=== PATIENT | female | born 1945 | race African-American/Black ===

== ENCOUNTER 2016-11-06 13:06 | Emergency (ER) | payer MEDICARE, OTHER ==
[~2016-11-06] VITALS: Ht 165.1 cm; Wt 102.3 kg
[~2016-11-06 13:06] MED LIST: 1-ME1LIQ PO; ASPI81TA82 PO; FURO20TA PO; GLUC10TA3 PO; GLUCTAB PO; HYDR10SO PO; MULT-65 PO; PRIL40CA PO; RIVA10 PO; Z.0.CPM; Z.0.WALKERFRONT
[2016-11-06 13:10] VITALS: BP 181/81; PULSE 98; RESP 18; TEMP 97.7; O2SAT 96
[2016-11-06 13:30] VITALS: BP 178/81; PULSE 89; RESP 16; O2SAT 99
[2016-11-06] MEDS ORDERED: HYDR-3516 PO (13:39)
[2016-11-06] MEDS ORDERED: OMEP40CA2 PO (13:39)
[2016-11-06] MEDS ORDERED: METF500T PO (13:39)
[2016-11-06] MEDS ORDERED: AMLO10TA2 PO (13:39)
[2016-11-06] MEDS ORDERED: FURO1TAB62 PO (13:39)
[2016-11-06] MEDS ORDERED: ASPI-110 PO (13:39)
[2016-11-06] MEDS ORDERED: EFFE10TA (13:39)
[2016-11-06] MEDS ORDERED: NAPR250T57 PO (13:47)
[2016-11-06] MEDS ORDERED: HYDR-3533 PO (13:47)
--- NOTE | 2016-11-06 13:47 | PD ---
HPI Chief Complaint: Fall Time Seen by Provider: 13:29 Travel History International Travel<30 days: No Contact w/Intl Traveler<30days: No Traveled to known affect area: No History of Present Illness HPI 70 year-old woman presents after a fall 3 days ago, left flank pain that kept her up at night. No other recent falls. She states she's been stable and she' s been walking. She is not quite sure what made her fall. Did bump her head. No LOC. No syncope. Otherwise been doing well. No headache. PFSH Past Medical History Arthritis: Yes Asthma: No Autoimmune Disease: No Anxiety: No Depression: No Heart Rhythm Problems: No Cancer: No Cardiovascular Problems: Yes High Cholesterol: No Chemotherapy: No Chest Pain: No Congestive Heart Failure: No COPD: No Cerebrovascular Accident: No Diabetes: Yes (TYPE 2 ) Patient Takes Glucophage: Yes (11/06/16) Diminished Hearing: No Endocrine: Yes Gastrointestinal Disorders: Yes GERD: Yes Genitourinary: No Hepatitis: No Hiatal Hernia: No Hypertension: Yes Immune Disorder: No Implanted Vascular Access Dvce: Yes Kidney Stones: No Musculoskeletal: Yes Neurologic: No Psychiatric: No Reproductive: No Respiratory: No Migraines: No Radiation Therapy: No Renal Failure: No Seizures: No Sickle Cell Disease: No Sleep Apnea: No Thyroid Disease: No Ulcer: Yes Tetanus Vaccination: < 5 Years Influenza Vaccination: Yes Past Surgical History Abdominal Surgery: No AICD: No Arteriovenous Shunt: No Body Medical Devices: LEFT TOTAL KNEE (THIS ADMISSION) Cardiac Surgery: No Ear Surgery: No Endocrine Surgery: No Eye Surgery: No Genitourinary Surgery: No Gynecologic Surgery: No Insulin Pump: No Joint Replacement: No Oral Surgery: No Pacemaker: No Thoracic Surgery: No Other Surgery: Yes Social History Alcohol Use: No Tobacco Use: No Substance Use: No Allergies-Medications (Allergen,Severity, Reaction): Coded Allergies: No Known Allergies (Verified , 07/16/16) Reported Meds & Prescriptions Reported Meds & Active Scripts Active Reported Effer-K (Potassium Bicarbonate-Citric Acid) 10 Meq Tab Lasix (Furosemide) 20 Mg Tab 20 Mg PO DAILY Aspirin 81 (Aspirin) 81 Mg Tabdr 81 Mg PO DAILY Hydrocodone-Acetaminophen 5-325 mg Tab 1 Tab PO Q6H PRN Omeprazole 40 Mg Cap 40 Mg PO DAILY Amlodipine (Amlodipine Besylate) 10 Mg Tab 10 Mg PO DAILY Metformin (Metformin HCl) 500 Mg Tab 500 Mg PO BIDPC With meals Review of Systems Except as stated in HPI: all other systems reviewed are Neg Physical Exam Narrative GENERAL: Well-appearing 70 year-old woman, no acute distress. SKIN: Warm and dry. HEAD: Normocephalic. No evidence of trauma. EYES: Pupils equal and round. No scleral icterus. No injection or drainage. ENT: No nasal bleeding or discharge. Mucous membranes pink and moist. NECK: Trachea midline. No midline tenderness. Full painless range of motion. CARDIOVASCULAR: Regular rate and rhythm. No murmur appreciated. RESPIRATORY: No accessory muscle use. Clear to auscultation. Breath sounds equal bilaterally. CHEST: Pain and tenderness with palpation of the left side of the chest. No obvious bruising. No point tenderness. GASTROINTESTINAL: Abdomen soft, non-tender, nondistended. Hepatic and splenic margins not palpable. MUSCULOSKELETAL: No obvious deformities. No edema. NEUROLOGICAL: Awake and alert. No obvious cranial nerve deficits. Motor grossly within normal limits. Normal speech. Data Data Last Documented VS Vital Signs Date Time Temp Pulse Resp B/P Pulse Ox O2 Delivery O2 Flow Rate FiO2 11/06/16 13:30 89 16 178/81 99 Room Air 11/06/16 13:10 97.7 Orders Ribs, Uni (W/Exp Cxr-Min 3vw) (11/06/16 ) MDM Medical Decision Making Medical Screen Exam Complete: Yes Emergency Medical Condition: Yes Differential Diagnosis Chest wall pain, contusion, fracture, pneumothorax, other Narrative Course Medical decision making Elderly 70 year-old woman presents with her fall, left-sided chest pain, likely rib contusion or fracture. We'll check x-ray, likely supportive treatment. Diagnosis Primary Impression: Rib pain on left side Additional Instructions: Take Naprosyn as needed for pain. Take Lortab sparingly as needed for severe pain, use caution as it can cause constipation and unsteadiness in increased risk of falls. Follow-up with her primary doctor in the next 2-4 days. Return to the emergency department worsening chest pain, trouble breathing, or any other new or worsening symptoms. Med/Other Pt SpecificInfo: Prescription(s) given Scripts Naproxen (Naprosyn)250 Mg [id number] Mg PO BID #14 TAB Prov:Sherman Chavis MD 11/06/16 Hydrocodone-Acetaminophen (Lortab)5-325 Mg Tab1-2 Tab PO Q6H PRN (PAIN) #12 TAB Prov:Sherman Chavis MD 11/06/16 Disposition: 01 DISCHARGE HOME Condition: Stable Sherman Chavis MD Nov 06, 2016 13:47
--- NOTE | 2016-11-06 15:46 | RADRPT ---
EXAM DATE/TIME: 11/06/2016 14:01 [facility] COMPARISON: No previous studies available for comparison. INDICATIONS : Generalized Pain, Left Ribs, after fall. MEDICAL HISTORY : None. SURGICAL HISTORY : Fusion, lumbar. left knee replacement ENCOUNTER: Initial ACUITY: 3 days PAIN SCORE: 8/10 LOCATION: Left Ribs. FINDINGS: Multiple views of the left ribs were performed. There is no evidence of displaced fracture. No dest ructive lesions or areas of periosteal thickening are seen. Expiratory view of the chest is negative for pneumothorax. The mediastinal structures are midline. CONCLUSION: Unremarakble examination of the left ribs and chest. Chito Key MD on November 06, 2016 at 15:43 Board Certified Radiologist. This report was verified electronically.
== END 2016-11-06 14:59 | disposition home or self-care (01) ==
LOC: NEPC 13:06
DX: R07.81 Pleurodynia (principal); E11.9 Type 2 diabetes mellitus without complications; I10 Essential (primary) hypertension; W19.XXXA Unspecified fall, initial encounter
CPT/HCPCS: 71101; 99284

== ENCOUNTER → 2017-09-27 | Outpatient (CLI) | payer MEDICARE, OTHER ==
[~2017-09-27] MED LIST changes: -1-ME1LIQ PO; +AMLO10TA2 PO; +ASPI1TAB57 PO; -ASPI81TA82 PO; +EFFE10TA; +FURO1TAB62 PO; -FURO20TA PO; -GLUC10TA3 PO; -GLUCTAB PO; +HYDR-3516 PO; +HYDR-3533 PO; -HYDR10SO PO; +METF500T PO; -MULT-65 PO; +NAPR250T57 PO; +OMEP40CA2 PO; -PRIL40CA PO; -RIVA10 PO; -Z.0.CPM; -Z.0.WALKERFRONT
--- NOTE | 2017-09-27 15:46 | EKG ---
Date Performed: 09/27/2017 Time Performed: 15:09:30 PTAGE: 72 years EKG: Sinus rhythm NONSPECIFIC T-WAVE ABNORMALITY BORDERLINE ECG No significant change from prior electrocardiogram. PREVIOUS TRACING : 08/02/2016 19.27 DOCTOR: Bryce Valencia Interpretating Date/Time 09/27/2017 15:45:54
== END ==
LOC: CLAB 14:28
PROVIDERS: ATTEND Orthopaedic Surgery Orthopaedic Surgery of the Spine
DX: Z01.810 Encounter for preprocedural cardiovascular examination (principal)
CPT/HCPCS: 93005

== ENCOUNTER 2017-11-14 12:24 | Inpatient (IN) | payer MEDICARE, OTHER ==
[~2017-11-14] VITALS: Ht 165.1 cm; Wt 111.0 kg
[~2017-11-14 12:24] MED LIST changes: +DEXAMETHASONE SOD PHOS 4 MG/ML VIAL IV ONE; +GLYCOPYRROLATE 1 MG/5 ML SYRINGE IV PUSH ONE; -HYDR-3516 PO; -HYDR-3533 PO; +LIDOCAINE HCL 1% PF 5 ML SYRINGE OTHER ONE; -NAPR250T57 PO; +NEOSTIGMINE 5 MG/5 ML SYRINGE IV PUSH ONE; +ONDANSETRON HCL 4 MG/2 ML VIAL IV PUSH ONE; +PROPOFOL 200 MG/20 ML AMP IV ONE; +ROCURONIUM INJ 50 MG/5 ML SYRINGE IV PUSH ONE; +ePHEDrine/NS 25 MG/5 ML SYRINGE IV ONE
[2017-11-14] MEDS ORDERED: POVIDONE IODINE 5% (ANTISEPSIS KIT) 4 APPLICATIONS EACH NARE PRN (13:00)
[2017-11-14] MEDS ORDERED: LACTATED RINGER'S 1000 ML IV PRN (13:00)
[2017-11-14] MEDS ORDERED: CHLORHEXIDINE GLUCONATE 2 % 1 PACK (2 CLOTHS) TOPICAL PRN (13:00)
[2017-11-14] MEDS ORDERED: METOPROLOL TARTRATE 25 MG TAB PO PRN (13:00)
[2017-11-14] MEDS ORDERED: SODIUM CHLORID 0.9% 500 ML IV PRN (13:00)
[2017-11-14] MEDS ORDERED: INSULIN HUMAN REGULAR 1,000 UNITS/10 ML VIAL SQ PRN (13:00)
[2017-11-14] MEDS ORDERED: ceFAZolin 2 GM PREMIX 50 ML IV SCH (13:15)
[2017-11-14] MEDS ORDERED: CHLORHEXIDINE GLUCONATE 4% SOLN 120 ML BTL TOPICAL SCH (13:15)
[2017-11-14] MEDS ORDERED: ROPIVACAINE PERI-ARTICULAR INJECTION. P-ARTICULR SCH ×5 (14:00)
[2017-11-14] MEDS ORDERED: ACETAMINOPHEN 1000 MG/100 ML 100 ML IV ONE (14:03)
[2017-11-14] MEDS ORDERED: GENTAMICIN SULFATE 80 MG/2 ML VIAL ONE (14:07)
[2017-11-14] MEDS ORDERED: DEXAMETHASONE SOD PHOS PF 10 MG/ML VIAL ONE (15:14)
[2017-11-14] MEDS ORDERED: BUPIVACAINE HCL PF 0.5% 30 ML VIAL ONE ×2 (15:14→16:14)
[2017-11-14] MEDS: VANCOMYCIN 1000 MG/NS 250 ML (for <70 kg) IV SCH ×4 (17:05→17:06)
[2017-11-14] MEDS ORDERED: ALUMINUM/MAGNESIUM/SIMETH 30 ML CUP PO PRN (18:30)
[2017-11-14] MEDS ORDERED: ZOLPIDEM TARTRATE 5 MG TAB PO PRN (18:30)
[2017-11-14] MEDS ORDERED: MORPHINE SULFATE 4 MG/ML INJ IM PRN (18:30)
[2017-11-14] MEDS ORDERED: ONDANSETRON HCL 4 MG/2 ML VIAL IVP PRN (18:30)
--- NOTE | 2017-11-14 18:34 | HHI.PR ---
Immediate Post Op Note Procedure Date: Nov 14, 2017 Pre Op Diagnosis: L Malfunctioning TKR Post Op Diagnosis: Same Surgeon: Scott Martin MD Delivery Analyst(s): Alma Cantu PA-C Procedure: L Revisional TKR Complications: None Specimen(s) removed: None Estimated blood loss: 25 cc Anesthesia: General, Regional Block, Local Drains: Hemovac Tourniquet time (min at mmHg) 60 mins @ 300 mm Hg Patient to: PACU Patient Condition: Good Implant/Devices: SEE IMPLANT LOG (if applicable) Date/Time of Procedure: SEE SURGICAL CARE RECORD Scott Martin MD Nov 14, 2017 18:34
[2017-11-14] MEDS ORDERED: DO NOT ADM ANY ANTICOAGULANT DRUGS PRN (18:37)
--- NOTE | 2017-11-14 18:43 | HHI.FF ---
Face to Face Verification Diagnosis: (1) Painful total knee replacement, left Physical Therapy Gait training, Transfer training, bed to chair Knee: Total knee, Protocol: Left, Full weight bearing Right LE Weight Bearing: WB as tolerated Left LE Weight Bearing: WB as tolerated Additional Instructions Aspirin 81 mg BID x 4 weeks DVT prop Nursing RN Days per Week: 3 x Week(s): 4 Nursing: Dressing changes (clean incison with alcohol and apply dry sterile dressing ) I have seen patient Porsha Miner on 11/14/17. My clinical findings support the need for the requested home health care services because: Deconditioned w/ increased weakness I certify that my clinical findings support that this patient is homebound because: Post-op weakness Scott Martin MD Nov 14, 2017 18:42
[2017-11-14] MEDS ORDERED: WALKER WHEELS/F1 MIS (18:45)
[2017-11-14] MEDS ORDERED: CPMMACHINE (18:45)
[2017-11-14] MEDS ORDERED: Post-op Orders (for Pharmacy) XX ONE (19:00)
[2017-11-14] MEDS ORDERED: *morphine SULFATE 10 MG/ML PERIprocedure ONLY ONE (19:03)
[2017-11-14] MEDS: LACTATED RINGER'S 1000 ML INJ 1,000 ML IV SCH (19:11)
--- NOTE | 2017-11-14 19:21 | RADRPT ---
EXAM DATE/TIME: 11/14/2017 18:49 [facility] COMPARISON: KNEE LEFT LTD (1 OR 2VWS), July 30, 2016, 10:44. INDICATIONS : Post op left knee. MEDICAL HISTORY : None. SURGICAL HISTORY : None. ENCOUNTER: Initial ACUITY: 1 day PAIN SCORE: 10/10 LOCATION: Left knee. FINDINGS: 2 views of the knee show a total knee prosthesis in good position. No fracture or dislocation is obse rved. Soft tissue swelling is noted. The surgical drain noted. CONCLUSION: Total knee arthroplasty in good position. Vikram Ramos Jr., MD on November 14, 2017 at 19:18 Board Certified Radiologist. This report was verified electronically.
[2017-11-14 20:00] VITALS: BP 162/64; PULSE 73; RESP 15; TEMP 96.2; O2SAT 95
[2017-11-14] MEDS ORDERED: ASPIRIN EC 81 MG TABEC PO ONE (20:00)
[2017-11-14] MEDS: ACETAMINOPHEN/HYDROcodone 325 MG/10 MG TAB PO PRN (21:42)
[2017-11-15] VITALS (8 sets, daily range): BP systolic 120–138; BP diastolic 56–64; PULSE 61–74; RESP 16–20; TEMP 96.2–98.1; O2SAT 96–100
[2017-11-15] MEDS: ACETAMINOPHEN/HYDROcodone 325 MG/10 MG TAB PO PRN ×5 (01:56→23:30)
--- NOTE | 2017-11-15 02:48 | PD.CONS ---
HPI [facility] Consult Requested By Mario Reason for Consult Medical management Primary Care Physician Danial Bhardwaj, Diagnoses: History of Present Illness 72 y/o female with a history of HTN, DM, Gerd, diverticulitis and OA underwent a revisional Left TKR, [facility] was consulted for medical management of chronic conditions. Review of Systems Except as stated in HPI: all other systems reviewed are Neg Past Family Social History Allergies: Coded Allergies: No Known Allergies (Verified Allergy, Mild, 11/14/17) Past Medical History DM II HTN Diverticulosis Gastric nodule Hiatal ulcer Allergic rhinitis Lumbar disc disease OA EGD with dilatation Past Surgical History Lumbar fusion Left total knee Reported Medications Reported Meds & Active Scripts Active Reported Effer-K (Potassium Bicarbonate-Citric Acid) 10 Meq Tab Lasix (Furosemide) 20 Mg Tab 20 Mg PO DAILY Aspirin 81 (Aspirin) 81 Mg Tabdr 81 Mg PO DAILY Omeprazole 40 Mg Cap 40 Mg PO DAILY Amlodipine (Amlodipine Besylate) 10 Mg Tab 10 Mg PO DAILY Metformin (Metformin HCl) 500 Mg Tab 500 Mg PO BIDPC With meals Active Ordered Medications Current Medications Medications (Trade) Dose Ordered Sig/Levi Route Start Time Stop Time Status Last Admin Lactated Ringer's 1,000 ml @ 30 mls/hr Q24H PRN IV 11/14/17 13:00 11/17/17 12:59 11/14/17 13:00 Sodium Chloride 500 ml @ 30 mls/hr [id number] PRN IV 11/14/17 13:00 11/17/17 12:59 (Lopressor) 25 mg BANK CLERK PRN PO 11/14/17 13:00 11/17/17 12:59 (Betadine 5% Antisepsis Kit) 1 applic BANK CLERK PRN EACH NARE 11/14/17 13:00 11/17/17 12:59 11/14/17 13:25 (Chlorhexidine 2% Cloth) 3 pack BANK CLERK PRN TOPICAL 11/14/17 13:00 11/17/17 12:59 11/14/17 12:45 (NovoLIN R INJ) See Protocol Table ... BANK CLERK PRN SQ 11/14/17 13:00 11/17/17 12:59 (Hibiclens 4% Top Soln) 1 applic ONCE TOPICAL 11/14/17 13:15 11/17/17 13:14 11/14/17 13:25 Cefazolin Sodium/ Dextrose 50 ml @ 100 mls/hr BANK CLERK IV 11/14/17 13:15 11/17/17 13:14 11/14/17 17:04 Vancomycin HCl 1000 mg/Sodium Chloride 250 ml @ 250 mls/hr BANK CLERK IV 11/14/17 13:15 11/17/17 13:14 11/14/17 17:06 (Norvasc) 10 mg DAILY PO 11/15/17 09:00 (Lasix) 20 mg DAILY PO 11/15/17 09:00 (Glucophage) 500 mg BIDPC PO 11/15/17 09:00 (Protonix) 40 mg DAILY PO 11/15/17 09:00 Lactated Ringer's 1,000 ml @ 80 mls/hr [id number] IV 11/14/17 18:30 11/14/17 19:11 Cefazolin Sodium 1000 mg/Sodium Chloride 100 ml @ 200 mls/hr Q6H IV 11/14/17 23:00 11/15/17 11:29 11/14/17 22:24 ([place] 10-325 Mg) 1 tab Q4H PRN PO 11/14/17 18:30 11/15/17 01:56 ([place] 10-325 Mg) 2 tab Q6H PRN PO 11/14/17 18:30 (Zofran Inj) 4 mg Q6H PRN IVP 11/14/17 18:30 (Mag-Al Plus Susp Liq) 30 ml Q6H PRN PO 11/14/17 18:30 (Ambien) 5 mg HS PRN PO 11/14/17 18:30 (Ecotrin Ec) 81 mg Q12H PO 11/15/17 07:00 Miscellaneous Information ALL NURSING DEPARTME... UNSCH PRN .XX 11/14/17 18:37 11/15/17 18:36 (Flu (Quadrivalent) Vaccine Inj) 0.5 ml ONCE ONCE IM 11/15/17 09:00 11/15/17 09:01 Family History Family history significant for cancer Social History Patient denies any tobacco, alcohol, or illicit drug use. Physical Exam Vital Signs Vital Signs Date Time Temp Pulse Resp B/P (MAP) Pulse Ox O2 Delivery O2 Flow Rate FiO2 11/14/17 19:28 98.0 65 14 152/67 (95) 100 Nasal Cannula 2 11/14/17 19:15 63 14 148/56 (86) 100 Nasal Cannula 2 11/14/17 19:00 67 14 164/72 (102) 100 Nasal Cannula 2 11/14/17 18:45 73 13 165/74 (104) 100 Nasal Cannula 2 11/14/17 18:37 98.0 77 20 158/67 (97) 100 Nasal Cannula 2 11/14/17 12:59 97.5 72 18 149/64 (92) 99 Physical Exam GENERAL: This is a well-nourished, well-developed patient, in no apparent distress. SKIN: No rashes, ecchymoses or lesions. Cool and dry. CKS in place HEAD: Atraumatic. Normocephalic. EYES: Pupils equal round and reactive. ENT: Nose without bleeding, purulent drainage or septal hematoma. Airway patent. NECK: Trachea midline. No JVD or lymphadenopathy. Supple, nontender, no meningeal signs. CARDIOVASCULAR: Regular rate and rhythm without murmurs, gallops, or rubs. RESPIRATORY: Clear to auscultation. Breath sounds equal bilaterally. No wheezes , rales, or rhonchi. GASTROINTESTINAL: Abdomen soft, non-tender, nondistended. MUSCULOSKELETAL: Extremities without clubbing, cyanosis, or edema. Left knee joint tenderness. No calf tenderness. Negative Homans sign bilaterally. NEUROLOGICAL: Awake and alert. Motor and sensory grossly within normal limits. Normal speech. Imaging Last Impressions Knee X-Ray 11/14/17 1830 Signed Impressions: Service Date/Time: Tuesday, November 14, 2017 18:49 - CONCLUSION: Total knee arthroplasty in good position. Vikram Ramos Jr., MD Assessment and Plan Problem List: (1) Osteoarthritis of left knee ICD Code: M17.9 - Osteoarthritis of knee, unspecified Status: Acute (2) Status post left knee replacement ICD Code: Z96.652 - Presence of left artificial knee joint Status: Acute (3) Diabetes ICD Code: E11.9 - Type 2 diabetes mellitus without complications Status: Chronic (4) Hypertension ICD Code: I10 - Essential (primary) hypertension Status: Chronic Assessment and Plan 72 y/o female with a history of HTN, DM, Gerd, diverticulitis and OA underwent a revisional Left TKR, [facility] was consulted for medical management of chronic conditions. Osteoarthritis of left knee, s/p left knee replacement -Managed by ortho, cont CKS -Pain management with [facility] PO -PT eval and treat HTN, chronic, mildly elevated due to pain -Cont home medications Norvasc -Monitor vitals DM, chronic -Cont home medications -Diabetic diet -BMP in AM DVT prophylaxis: SCDs Discussed Condition With Patient and RN Problem Qualifiers (1) Diabetes: Qualified Codes: E11.9 - Type 2 diabetes mellitus without complications (2) Hypertension: Qualified Codes: I10 - Essential (primary) hypertension Selma Hollins Nov 15, 2017 02:48
[2017-11-15] MEDS: ASPIRIN EC 81 MG TABEC PO SCH ×2 (06:28→17:26)
[2017-11-15] MEDS: LACTATED RINGER'S 1000 ML INJ 1,000 ML IV SCH ×2 (07:00→19:30)
--- NOTE | 2017-11-15 07:08 | PD.ORT.PN ---
Subjective Subjective Remarks POD#1 L Rev TKR No SOB;no chest pain C/O post op pain Objective Vitals Vital Signs Date Time Temp Pulse Resp B/P (MAP) Pulse Ox O2 Delivery O2 Flow Rate FiO2 11/15/17 00:00 96.2 74 16 123/61 (81) 99 11/14/17 20:00 96.2 73 15 162/64 (96) 95 11/14/17 19:28 98.0 65 14 152/67 (95) 100 Nasal Cannula 2 11/14/17 19:15 63 14 148/56 (86) 100 Nasal Cannula 2 11/14/17 19:00 67 14 164/72 (102) 100 Nasal Cannula 2 11/14/17 18:45 73 13 165/74 (104) 100 Nasal Cannula 2 11/14/17 18:37 98.0 77 20 158/67 (97) 100 Nasal Cannula 2 11/14/17 12:59 97.5 72 18 149/64 (92) 99 I/O 11/14/17 11/14/17 11/14/17 11/15/17 11/15/17 11/15/17 07:00 15:00 23:00 07:00 15:00 23:00 Intake Total 830 ml Output Total 25 ml 80 ml Balance 805 ml -80 ml Intake IV Total 130 ml Other 700 ml Output Drainage Total 80 ml Estimated Blood Loss 25 ml Imaging Last 24 hours Impressions Knee X-Ray 11/14/17 1830 Signed Impressions: Service Date/Time: Tuesday, November 14, 2017 18:49 - CONCLUSION: Total knee arthroplasty in good position. Vikram Ramos Jr., MD Objective Remarks N/V intact Dressings dry Neg dione's;no calf tenderness Assessment & Plan Assessment and Plan Ortho stable PT,Rehab EC Aspirin 81 mg BIDx4 weeks,TEDS,Sequentials for DVT prophylaxsis Prob D/C home tomorrow Scott Martin MD Nov 15, 2017 07:08
[2017-11-15 07:36] LABS: HEMATOCRIT 29.9 % (35.0-46.0)
[2017-11-15 07:56] LABS: BICARBONATE 26.6 MEQ/L (21.0-32.0); CALCIUM 8.2 MG/DL (8.5-10.1)
[2017-11-15] MEDS ORDERED: INFLUENZA VIRUS VACCINE (QUADRIVALENT) 0.5 ML SYR IM ONE (09:00)
[2017-11-15] MEDS ORDERED: NON-FORMULARY DRUG (Omeprazole 40 MG) PO SCH (09:00)
[2017-11-15] MEDS: FUROSEMIDE 20 MG TAB PO SCH (10:59)
[2017-11-15] MEDS: PANTOPRAZOLE SOD 40 MG DELAYED RELEASE TAB PO SCH (10:59)
[2017-11-15] MEDS: metFORMIN HCL 500 MG TAB PO SCH ×2 (11:00→17:27)
--- NOTE | 2017-11-15 11:58 | HHI.PR ---
Subjective Remarks Blood pressures are stable now. Blood sugars are stable. Patient is doing well postop. Plan for discharge tomorrow. Medically clear for discharge. Objective Vital Signs Date Time Temp Pulse Resp B/P (MAP) Pulse Ox O2 Delivery O2 Flow Rate FiO2 11/15/17 11:54 97.2 61 18 120/56 (77) 100 11/15/17 09:16 98 11/15/17 07:48 97.4 66 18 127/59 (81) 100 11/15/17 07:29 16 11/15/17 04:00 96.9 72 16 127/ 99 11/15/17 00:00 96.2 74 16 123/61 (81) 99 11/14/17 20:00 96.2 73 15 162/64 (96) 95 11/14/17 19:28 98.0 65 14 152/67 (95) 100 Nasal Cannula 2 11/14/17 19:15 63 14 148/56 (86) 100 Nasal Cannula 2 11/14/17 19:00 67 14 164/72 (102) 100 Nasal Cannula 2 11/14/17 18:45 73 13 165/74 (104) 100 Nasal Cannula 2 11/14/17 18:37 98.0 77 20 158/67 (97) 100 Nasal Cannula 2 11/14/17 12:59 97.5 72 18 149/64 (92) 99 I/O 11/14/17 11/14/17 11/14/17 11/15/17 11/15/17 11/15/17 07:00 15:00 23:00 07:00 15:00 23:00 Intake Total 830 ml 200 ml Output Total 25 ml 110 ml Balance 805 ml 90 ml Intake Oral 200 ml IV Total 130 ml Other 700 ml Output Drainage Total 110 ml Estimated Blood Loss 25 ml # Voids 2 Result Diagram: 11/15/17 0711 11/15/17 0711 Objective Remarks GENERAL: NAD, A&Ox3 HEAD: Normocephalic. NECK: Supple, trachea midline. No lymphadenopathy. EYES: No scleral icterus. No injection or drainage. CARDIOVASCULAR: Regular rate and rhythm without murmurs, gallops, or rubs. RESPIRATORY: Breath sounds equal bilaterally. No accessory muscle use. GASTROINTESTINAL: Abdomen soft, non-tender, nondistended. MUSCULOSKELETAL: No cyanosis, or edema. SKIN: Warm and dry. NEURO: No focal neurological deficitis. A/P Problem List: (1) Hypertension ICD Code: I10 - Essential (primary) hypertension Status: Chronic (2) Diabetes ICD Code: E11.9 - Type 2 diabetes mellitus without complications Status: Chronic (3) Osteoarthritis of left knee ICD Code: M17.9 - Osteoarthritis of knee, unspecified Status: Acute (4) Painful total knee replacement, left ICD Code: T84.84XA - Pain due to internal orthopedic prosthetic devices, implants and grafts, initial encounter; Z96.652 - Presence of left artificial knee joint Assessment and Plan 72 y/o female admitted secondary to osteoarthritis for left knee replacement Osteoarthritis of left knee s/p left knee replacement Orthopedics following Continue pain treatments Continue physical therapy Medically clear for discharge when cleared by orthopedics Follow-up with orthopedics as an outpatient Hypertension Resumed home treatments DM Continue home treatments DVT prophylaxis SCDs Problem Qualifiers (1) Hypertension: Qualified Codes: I10 - Essential (primary) hypertension (2) Diabetes: Qualified Codes: E11.9 - Type 2 diabetes mellitus without complications (3) Painful total knee replacement, left: Qualified Codes: T84.84XD - Pain due to internal orthopedic prosthetic devices , implants and grafts, subsequent encounter; Z96.652 - Presence of left artificial knee joint Chele Rios MD Nov 15, 2017 11:58
[2017-11-15] MEDS ORDERED: HYDR-3583 PO (11:59)
[2017-11-15] MEDS ORDERED: DOCU100C15 PO (11:59)
[2017-11-15 13:14] LABS: AUTOMATED NEUTROPHIL # 7.4 TH/MM3 (1.8-7.7); BASOPHIL # 0.1 TH/MM3 (0-0.2); BASOPHIL % 1.3 % (0.0-2.0); EOSINOPHIL % 0.1 % (0.0-4.0); HEMATOCRIT 29.9 % (35.0-46.0); LYMPHOCYTE # 1.9 TH/MM3 (1.0-4.8); MEAN CELL VOLUME 92.2 FL (80.0-100.0); MEAN CORPUSCULAR HEMOGLOBIN 29.7 PG (27.0-34.0); MEAN CORPUSCULAR HGB CONC 32.2 % (32.0-36.0); MEAN PLATELET VOLUME 8.9 FL (7.0-11.0); MONO % 6.2 % (0.0-8.0); MONOCYTE # 0.6 TH/MM3 (0-0.9); NEUT % 73.4 % (16.0-70.0); PLATELET COUNT 230 TH/MM3 (150-450); RED BLOOD COUNT 3.31 MIL/MM3 (4.00-5.30); RED CELL DISTRIBUTION WIDTH 14.7 % (11.6-17.2); WHITE BLOOD COUNT 10.1 TH/MM3 (4.0-11.0)
--- NOTE | 2017-11-15 14:29 | MP ---
cc: MORENO LOVING D.O., ALBERT W. M.D. DATE OF SURGERY 11/14/2017 PREOPERATIVE DIAGNOSIS 1. Left malfunctioning total knee arthroplasty. 2. Status post left total knee arthroplasty by Dr. Jimenez on July 30, 2015. 3. Morbid obesity. POSTOPERATIVE DIAGNOSIS 1. Left malfunctioning total knee arthroplasty. 2. Status post left total knee arthroplasty by Dr. Jimenez on July 30, 2015. 3. Morbid obesity. PROCEDURE Left total knee arthroplasty revision using cemented DePuy Sigma components. SURGEON Lucrecia Martin M.D. DRUM MAKER Alma Cantu PA-C. ANESTHESIA General, abductor canal block, intraarticular block. DRAINS Two. SPECIMEN None. ESTIMATED BLOOD LOSS 25 cc. TOURNIQUET TIME 60 minutes at 300 mmHg. CONDITION Stable. DETAILS OF PROCEDURE My magistrate assistant Alma Cantu PA-C was present for the entire surgical case. She was medically necessary for the entire case because of the complexity of the case and to facilitate the performance of the procedure. The GEOLOGY ASSOCIATE at the back table did not have the skill set for this case to manipulate the instruments, e.g., multiple different types of soft tissue retractors, trial implants and permanent implants with bone cement. The patient was brought into the operating room and had satisfactory general anesthesia by Dr. Rajeev Aldridge of the Department of Anesthesia. He also did an adductor canal regional block. The left lower extremity was prepped and draped in the usual sterile manner. The extremity was exsanguinated by elevation and tourniquet inflated to 300 mmHg. Previous scar tissue anteriorly was surgically excised. A paramedian capsulotomy was performed. Scar tissue was removed from the undersurface of the patella and then also from the femur and the tibial component. Preoperatively the patient was found to have predominantly anterior knee pain. She had what appeared to be malposition of the patella with subluxation of the patella. The depth of the patella caliper was equal to 33 mm. Dissection was carried out initially on the tibia. The polyethylene plastic was removed. The patient was found to have wear involving the posterior lip bilaterally. A new #3 DePuy Sigma tibial component, tibial insert 8 mm with maximum cupping. Soft tissue was removed. This was inserted onto the proximal tibia with excellent fit and fill. Attention was now brought to the patella. A lateral retinacular release was performed. The patient appeared to have malposition of the patella component. The patient was found to have more thickness of the bone laterally. The overall thickness from the patellar prosthesis with the bone appeared to be too much. An oscillating saw was then used to re-cut the patella which included removing the patellar prosthesis. Multiple sizers were used and the 35 patellar prosthesis was found to be the most satisfactory. The drill holes were made. One package of Palacos bone cement was used and this was used to cement in the prosthesis. With the no-thumbs technique the patient was found to have excellent balancing of the patellofemoral compartment. The knee was injected with 100 cc of local anesthesia provided by the Department of Pharmacy. The wound was irrigated with 4000 cc of sterile saline antibiotic solution. The tourniquet was deflated. All bleeders were individually coagulated. The wound itself was dry. It was closed over two Hemovac drains hooked up to an Autovac-type system. The capsule and extensor mechanism was repaired using multiple interrupted #2 Tycron suture, the subcutaneous layers using 0 Vicryl 2-0 Vicryl, and the skin approximated with multiple stainless steel skin alex. Sterile dressings were applied. The patient tolerated the procedure well and arrived in the recovery room in stable and satisfactory condition. MD MARCELINO Rowan/LAURY /6:12 PM /9:59 AM
[2017-11-16] VITALS: BP 118/58; PULSE 73; RESP 20; TEMP 97.9; O2SAT 94
[2017-11-16] MEDS ORDERED: MAGNESIUM HYDROXIDE SUSP 30 ML CUP PO PRN (01:15)
[2017-11-16] MEDS: ACETAMINOPHEN/HYDROcodone 325 MG/10 MG TAB PO PRN ×2 (06:07→12:32)
[2017-11-16] MEDS: ASPIRIN EC 81 MG TABEC PO SCH (06:08)
--- NOTE | 2017-11-16 07:43 | PD.ORT.PN ---
Subjective Subjective Remarks pt doing better, post op knee pain ambulating well with therapy Objective Vitals Vital Signs Date Time Temp Pulse Resp B/P (MAP) Pulse Ox O2 Delivery O2 Flow Rate FiO2 11/16/17 00:00 97.9 73 20 118/58 (78) 94 11/15/17 20:09 96 21 11/15/17 20:00 98.1 70 20 138/64 (88) 96 11/15/17 16:00 97.0 73 18 138/62 (87) 96 11/15/17 12:01 16 11/15/17 11:54 97.2 61 18 120/56 (77) 100 11/15/17 09:16 98 11/15/17 07:48 97.4 66 18 127/59 (81) 100 I/O 11/15/17 11/15/17 11/15/17 11/16/17 11/16/17 11/16/17 07:00 15:00 23:00 07:00 15:00 23:00 Intake Total 200 ml 720 ml 120 ml Output Total 110 ml 200 ml Balance 90 ml 720 ml -80 ml Intake Oral 200 ml 720 ml 120 ml Output Urine Total 200 ml Drainage Total 110 ml # Voids 2 2 # Bowel Movements 0 0 Result Diagram: 11/15/17 0711 11/15/17 0711 Imaging Last 24 hours Impressions Knee X-Ray 11/14/17 1830 Signed Impressions: Service Date/Time: Tuesday, November 14, 2017 18:49 - CONCLUSION: Total knee arthroplasty in good position. Vikram Ramos Jr., MD Objective Remarks left knee dressing dry and intact N/V intact Neg dione's;no calf tenderness Assessment & Plan Assessment and Plan POD # 2 s/p L rev TKA Ortho stable PT,Rehab EC Aspirin 81 mg BIDx4 weeks,TEDS,Sequentials for DVT prophylaxsis discharge home today with [facility], orthopedically stable Alma Cantu Nov 16, 2017 07:43
[2017-11-16 08:00] VITALS: BP 134/64; PULSE 72; RESP 16; TEMP 97.6; O2SAT 94
[2017-11-16] MEDS: LACTATED RINGER'S 1000 ML INJ 1,000 ML IV SCH (08:00)
[2017-11-16] MEDS: metFORMIN HCL 500 MG TAB PO SCH (10:46)
[2017-11-16] MEDS: FUROSEMIDE 20 MG TAB PO SCH (10:47)
[2017-11-16] MEDS: PANTOPRAZOLE SOD 40 MG DELAYED RELEASE TAB PO SCH (10:47)
[2017-11-16 10:53] VITALS: O2SAT 94
== END 2017-11-16 14:48 | disposition home health service (06) | DRG 467 ==
LOC: HSDI 12:24 → N06B 19:44
PROVIDERS: ADMIT Orthopaedic Surgery Orthopaedic Surgery of the Spine; ATTEND Orthopaedic Surgery Orthopaedic Surgery of the Spine
PROC: 0SRW0J9 Replacement of Left Knee Joint, Tibial Surface with Synthetic Substitute, Cemented, Open Approach (ICD-10-PCS; 2017-11-14)
PROC: 0SPW0JZ Removal of Synthetic Substitute from Left Knee Joint, Tibial Surface, Open Approach (ICD-10-PCS; 2017-11-14)
PROC: 0SUD09C Supplement Left Knee Joint with Liner, Patellar Surface, Open Approach (ICD-10-PCS; 2017-11-14)
PROC: 3E0T3BZ Introduction of Anesthetic Agent into Peripheral Nerves and Plexi, Percutaneous Approach (ICD-10-PCS; 2017-11-14)
PROC: 0SPD0JC Removal of Synthetic Substitute from Left Knee Joint, Patellar Surface, Open Approach (ICD-10-PCS; principal; 2017-11-14 16:04)
DX: T84.023A Instability of internal left knee prosthesis, initial encounter (principal); Z68.41 Body mass index [BMI] 40.0-44.9, adult; E11.9 Type 2 diabetes mellitus without complications; E66.01 Morbid (severe) obesity due to excess calories; I10 Essential (primary) hypertension; K21.9 Gastro-esophageal reflux disease without esophagitis; Y83.8 Other surgical procedures as the cause of abnormal reaction of the patient, or of later complication, without mention of misadventure at the time of the procedure; M17.12 Unilateral primary osteoarthritis, left knee; Z23 Encounter for immunization; Z79.84 Long term (current) use of oral hypoglycemic drugs
CPT/HCPCS: 36415; 73560; 80048; 82948; 85014; 85018; 85025; 86850; 86900; 86901; 86920; 90471; 90686; 94150; C1776; G0008; J0131; J0690; J0735; J1100; J1580; J1885; J2270; J2405; J2710; J2795; J3010; J3370; J7050; J7120; L1830; Q2038

== ENCOUNTER 2018-09-28 16:11 | Inpatient (IN) ==
[2018-09-28] MEDS ORDERED: MethylPREDNISolone Sod Succinate Inj 125 MG/2 ML Vial IV.PUSH ONE (16:43)
--- NOTE | 2018-09-28 16:53 | ED ---
HPI General Chief complaint: Shortness of Breath/Dyspnea Stated complaint: SOB Time Seen by Provider: 09/28/18 16:42 Source: patient Mode of arrival: ambulatory Limitations: no limitations History of Present Illness HPI narrative: 73yo F with PMH of HTN, DM presents to the ED with c/o cough and sob for a few days. Pt was initially saturating at 77% on RA in triage and was in the the 60s in the room. However, I placed her on nasal cannula and it went up to 100% on 6L, then I lowered it to 3L and she is still saturating in the 90s. Pt is tachypneic, wheezing bilaterally and hypertensive. Follows with paste up artist apprentice Dr. Ortiz but does not know why and doesnt know what heart condition she has. Used to be cig smoker. BIPAP was initially ordered but pt improved on nasal cannula so it was left at bedside in case we need it. Related Data Home Medications Medication Instructions Recorded Confirmed amlodipine 10 mg PO DAILY 09/28/18 09/28/18 carvedilol [Coreg] 3.125 mg PO BID 09/28/18 09/28/18 ergocalciferol (vitamin D2) 50,000 unit PO QWEEK 09/28/18 09/28/18 [Vitamin D2] furosemide [Lasix] 40 mg PO DAILY 09/28/18 09/28/18 losartan 100 mg PO DAILY 09/28/18 09/28/18 meloxicam [Mobic] 15 mg PO DAILY 09/28/18 09/28/18 metformin 1,000 mg PO BID 09/28/18 09/28/18 Allergies Allergy/AdvReac Type Severity Reaction Status Date / Time No Known Allergies Allergy Verified 09/28/18 17:24 Review of Systems ROS: all other systems reviewed are negative [facility] Medical History Medical History Diabetes (Acute) HBP (high blood pressure) (Acute) Surgical History Surgical History Hx of knee surgery (Acute) Social History Social History Substance History: No History of Abuse Second Hand Smoke Exposure: No Smoking Status: Former smoker Tobacco Type: Cigarettes How Often Do You Have a Drink Containing Alcohol: Never Recent Travel in [facility] within the Last 8 Weeks: No Recent Out of Country Travel within the Last 8 Weeks: No Exam Narrative Exam Narrative: GENERAL: 73yo F in moderate distress. SKIN: Focused skin assessment warm/dry. HEAD: Atraumatic. Normocephalic. EYES: Pupils equal and round. No scleral icterus. No injection or drainage. ENT: No nasal bleeding or discharge. Mucous membranes pink and moist. NECK: Trachea midline. No JVD. CARDIOVASCULAR: Regular rate and rhythm. No murmur appreciated. RESPIRATORY: + accessory muscle use. Wheezing bilaterally. GASTROINTESTINAL: Abdomen soft, non-tender, nondistended. Hepatic and splenic margins not palpable. MUSCULOSKELETAL: No obvious deformities. No clubbing. No cyanosis. +Bilateral lower extremity edema. NEUROLOGICAL: Awake and alert. No obvious cranial nerve deficits. Motor grossly within normal limits. Normal speech. PSYCHIATRIC: Appropriate mood and affect; insight and judgment normal. Course Initial Documented Vital Signs Temperature 98.5 F 09/28/18 16:24 Pulse Rate 96 H 09/28/18 16:24 Respiratory Rate 30 H 09/28/18 16:24 Blood Pressure 198/96 H 09/28/18 16:24 Pulse Oximetry 77 L 09/28/18 16:24 Last Documented Vital Signs Temperature 97.5 F L 09/29/18 04:00 Pulse Rate 73 09/29/18 04:00 Respiratory Rate 18 09/29/18 04:00 Blood Pressure 128/60 09/29/18 04:00 Pulse Oximetry 98 09/29/18 04:00 Critical Care Time Critical Care Time: Yes Total Critical Care Time: 45 Attestation: Aggregate critical care time was 45 minutes. Time to perform other separately billable procedures was not included in the critical care time. My time did not include minutes spent treating any other patients simultaneously or on activities that did not directly contribute to the patient's treatment. The services I provided to this patient were to treat and/or prevent clinically significant deterioration that could result in: respiratory distress and . I provided critical care services requiring my management, as noted below: Chart data review, documentation time, medication orders and management, vital sign assessments/reviewing monitor data, ordering and reviewing lab tests, ordering and interpreting/reviewing x-rays and diagnostic studies, care of the patient and discussion of the patient with the admitting physicians. Medical Decision Making MDM Narrative Medical decision making narrative: 73yo F with sob and cough for a few days. Pt initially hypoxic on room air and placed on nasal cannula. Pt's fingers were cold but initial pulse oximetry on room air was in the 70s. Pt quickly improved on nasal cannula. Labs reviewed, leukocytosis at 20.1. H/H low at 11.5/34.8 but this is her baseline. Creatinine elevated at 1.83. CXR showed interstitial prominence. No focal consolidative infiltrate. Impressive is COPD vs. CHF, will give lasix 40mg IV. BNP still pending. Troponin negative at 0.03. Pt wheezing bilatearlly and was a smoker so given duonebs and methylprednisolone. Reevaluated at bedside and feels better. Discussed with resident physicians and accepted to their service. BNP 77. ABG showed respiratory acidosis with pH of 7.29 and CO2 63. This PCO2 is likely chronic. Pt is awake and alert, will lower nasal cannula, pt is saturating at 93% on 2L NC. Medical Screen Exam Complete: Yes Emergency Medical Condition: Yes Differential Diagnosis Differential Diagnosis: COPD exacerbation vs. Pulmonary edema vs. CHF vs. pneumonia Lab Data Result diagrams: 09/29/18 06:52 09/28/18 16:50 Lab Results 09/28/18 09/28/18 09/28/18 Range/Units 16:50 16:50 16:50 WBC 20.1 H (4.0-11.0) th/mm3 RBC 3.79 L (4.00-5.30) mil/mm3 Hgb 11.5 L (11.6-15.3) gm/dL Hct 34.8 L (35.0-46.0) % MCV 91.8 (80.0-100.0) fL MCH 30.3 (27.0-34.0) pg MCHC 33.0 (32.0-36.0) % RDW 14.7 (11.6-17.2) % Plt Count 192 (150-450) th/mm3 MPV 8.6 (7.0-11.0) fL Neut % (Auto) 21.8 (16.0-70.0) % Lymph % (Auto) 15.7 (9.0-44.0) % [place] % (Auto) 3.7 (0.0-8.0) % Eos % (Auto) 58.3 H (0.0-4.0) % Baso % (Auto) 0.5 (0.0-2.0) % Neut # (Auto) 4.4 (1.8-7.7) th/mm3 Lymph # (Auto) 3.2 (1.0-4.8) th/mm3 [place] # (Auto) 0.7 (0.0-0.9) th/mm3 Eos # (Auto) 11.8 H (0.0-0.4) th/mm3 Baso # (Auto) 0.1 (0.0-0.2) th/mm3 WBC Differential Differential Comment Auto diff final Smear Path Review PT 11.5 (9.8-11.6) sec INR 1.1 Ratio APTT 27.5 (23.4-31.7) sec Puncture Site Patient Temperature O2 Saturation (90-100) % ABG pH (7.380-7.420) ABG pCO2 (38-42) mmHg ABG pO2 (61-120) mmHg ABG HCO3 (22-26) mmol/L ABG O2 Content (12.0-20.0) Vol % ABG Base Excess (-2-2) mmol/L ABG Methemoglobin (0-2) % Adolfo Test Hemoglobin (12.0-16.0) G/DL Carboxyhemoglobin (0-4) % O2 Delivery Device Liter Flow L/M Critical Value Sodium 142 (136-145) meq/L Potassium 3.8 (3.5-5.1) meq/L Chloride 105 (98-107) meq/L Carbon Dioxide 28.6 (21.0-32.0) meq/L Anion Gap 8 (5-15) meq/L BUN 17 (7-18) mg/dL Creatinine 1.83 H (0.50-1.00) mg/dL Estimated GFR 33 L (>89) mL/min POC Glucose (68-110) mg/dl Random Glucose 112 H (74-106) mg/dL Calcium 8.3 L (8.5-10.1) mg/dL Magnesium 1.3 L (1.5-2.5) mg/dL Total Bilirubin 0.3 (0.2-1.0) mg/dL AST 17 (15-37) U/L ALT 17 (10-53) U/L Alkaline Phosphatase 219 H (45-117) U/L Troponin I 0.03 (0.02-0.05) ng/mL B-Natriuretic Peptide (0-100) pg/mL Total Protein 8.2 (6.4-8.2) g/dL Albumin 3.5 (3.4-5.0) g/dL 09/28/18 09/28/18 09/28/18 Range/Units 16:50 18:50 22:46 WBC (4.0-11.0) th/mm3 RBC (4.00-5.30) mil/mm3 Hgb (11.6-15.3) gm/dL Hct (35.0-46.0) % MCV (80.0-100.0) fL MCH (27.0-34.0) pg MCHC (32.0-36.0) % RDW (11.6-17.2) % Plt Count (150-450) th/mm3 MPV (7.0-11.0) fL Neut % (Auto) (16.0-70.0) % Lymph % (Auto) (9.0-44.0) % [place] % (Auto) (0.0-8.0) % Eos % (Auto) (0.0-4.0) % Baso % (Auto) (0.0-2.0) % Neut # (Auto) (1.8-7.7) th/mm3 Lymph # (Auto) (1.0-4.8) th/mm3 [place] # (Auto) (0.0-0.9) th/mm3 Eos # (Auto) (0.0-0.4) th/mm3 Baso # (Auto) (0.0-0.2) th/mm3 WBC Differential Differential Comment Smear Path Review PT (9.8-11.6) sec INR Ratio APTT (23.4-31.7) sec Puncture Site Right radial Patient Temperature 98.6 O2 Saturation 95 (90-100) % ABG pH 7.29 L* (7.380-7.420) ABG pCO2 63 H* (38-42) mmHg ABG pO2 95 (61-120) mmHg ABG HCO3 30 H (22-26) mmol/L ABG O2 Content 14.6 (12.0-20.0) Vol % ABG Base Excess 3.5 H (-2-2) mmol/L ABG Methemoglobin 0.5 (0-2) % Adolfo Test Present Hemoglobin 10.9 L (12.0-16.0) G/DL Carboxyhemoglobin 1.4 (0-4) % O2 Delivery Device Nasal cannula Liter Flow 3.00 L/M Critical Value Yes Sodium (136-145) meq/L Potassium (3.5-5.1) meq/L Chloride (98-107) meq/L Carbon Dioxide (21.0-32.0) meq/L Anion Gap (5-15) meq/L BUN (7-18) mg/dL Creatinine (0.50-1.00) mg/dL Estimated GFR (>89) mL/min POC Glucose 217 H (68-110) mg/dl Random Glucose (74-106) mg/dL Calcium (8.5-10.1) mg/dL Magnesium (1.5-2.5) mg/dL Total Bilirubin (0.2-1.0) mg/dL AST (15-37) U/L ALT (10-53) U/L Alkaline Phosphatase (45-117) U/L Troponin I (0.02-0.05) ng/mL B-Natriuretic Peptide 77 (0-100) pg/mL Total Protein (6.4-8.2) g/dL Albumin (3.4-5.0) g/dL 09/29/18 09/29/18 Range/Units 06:52 06:52 WBC 7.5 D (4.0-11.0) th/mm3 RBC 3.55 L (4.00-5.30) mil/mm3 Hgb 10.6 L (11.6-15.3) gm/dL Hct 32.0 L (35.0-46.0) % MCV 90.0 (80.0-100.0) fL MCH 29.8 (27.0-34.0) pg MCHC 33.1 (32.0-36.0) % RDW 14.6 (11.6-17.2) % Plt Count 196 (150-450) th/mm3 MPV 8.7 (7.0-11.0) fL Neut % (Auto) 54.4 (16.0-70.0) % Lymph % (Auto) 29.9 (9.0-44.0) % [place] % (Auto) 5.9 (0.0-8.0) % Eos % (Auto) 9.5 H (0.0-4.0) % Baso % (Auto) 0.3 (0.0-2.0) % Neut # (Auto) 4.1 (1.8-7.7) th/mm3 Lymph # (Auto) 2.2 (1.0-4.8) th/mm3 [place] # (Auto) 0.4 (0.0-0.9) th/mm3 Eos # (Auto) 0.7 H (0.0-0.4) th/mm3 Baso # (Auto) 0.0 (0.0-0.2) th/mm3 WBC Differential . Differential Comment Auto diff final Smear Path Review PT (9.8-11.6) sec INR Ratio APTT (23.4-31.7) sec Puncture Site Patient Temperature O2 Saturation (90-100) % ABG pH (7.380-7.420) ABG pCO2 (38-42) mmHg ABG pO2 (61-120) mmHg ABG HCO3 (22-26) mmol/L ABG O2 Content (12.0-20.0) Vol % ABG Base Excess (-2-2) mmol/L ABG Methemoglobin (0-2) % Adolfo Test Hemoglobin (12.0-16.0) G/DL Carboxyhemoglobin (0-4) % O2 Delivery Device Liter Flow L/M Critical Value Sodium (136-145) meq/L Potassium (3.5-5.1) meq/L Chloride (98-107) meq/L Carbon Dioxide (21.0-32.0) meq/L Anion Gap (5-15) meq/L BUN (7-18) mg/dL Creatinine (0.50-1.00) mg/dL Estimated GFR (>89) mL/min POC Glucose (68-110) mg/dl Random Glucose (74-106) mg/dL Calcium (8.5-10.1) mg/dL Magnesium (1.5-2.5) mg/dL Total Bilirubin (0.2-1.0) mg/dL AST (15-37) U/L ALT (10-53) U/L Alkaline Phosphatase (45-117) U/L Troponin I (0.02-0.05) ng/mL B-Natriuretic Peptide (0-100) pg/mL Total Protein (6.4-8.2) g/dL Albumin (3.4-5.0) g/dL Imaging Data Radiologist's impression: Chest X-Ray 09/28/18 16:43 CONCLUSION: Interstitial changes primarily central and similar to prior. ECG Data EKG Prior to Arrival: No Attestation: I personally reviewed and interpreted this ECG as follows: Interpretation: NSR 86bpm. Normal axis. Poor baseline. DC interval 154ms. ST depressions diffusely. No significant ST elevation. Discharge Plan Discharge Disposition Patient Disposition: 30 Still Patient Discharge Details Diagnosis: COPD exacerbation Physicians Team ED Provider: Blanca Bacon Primary Care Provider: Danial Bhardwaj Attending Provider: Majo Banerjee Status ED Status: Left Department Discharge Information Discharge Date/Time: 09/28/18 21:23
[2018-09-28 17:07] LABS: Baso # (Auto) 0.1 th/mm3 (0.0-0.2); Baso % (Auto) 0.5 % (0.0-2.0); Eos # (Auto) 11.8 th/mm3 (0.0-0.4); Eos % (Auto) 58.3 % (0.0-4.0); Hematocrit 34.8 % (35.0-46.0); Hemoglobin 11.5 gm/dL (11.6-15.3); Lymph # (Auto) 3.2 th/mm3 (1.0-4.8); Lymph % (Auto) 15.7 % (9.0-44.0); Mean Corpuscular Hemoglobin 30.3 pg (27.0-34.0); Mean Corpuscular Volume 91.8 fL (80.0-100.0); Mean Platelet Volume 8.6 fL (7.0-11.0); Mono # (Auto) 0.7 th/mm3 (0.0-0.9); Mono % (Auto) 3.7 % (0.0-8.0); Neut # (Auto) 4.4 th/mm3 (1.8-7.7); Neut % (Auto) 21.8 % (16.0-70.0); Platelet Count 192 th/mm3 (150-450); Red Blood Count 3.79 mil/mm3 (4.00-5.30); Red Cell Distribution Width 14.7 % (11.6-17.2); White Blood Count 20.1 th/mm3 (4.0-11.0)
[2018-09-28 17:11] LABS: Activated Partial Thrombo Time 27.5 sec (23.4-31.7); INR 1.1 Ratio; Prothrombin Time 11.5 sec (9.8-11.6)
--- NOTE | 2018-09-28 17:14 | XR ---
EXAM DATE: 09/28/2018 5:10 PM EST AGE/SEX: 73 years / Female INDICATIONS: Dyspnea CLINICAL DATA: This is the patient's initial encounter. Patient reports that signs and symptoms have been present for 3 days and indicates a pain score of 0/10. MEDICAL/SURGICAL HISTORY: Diabetes mellitus type II. Hypertension. None. COMPARISON: [facility], RIBS LEFT(W PA CXR MIN 3VWS), 11/06/2016. . FINDINGS: There is mild central interstitial prominence. No evidence of focal consolidative infiltrate or effus ion. Cardiac contours are satisfactory for technique and projection. CONCLUSION: Interstitial changes primarily central and similar to prior. Electronically signed by: Stephan Mendes MD 09/28/2018 5:13 PM EST
[2018-09-28 17:36] LABS: Albumin 3.5 g/dL (3.4-5.0); Anion Gap 8 meq/L (5-15); Aspartate Aminotransferase 17 U/L (15-37); Blood Urea Nitrogen 17 mg/dL (7-18); Calcium 8.3 mg/dL (8.5-10.1); Carbon Dioxide 28.6 meq/L (21.0-32.0); Chloride 105 meq/L (98-107); Glomerular Filtration Rate 33 mL/min (>89); Glucose,Random 112 mg/dL (74-106); Magnesium 1.3 mg/dL (1.5-2.5); Potassium 3.8 meq/L (3.5-5.1); Sodium 142 meq/L (136-145)
[2018-09-28 17:41] LABS: Alanine Aminotransferase 17 U/L (10-53); Alkaline Phosphatase 219 U/L (45-117); Total Protein 8.2 g/dL (6.4-8.2); Troponin I 0.03 ng/mL (0.02-0.05)
--- NOTE | 2018-09-28 18:17 | P.HPFP ---
History of Present Illness Primary Care Physician: Danial Bhardwaj DO <Majo Banerjee - 09/29/18 11:34> Danial Bhardwaj DO <Sydnee Ramirez - 09/28/18 18:17> History of Present Illness: 73 year old female presents with SOB, and productive cough (white mucous/ no blood) that started on Tuesday. It got progressively worse and she started wheezing on Tuesday until today when she felt fatigued, lightheaded and had diffuse stomach pain. She did not take any medication for her shortness of breath. She is unable to completely state her full HPI due to mouth breathing during the interview. She was brought to the emergency room for further evaluation. Today, she denies any fevers, chest pain. No burning with urination. Last BM yesterday. Normal Bowel movements. No blood in the stools. Taking medication daily except for her amlodipine which she ran out of a couple days ago. PMH: HBP, Diabetes PSH: Knee Surgery, Appendectomy. Allergies: None Meds: Meloxicam, amlodipine, Coreg, furosemide, losartan, metformin. Social Hx: Lives alone. Used to smoke 1 ppd for around 30 years ( stopped 20 years ago). Does not drink any alcohol. No street drugs. No recent travel. Did not get flu shot. Daughter had bronchitis last week and was treated with antibiotics. Fam HX: Daughter and Sister both have HTN and DM2. Stomach and breast cancer in Aunt ( fathers side). ROS: Denies any headaches, cp, leg pain. Denies any recent weight loss, chills , fever, night sweats. No change in appetite. Complains of a sore throat when she coughs and diffuse abdominal pain. DNR/DNI <Sydnee Ramirez - 09/28/18 19:57> - Diagnosis (1) SIRS (systemic inflammatory response syndrome) (2) Hypoxia (3) Wheezing (4) Productive cough (5) Eosinophilia (6) Diabetes (7) Hypertension (8) Acute kidney injury (9) Abdominal pain (10) DVT (deep venous thrombosis) (11) Nutrition, metabolism, and development symptoms <Majo Banerjee - 09/29/18 11:34> (1) SIRS (systemic inflammatory response syndrome) (2) Hypoxia (3) Wheezing (4) Productive cough (5) Eosinophilia (6) Diabetes (7) Hypertension (8) Acute kidney injury (9) Abdominal pain (10) DVT (deep venous thrombosis) (11) Nutrition, metabolism, and development symptoms <Sydnee Ramirez 09/28/18 22:09> Inpatient Certification: I certify that the inpatient services were ordered in accordance with Medicare regulations governing the order. This includes certification that hospital inpatient services are reasonable and necessary and in the case of services not specified as inpatient-only under 42 CFR 419.22(n), that they are appropriately provided as inpatient services in accordance to with the 2-midnight benchmark under 43 CFR 412.3(e) <Majo Banerjee 09/29/18 11:34> Review of Systems All other systems reviewed negative except as stated in HPI <Sydnee Ramirez 09/28/18 19:57> PMFSH - History History Provided By: Patient <Sydnee Ramirez 09/28/18 18:17> - Medical History Medical History: Medical History (Last Updated 09/28/18 @ 17:23 by Nae Parmar) Diabetes HBP (high blood pressure) <Majo Banerjee 09/29/18 11:34> Medical History (Last Updated 09/28/18 @ 17:23 by Nae Parmar) Diabetes HBP (high blood pressure) <Sydnee Ramirez 09/28/18 18:17> - Surgical History Surgical History: Surgical History (Last Updated 09/28/18 @ 17:23 by Nae Parmar) Hx of knee surgery <Majo Banerjee 09/29/18 11:34> Surgical History (Last Updated 09/28/18 @ 17:23 by Nae Parmar) Hx of knee surgery <Sydnee Ramirez 09/28/18 18:17> - Tobacco History Second Hand Smoke Exposure: No <Sydnee Ramirez 09/28/18 18:17> Tobacco Use In Past 30 Days: No <Sydnee Ramirez 09/28/18 18:17> Smoking Status: Former smoker <Sydnee Ramirez 09/28/18 18:17> Tobacco Type: Cigarettes <Sydnee Ramirez - 09/28/18 18:17> - Alcohol History How Often Do You Have a Drink Containing Alcohol: Never <Sydnee Ramirez - 18:17> - Substance Use History Substance History: No History of Abuse <Sydnee Ramirez - 09/28/18 18:17> - Travel History Recent Travel in the [facility] Within the Last 8 Weeks: No <Sydnee Ramirez - 18:17> Recent Travel Out of the Country Within the Last 8 Weeks: No <Sydnee Ramirez - 09/28/18 18:17> - Immunization History Tetanus Immunization: >5 Years <Sydnee Ramirez - 09/28/18 18:17> Medications and Allergies Allergies Allergy/AdvReac Type Severity Reaction Status Date / Time No Known Allergies Allergy Verified 09/28/18 17:24 <Majo Banerjee - 09/29/18 11:34> Home Medications Medication Instructions Recorded Confirmed Type amlodipine 10 mg PO DAILY 09/28/18 09/28/18 History carvedilol [Coreg] 3.125 mg PO BID 09/28/18 09/28/18 History ergocalciferol (vitamin D2) 50,000 unit PO QWEEK 09/28/18 09/28/18 History [Vitamin D2] furosemide [Lasix] 40 mg PO DAILY 09/28/18 09/28/18 History losartan 100 mg PO DAILY 09/28/18 09/28/18 History meloxicam [Mobic] 15 mg PO DAILY 09/28/18 09/28/18 History metformin 1,000 mg PO BID 09/28/18 09/28/18 History <Majo Banerjee - 09/29/18 11:34> Active Medications: Active Medications Acetaminophen (Tylenol) 650 mg PO Q4H PRN PRN Reason: Temp > 100.4 Al Hydroxide/Mg Hydroxide (Milk Of Magnesia Liq) 30 ml PO Q12H PRN PRN Reason: Mild Constipation Last Admin: 09/28/18 23:28 Dose: 30 ml Albuterol (Albuterol Neb (Prn)) 2.5 mg NEB Q2HR NEB PRN PRN Reason: SHORTNESS OF BREATH Albuterol (Duoneb Neb (Levi)) 1 ampul NEB Q4HR NEB [facility] Last Admin: 09/29/18 08:20 Dose: 1 ampul Amlodipine Besylate (Norvasc) 10 mg PO DAILY [facility] Last Admin: 09/29/18 09:06 Dose: 10 mg Azithromycin (Zithromax) 500 mg PO DAILY@2000 [facility] Stop: 09/30/18 20:01 Last Admin: 09/28/18 19:46 Dose: 500 mg Bisacodyl (Dulcolax Supp) 10 mg RECTAL DAILY PRN PRN Reason: SEVERE CONSITIPATION Budesonide (Pulmocort Respule Neb) 0.5 mg NEB Q12HR [facility] Carvedilol (Coreg) 3.125 mg PO BID [facility] Last Admin: 09/29/18 09:06 Dose: 3.125 mg Dextrose (D50w Vial) 50 ml IV.PUSH UNSCH PRN PRN Reason: PER HYPOGLYCEMIA PROTOCOL Furosemide (Lasix) 40 mg PO DAILY [facility] Glucagon (Glucagon Inj) 1 mg OTHER PRN PRN PRN Reason: for Hypoglycemia Protocol Guaifenesin (Mucinex Er) 600 mg PO BID [facility] Last Admin: 09/29/18 09:06 Dose: 600 mg Heparin Sodium (Porcine) (Heparin Inj) 5,000 units SQ Q8H [facility] Last Admin: 09/29/18 06:19 Dose: 5,000 units Ceftriaxone Sodium 1,000 mg/ (Sodium Chloride) 100 mls @ 200 mls/hr IV.SIG Q24H [facility] Last Infusion: 09/28/18 20:32 Dose: Infused Insulin Aspart (Novolog Insulin Correctional Sugar Inj) 0 unit SQ ACHS [facility]; Protocol Last Admin: 09/29/18 09:06 Dose: Not Given Lactulose (Lactulose Liq) 30 ml PO DAILY PRN PRN Reason: SEVERE CONSITIPATION [facility] Ondansetron HCl (Zofran Inj) 4 mg IV.PUSH Q6H PRN PRN Reason: NAUSEA OR VOMITING Pantoprazole Sodium (Protonix) 40 mg PO DAILY [facility] Last Admin: 09/29/18 09:07 Dose: 40 mg Prednisone (Deltasone) 40 mg PO DAILY [facility] Last Admin: 09/29/18 09:06 Dose: 40 mg Senna/Docusate Sodium (Veronica-Colace) 1 tab PO BID [facility] Last Admin: 09/29/18 09:09 Dose: Not Given Sennosides (Senokot) 17.2 mg PO Q12H PRN PRN Reason: Moderate Constipation Sodium Chloride (Ns Flush) 2 ml IV.FLUSH BID [facility] Last Admin: 09/29/18 09:08 Dose: 2 ml Sodium Chloride (Ns Flush) 2 ml IV.FLUSH PRN PRN PRN Reason: FLUSH AFTER USING IV ACCESS Sodium Chloride (Ns Flush) 2 ml IV.FLUSH BID [facility] Last Admin: 09/29/18 09:08 Dose: Not Given Sodium Chloride (Ns Flush) 2 ml IV.FLUSH PRN PRN PRN Reason: FLUSH AFTER USING IV ACCESS Sodium Chloride (Ns Flush) 2 ml IV.FLUSH BID [facility] Last Admin: 09/29/18 09:09 Dose: Not Given Sodium Chloride (Ns Flush) 2 ml IV.FLUSH PRN PRN PRN Reason: FLUSH AFTER USING IV ACCESS <Majo Banerjee - 09/29/18 11:34> Exam Vital signs: Vital Signs 09/28/18 16:24 09/28/18 16:32 09/28/18 16:43 Temperature 98.5 F 98.2 F Pulse Rate 96 H 80 81 Respiratory Rate 30 H 24 Blood Pressure 198/96 H 156/82 H Pulse Oximetry 77 L 100 98 09/28/18 16:57 09/28/18 16:59 09/28/18 17:32 Temperature 98 F Pulse Rate 83 82 Respiratory Rate 20 20 Blood Pressure 147/66 H Pulse Oximetry 100 98 09/28/18 18:00 09/28/18 18:30 09/28/18 19:24 Temperature 97.9 F 98.1 F Pulse Rate 83 79 79 Respiratory Rate 20 23 18 Blood Pressure 147/66 H 138/67 Pulse Oximetry 98 99 94 L 09/28/18 19:49 09/28/18 21:00 09/28/18 23:21 Temperature 97.4 F L Pulse Rate 79 77 75 Respiratory Rate 19 18 16 Blood Pressure 161/63 H 157/68 H Pulse Oximetry 99 99 09/28/18 23:57 09/29/18 00:00 09/29/18 03:07 Temperature 97.3 F L Pulse Rate 75 79 77 Respiratory Rate 18 16 Blood Pressure 114/60 Pulse Oximetry 100 09/29/18 04:00 09/29/18 08:00 09/29/18 08:24 Temperature 97.5 F L 97.9 F Pulse Rate 73 72 73 Respiratory Rate 18 18 18 Blood Pressure 128/60 150/67 H Pulse Oximetry 98 97 98 Intake & Output 09/28/18 09/29/18 09/29/18 18:59 06:59 18:59 Intake Total 340 / 340 Output Total 650 / 650 Balance -310 / -310 Weight 104.326 kg 100.8 kg Intake: IV 100 / 100 Rocephin Inj 1,000 MG In NS Inj 100 / 100 100 ML @ 200 mls/hr IV.SIG Q24H [facility] Rx#:[id number] Oral 240 / 240 Output: Urine 650 / 650 Other: # Bowel Movements 0 Weight On Admission 100.6 kg <Majo Banerjee - 09/29/18 11:34> Vital Signs 09/28/18 16:24 09/28/18 16:32 09/28/18 16:43 Temperature 98.5 F 98.2 F Pulse Rate 96 H 80 81 Respiratory Rate 30 H 24 Blood Pressure 198/96 H 156/82 H Pulse Oximetry 77 L 100 98 09/28/18 16:57 09/28/18 16:59 09/28/18 17:32 Temperature 98 F Pulse Rate 83 82 Respiratory Rate 20 20 Blood Pressure 147/66 H Pulse Oximetry 100 98 Intake & Output 09/27/18 09/28/18 09/28/18 18:59 06:59 18:59 Weight 104.326 kg <Sydnee Ramierz - 09/28/18 18:17> Narrative: GENERAL: Elderly appearing female, sitting upright, mouth breathing on 2 L of oxygen, limited conversation due to patient being focused on breathing. Minimal respiratory distress. SKIN: Warm and dry. HEAD: Normocephalic. EYES: No scleral icterus. No injection or drainage. NECK: Supple, trachea midline. No JVD or lymphadenopathy. CARDIOVASCULAR: Regular rate and rhythm without murmurs, gallops, or rubs. RESPIRATORY: Expiratory wheezes auscultated bilaterally throughout all lung vásquez. Crackles auscultated at lung bases bilaterally. GASTROINTESTINAL: Abdomen soft, nondistended. Tenderness to palpation diffusely on all quadrants of the abdomen. MUSCULOSKELETAL: No cyanosis. Trace edema bilaterally. Calf tenderness bilaterally. BACK: Nontender without obvious deformity. No CVA tenderness. <Sydnee Ramirez - 09/28/18 19:57> Results - Labs Result diagrams: 09/29/18 06:52 09/29/18 06:52 <Majo Banerjee - 09/29/18 11:34> Abnormal lab results 09/28/18 09/28/18 09/28/18 Range/Units 16:50 16:50 18:50 WBC 20.1 H (4.0-11.0) th/mm3 RBC 3.79 L (4.00-5.30) mil/mm3 Hgb 11.5 L (11.6-15.3) gm/dL Hct 34.8 L (35.0-46.0) % Eos % (Auto) 58.3 H (0.0-4.0) % Eos # (Auto) 11.8 H (0.0-0.4) th/mm3 ABG pH 7.29 L* (7.380-7.420) ABG pCO2 63 H* (38-42) mmHg ABG HCO3 30 H (22-26) mmol/L ABG Base Excess 3.5 H (-2-2) mmol/L Hemoglobin 10.9 L (12.0-16.0) G/DL Carbon Dioxide (21.0-32.0) meq/L BUN (7-18) mg/dL Creatinine 1.83 H (0.50-1.00) mg/dL Estimated GFR 33 L (>89) mL/min POC Glucose (68-110) mg/dl Random Glucose 112 H (74-106) mg/dL Calcium 8.3 L (8.5-10.1) mg/dL Magnesium 1.3 L (1.5-2.5) mg/dL AST (15-37) U/L Alkaline Phosphatase 219 H (45-117) U/L Albumin (3.4-5.0) g/dL 09/28/18 09/29/18 09/29/18 Range/Units 22:46 06:52 06:52 WBC (4.0-11.0) th/mm3 RBC 3.55 L (4.00-5.30) mil/mm3 Hgb 10.6 L (11.6-15.3) gm/dL Hct 32.0 L (35.0-46.0) % Eos % (Auto) 9.5 H (0.0-4.0) % Eos # (Auto) 0.7 H (0.0-0.4) th/mm3 ABG pH (7.380-7.420) ABG pCO2 (38-42) mmHg ABG HCO3 (22-26) mmol/L ABG Base Excess (-2-2) mmol/L Hemoglobin (12.0-16.0) G/DL Carbon Dioxide 33.8 H (21.0-32.0) meq/L BUN 21 H (7-18) mg/dL Creatinine 1.73 H (0.50-1.00) mg/dL Estimated GFR 35 L (>89) mL/min POC Glucose 217 H (68-110) mg/dl Random Glucose 133 H (74-106) mg/dL Calcium 7.8 L (8.5-10.1) mg/dL Magnesium (1.5-2.5) mg/dL AST 12 L (15-37) U/L Alkaline Phosphatase 205 H (45-117) U/L Albumin 3.3 L (3.4-5.0) g/dL 09/29/18 Range/Units 08:16 WBC (4.0-11.0) th/mm3 RBC (4.00-5.30) mil/mm3 Hgb (11.6-15.3) gm/dL Hct (35.0-46.0) % Eos % (Auto) (0.0-4.0) % Eos # (Auto) (0.0-0.4) th/mm3 ABG pH (7.380-7.420) ABG pCO2 (38-42) mmHg ABG HCO3 (22-26) mmol/L ABG Base Excess (-2-2) mmol/L Hemoglobin (12.0-16.0) G/DL Carbon Dioxide (21.0-32.0) meq/L BUN (7-18) mg/dL Creatinine (0.50-1.00) mg/dL Estimated GFR (>89) mL/min POC Glucose 123 H (68-110) mg/dl Random Glucose (74-106) mg/dL Calcium (8.5-10.1) mg/dL Magnesium (1.5-2.5) mg/dL AST (15-37) U/L Alkaline Phosphatase (45-117) U/L Albumin (3.4-5.0) g/dL Short CBC 09/28/18 09/29/18 Range/Units 16:50 06:52 WBC 20.1 H 7.5 D (4.0-11.0) th/mm3 Hgb 11.5 L 10.6 L (11.6-15.3) gm/dL Hct 34.8 L 32.0 L (35.0-46.0) % Plt Count 192 196 (150-450) th/mm3 BMP 09/28/18 09/29/18 16:50 06:52 Sodium 142 144 Potassium 3.8 3.7 Chloride 105 103 Carbon Dioxide 28.6 33.8 H BUN 17 21 H Creatinine 1.83 H 1.73 H Calcium 8.3 L 7.8 L Cardiac Enzymes 09/28/18 Range/Units 16:50 Troponin I 0.03 (0.02-0.05) ng/mL Liver Function 09/28/18 09/29/18 Range/Units 16:50 06:52 Total Bilirubin 0.3 0.3 (0.2-1.0) mg/dL AST 17 12 L (15-37) U/L ALT 17 18 (10-53) U/L Alkaline Phosphatase 219 H 205 H (45-117) U/L Albumin 3.5 3.3 L (3.4-5.0) g/dL <Majo Banerjee - 09/29/18 11:34> Abnormal lab results 09/28/18 09/28/18 Range/Units 16:50 16:50 WBC 20.1 H (4.0-11.0) th/mm3 RBC 3.79 L (4.00-5.30) mil/mm3 Hgb 11.5 L (11.6-15.3) gm/dL Hct 34.8 L (35.0-46.0) % Eos % (Auto) 58.3 H (0.0-4.0) % Eos # (Auto) 11.8 H (0.0-0.4) th/mm3 Creatinine 1.83 H (0.50-1.00) mg/dL Estimated GFR 33 L (>89) mL/min Random Glucose 112 H (74-106) mg/dL Calcium 8.3 L (8.5-10.1) mg/dL Magnesium 1.3 L (1.5-2.5) mg/dL Alkaline Phosphatase 219 H (45-117) U/L Short CBC 09/28/18 Range/Units 16:50 WBC 20.1 H (4.0-11.0) th/mm3 Hgb 11.5 L (11.6-15.3) gm/dL Hct 34.8 L (35.0-46.0) % Plt Count 192 (150-450) th/mm3 BMP 09/28/18 16:50 Sodium 142 Potassium 3.8 Chloride 105 Carbon Dioxide 28.6 BUN 17 Creatinine 1.83 H Calcium 8.3 L Cardiac Enzymes 09/28/18 Range/Units 16:50 Troponin I 0.03 (0.02-0.05) ng/mL Liver Function 09/28/18 Range/Units 16:50 Total Bilirubin 0.3 (0.2-1.0) mg/dL AST 17 (15-37) U/L ALT 17 (10-53) U/L Alkaline Phosphatase 219 H (45-117) U/L Albumin 3.5 (3.4-5.0) g/dL <Sydnee Ramirez - 09/28/18 18:17> - Imaging Impressions Chest X-Ray 09/28/18 16:43 CONCLUSION: Interstitial changes primarily central and similar to prior. Abdomen/Pelvis CT 09/29/18 00:00 CONCLUSION: 1. Gallstones 2. Degenerative postoperative change in the lumbar spine. 3. Peribronchial areas of consolidation the lower lobes bilaterally. Chest X-Ray 09/29/18 06:00 CONCLUSION: Improved aeration <Majo Banerjee - 09/29/18 11:34> Impressions Chest X-Ray 09/28/18 16:43 CONCLUSION: Interstitial changes primarily central and similar to prior. <Sydnee Ramirez - 09/28/18 18:17> Caprini VTE Risk Assessment Caprini VTE Risk Assessment: Moderate/High Risk (score >= 2) <Sydnee Ramirez - 09/28/18 21:16> Caprini Risk Assessment Model: Point Value = 1 Point Value = 2 Point Value = 3 Point Value = 5 Age 41-60 Minor surgery BMI > 25 kg/m2 Swollen legs Varicose veins or History of unexplained or recurrent spontaneous Oral contraceptives or hormone replacement Sepsis (< 1 month) Serious lung disease, including pneumonia (< 1 month) Abnormal pulmonary function Acute myocardial infarction Congestive heart failure (< 1 month) History of inflammatory bowel disease Medical patient at bed rest Age 61-74 Arthroscopic surgery Major open surgery (> 45 min) Laparoscopic surgery (> 45 min) Malignancy Confined to bed (> 72 hours) Immobilizing plaster cast Central venous access Age >= 75 History of VTE Family history of VTE Factor V Leiden Prothrombin [id number] Lupus anticoagulant Anticardiolipin antibodies Elevated serum homocysteine Heparin-induced thrombocytopenia Other congenital or acquired thrombophilia Stroke (< 1 month) Elective arthroplasty Hip, pelvis, or leg fracture Acute spinal cord injury (< 1 month) <Majo Banerjee - 09/29/18 11:34> Point Value = 1 Point Value = 2 Point Value = 3 Point Value = 5 Age 41-60 Minor surgery BMI > 25 kg/m2 Swollen legs Varicose veins or History of unexplained or recurrent spontaneous Oral contraceptives or hormone replacement Sepsis (< 1 month) Serious lung disease, including pneumonia (< 1 month) Abnormal pulmonary function Acute myocardial infarction Congestive heart failure (< 1 month) History of inflammatory bowel disease Medical patient at bed rest Age 61-74 Arthroscopic surgery Major open surgery (> 45 min) Laparoscopic surgery (> 45 min) Malignancy Confined to bed (> 72 hours) Immobilizing plaster cast Central venous access Age >= 75 History of VTE Family history of VTE Factor V Leiden Prothrombin [id number] Lupus anticoagulant Anticardiolipin antibodies Elevated serum homocysteine Heparin-induced thrombocytopenia Other congenital or acquired thrombophilia Stroke (< 1 month) Elective arthroplasty Hip, pelvis, or leg fracture Acute spinal cord injury (< 1 month) <Sydnee Ramirez - 09/28/18 18:17> Prophylaxis Regimen: Total Risk Factor Score Risk Level Prophylaxis Regimen 0-1 Low Early ambulation 2 Moderate Order ONE of the following: *Sequential Compression Device (SCD) *Heparin 5000 units SQ BID 3-4 Higher Order ONE of the following medications: *Heparin 5000 units SQ TID *Enoxaparin/Lovenox 40 mg SQ daily (WT < 150 kg, CrCl > 30 mL/min) *Enoxaparin/Lovenox 30 mg SQ daily (WT < 150 kg, CrCl > 10-29 mL/min) *Enoxaparin/Lovenox 30 mg SQ BID (WT < 150 kg, CrCl > 30 mL/min) AND/OR *Sequential Compression Device (SCD) 5 or more Highest Order ONE of the following medications: *Heparin 5000 units SQ TID (Preferred with Epidurals) *Enoxaparin/Lovenox 40 mg SQ daily (WT < 150 kg, CrCl > 30 mL/min) *Enoxaparin/Lovenox 30 mg SQ daily (WT < 150 kg, CrCl > 10-29 mL/min) *Enoxaparin/Lovenox 30 mg SQ BID (WT < 150 kg, CrCl > 30 mL/min) AND *Sequential Compression Device (SCD) <Majo Banerjee - 09/29/18 11:34> Total Risk Factor Score Risk Level Prophylaxis Regimen 0-1 Low Early ambulation 2 Moderate Order ONE of the following: *Sequential Compression Device (SCD) *Heparin 5000 units SQ BID 3-4 Higher Order ONE of the following medications: *Heparin 5000 units SQ TID *Enoxaparin/Lovenox 40 mg SQ daily (WT < 150 kg, CrCl > 30 mL/min) *Enoxaparin/Lovenox 30 mg SQ daily (WT < 150 kg, CrCl > 10-29 mL/min) *Enoxaparin/Lovenox 30 mg SQ BID (WT < 150 kg, CrCl > 30 mL/min) AND/OR *Sequential Compression Device (SCD) 5 or more Highest Order ONE of the following medications: *Heparin 5000 units SQ TID (Preferred with Epidurals) *Enoxaparin/Lovenox 40 mg SQ daily (WT < 150 kg, CrCl > 30 mL/min) *Enoxaparin/Lovenox 30 mg SQ daily (WT < 150 kg, CrCl > 10-29 mL/min) *Enoxaparin/Lovenox 30 mg SQ BID (WT < 150 kg, CrCl > 30 mL/min) AND *Sequential Compression Device (SCD) <Sydnee Ramirez - 09/28/18 18:17> Assessment and Plan - Assessment (1) SIRS (systemic inflammatory response syndrome) Code(s): R65.10 - Systemic inflammatory response syndrome (SIRS) of non- infectious origin without acute organ dysfunction Status: Acute (2) Hypoxia Code(s): R09.02 - Hypoxemia Status: Acute (3) Wheezing Code(s): R06.2 - Wheezing Status: Acute (4) Productive cough Code(s): R05 - Cough Status: Acute (5) Eosinophilia Code(s): D72.1 - Eosinophilia Status: Acute (6) Diabetes Code(s): E11.9 - Type 2 diabetes mellitus without complications Status: Acute (7) Hypertension Code(s): I10 - Essential (primary) hypertension Status: Acute (8) Acute kidney injury Code(s): N17.9 - Acute kidney failure, unspecified Status: Acute (9) Abdominal pain Code(s): R10.9 - Unspecified abdominal pain Status: Acute (10) DVT (deep venous thrombosis) Code(s): I82.409 - Acute embolism and thrombosis of unspecified deep veins of unspecified lower extremity Status: Acute (11) Nutrition, metabolism, and development symptoms Code(s): R63.8 - Other symptoms and signs concerning food and fluid intake Status: Acute <Majo Banerjee R - 09/29/18 11:34> (1) SIRS (systemic inflammatory response syndrome) Code(s): R65.10 - Systemic inflammatory response syndrome (SIRS) of non- infectious origin without acute organ dysfunction Status: Acute Plan: Patient with elevated white count at 20.1, respiratory rate: 30, pulse: 96, meets SIRS criteria. Unidentified source of infection: Blood cultures, gram/sputum stain ordered. Legionella Antigen, Influenza, Pneumococcal Antigen Ordered. Follow Up. Recent sick contact. Afebrile. Crackles heard bilaterally on physical exam. Some perihilar opacities on CXRay but poor x-ray view. Will reorder PA and lateral chestx-ray. Follow-up. Concerning for pneumonia. Denies any urinary symptoms. will treat for pneumonia and COPD exacerbation. will start on azithromycin 500 mg daily, ceftriaxone 1 g daily. (2) Hypoxia Code(s): R09.02 - Hypoxemia Status: Acute Plan: 4 days of SOB with productive cough, no fevers, recent sick contact with bronchitis. Hypoxic: 77 L on admission. Wheezing on physical exam. DDX: COPD exacerbation versus pneumonia versus CHF exacerbation versus bronchitis. BNP 77. CHF unlikely. ABG: PH: 7.29 and PCO2 of 63. Bicarb: 30. Respiratory acidosis with metabolic compensation. Possibly due to COPD exacerbation. Elevated white count 20.1 with high eosinophils at 58.3. Concerning for infection. X-ray: Perihilar opacities appreciated. PA and lateral 2 view chest x-ray ordered. Oxygen saturations improved on oxygen. Titrate as tolerated. Keep O2 sats above 94%. 120 Solu-Medrol and 40 mg Lasix given in the emergency room Continue home lasix. Will continue with 40 mg prednisone p.o. daily. Albuterol and duo nebs alternating every 4. Rocephin 1 g daily. Azithromycin 500 mg daily. (3) Wheezing Code(s): R06.2 - Wheezing Status: Acute Plan: See plan above. (4) Productive cough Code(s): R05 - Cough Status: Acute Plan: Mucinex added. (5) Eosinophilia Code(s): D72.1 - Eosinophilia Status: Acute Plan: CBC shows elevated eosinophils at 58.3. DDX: Fungal/Parasitic versus allergic reaction. Manual Diff and Peripheral smear ordered. (6) Diabetes Code(s): E11.9 - Type 2 diabetes mellitus without complications Status: Acute Plan: Hold metformin with concerns of lactic acidosis. will start on insulin low-dose sliding scale. (7) Hypertension Code(s): I10 - Essential (primary) hypertension Status: Acute Plan: Patient hypertensive on admission: 190/96, 156/82. Hold losartan, due to CECILE. Continue home carvedilol and amlodipine. (8) Acute kidney injury Code(s): N17.9 - Acute kidney failure, unspecified Status: Acute Plan: Creatinine: 1.83 on admission. Baseline 0.6. Treating for pneumonia, COPD exacerbation will be careful with fluid overload. Will encourage PO intake today. Trend Cr in AM. Will consider starting on maintenance once lung sounds improve. (9) Abdominal pain Code(s): R10.9 - Unspecified abdominal pain Status: Acute Plan: Diffuse abdominal pain, good bowel movements, no hematochezia. High eosinophils. Concerning for parasitic infection. CMP within normal limits. No electrolyte abnormalities. Will continue to monitor and will investigate more once SOB improves. Consider imaging if pain worsens overnight. (10) DVT (deep venous thrombosis) Code(s): I82.409 - Acute embolism and thrombosis of unspecified deep veins of unspecified lower extremity Status: Acute Plan: Patient complains of bilateral leg pain to palpation. Wells score: 3. Unlikely PE but will keep in differential. Heparin Q24 (11) Nutrition, metabolism, and development symptoms Code(s): R63.8 - Other symptoms and signs concerning food and fluid intake Status: Acute Plan: Fluids: Patient has CECILE, but due to patient having possible pneumonia, careful with fluid overload. Will continue to monitor and encourage p.o. intake for now. Electrolytes: Low Mg. Replaced with Mg Oxide. Monitor and replete as needed Diet: Diabetic diet GI prophylaxis: Protonix 40 mg. CODE STATUS: DNR/DNI. <Sydnee Ramirez - 09/28/18 22:09> - Assessment and Plan Discussed Condition With: Dr. Ruff <Sydnee Ramirez - 09/28/18 19:57> - Attending Attestation Patient dw resident team. Agree with admission, assessment and plan as above. <Majo Banerjee - 09/29/18 11:34>
[2018-09-28] MEDS ORDERED: Bisacodyl 10 MG Supp RECTAL PRN (18:30)
[2018-09-28] MEDS ORDERED: Acetaminophen 325 MG Tablet PO PRN (18:30)
[2018-09-28 18:57] LABS: ABG Base Excess 3.5 mmol/L (-2-2); ABG PCO2 63 mmHg (38-42); ABG PO2 95 mmHg (61-120)
[2018-09-28] MEDS ORDERED: Dextrose 50% in Water 50 ML Vial IV.PUSH PRN (19:32)
[2018-09-28] MEDS: Azithromycin 250 MG Tablet PO SCH (19:46)
[2018-09-28] MEDS ORDERED: Magnesium Oxide 400 MG Tablet PO ONE (21:12)
[2018-09-28] MEDS: Heparin - SQ 10,000 UNITS/ML Vial SQ SCH (23:28)
[2018-09-28] MEDS: guaiFENesin 600 MG ER Tablet PO SCH (23:30)
[2018-09-28] MEDS: Insulin NovoLOG Aspart Correctional Sugar Inj SQ SCH (23:36)
[2018-09-28] MEDS: Senna/Docusate Sodium 8.6/50 MG Tablet PO SCH (23:37)
[2018-09-29] MEDS: Heparin - SQ 10,000 UNITS/ML Vial SQ SCH ×3 (06:19→21:27)
[2018-09-29] MEDS ORDERED: Influenza (Quadrivalent) Vaccine 0.5 ML Syringe IM ONE (07:00)
[2018-09-29 07:18] LABS: Baso % (Auto) 0.3 % (0.0-2.0); Eos # (Auto) 0.7 th/mm3 (0.0-0.4); Eos % (Auto) 9.5 % (0.0-4.0); Hemoglobin 10.6 gm/dL (11.6-15.3); Lymph # (Auto) 2.2 th/mm3 (1.0-4.8); Lymph % (Auto) 29.9 % (9.0-44.0); Mean Corpuscular HGB Conc 33.1 % (32.0-36.0); Mean Corpuscular Hemoglobin 29.8 pg (27.0-34.0); Mean Platelet Volume 8.7 fL (7.0-11.0); Mono # (Auto) 0.4 th/mm3 (0.0-0.9); Mono % (Auto) 5.9 % (0.0-8.0); Neut # (Auto) 4.1 th/mm3 (1.8-7.7); Neut % (Auto) 54.4 % (16.0-70.0); Platelet Count 196 th/mm3 (150-450); Red Blood Count 3.55 mil/mm3 (4.00-5.30); Red Cell Distribution Width 14.6 % (11.6-17.2); White Blood Count 7.5 th/mm3 (4.0-11.0)
[2018-09-29 07:52] LABS: Alanine Aminotransferase 18 U/L (10-53); Albumin 3.3 g/dL (3.4-5.0); Anion Gap 7 meq/L (5-15); Aspartate Aminotransferase 12 U/L (15-37); Blood Urea Nitrogen 21 mg/dL (7-18); Calcium 7.8 mg/dL (8.5-10.1); Carbon Dioxide 33.8 meq/L (21.0-32.0); Chloride 103 meq/L (98-107); Glomerular Filtration Rate 35 mL/min (>89); Glucose,Random 133 mg/dL (74-106); Potassium 3.7 meq/L (3.5-5.1); Sodium 144 meq/L (136-145)
[2018-09-29 07:54] LABS: Alkaline Phosphatase 205 U/L (45-117)
[2018-09-29] MEDS ORDERED: Non-Formulary Drug (Losartan [Losartan] 100 MG) PO SCH (09:00)
[2018-09-29] MEDS ORDERED: Furosemide 40 MG Tablet PO SCH (09:00)
[2018-09-29] MEDS: Insulin NovoLOG Aspart Correctional Sugar Inj SQ SCH ×4 (09:06→21:27)
[2018-09-29] MEDS: amLODIPine 10 MG Tablet PO SCH (09:06)
[2018-09-29] MEDS: predniSONE 20 MG Tablet PO SCH (09:06)
[2018-09-29] MEDS: guaiFENesin 600 MG ER Tablet PO SCH ×2 (09:06→20:35)
[2018-09-29] MEDS: Senna/Docusate Sodium 8.6/50 MG Tablet PO SCH ×2 (09:09→20:35)
--- NOTE | 2018-09-29 10:59 | XR ---
EXAM DATE: 09/29/2018 10:52 AM EST AGE/SEX: 73 years / Female INDICATIONS: . COUGH CLINICAL DATA: This is the patient's initial encounter. Patient reports that signs and symptoms have been present for 4 - 6 days and indicates a pain score of 0/10. MEDICAL/SURGICAL HISTORY: Diabetes mellitus type II. Hypertension. None. COMPARISON: C, CHEST 1V SINGLE AP, 09/28/2018. . FINDINGS: Aeration is improved with decrease in interstitial prominence. No significant effusion. Cardiac conto urs are satisfactory. CONCLUSION: Improved aeration Electronically signed by: Stephan Mendes MD 09/29/2018 10:57 AM EST
--- NOTE | 2018-09-29 11:02 | CT ---
EXAM DATE: 09/29/2018 10:52 AM EST AGE/SEX: 73 years / Female INDICATIONS: Upper abdominal pain. CLINICAL DATA: This is the patient's initial encounter. Patient reports that signs and symptoms have been present for 4 - 6 days and indicates a pain score of 7/10. MEDICAL/SURGICAL HISTORY: Diabetes. Hypertension. None. RADIATION DOSE: 11.16 CTDI (mGy) COMPARISON: No prior exams available for comparison. TECHNIQUE: Multiple contiguous axial images were obtained through the abdomen. Images were obtained using multiple row detector helical technique. Using automated exposure control and adjustment of the mA and/or kV according to patient size, radiation dose was kept as low as reasonably achievable to o btain optimal diagnostic quality images. DICOM format image data is available electronically for rev iew and comparison. FINDINGS: Lower Lungs: There appears to be some peribronchial consolidation seen at the lower lobes bilaterally . There is some focal emphysematous change seen at the right lower lung. Liver: The liver has a homogeneous density without space-occupying lesion. There is no dilation of th e biliary tree. There is low density within the gallbladder likely related to air/nitrogen within gal lstones. Spleen: Homogeneous density without enlargement. Pancreas: Unremarkable without mass or calcification. Kidneys: Normal in size and shape. No evidence of mass or hydronephrosis. Adrenal Glands: Unremarkable. Aorta: The aorta and proximal iliac vessels are grossly unremarkable without aneurysmal dilation. Bowel/Mesentery: The bowel loops are grossly unremarkable. The cecum and sigmoid colon have a normal configuration. Abdominal Wall: Intact. Retroperitoneum: No evidence of adenopathy in the retrocrural, para-aortic, or deep pelvic regions. Bladder: Contours are smooth. Reproductive Organs: No abnormal masses or calcifications seen. Inguinal: The inguinal region is unremarkable without evidence of adenopathy. Bony Structures: Degenerative postoperative change in the lumbar spine. CONCLUSION: 1. Gallstones 2. Degenerative postoperative change in the lumbar spine. 3. Peribronchial areas of consolidation the lower lobes bilaterally. Electronically signed by: Stephan Huston MD 09/29/2018 11:01 AM EST
--- NOTE | 2018-09-29 11:42 | P.PNADD ---
Addendum to Inpatient Note Reason for Addendum: Additional Documentation Additional information: Please see resident H&P from 09/28/18 for full documentation of the patients admission information and history. Patient was seen around 9:00am on 09/29/18. Patient is somewhat improved since admission. She remains SOB and on oxygen via nasal cannula. She is resting in bed and has mild increased work of breathing. She is able to speak in full sentences without gasping for air. She continues to complain of diffuse abdominal pain. States she is passing gas and moving her bowels. She complains of bilateral calf pain as well. She denies CP. Vital Signs Temp Pulse Resp BP Pulse Ox 09/29/18 08:24 73 18 98 09/29/18 08:00 97.9 F 72 18 150/67 H 97 09/29/18 04:00 97.5 F L 73 18 128/60 98 09/29/18 03:07 77 16 09/29/18 00:00 79 09/28/18 23:57 97.3 F L 75 18 114/60 100 09/28/18 23:21 75 16 09/28/18 21:00 97.4 F L 77 18 157/68 H 99 09/28/18 19:49 79 19 161/63 H 99 09/28/18 19:24 79 18 94 L 09/28/18 18:30 98.1 F 79 23 138/67 99 09/28/18 18:00 97.9 F 83 20 147/66 H 98 09/28/18 17:32 98 F 82 20 147/66 H 98 09/28/18 16:59 100 09/28/18 16:57 83 20 09/28/18 16:43 81 98 09/28/18 16:32 98.2 F 80 24 156/82 H 100 09/28/18 16:24 98.5 F 96 H 30 H 198/96 H 77 L Intake and Output 09/28/18 09/29/18 09/29/18 22:59 06:59 14:59 Intake Total 100 / 100 240 / 240 Output Total 650 / 650 Balance 100 / 100 -410 / -410 Intake: IV 100 / 100 Rocephin Inj 1,000 MG In NS Inj 100 / 100 100 ML @ 200 mls/hr IV.SIG Q24H [facility] Rx#:[id number] Oral 240 / 240 Output: Urine 650 / 650 Other: # Bowel Movements 0 Weight 100.6 kg 100.8 kg Weight On Admission 100.6 kg GENERAL: SKIN: Warm and dry. HEAD: Atraumatic. Normocephalic. EYES: Pupils equal and round. No scleral icterus. No injection or drainage. ENT: No nasal bleeding or discharge. Mucous membranes pink and moist. NECK: Trachea midline. No JVD. CARDIOVASCULAR: Regular rate and rhythm. RESPIRATORY: she is belly breathing a little, bilateral diffuse wheezing, crackles at the bases, poor air movement GASTROINTESTINAL: Abdomen soft, non-tender, nondistended. Hepatic and splenic margins not palpable. MUSCULOSKELETAL: Extremities without clubbing, cyanosis, or edema. No obvious deformities. Calf tenderness bilaterally, no cords appreciated. NEUROLOGICAL: Awake and alert. No obvious cranial nerve deficits. Motor grossly within normal limits. Five out of 5 muscle strength in the arms and legs. Normal speech. PSYCHIATRIC: Appropriate mood and affect; insight and judgment normal. AP 1. COPD exacerbation with likely underlying CAP - she is only minimally improved. Continue the Rocephin/Zithromax/Nebs/Prednisone. Add on inhaled steroids. Repeat CXR PA/LATERAL 2. Calf tenderness -- in this setting in light of calf tenderness, elderly woman with SOB -- check D-dimer. Consider CTA and Dopplers 3. Abdominal pain -- unclear at this time -- check CT abdomen. Patient seen and dw the resident team --- Dr. Ruff, Dr. Olivier, Dr. Cohen
[2018-09-29] MEDS ORDERED: Hold Metfromin until further notice OTHER ONE (13:13)
--- NOTE | 2018-09-29 13:47 | ECG ---
Date Performed: 09/28/2018 Time Performed: 16:45:24 PTAGE: 73 years EKG: Sinus rhythm POSSIBLE LEFT ATRIAL ENLARGEMENT NONSPECIFIC ST & T-WAVE ABNORMALITY BORDERLINE ECG Since the PREVIOUS TRACING , no significant change noted PREVIOUS TRACING 09/27/2017 15.09.30 DOCTOR: Remberto Edwards Interpretating Date/Time 09/29/2018 13:44:07
--- NOTE | 2018-09-29 14:43 | US ---
EXAM DATE: 09/29/2018 2:36 PM EST AGE/SEX: 73 years / Female INDICATIONS: Bilateral leg pain. CLINICAL DATA: This is the patient's initial encounter. Patient reports that signs and symptoms have been present for 1 day and indicates a pain score of 3/10. MEDICAL/SURGICAL HISTORY: Hypertension. Diabetes. . Left knee replacement x 2. COMPARISON: [facility], US SEGMENTAL PRESSURES LEGS, 07/22/2016. . TECHNIQUE: Venous ultrasound of both lower extremities was performed from the inguinal ligament to t he proximal calf. Real-time, color Doppler and spectral tracing, compression and augmentation techni ques were used. FINDINGS: Right Leg: Normal compression of the deep venous system from the inguinal region to the proximal dixie f. No echogenic clot is seen. Normal response of the venous system to augmentation and respiration. Left Leg: Normal compression of the deep venous system from the inguinal region to the proximal calf . No echogenic clot is seen. Normal response of the venous system to augmentation and respiration. Other: None. CONCLUSION: The study is negative for bilateral lower extremity deep venous thrombosis. Electronically signed by: Stephan Mendes MD 09/29/2018 2:41 PM EST
[2018-09-29] MEDS ORDERED: Sodium Chlor 0.9% Inj 500 ML IV.SIG ONE (15:00)
--- NOTE | 2018-09-29 16:22 | CT ---
EXAM DATE: 09/29/2018 4:16 PM EST AGE/SEX: 73 years / Female INDICATIONS: Short of breath, Cough CLINICAL DATA: This is the patient's initial encounter. Patient reports that signs and symptoms have been present for 1 day and indicates a pain score of 0/10. MEDICAL/SURGICAL HISTORY: Diabetes. Hypertension. None. RADIATION DOSE: 10.71 CTDI (mGy) COMPARISON: No prior exams available for comparison. TECHNIQUE: Volumetric scanning was performed using a multi-row detector CT scanner during bolus infu rudy of 75ML ml Visipaque 320 (iodixanol) nonionic water-soluble contrast as a single exam dose. The data was post processed with a variety of visualization algorithms including full volume maximum int ensity projection and sliding thin slab reformation. Using automated exposure control and adjustment of the mA and/or kV according to patient size, radiation dose was kept as low as reasonably achievabl e to obtain optimal diagnostic quality images. DICOM format image data is available electronically f or review and comparison. FINDINGS: Pulmonary Arteries: No filling defects are seen in the pulmonary arteries out to the subsegmental ve ssels. The left and right pulmonary arteries are normal in diameter. Lung: There is interstitial disease seen in the peribronchial regions at the lower lungs. There may be mild bronchiectasis in this region. There some focal emphysematous change at the right lung base. There some interstitial disease seen at the anterior mid left upper lung. There is a small 0.6 mm foc al density in the right midlung. Effusion: None. Mediastinum: There is adenopathy seen throughout the mediastinum in the pretracheal, right paratrach eal, subcarinal, right and left tracheobronchial, AP window, prevascular regions, and bilateral latricia r regions Other: The axilla is unremarkable. CONCLUSION: 1. No pulmonary was. 2. Extensive mediastinal adenopathy. The cause of this adenopathy is not known. Inflammatory or neop lastic adenopathy could have this appearance. 3. Interstitial disease in the peribronchial regions at the lower lungs and in the anterior left upp er lobe. This could be related to chronic interstitial disease or a more acute interstitial consolida tion. This can be followed. 4. 0.6 cm focal density in the right midlung which could be followed with a noncontrast CT examinati on 6 months. Electronically signed by: Stephan Huston MD 09/29/2018 4:21 PM EST
[2018-09-29] MEDS: Azithromycin 250 MG Tablet PO SCH (20:35)
[2018-09-30] MEDS: Heparin - SQ 10,000 UNITS/ML Vial SQ SCH ×3 (05:18→21:40)
[2018-09-30 08:05] LABS: Baso # (Auto) 0.1 th/mm3 (0.0-0.2); Baso % (Auto) 0.8 % (0.0-2.0); Eos % (Auto) 37.7 % (0.0-4.0); Hematocrit 32.1 % (35.0-46.0); Hemoglobin 10.1 gm/dL (11.6-15.3); Lymph # (Auto) 3.7 th/mm3 (1.0-4.8); Lymph % (Auto) 27.6 % (9.0-44.0); Mean Corpuscular HGB Conc 31.6 % (32.0-36.0); Mean Platelet Volume 8.7 fL (7.0-11.0); Mono # (Auto) 0.7 th/mm3 (0.0-0.9); Mono % (Auto) 5.6 % (0.0-8.0); Neut # (Auto) 3.8 th/mm3 (1.8-7.7); Neut % (Auto) 28.3 % (16.0-70.0); Platelet Count 217 th/mm3 (150-450); Red Blood Count 3.49 mil/mm3 (4.00-5.30); Red Cell Distribution Width 14.7 % (11.6-17.2); White Blood Count 13.4 th/mm3 (4.0-11.0)
[2018-09-30 08:35] LABS: Alanine Aminotransferase 15 U/L (10-53); Albumin 3.2 g/dL (3.4-5.0); Anion Gap 6 meq/L (5-15); Aspartate Aminotransferase 11 U/L (15-37); Blood Urea Nitrogen 21 mg/dL (7-18); Calcium 8.3 mg/dL (8.5-10.1); Carbon Dioxide 32.4 meq/L (21.0-32.0); Chloride 105 meq/L (98-107); Glomerular Filtration Rate 53 mL/min (>89); Glucose,Random 108 mg/dL (74-106); Potassium 3.6 meq/L (3.5-5.1); Sodium 143 meq/L (136-145)
[2018-09-30 08:37] LABS: Alkaline Phosphatase 176 U/L (45-117); Total Protein 7.6 g/dL (6.4-8.2)
[2018-09-30] MEDS: Insulin NovoLOG Aspart Correctional Sugar Inj SQ SCH ×4 (09:15→20:14)
[2018-09-30] MEDS: predniSONE 20 MG Tablet PO SCH (09:15)
[2018-09-30] MEDS: amLODIPine 10 MG Tablet PO SCH (09:16)
[2018-09-30] MEDS: guaiFENesin 600 MG ER Tablet PO SCH ×2 (09:16→20:13)
[2018-09-30] MEDS: Senna/Docusate Sodium 8.6/50 MG Tablet PO SCH ×2 (09:17→20:15)
--- NOTE | 2018-09-30 09:59 | P.PNFP ---
Subjective Interval history: No acute events overnight. Vital signs remained stable overnight. Patient states she is feeling better today and is able to ambulate to the bathroom without becoming significantly short of breath. She states she had a bowel movement yesterday that was normal and formed and has not had any abdominal pain since then. When asked, she denies any history of autoimmune disease, any family history of autoimmune disease including lupus, sarcoidosis or rheumatoid arthritis. <Omari Olivier B - 09/30/18 11:58> Results - Labs Result diagrams: 09/30/18 07:51 09/30/18 07:51 <Majo Banerjee R - 10/01/18 09:48> Abnormal lab results 09/30/18 09/30/18 09/30/18 Range/Units 12:05 13:16 13:16 ESR 58 H (0-30) mm/hr ABG pH (7.380-7.420) ABG pO2 (61-120) mmHg ABG HCO3 (22-26) mmol/L ABG Base Excess (-2-2) mmol/L Hemoglobin (12.0-16.0) G/DL POC Glucose 124 H (68-110) mg/dl C-Reactive Protein 1.60 H (0.00-0.30) mg/dL 09/30/18 09/30/18 09/30/18 Range/Units 15:12 17:09 20:01 ESR (0-30) mm/hr ABG pH 7.50 H (7.380-7.420) ABG pO2 229 H (61-120) mmHg ABG HCO3 31 H (22-26) mmol/L ABG Base Excess 7.1 H (-2-2) mmol/L Hemoglobin 10.3 L (12.0-16.0) G/DL POC Glucose 211 H 248 H (68-110) mg/dl C-Reactive Protein (0.00-0.30) mg/dL <Majo Banerjee R - 10/01/18 09:48> Abnormal lab results 09/29/18 09/29/18 09/29/18 Range/Units 11:38 12:34 17:12 WBC (4.0-11.0) th/mm3 RBC (4.00-5.30) mil/mm3 Hgb (11.6-15.3) gm/dL Hct (35.0-46.0) % MCHC (32.0-36.0) % Eos % (Auto) (0.0-4.0) % Eos # (Auto) (0.0-0.4) th/mm3 D-Dimer Quant (PE/DVT) 4.38 H (0.00-0.50) mg/L FEU Carbon Dioxide (21.0-32.0) meq/L BUN (7-18) mg/dL Creatinine (0.50-1.00) mg/dL Estimated GFR (>89) mL/min POC Glucose 144 H 239 H (68-110) mg/dl Random Glucose (74-106) mg/dL Calcium (8.5-10.1) mg/dL AST (15-37) U/L Alkaline Phosphatase (45-117) U/L Albumin (3.4-5.0) g/dL 09/29/18 09/30/18 09/30/18 Range/Units 21:08 07:51 07:51 WBC 13.4 H (4.0-11.0) th/mm3 RBC 3.49 L (4.00-5.30) mil/mm3 Hgb 10.1 L (11.6-15.3) gm/dL Hct 32.1 L (35.0-46.0) % MCHC 31.6 L (32.0-36.0) % Eos % (Auto) 37.7 H (0.0-4.0) % Eos # (Auto) 5.0 H (0.0-0.4) th/mm3 D-Dimer Quant (PE/DVT) (0.00-0.50) mg/L FEU Carbon Dioxide 32.4 H (21.0-32.0) meq/L BUN 21 H (7-18) mg/dL Creatinine 1.20 H (0.50-1.00) mg/dL Estimated GFR 53 L (>89) mL/min POC Glucose 210 H (68-110) mg/dl Random Glucose 108 H (74-106) mg/dL Calcium 8.3 L (8.5-10.1) mg/dL AST 11 L (15-37) U/L Alkaline Phosphatase 176 H (45-117) U/L Albumin 3.2 L (3.4-5.0) g/dL Short CBC 09/30/18 Range/Units 07:51 WBC 13.4 H (4.0-11.0) th/mm3 Hgb 10.1 L (11.6-15.3) gm/dL Hct 32.1 L (35.0-46.0) % Plt Count 217 (150-450) th/mm3 [facility] 09/30/18 07:51 Sodium 143 Potassium 3.6 Chloride 105 Carbon Dioxide 32.4 H BUN 21 H Creatinine 1.20 H Calcium 8.3 L Liver Function 09/30/18 Range/Units 07:51 Total Bilirubin 0.2 (0.2-1.0) mg/dL AST 11 L (15-37) U/L ALT 15 (10-53) U/L Alkaline Phosphatase 176 H (45-117) U/L Albumin 3.2 L (3.4-5.0) g/dL <Omari Olivier - 09/30/18 09:59> - Imaging Impressions Abdomen/Pelvis CT 09/29/18 00:00 CONCLUSION: 1. Gallstones 2. Degenerative postoperative change in the lumbar spine. 3. Peribronchial areas of consolidation the lower lobes bilaterally. Chest CTA 09/29/18 00:00 CONCLUSION: 1. No pulmonary was. 2. Extensive mediastinal adenopathy. The cause of this adenopathy is not known. Inflammatory or neoplastic adenopathy could have this appearance. 3. Interstitial disease in the peribronchial regions at the lower lungs and in the anterior left upper lobe. This could be related to chronic interstitial disease or a more acute interstitial consolidation. This can be followed. 4. 0.6 cm focal density in the right midlung which could be followed with a noncontrast CT examination 6 months. Venous Doppler Study 09/29/18 00:00 CONCLUSION: The study is negative for bilateral lower extremity deep venous thrombosis. Chest X-Ray 09/29/18 06:00 CONCLUSION: Improved aeration <Omari Olivier - 09/30/18 09:59> Physical Exam Vital signs: Vital Signs 09/30/18 12:00 09/30/18 12:28 09/30/18 15:07 Temperature 97.8 F Pulse Rate 68 61 68 Respiratory Rate 18 12 12 Blood Pressure 153/67 H Pulse Oximetry 98 09/30/18 16:00 09/30/18 16:49 09/30/18 20:00 Temperature 98.4 F 97.6 F Pulse Rate 66 66 62 Respiratory Rate 18 18 Blood Pressure 134/96 H 149/65 H Pulse Oximetry 95 96 09/30/18 20:35 10/01/18 00:00 10/01/18 00:07 Temperature 97.6 F Pulse Rate 81 56 L 60 Respiratory Rate 16 17 14 Blood Pressure 131/65 Pulse Oximetry 95 99 10/01/18 03:49 10/01/18 04:00 10/01/18 07:00 Temperature 97.5 F L Pulse Rate 64 64 54 L Respiratory Rate 17 16 12 Blood Pressure 157/68 H Pulse Oximetry 100 10/01/18 08:00 10/01/18 08:20 Temperature 98.4 F Pulse Rate 55 L Respiratory Rate 18 Blood Pressure 141/60 H Pulse Oximetry 98 99 Intake & Output 09/30/18 10/01/18 10/01/18 18:59 06:59 18:59 Intake Total 480 / 480 350 / 350 Balance 480 / 480 350 / 350 Weight 100.8 kg Intake: IV 100 / 100 Rocephin Inj 1,000 MG In NS Inj 100 / 100 100 ML @ 200 mls/hr IV.SIG Q24H [facility] Rx#:[id number] Oral 480 / 480 250 / 250 Other: # Voids 4 3 # Bowel Movements 1 <Majo Banerjee R - 10/01/18 09:48> Vital Signs 09/29/18 11:45 09/29/18 12:00 09/29/18 15:37 Temperature 98.5 F Pulse Rate 76 73 81 Respiratory Rate 16 18 18 Blood Pressure 151/70 H Pulse Oximetry 95 98 09/29/18 16:00 09/29/18 18:00 09/29/18 19:30 Temperature 98.7 F Pulse Rate 80 87 87 Respiratory Rate 18 18 Blood Pressure 149/67 H Pulse Oximetry 98 09/29/18 20:00 09/29/18 23:58 09/30/18 00:00 Temperature 97.9 F 97.3 F L Pulse Rate 81 67 59 L Respiratory Rate 17 18 Blood Pressure 119/57 L 165/75 H Pulse Oximetry 99 97 09/30/18 00:05 09/30/18 04:00 09/30/18 04:29 Temperature 97.7 F Pulse Rate 72 57 L 63 Respiratory Rate 12 18 13 Blood Pressure 133/63 Pulse Oximetry 99 100 09/30/18 07:00 09/30/18 08:00 Temperature 97.7 F Pulse Rate 60 61 Respiratory Rate 12 18 Blood Pressure 153/68 H Pulse Oximetry 98 Intake & Output 09/29/18 09/30/18 09/30/18 18:59 06:59 18:59 Intake Total 1208 / 1208 100 / 100 Output Total 250 / 250 Balance 1208 / 1208 -150 / -150 Weight 100.5 kg Intake: IV 500 / 500 100 / 100 NS Inj 500 ML @ Wide Open IV. 500 / 500 SIG BOLUS ONE Rx#:[id number] Rocephin Inj 1,000 MG In NS Inj 100 / 100 100 ML @ 200 mls/hr IV.SIG Q24H [facility] Rx#:[id number] Oral 708 / 708 0 / 0 Output: Urine 250 / 250 Other: # Voids 6 # Bowel Movements 0 <Omari Olivier - 09/30/18 09:59> Narrative: GENERAL: Elderly appearing female, sitting upright, speaking in full sentences and answering questions of separately. Nasal cannula in place. SKIN: Warm and dry. HEAD: Normocephalic. EYES: No scleral icterus. No injection or drainage. NECK: Supple, trachea midline. No JVD or lymphadenopathy. CARDIOVASCULAR: Regular rate and rhythm without murmurs, gallops, or rubs. RESPIRATORY: Continues to have occasional expiratory wheezes diffusely, improved from prior exam with improved air movement. GASTROINTESTINAL: Abdomen soft, nondistended. No tenderness to palpation on today's exam MUSCULOSKELETAL: No cyanosis. Trace edema bilaterally. No calf tenderness on today's exam BACK: Nontender without obvious deformity. No CVA tenderness. <Omari Olivier - 09/30/18 11:58> Assessment and Plan - Assessment (1) SIRS (systemic inflammatory response syndrome) Code(s): R65.10 - Systemic inflammatory response syndrome (SIRS) of non- infectious origin without acute organ dysfunction Status: Acute (2) Hypoxia Code(s): R09.02 - Hypoxemia Status: Acute (3) Eosinophilia Code(s): D72.1 - Eosinophilia Status: Acute (4) Wheezing Code(s): R06.2 - Wheezing Status: Acute (5) Productive cough Code(s): R05 - Cough Status: Acute (6) Diabetes Code(s): E11.9 - Type 2 diabetes mellitus without complications Status: Acute (7) Hypertension Code(s): I10 - Essential (primary) hypertension Status: Acute (8) Acute kidney injury Code(s): N17.9 - Acute kidney failure, unspecified Status: Acute (9) Abdominal pain Code(s): R10.9 - Unspecified abdominal pain Status: Acute (10) DVT (deep venous thrombosis) Code(s): I82.409 - Acute embolism and thrombosis of unspecified deep veins of unspecified lower extremity Status: Acute (11) Nutrition, metabolism, and development symptoms Code(s): R63.8 - Other symptoms and signs concerning food and fluid intake Status: Acute <Majo Banerjee Alejo - 10/01/18 09:48> (1) SIRS (systemic inflammatory response syndrome) Code(s): R65.10 - Systemic inflammatory response syndrome (SIRS) of non- infectious origin without acute organ dysfunction Status: Acute Plan: Patient admitted with elevated white count at 20.1, respiratory rate: 30, pulse : 96, meets SIRS criteria. Unidentified source of infection: Blood cultures, gram/sputum stain with NGTD Legionella Antigen, Influenza, Pneumococcal Antigen negative Recent sick contact. Afebrile. Crackles heard bilaterally on physical exam. Some perihilar opacities on CXRay but poor x-ray view. History concerning for pneumonia. Denies any urinary symptoms. Treating for pneumonia and COPD exacerbation. Azithromycin 500 mg daily, ceftriaxone 1 g daily. WBC count improved, no longer tachycardic (2) Hypoxia Code(s): R09.02 - Hypoxemia Status: Acute Plan: 4 days of SOB with productive cough, no fevers, recent sick contact with bronchitis. Hypoxic: 77 L on admission. Wheezing on physical exam. DDX: COPD exacerbation versus pneumonia versus CHF exacerbation versus bronchitis. BNP 77. CHF unlikely. ABG: PH: 7.29 and PCO2 of 63. Bicarb: 30. Respiratory acidosis with metabolic compensation. Possibly due to COPD exacerbation. Elevated white count 20.1 with high eosinophils at 58.3. Concerning for infection. X-ray: Perihilar opacities appreciated. Oxygen saturations improved on oxygen. Titrate as tolerated. Keep O2 sats above 94%. 120 Solu-Medrol and 40 mg Lasix given in the emergency room Continue home lasix. Continue with 40 mg prednisone p.o. daily. Albuterol and duo nebs alternating every 4. See SIRS above CTA was ordered after she was found to have an elevated D dimer CTA was negative for PE, did show extensive mediastinal adenopathy, sings of interstitial disease in the peribronchial regions as well as a 0.6cm focal density in the R midlung consulting hematology in setting of the CTA findings and patient's eosinophilia (3) Eosinophilia Code(s): D72.1 - Eosinophilia Status: Acute Plan: CBC on admission with elevated eosinophils at 58.3. Peripheral smear showed mild normochromic, normocytic anemia, mild eosinophilia Initially downtrended to 9.5 on 09/29 but uptrended to 37.7 on 09/30 consulting Hematology in setting of eosinophilia and mediastinal adenopathy (4) Wheezing Code(s): R06.2 - Wheezing Status: Acute Plan: See plan above. (5) Productive cough Code(s): R05 - Cough Status: Acute Plan: Mucinex added. (6) Diabetes Code(s): E11.9 - Type 2 diabetes mellitus without complications Status: Acute Plan: Hold metformin with concerns of lactic acidosis. will start on insulin low-dose sliding scale. (7) Hypertension Code(s): I10 - Essential (primary) hypertension Status: Acute Plan: Patient hypertensive on admission: 190/96, 156/82. Resuming Losartan on 09/30 - initially held for CECILE Continue home carvedilol and amlodipine. (8) Acute kidney injury Code(s): N17.9 - Acute kidney failure, unspecified Status: Acute Plan: Creatinine: 1.83 on admission. Baseline 0.6. Treating for pneumonia, COPD exacerbation will be careful with fluid overload. Will encourage PO intake today. Trend Cr in AM. Will consider starting on maintenance once lung sounds improve. (9) Abdominal pain Code(s): R10.9 - Unspecified abdominal pain Status: Acute Plan: Diffuse abdominal pain, good bowel movements, no hematochezia. Ct abdomen showed gallstones but was otherwise negative Improved on 09/30 after a BM (10) DVT (deep venous thrombosis) Code(s): I82.409 - Acute embolism and thrombosis of unspecified deep veins of unspecified lower extremity Status: Acute Plan: Patient complains of bilateral leg pain to palpation. Wells score: 3. Doppler of BLE ordered on 09/29 due to elevated D dimer was negative Heparin Q24 (11) Nutrition, metabolism, and development symptoms Code(s): R63.8 - Other symptoms and signs concerning food and fluid intake Status: Acute Plan: Fluids: No IVF at this time, patient had CECILE on admission but resolved with PO fluids Electrolytes: Monitor and replete as needed Diet: Diabetic diet GI prophylaxis: Protonix 40 mg. CODE STATUS: DNR/DNI. <Omari Olivier - 09/30/18 12:59> - Assessment and Plan 73 yo F with PMH of HTN, DM presented with SOB, productive cough and diffuse abdominal pain. Met SIRS criteria on admission. CXR did not show PNA but history consistent with PNA - started on Azithro and rocephin on admission. CT abdomen was normal and patient's abd pain resolved after a BM. Her D dimer was elevated on admission so BLE dopplers were ordered as well as a CTA. All were negative for PE/DVT, but she was found to have mediastinal adenopathy and signs interstitial lung disease. She was also notably found to have eosinophilia on admission that initially downtrended but trended back up on 09/30. Hematology was consulted in light of her eosinophilia and mediastinal adenopathy on 09/30. Clinically improving on abx. <Omari Olivier B - 09/30/18 13:13> - Attending Attestation Discussed with resident team -- Agree with assessment and plan. <Majo Banerjee - 10/01/18 09:48>
[2018-09-30 14:16] LABS: C-Reactive Protein 1.6 mg/dL (0.00-0.30)
--- NOTE | 2018-09-30 14:17 | MB ---
cc: Rick Galeana MD DATE: 09/30/2018 ATTENDING PHYSICIAN: Dr. Olivier REASON FOR CONSULTATION: Oncology consult of venogram, the patient with mediastinal adenopathy and eosinophilia. HISTORY OF PRESENT ILLNESS: The patient is a very pleasant 73-year-old female with a history of hypertension and diabetes, presented to the hospital complaining of increased cough productive of whitish sputum, shortness of breath and weakness. She stated her daughter was sick with bronchitis about a week ago. The patient started having symptoms on Tuesday. She said that her symptoms are progressively getting worse. She has increased wheezing. She also had abdominal pain with cough. She denies any fever or chills. She has no nausea or vomiting. She denies any diarrhea. She denies any change in urinary habits or bowel habits. She denies any pain. She has no headache. She denies any recent travel. She did not take any new medication or eat any unusual food. She denies any history of asthma or sarcoidosis. PAST MEDICAL HISTORY: Hypertension, diabetes mellitus, cataracts. PAST SURGICAL HISTORY: Appendectomy, left knee total knee replacement. FAMILY HISTORY: One aunt had stomach cancer and breast cancer. Mother had stomach cancer. She has 2 sons and a daughter, all healthy. She has 5 sisters and 2 brothers also healthy. No hematologic disorder in the family. SOCIAL HISTORY: Smoked 1/2 pack a day for 30 years, quit 20 years ago. Denies alcohol use. She lives alone. ALLERGIES: NO KNOWN DRUG ALLERGIES. CURRENT MEDICATIONS: 1. DuoNebs. 2. Norvasc. 3. Zithromax. 4. Pulmicort. 5. Coreg. 6. Ceftriaxone. 7. Lasix. 8. Mucinex. 9. Heparin. 10. Metformin. 11. Protonix. 12. Prednisone. 13. Veronica-Colace. REVIEW OF SYSTEMS: CONSTITUTIONAL: As above. EYES: Negative. ENT: Negative. CARDIOVASCULAR: No chest pressure or palpitation. RESPIRATORY: As above. GASTROINTESTINAL: As above. GENITOURINARY: Denies dysuria or hematuria. MUSCULOSKELETAL: Negative. HEMATOLOGIC: As above. ENDOCRINE: Negative. DERMATOLOGIC: Negative. PSYCHIATRIC: Negative. NEUROLOGIC: Negative. PHYSICAL EXAMINATION: VITAL SIGNS: Temperature 97.7, blood pressure 153/68, O2 saturation 98% on 1 liter nasal cannula. GENERAL: She is alert, oriented x3, no acute distress. HEENT: Atraumatic, normocephalic. Pupils are equal, round, reactive to light, ocular muscles intact. No scleral icterus. Oropharynx dry mucosa. No lesion. NECK: No thyromegaly. No palpable mass. LYMPHATIC: No palpable cervical, clavicular, axillary, or inguinal lymph nodes. HEART: Regular S1, S2. No murmur. LUNGS: Basilar crackles. No significant wheezes. ABDOMEN: Soft, nontender. Cannot palpate liver or spleen. EXTREMITIES: No cyanosis, clubbing or edema. SKIN: No rash or petechiae. NEUROLOGIC: Nonfocal. LABORATORY DATA: I did review her blood work drawn since admission. WBC 13.4, hemoglobin 10.1, platelet count 217, absolute eosinophil count of 5000. Creatinine 1.2. Liver transaminase within normal limits. Alkaline phosphatase of 176. ASSESSMENT: 1. Mediastinal adenopathy. CT angiogram showed extensive mediastinal lymphadenopathy involving pretracheal, paratracheal, subcarinal AP window in bilateral hilar area. There is also interstitial changes noted in the lung. There is a 6 mm density in the right middle lobe. A CT abdomen and pelvis showed only a gallstone, but no lymphadenopathy noted. She presented with leukocytosis and eosinophilia. White blood cell count had trended down with antibiotics. Eosinophil count down to 5000 today. This could be a viral pneumonia and I think it is less likely to be eosinophilic pneumonia. The differential would include a lymphoproliferative disorder or sarcoidosis. The patient was started on antibiotics and steroids. She is feeling better and her blood count seems to have improved. I will consult pulmonology to see if the patient will need a bronchoscopy or further workup. The mediastinal adenopathy is not accessible from percutaneous biopsy, but possibly could be biopsied with a bronchoscopy or EBUS. The other option is to monitor her closely and repeat a CT scan in a few weeks to see if there is any improvement after treatment with antibiotics and steroids. 1. Eosinophilia. She presented white cell of 20,000. Today it has trended down to 13,000 with eosinophil count down from 12,000 to 5000. I think this is likely a reactive versus allergic reaction. I think is less likely to be primary bone marrow disorder like chronic myeloproliferative disorder. The peripheral smear showed mild eosinophilia and mild anemia with no abnormal morphology noted. I am going to check her JAK2 and monitor CBC. If she has persistent eosinophilia we may have to do a bone marrow biopsy or flow cytometry. 2. Hypertension. 3. Diabetes mellitus. RECOMMENDATIONS: 1. Proceed with laboratory evaluation. Check a RAMIREZ level to rule out sarcoidosis. 2. Consult pulmonology. 3. Continue antibiotic per primary team. 4. Monitor CBC. 5. If the mediastinal lymph node cannot be biopsy then recommend repeating a CT scan a few weeks to see if there are any changes after treatment with antibiotics. Thank you Dr. Olivier for allowing me to see this patient. MD PETER Hernandez/petros/asha , 10:41 AM , 10:56 AM [email or web address]
[2018-09-30 15:22] LABS: ABG Base Excess 7.1 mmol/L (-2-2); ABG PCO2 40 mmHg (38-42); ABG PO2 229 mmHg (61-120)
[2018-09-30] MEDS: MethylPREDNISolone Sod Succinate Inj 40 MG/ML Vial IV.PUSH SCH (16:13)
--- NOTE | 2018-09-30 17:23 | MB ---
cc: Jose Cervantes MD DATE: 09/30/2018 HISTORY OF PRESENT ILLNESS: The patient is a 73-year-old female with a past medical history of hypertension, diabetes mellitus, tobacco use, who presented to [facility] ED with a 4-day history of progressive worsening shortness of breath associated with a productive cough with yellow phlegm and wheezing. The patient denies any fever, chills or constitutional symptoms. In addition, she denies any prior history of pneumonia. She is not on any oxygen at home and does not use any bronchodilators. She quit smoking 20 years ago; however, she has a [id number] history of smoking. Chest x-ray on arrival showed interstitial changes. Subsequently, the patient underwent CTA of the chest which showed no evidence of pulmonary embolism; however, it showed extensive mediastinal adenopathy in the pretracheal, right paratracheal, subcarinal, right and left tracheobronchial, prevascular and bilateral hilar regions. Also, interstitial disease noted at the lower lungs and focal right mid lung density, 0.6 cm. She was started on bronchodilators and broad spectrum antibiotics. Pulmonary medicine was consulted for abnormal CT. When seen, she was on room air oxygen. The patient is afebrile. Her strep pneumonia, Legionella urinary antigen and influenza screening all negative. The patient denies any nausea, vomiting, chest pain or edema of lower extremities. PAST MEDICAL HISTORY: Significant for hypertension, diabetes mellitus. PAST SURGICAL HISTORY: Previous knee surgery. ALLERGIES: NO KNOWN DRUG ALLERGIES. SOCIAL HISTORY: Quit smoking 20 years ago, has [id number] history of smoking. Also, she has a remote history of ETOH use. FAMILY HISTORY: Noncontributing to present illness. MEDICATIONS AT HOME: Include: 1. Lasix. 2. Coreg. 3. Norvasc. 4. Metformin. 5. Mobic. REVIEW OF SYSTEMS: As per HPI, review of systems is unremarkable. PHYSICAL EXAMINATION: GENERAL: A 73-year-old female sitting up in bed in no acute distress. VITAL SIGNS: Afebrile, temperature 97.8, pulse of 61, respiratory rate of 18, blood pressure 153/67, saturation 98%. HEENT: Atraumatic, normocephalic. Pupils equal and reactive to light and accommodation. Extraocular muscles intact. Conjunctivae pink, anicteric sclerae. Oral mucosa within normal. NECK: Supple. No JVD, adenopathy or thyromegaly. Trachea in the midline. CARDIOVASCULAR: Regular rate and rhythm. Normal S1, S2. No murmurs, rubs or gallops noted. PULMONARY: Bilateral equal air entry with a few coarse breath sounds at the bases. ABDOMEN: Soft, nontender. No distention. Positive bowel sounds. EXTREMITIES: No cyanosis, clubbing, edema. NEUROLOGIC: No focal sensory deficit. LABORATORY DATA: WBC 13.4, hemoglobin 10.1, hematocrit 32, platelet count of 217. Sodium 143, potassium 3.6, chloride 105, CO2 32, BUN 21, creatinine 1.20, glucose 124. ABG showed a pH of 7.29, CO2 of 63, PaO2 95, bicarbonate 30, saturation 95% on 3 liter oxygen. RADIOGRAPHIC STUDIES: CT of the chest showed no evidence of pulmonary embolism, extensive mediastinal adenopathy. Doppler ultrasound of the lower extremity negative for DVT. IMPRESSION: 1. Acute hypoxemic and hypercapnic respiratory insufficiency. 2. Extensive mediastinal adenopathy. Differential diagnosis sarcoidosis versus lymphoma versus metastatic tumors versus granulomatous infections. 3. Interstitial lung disease. 4. Right mid lung focal density, measures 0.6 cm. 5. Leukocytosis. 6. History of tobacco use. 7. Hypertension. 8. Diabetes mellitus. RECOMMENDATIONS: 1. Oxygen p.r.n. to maintain sats above 92%. 2. We will continue Bronchodilators in the form of DuoNeb every 4 hours plus every 2 hours p.r.n. for shortness of breath. 3. Change p.o. prednisone to Solu-Medrol 40 mg IV every 8 hours. 4. We will add Symbicort 160/4.5 two puffs b.i.d. 5. Continue with empiric antibiotics in the form of Rocephin and azithromycin. Monitor for signs of infection, which include fever and WBC. Her strep pneumonia legionella urinary antigen, influenza screening ALL negative. Also, sputum culture from 09/28/2018 showed normal respiratory jennifer. 6. BiPAP p.r.n. for respiratory distress. 7. CT scan of the chest reviewed, which showed extensive mediastinal adenopathy as stated above and differential diagnosis include granulomatous infection, metastatic tumors and high likelihood of sarcoidosis. We will obtain a pulmonary function test to rule out obstructive and restrictive lung disease. In addition, we will check QuantiFERON Gamma for TB. 8. We will obtain an ALBERT and rheumatoid factor for screening purposes, and will check an RAMIREZ level along with C-reactive protein and ESR. 9. Patient will likely need endoscopic ultrasound with fine needle aspiration of the mediastinal adenopathy. 10. Hematology is following for eosinophilia. 11. Further recommendations will be based on hospital course. Thank you for this consultation and allowing us to participate in this patient's care. MD THELMA Cho/kwan , 02:06 PM , 02:20 PM
[2018-09-30] MEDS: Azithromycin 250 MG Tablet PO SCH (20:14)
[2018-10-01] MEDS: MethylPREDNISolone Sod Succinate Inj 40 MG/ML Vial IV.PUSH SCH ×3 (00:44→20:27)
[2018-10-01] MEDS: Heparin - SQ 10,000 UNITS/ML Vial SQ SCH ×3 (05:01→21:08)
[2018-10-01] MEDS: guaiFENesin 600 MG ER Tablet PO SCH ×2 (08:33→20:27)
[2018-10-01] MEDS: amLODIPine 10 MG Tablet PO SCH (08:33)
[2018-10-01] MEDS: Senna/Docusate Sodium 8.6/50 MG Tablet PO SCH ×2 (08:34→20:28)
[2018-10-01] MEDS: Insulin NovoLOG Aspart Correctional Sugar Inj SQ SCH ×4 (08:34→20:28)
--- NOTE | 2018-10-01 08:51 | P.PNPL ---
Subjective Interval history: Patient is lying in bed in NAD. Afebrile. Physical Exam Vital signs: Vital Signs 09/30/18 12:00 09/30/18 12:28 09/30/18 15:07 Temperature 97.8 F Pulse Rate 68 61 68 Respiratory Rate 18 12 12 Blood Pressure 153/67 H Pulse Oximetry 98 09/30/18 16:00 09/30/18 16:49 09/30/18 20:00 Temperature 98.4 F 97.6 F Pulse Rate 66 66 62 Respiratory Rate 18 18 Blood Pressure 134/96 H 149/65 H Pulse Oximetry 95 96 09/30/18 20:35 10/01/18 00:00 10/01/18 00:07 Temperature 97.6 F Pulse Rate 81 56 L 60 Respiratory Rate 16 17 14 Blood Pressure 131/65 Pulse Oximetry 95 99 10/01/18 03:49 10/01/18 04:00 10/01/18 07:00 Temperature 97.5 F L Pulse Rate 64 64 54 L Respiratory Rate 17 16 12 Blood Pressure 157/68 H Pulse Oximetry 100 10/01/18 08:00 10/01/18 08:20 Temperature Pulse Rate Respiratory Rate Blood Pressure Pulse Oximetry 97 99 Intake & Output 09/30/18 10/01/18 10/01/18 18:59 06:59 18:59 Intake Total 480 / 480 350 / 350 Balance 480 / 480 350 / 350 Weight 100.8 kg Intake: IV 100 / 100 Rocephin Inj 1,000 MG In NS Inj 100 / 100 100 ML @ 200 mls/hr IV.SIG Q24H GAIL Rx#:[id number] Oral 480 / 480 250 / 250 Other: # Voids 4 3 # Bowel Movements 1 - Constitutional no acute distress, obese - Routine HEENT Exam Head: Present: normocephalic, atraumatic Eye: Present: EOMI, PERRL, normal accommodation, conjunctivae pink ENT: Present: mucous membranes moist - Routine Neck Exam Present: supple, full ROM, trachea midline - Routine Respiratory Exam Present: CTA bilaterally - Routine Cardiovascular Exam Present: RRR, S1, S2 - Routine Abdominal Exam Present: soft, normoactive bowel sounds - Routine Extremities Exam Present: full ROM, pulses intact - Routine Skin Exam Present: intact, dry - Routine Neurological Exam Present: alert, oriented X3, CN II-XII intact Assessment and Plan - Plan 1. Acute hypoxemic and hypercapnic respiratory insufficiency. 2. Extensive mediastinal adenopathy. Ddx: sarcoidosis, lymphoma, metastatic tumors, granulomatous infections. 3. Interstitial lung disease. 4. Right mid lung focal density, measures 0.6 cm. 5. Leukocytosis with Eosinophilia. 6. History of tobacco use. 7. Hypertension. 8. Diabetes mellitus. Plan Continue with maintain sats above 92%. Bronchodilators( DuoNeb, Symbicort) Decrease Solu-Medrol 40 mg IV Q12 BIPAP PRN Check PFT rule out obstructive and restrictive lung disease Continue abx- Rocephin and azithromycin. Monitor for signs of infection(fever and WBC) strep pneumonia legionella urinary antigen, influenza screening ALL negative. sputum culture from 09/28/2018 showed normal respiratory jennifer. Will need EBUS with FNA for pathology check QuantiFERON Gamma for TB. Check ALBERT, RF screening negative. Follow up on RAMIREZ level -pending, check IgE level Hematology is following for eosinophilia. Continue treatment plan
[2018-10-01] MEDS ORDERED: MethylPREDNISolone Sod Succinate Inj 40 MG/ML Vial IV.PUSH SCH (09:00)
--- NOTE | 2018-10-01 10:04 | P.PNFP ---
Subjective Interval history: At bedside this morning. She still complains of being short of breath but it has improved since admission. She denies any abdominal pain and confirms good bowel movements today. She is aware of the plan moving forward in regard to pulmonology. They plan to do a FNA on Tuesday and will be ordering a pulmonary function test. Patient at this time is still processing everything that is happening during her hospital course. Comforted patient at bedside, relayed that on the medical care team is open to answering any questions when she is ready to discuss her hospital course. Patient voiced understanding. Today she denies any chest pain, abdominal pain, problems with urination or defecation, her leg pain has resolved. <Sydnee Ramirez - 10/01/18 11:08> Results - Labs Result diagrams: 10/01/18 09:50 10/01/18 09:50 <Majo Banerjee - 10/01/18 15:38> Abnormal lab results 09/30/18 09/30/18 10/01/18 Range/Units 17:09 20:01 09:50 RBC 3.22 L (4.00-5.30) mil/mm3 Hgb 9.6 L (11.6-15.3) gm/dL Hct 29.5 L (35.0-46.0) % Eos % (Auto) 25.3 H (0.0-4.0) % Eos # (Auto) 2.6 H (0.0-0.4) th/mm3 Carbon Dioxide (21.0-32.0) meq/L Anion Gap (5-15) meq/L BUN (7-18) mg/dL Creatinine (0.50-1.00) mg/dL Estimated GFR (>89) mL/min POC Glucose 211 H 248 H (68-110) mg/dl Random Glucose (74-106) mg/dL Calcium (8.5-10.1) mg/dL 10/01/18 10/01/18 Range/Units 09:50 12:14 RBC (4.00-5.30) mil/mm3 Hgb (11.6-15.3) gm/dL Hct (35.0-46.0) % Eos % (Auto) (0.0-4.0) % Eos # (Auto) (0.0-0.4) th/mm3 Carbon Dioxide 35.1 H (21.0-32.0) meq/L Anion Gap 3 L (5-15) meq/L BUN 23 H (7-18) mg/dL Creatinine 1.33 H (0.50-1.00) mg/dL Estimated GFR 47 L (>89) mL/min POC Glucose 178 H (68-110) mg/dl Random Glucose 144 H (74-106) mg/dL Calcium 8.3 L (8.5-10.1) mg/dL Short CBC 10/01/18 Range/Units 09:50 WBC 10.1 (4.0-11.0) th/mm3 Hgb 9.6 L (11.6-15.3) gm/dL Hct 29.5 L (35.0-46.0) % Plt Count 197 (150-450) th/mm3 BMP 10/01/18 09:50 Sodium 138 Potassium 3.7 Chloride 100 Carbon Dioxide 35.1 H BUN 23 H Creatinine 1.33 H Calcium 8.3 L <Majo Banerjee - 10/01/18 15:38> Abnormal lab results 09/30/18 09/30/18 09/30/18 Range/Units 12:05 13:16 13:16 ESR 58 H (0-30) mm/hr ABG pH (7.380-7.420) ABG pO2 (61-120) mmHg ABG HCO3 (22-26) mmol/L ABG Base Excess (-2-2) mmol/L Hemoglobin (12.0-16.0) G/DL POC Glucose 124 H (68-110) mg/dl C-Reactive Protein 1.60 H (0.00-0.30) mg/dL 09/30/18 09/30/18 09/30/18 Range/Units 15:12 17:09 20:01 ESR (0-30) mm/hr ABG pH 7.50 H (7.380-7.420) ABG pO2 229 H (61-120) mmHg ABG HCO3 31 H (22-26) mmol/L ABG Base Excess 7.1 H (-2-2) mmol/L Hemoglobin 10.3 L (12.0-16.0) G/DL POC Glucose 211 H 248 H (68-110) mg/dl C-Reactive Protein (0.00-0.30) mg/dL <Sydnee Ramirez - 10/01/18 10:04> Physical Exam Vital signs: Vital Signs 09/30/18 16:00 09/30/18 16:49 09/30/18 20:00 Temperature 98.4 F 97.6 F Pulse Rate 66 66 62 Respiratory Rate 18 18 Blood Pressure 134/96 H 149/65 H Pulse Oximetry 95 96 09/30/18 20:35 10/01/18 00:00 10/01/18 00:07 Temperature 97.6 F Pulse Rate 81 56 L 60 Respiratory Rate 16 17 14 Blood Pressure 131/65 Pulse Oximetry 95 99 10/01/18 03:49 10/01/18 04:00 10/01/18 07:00 Temperature 97.5 F L Pulse Rate 64 64 54 L Respiratory Rate 17 16 12 Blood Pressure 157/68 H Pulse Oximetry 100 10/01/18 08:00 10/01/18 08:20 10/01/18 12:00 Temperature 98.4 F 98.6 F Pulse Rate 66 67 Respiratory Rate 18 18 Blood Pressure 141/60 H 151/72 H Pulse Oximetry 98 99 96 10/01/18 15:15 Temperature Pulse Rate Respiratory Rate Blood Pressure Pulse Oximetry 96 Intake & Output 09/30/18 10/01/18 10/01/18 18:59 06:59 18:59 Intake Total 480 / 480 350 / 350 Balance 480 / 480 350 / 350 Weight 100.8 kg Intake: IV 100 / 100 Rocephin Inj 1,000 MG In NS Inj 100 / 100 100 ML @ 200 mls/hr IV.SIG Q24H [facility] Rx#:[id number] Oral 480 / 480 250 / 250 Other: # Voids 4 3 # Bowel Movements 1 <Majo Banerjee R - 10/01/18 15:38> Vital Signs 09/30/18 12:00 09/30/18 12:28 09/30/18 15:07 Temperature 97.8 F Pulse Rate 68 61 68 Respiratory Rate 18 12 12 Blood Pressure 153/67 H Pulse Oximetry 98 09/30/18 16:00 09/30/18 16:49 09/30/18 20:00 Temperature 98.4 F 97.6 F Pulse Rate 66 66 62 Respiratory Rate 18 18 Blood Pressure 134/96 H 149/65 H Pulse Oximetry 95 96 09/30/18 20:35 10/01/18 00:00 10/01/18 00:07 Temperature 97.6 F Pulse Rate 81 56 L 60 Respiratory Rate 16 17 14 Blood Pressure 131/65 Pulse Oximetry 95 99 10/01/18 03:49 10/01/18 04:00 10/01/18 07:00 Temperature 97.5 F L Pulse Rate 64 64 54 L Respiratory Rate 17 16 12 Blood Pressure 157/68 H Pulse Oximetry 100 10/01/18 08:00 10/01/18 08:20 Temperature 98.4 F Pulse Rate 66 Respiratory Rate 18 Blood Pressure 141/60 H Pulse Oximetry 98 99 Intake & Output 09/30/18 10/01/18 10/01/18 18:59 06:59 18:59 Intake Total 480 / 480 350 / 350 Balance 480 / 480 350 / 350 Weight 100.8 kg Intake: IV 100 / 100 Rocephin Inj 1,000 MG In NS Inj 100 / 100 100 ML @ 200 mls/hr IV.SIG Q24H [facility] Rx#:[id number] Oral 480 / 480 250 / 250 Other: # Voids 4 3 # Bowel Movements 1 <Sydnee Ramirez - 10/01/18 10:04> Narrative: GENERAL: Elderly appearing female, sitting upright, speaking in full sentences and answering questions of separately. Nasal cannula in place. SKIN: Warm and dry. HEAD: Normocephalic. EYES: No scleral icterus. No injection or drainage. NECK: Supple, trachea midline. No JVD or lymphadenopathy. CARDIOVASCULAR: Regular rate and rhythm without murmurs, gallops, or rubs. RESPIRATORY: Continues to have occasional crackles throughout all lung vásquez, no wheezes, improved from prior exam with improved air movement. GASTROINTESTINAL: Abdomen soft, nondistended. No tenderness to palpation on today's exam MUSCULOSKELETAL: No cyanosis. Trace edema bilaterally. No calf tenderness on today's exam BACK: Nontender without obvious deformity. No CVA tenderness. <Sydnee Ramirez - 10/01/18 11:09> Assessment and Plan - Assessment (1) SIRS (systemic inflammatory response syndrome) Code(s): R65.10 - Systemic inflammatory response syndrome (SIRS) of non- infectious origin without acute organ dysfunction Status: Acute (2) Hypoxia Code(s): R09.02 - Hypoxemia Status: Acute (3) Eosinophilia Code(s): D72.1 - Eosinophilia Status: Acute (4) Wheezing Code(s): R06.2 - Wheezing Status: Acute (5) Productive cough Code(s): R05 - Cough Status: Acute (6) Diabetes Code(s): E11.9 - Type 2 diabetes mellitus without complications Status: Acute (7) Hypertension Code(s): I10 - Essential (primary) hypertension Status: Acute (8) Acute kidney injury Code(s): N17.9 - Acute kidney failure, unspecified Status: Acute (9) Abdominal pain Code(s): R10.9 - Unspecified abdominal pain Status: Acute (10) DVT (deep venous thrombosis) Code(s): I82.409 - Acute embolism and thrombosis of unspecified deep veins of unspecified lower extremity Status: Acute (11) Nutrition, metabolism, and development symptoms Code(s): R63.8 - Other symptoms and signs concerning food and fluid intake Status: Acute <Majo Banerjee R - 10/01/18 15:38> (1) SIRS (systemic inflammatory response syndrome) Code(s): R65.10 - Systemic inflammatory response syndrome (SIRS) of non- infectious origin without acute organ dysfunction Status: Acute Plan: Patient admitted with elevated white count at 20.1, respiratory rate: 30, pulse : 96, meets SIRS criteria. Unidentified source of infection: Blood cultures, gram/sputum stain with NGTD Legionella Antigen, Influenza, Pneumococcal Antigen negative Recent sick contact. Afebrile. Crackles heard bilaterally on physical exam. Some perihilar opacities on CXRay but poor x-ray view. History concerning for pneumonia. Denies any urinary symptoms. Treating for pneumonia and COPD exacerbation. Pulmonology recommends to continue with Azithromycin 500 mg daily, ceftriaxone 1 g daily. Day 4 WBC count improved, no longer tachycardic (2) Hypoxia Code(s): R09.02 - Hypoxemia Status: Acute Plan: 4 days of SOB with productive cough, no fevers, recent sick contact with bronchitis. Hypoxic: 77 L on admission. Wheezing on physical exam. DDX: COPD exacerbation versus pneumonia versus CHF exacerbation versus bronchitis. BNP 77. CHF unlikely. ABG: PH: 7.29 and PCO2 of 63. Bicarb: 30. Respiratory acidosis with metabolic compensation. Possibly due to COPD exacerbation. Elevated white count 20.1 with high eosinophils at 58.3. Concerning for infection. X-ray: Perihilar opacities appreciated. Oxygen saturations improved on oxygen. Titrate as tolerated. Keep O2 sats above 92%. 120 Solu-Medrol and 40 mg Lasix given in the emergency room Held Lasix today due to CECILE 10/01 40 mg prednisone switched to 40 IV solumedrol q12 per pulm recommendations. Symbicort added. BIPAP PRN. Albuterol and duo nebs alternating every 4. See SIRS above CTA was ordered after she was found to have an elevated D dimer CTA was negative for PE, did show extensive mediastinal adenopathy, sings of interstitial disease in the peribronchial regions as well as a 0.6cm focal density in the R midlung Heme Onc: lymphoproliferative disorder vs sarcoidosis. DELLA 2 kinase mutation, RAMIREZ, Rh Factor, IgE and ALBERT pending. ESR: 58. CRP: 1.6. Continue to trend eosinophilia. Pulm: Plan for PFT and mediastinal biopsy via FNA on Tuesday with Dr. Tirado. Quantiferon Gamma for TB pending. ABG 09/30: PH: 7.5, CO2:40, HCO3: 31: Acidosis resolved. Minimally alkalotic. Not concerning at this time. (3) Eosinophilia Code(s): D72.1 - Eosinophilia Status: Acute Plan: CBC on admission with elevated eosinophils at 58.3. Peripheral smear showed mild normochromic, normocytic anemia, mild eosinophilia Initially downtrended to 9.5 on 09/29 but uptrended to 37.7 on 09/30 Today downtrending to 25.3 Continue to monitor. Hematology following. = (4) Wheezing Code(s): R06.2 - Wheezing Status: Acute Plan: See plan above. (5) Productive cough Code(s): R05 - Cough Status: Acute Plan: Mucinex added. (6) Diabetes Code(s): E11.9 - Type 2 diabetes mellitus without complications Status: Acute Plan: Hold metformin with concerns of lactic acidosis. will start on insulin low-dose sliding scale. (7) Hypertension Code(s): I10 - Essential (primary) hypertension Status: Acute Plan: Patient hypertensive on admission: 190/96, 156/82. Resuming Losartan on 09/30 - initially held for CECILE Continue home carvedilol and amlodipine. (8) Acute kidney injury Code(s): N17.9 - Acute kidney failure, unspecified Status: Acute Plan: Creatinine: 1.83 on admission. Baseline 0.6. Treating for pneumonia, COPD exacerbation will be careful with fluid overload. Will encourage PO intake today. Trend Cr in AM. Will consider starting on maintenance once lung sounds improve. (9) Abdominal pain Code(s): R10.9 - Unspecified abdominal pain Status: Acute Plan: Diffuse abdominal pain, good bowel movements, no hematochezia. Ct abdomen showed gallstones but was otherwise negative Improved on 09/30 after a BM (10) DVT (deep venous thrombosis) Code(s): I82.409 - Acute embolism and thrombosis of unspecified deep veins of unspecified lower extremity Status: Acute Plan: Patient complains of bilateral leg pain to palpation. Wells score: 3. Doppler of BLE ordered on 09/29 due to elevated D dimer was negative Heparin Q24 (11) Nutrition, metabolism, and development symptoms Code(s): R63.8 - Other symptoms and signs concerning food and fluid intake Status: Acute Plan: Fluids: No IVF at this time, patient had CECILE on admission but resolved with PO fluids Electrolytes: Monitor and replete as needed Diet: Diabetic diet GI prophylaxis: Protonix 40 mg. CODE STATUS: DNR/DNI. <Sydnee Ramirez - 10/01/18 11:12> - Assessment and Plan 73 yo F with PMH of HTN, DM presented with SOB, productive cough and diffuse abdominal pain. Met SIRS criteria on admission. CXR did not show PNA but history consistent with PNA - started on Azithro and rocephin on admission. CT abdomen was normal and patient's abd pain resolved after a BM. Her D dimer was elevated on admission so BLE dopplers were ordered as well as a CTA. All were negative for PE/DVT, but she was found to have mediastinal adenopathy and signs interstitial lung disease. She was also notably found to have eosinophilia on admission that initially downtrended but trended back up on 09/30. Hematology was consulted in light of her eosinophilia and mediastinal adenopathy on 09/30. Clinically improving on abx. <Sydnee Ramirez - 10/01/18 11:08> - Attending Attestation Patient seen and examined with the resident team. Agree with the assessment and plan as written. Patient is clinically improved since admission, but not back to baseline. Will continue current treatment and await results from the workup from Heme/Onc and Pulmonology <Majo Banerjee R - 10/01/18 15:38>
[2018-10-01 10:25] LABS: Baso # (Auto) 0.1 th/mm3 (0.0-0.2); Baso % (Auto) 0.9 % (0.0-2.0); Eos # (Auto) 2.6 th/mm3 (0.0-0.4); Eos % (Auto) 25.3 % (0.0-4.0); Hematocrit 29.5 % (35.0-46.0); Hemoglobin 9.6 gm/dL (11.6-15.3); Lymph # (Auto) 3.1 th/mm3 (1.0-4.8); Lymph % (Auto) 30.7 % (9.0-44.0); Mean Corpuscular HGB Conc 32.6 % (32.0-36.0); Mean Corpuscular Hemoglobin 29.9 pg (27.0-34.0); Mean Corpuscular Volume 91.6 fL (80.0-100.0); Mean Platelet Volume 8.6 fL (7.0-11.0); Mono # (Auto) 0.7 th/mm3 (0.0-0.9); Mono % (Auto) 6.6 % (0.0-8.0); Neut # (Auto) 3.7 th/mm3 (1.8-7.7); Neut % (Auto) 36.5 % (16.0-70.0); Platelet Count 197 th/mm3 (150-450); Red Blood Count 3.22 mil/mm3 (4.00-5.30); Red Cell Distribution Width 14.2 % (11.6-17.2); White Blood Count 10.1 th/mm3 (4.0-11.0)
[2018-10-01 11:07] LABS: Calcium 8.3 mg/dL (8.5-10.1); Carbon Dioxide 35.1 meq/L (21.0-32.0); Potassium 3.7 meq/L (3.5-5.1)
--- NOTE | 2018-10-01 11:57 | P.PNONC ---
Subjective Interval history: Afebrile Patient reports she is feeling better since admission No fevers States she has biopsy planned tentatively for Tuesday Objective Vital Signs/Intake & Output: Vital Signs 09/30/18 12:00 09/30/18 12:28 09/30/18 15:07 Temperature 97.8 F Pulse Rate 68 61 68 Respiratory Rate 18 12 12 Blood Pressure 153/67 H Pulse Oximetry 98 09/30/18 16:00 09/30/18 16:49 09/30/18 20:00 Temperature 98.4 F 97.6 F Pulse Rate 66 66 62 Respiratory Rate 18 18 Blood Pressure 134/96 H 149/65 H Pulse Oximetry 95 96 09/30/18 20:35 10/01/18 00:00 10/01/18 00:07 Temperature 97.6 F Pulse Rate 81 56 L 60 Respiratory Rate 16 17 14 Blood Pressure 131/65 Pulse Oximetry 95 99 10/01/18 03:49 10/01/18 04:00 10/01/18 07:00 Temperature 97.5 F L Pulse Rate 64 64 54 L Respiratory Rate 17 16 12 Blood Pressure 157/68 H Pulse Oximetry 100 10/01/18 08:00 10/01/18 08:20 Temperature 98.4 F Pulse Rate 66 Respiratory Rate 18 Blood Pressure 141/60 H Pulse Oximetry 98 99 Intake & Output 09/30/18 10/01/18 10/01/18 18:59 06:59 18:59 Intake Total 480 / 480 350 / 350 Balance 480 / 480 350 / 350 Weight 222 lb 3.615 oz Intake: IV 100 / 100 Rocephin Inj 1,000 MG In NS Inj 100 / 100 100 ML @ 200 mls/hr IV.SIG Q24H [facility] Rx#:[id number] Oral 480 / 480 250 / 250 Other: # Voids 4 3 # Bowel Movements 1 Result Diagrams: 10/01/18 09:50 10/01/18 09:50 Laboratory Results: Laboratory Results - last 24 hr 09/30/18 09/30/18 09/30/18 12:05 13:16 13:16 WBC RBC Hgb Hct MCV MCH MCHC RDW Plt Count MPV Neut % (Auto) Lymph % (Auto) Crockett % (Auto) Eos % (Auto) Baso % (Auto) Neut # (Auto) Lymph # (Auto) [place] # (Auto) Eos # (Auto) Baso # (Auto) WBC Differential Differential Comment ESR 58 H Puncture Site Patient Temperature O2 Saturation ABG pH ABG pCO2 ABG pO2 ABG HCO3 ABG O2 Content ABG Base Excess ABG Methemoglobin Adolfo Test Hemoglobin Carboxyhemoglobin O2 Delivery Device Liter Flow Critical Value Sodium Potassium Chloride Carbon Dioxide Anion Gap BUN Creatinine Estimated GFR POC Glucose 124 H Random Glucose Calcium C-Reactive Protein 1.60 H Vitamin B12 793 Rheumatoid Factor Scrn Rheumatoid Factor Titer 09/30/18 09/30/18 09/30/18 13:16 15:12 17:09 WBC RBC Hgb Hct MCV MCH MCHC RDW Plt Count MPV Neut % (Auto) Lymph % (Auto) [place] % (Auto) Eos % (Auto) Baso % (Auto) Neut # (Auto) Lymph # (Auto) [place] # (Auto) Eos # (Auto) Baso # (Auto) WBC Differential Differential Comment ESR Puncture Site Right radial Patient Temperature 98.6 O2 Saturation 98 ABG pH 7.50 H ABG pCO2 40 ABG pO2 229 H ABG HCO3 31 H ABG O2 Content 14.7 ABG Base Excess 7.1 H ABG Methemoglobin 1.1 Adolfo Test Present Hemoglobin 10.3 L Carboxyhemoglobin 1.0 O2 Delivery Device Nasal cannula Liter Flow 1.00 Critical Value No Sodium Potassium Chloride Carbon Dioxide Anion Gap BUN Creatinine Estimated GFR POC Glucose 211 H Random Glucose Calcium C-Reactive Protein Vitamin B12 Rheumatoid Factor Scrn Negative Rheumatoid Factor Titer Not Reportable 09/30/18 10/01/18 10/01/18 20:01 07:33 09:50 WBC 10.1 RBC 3.22 L Hgb 9.6 L Hct 29.5 L MCV 91.6 MCH 29.9 MCHC 32.6 RDW 14.2 Plt Count 197 MPV 8.6 Neut % (Auto) 36.5 Lymph % (Auto) 30.7 Crockett % (Auto) 6.6 Eos % (Auto) 25.3 H Baso % (Auto) 0.9 Neut # (Auto) 3.7 Lymph # (Auto) 3.1 [place] # (Auto) 0.7 Eos # (Auto) 2.6 H Baso # (Auto) 0.1 WBC Differential . Differential Comment Auto diff final ESR Puncture Site Patient Temperature O2 Saturation ABG pH ABG pCO2 ABG pO2 ABG HCO3 ABG O2 Content ABG Base Excess ABG Methemoglobin Adolfo Test Hemoglobin Carboxyhemoglobin O2 Delivery Device Liter Flow Critical Value Sodium Potassium Chloride Carbon Dioxide Anion Gap BUN Creatinine Estimated GFR POC Glucose 248 H 110 Random Glucose Calcium C-Reactive Protein Vitamin B12 Rheumatoid Factor Scrn Rheumatoid Factor Titer 10/01/18 09:50 WBC RBC Hgb Hct MCV MCH MCHC RDW Plt Count MPV Neut % (Auto) Lymph % (Auto) [place]ckett % (Auto) Eos % (Auto) Baso % (Auto) Neut # (Auto) Lymph # (Auto) [place] # (Auto) Eos # (Auto) Baso # (Auto) WBC Differential Differential Comment ESR Puncture Site Patient Temperature O2 Saturation ABG pH ABG pCO2 ABG pO2 ABG HCO3 ABG O2 Content ABG Base Excess ABG Methemoglobin Adolfo Test Hemoglobin Carboxyhemoglobin O2 Delivery Device Liter Flow Critical Value Sodium 138 Potassium 3.7 Chloride 100 Carbon Dioxide 35.1 H Anion Gap 3 L BUN 23 H Creatinine 1.33 H Estimated GFR 47 L POC Glucose Random Glucose 144 H Calcium 8.3 L C-Reactive Protein Vitamin B12 Rheumatoid Factor Scrn Rheumatoid Factor Titer Culture Results: Microbiology 09/28/18 23:30 Gram Stain - Final Sputum - Oral Tracheal Aspirate Sputum Culture - Preliminary Mold species-ID to follow 09/28/18 20:30 Aerobic Blood Culture - Preliminary Blood - Peripheral No growth in 3 days Anaerobic Blood Culture - Preliminary No growth in 3 days 09/28/18 20:02 Aerobic Blood Culture - Preliminary Blood - Peripheral No growth in 3 days Anaerobic Blood Culture - Preliminary No growth in 3 days 09/29/18 11:00 Gram Stain - Final Clean Catch Urine 09/29/18 11:00 Streptococcus pneumoniae Antigen (M - Final Urine - Clean Catch Urine Presumptive negative for streptococcus pneumoniae antigen, suggesting no current or recent infection. Infection due to Streptococcus pneumoniae cannot be ruled out since the antigen present in the sample may be below the detection limit of the test. 09/29/18 11:00 Legionella Antigen - Final Urine - Clean Catch Urine Presumptive negative for Legionella pneumophila serogroup 1 antigen in urine, suggesting no recent or recurrent infection. Infection due to Legionella cannot be ruled out since other serogroups and species may cause disease, antigen may not be present in urine in early infection, and the level of antigen present in the urine may be below the detection limit of the test. 09/28/18 20:25 Influenza Types A,B Antigen - Final Nasal Wash Negative for FLU A and B antigen Infection due to influenza A or B cannot be ruled out since the antigen present in the sample may be below the detection limit of the test. Medications: Active Medications Generic Name Dose Route Start Last Admin Trade Name Freq PRN Reason Stop Dose Admin Al Hydroxide/Mg Hydroxide 30 ml 09/28/18 18:30 09/28/18 23:28 Milk Of Magnesia Liq PO 30 ml Q12H PRN Administration Mild Constipation Albuterol 1 ampul 09/28/18 20:00 10/01/18 08:20 Duoneb Neb (Levi) NEB 1 ampul Q4HR NEB LEVI Administration Albuterol 1 ampul 09/30/18 16:00 09/30/18 20:34 Duoneb Neb (Levi) NEB 1 ampul Q4HR NEB LEVI Administration Amlodipine Besylate 10 mg 09/29/18 09:00 10/01/18 08:33 Norvasc PO 10 mg DAILY LEVI Administration Budesonide 0.5 mg 09/29/18 20:00 10/01/18 08:19 Pulmocort Respule Neb NEB 0.5 mg Q12HR NEB LEVI Administration Carvedilol 3.125 mg 09/28/18 21:00 10/01/18 08:33 Coreg PO 3.125 mg BID LEVI Administration Furosemide 40 mg 09/29/18 09:00 09/30/18 09:16 Lasix PO 40 mg DAILY LEVI Administration Guaifenesin 600 mg 09/28/18 21:00 10/01/18 08:33 Mucinex Er PO 600 mg BID LEVI Administration Heparin Sodium (Porcine) 5,000 units 09/28/18 22:00 10/01/18 05:01 Heparin Inj SQ 5,000 units Q8H LEVI Administration Ceftriaxone Sodium 1,000 mg/ 100 mls @ 200 mls/hr 09/28/18 20:00 10/01/18 00: 43 Sodium Chloride IV.SIG Infused Q24H LEVI Infusion Insulin Aspart 0 unit 09/28/18 21:00 10/01/18 08:34 Novolog Insulin Correctional Sugar Inj SQ Not Given ACHS [facility] Protocol Losartan Potassium 100 mg 09/30/18 13:15 10/01/18 08:32 Cozaar PO 100 mg DAILY LEVI Administration Pantoprazole Sodium 40 mg 09/29/18 09:00 10/01/18 08:33 Protonix PO 40 mg DAILY LEVI Administration Senna/Docusate Sodium 1 tab 09/28/18 21:00 10/01/18 08:34 Veronica-Colace PO Not Given BID LEVI Sodium Chloride 2 ml 09/28/18 21:00 10/01/18 08:32 Ns Flush IV.FLUSH 2 ml BID LEVI Administration Objective Remarks: GENERAL: Older female sitting up on side of bed talking with family members in no acute distress SKIN: Warm and dry. HEAD: Normocephalic. EYES: No scleral icterus. No injection or drainage. NECK: Supple, trachea midline. No JVD or lymphadenopathy. CARDIOVASCULAR: Regular rate and rhythm without murmurs. RESPIRATORY: Breath sounds equal bilaterally. No accessory muscle use. GASTROINTESTINAL: Abdomen soft, non-tender, nondistended. EXTREMITIES: No cyanosis, or edema. MUSCULOSKELETAL: Adequate muscle tone. NEUROLOGICAL: No obvious focal deficit. Awake, alert, and oriented x3. Assessment/Plan - Plan 73-year-old female admitted to the hospital with complaints of cough and shortness of breath. She had imaging done that showed extensive mediastinal lymphadenopathy involving pretracheal, paratracheal, subcarinal AP window and bilateral hilar area. Interestingly she also had leukocytosis and eosinophilia on presentation. Differential diagnosis includes lymphoproliferative disorder or sarcoidosis vs viral pneumonia. The patient is feeling better after beginning antibiotics and steroids. The mediastinal adenopathy is not accessible for percutaneous biopsy and pulmonology has been consulted. 1. Await results of Foreign 2. Her eosinophilia is significantly improved. 2. Dr. Swanson to decide on endoscopic ultrasound. She remains on Rocephin and Solu-Medrol. 3. Continue to monitor CBC. Supportive care. - Attending Statement The exam, history, and the medical decision-making described in the above note were completed with the assistance of the mid-level provider. I reviewed and agree with the findings presented. I attest that I had a [id number] encounter with the patient on the same day, and personally performed and documented my assessment and findings in the medical record. Patient sitting up in the chair. She is feeling better. Her shortness of breath has improved. She still has cough bringing up some yellowish sputum. She denies any hemoptysis. She has been evaluated by Dr. Swanson and is awaiting possible bronchoscopy and bronchoscopic ultrasound for possible biopsy of the mediastinal lymph node. Her WBC has trended down and eosinophilia has improved. The eosinophilia is slightly reactive. Continue to monitor for now. Discussed with patient and her family.
[2018-10-02] MEDS: Heparin - SQ 10,000 UNITS/ML Vial SQ SCH ×3 (06:39→20:59)
--- NOTE | 2018-10-02 09:13 | P.PNFP ---
Subjective Interval history: Patient seen and examined at bedside this morning. She is sitting up doing her activities of daily living, which include writing checks for her bills. She is currently having a treatment. She states that her shortness of breath has been improving. She denies any complaints or events overnight. Today she denies any chest pain, shortness of breath, abdominal pain , problems with urination or defecation. Had an extensive talk with the family about her hospital course and care moving forward. All questions were answered at bedside. Patient and family voiced understanding moving forward with a biopsy tomorrow. <Sydnee Ramirez - 10/02/18 09:13> Results - Labs Result diagrams: 10/02/18 12:05 10/02/18 11:07 <Majo Banerjee - 10/02/18 16:31> Abnormal lab results 10/01/18 10/01/18 10/01/18 Range/Units 09:50 17:10 20:26 RBC (4.00-5.30) mil/mm3 Hgb (11.6-15.3) gm/dL Hct (35.0-46.0) % Jasper % (Auto) (0.0-8.0) % Eos % (Auto) (0.0-4.0) % Eos # (Auto) (0.0-0.4) th/mm3 BUN (7-18) mg/dL Creatinine (0.50-1.00) mg/dL Estimated GFR (>89) mL/min POC Glucose 161 H 198 H (68-110) mg/dl Random Glucose (74-106) mg/dL Calcium (8.5-10.1) mg/dL AST (15-37) U/L Alkaline Phosphatase (45-117) U/L Total Protein (6.4-8.2) g/dL Albumin (3.4-5.0) g/dL ALBERT Screen Pos H (Neg) 10/02/18 10/02/18 10/02/18 Range/Units 11:07 12:05 12:53 RBC 3.69 L (4.00-5.30) mil/mm3 Hgb 11.2 L (11.6-15.3) gm/dL Hct 33.9 L (35.0-46.0) % Jasper % (Auto) 8.2 H (0.0-8.0) % Eos % (Auto) 14.9 H (0.0-4.0) % Eos # (Auto) 1.3 H (0.0-0.4) th/mm3 BUN 21 H (7-18) mg/dL Creatinine 1.14 H (0.50-1.00) mg/dL Estimated GFR 56 L (>89) mL/min POC Glucose 160 H (68-110) mg/dl Random Glucose 146 H (74-106) mg/dL Calcium 8.3 L (8.5-10.1) mg/dL AST 71 H (15-37) U/L Alkaline Phosphatase 174 H (45-117) U/L Total Protein 8.4 H D (6.4-8.2) g/dL Albumin 3.2 L (3.4-5.0) g/dL ALBERT Screen (Neg) Short CBC 10/02/18 Range/Units 12:05 WBC 8.5 (4.0-11.0) th/mm3 Hgb 11.2 L (11.6-15.3) gm/dL Hct 33.9 L (35.0-46.0) % Plt Count 222 (150-450) th/mm3 BMP 10/02/18 11:07 Sodium 139 Potassium 4.8 D Chloride 102 Carbon Dioxide 28.7 BUN 21 H Creatinine 1.14 H Calcium 8.3 L Liver Function 10/02/18 Range/Units 11:07 Total Bilirubin 0.3 (0.2-1.0) mg/dL AST 71 H (15-37) U/L ALT 53 (10-53) U/L Alkaline Phosphatase 174 H (45-117) U/L Albumin 3.2 L (3.4-5.0) g/dL <Majo Banerjee R - 10/02/18 16:31> Abnormal lab results 10/01/18 10/01/18 10/01/18 Range/Units 09:50 09:50 12:14 RBC 3.22 L (4.00-5.30) mil/mm3 Hgb 9.6 L (11.6-15.3) gm/dL Hct 29.5 L (35.0-46.0) % Eos % (Auto) 25.3 H (0.0-4.0) % Eos # (Auto) 2.6 H (0.0-0.4) th/mm3 Carbon Dioxide 35.1 H (21.0-32.0) meq/L Anion Gap 3 L (5-15) meq/L BUN 23 H (7-18) mg/dL Creatinine 1.33 H (0.50-1.00) mg/dL Estimated GFR 47 L (>89) mL/min POC Glucose 178 H (68-110) mg/dl Random Glucose 144 H (74-106) mg/dL Calcium 8.3 L (8.5-10.1) mg/dL 10/01/18 10/01/18 Range/Units 17:10 20:26 RBC (4.00-5.30) mil/mm3 Hgb (11.6-15.3) gm/dL Hct (35.0-46.0) % Eos % (Auto) (0.0-4.0) % Eos # (Auto) (0.0-0.4) th/mm3 Carbon Dioxide (21.0-32.0) meq/L Anion Gap (5-15) meq/L BUN (7-18) mg/dL Creatinine (0.50-1.00) mg/dL Estimated GFR (>89) mL/min POC Glucose 161 H 198 H (68-110) mg/dl Random Glucose (74-106) mg/dL Calcium (8.5-10.1) mg/dL Short CBC 10/01/18 Range/Units 09:50 WBC 10.1 (4.0-11.0) th/mm3 Hgb 9.6 L (11.6-15.3) gm/dL Hct 29.5 L (35.0-46.0) % Plt Count 197 (150-450) th/mm3 BMP 10/01/18 09:50 Sodium 138 Potassium 3.7 Chloride 100 Carbon Dioxide 35.1 H BUN 23 H Creatinine 1.33 H Calcium 8.3 L <Sydnee Ramirez - 10/02/18 09:13> Physical Exam Vital signs: Vital Signs 10/01/18 20:00 10/01/18 20:33 10/02/18 00:00 Temperature 97.8 F 97.4 F L Pulse Rate 75 84 51 L Respiratory Rate 18 12 18 Blood Pressure 161/84 H 153/69 H Pulse Oximetry 99 99 10/02/18 03:38 10/02/18 04:00 10/02/18 08:00 Temperature 97.8 F 97.7 F Pulse Rate 61 98 H 54 L Respiratory Rate 20 18 20 Blood Pressure 143/67 H 142/72 H Pulse Oximetry 100 100 10/02/18 08:13 10/02/18 12:00 Temperature 98.9 F Pulse Rate 54 L 75 Respiratory Rate 14 20 Blood Pressure 176/81 H Pulse Oximetry 93 L 94 L Intake & Output 10/01/18 10/02/18 10/02/18 18:59 06:59 18:59 Intake Total 480 / 480 580 / 580 Balance 480 / 480 580 / 580 Weight 100.8 kg Intake: IV 100 / 100 Rocephin Inj 1,000 MG In NS Inj 100 / 100 100 ML @ 200 mls/hr IV.SIG Q24H GAIL Rx#:[id number] Oral 480 / 480 480 / 480 Other: # Voids 3 2 Date of Last Bowel Movement 10/01/18 <Majo Banerjee - 10/02/18 16:31> Vital Signs 10/01/18 12:00 10/01/18 15:15 10/01/18 16:00 Temperature 98.6 F 98.2 F Pulse Rate 67 65 Respiratory Rate 18 18 Blood Pressure 151/72 H 144/72 H Pulse Oximetry 96 96 100 10/01/18 16:15 10/01/18 20:00 10/01/18 20:33 Temperature 97.8 F Pulse Rate 63 75 84 Respiratory Rate 14 18 12 Blood Pressure 161/84 H Pulse Oximetry 99 10/02/18 00:00 10/02/18 03:38 10/02/18 04:00 Temperature 97.4 F L 97.8 F Pulse Rate 51 L 61 98 H Respiratory Rate 18 20 18 Blood Pressure 153/69 H 143/67 H Pulse Oximetry 99 100 10/02/18 08:13 Temperature Pulse Rate 54 L Respiratory Rate 14 Blood Pressure Pulse Oximetry 93 L Intake & Output 10/01/18 10/02/18 10/02/18 18:59 06:59 18:59 Intake Total 480 / 480 580 / 580 Balance 480 / 480 580 / 580 Weight 100.8 kg Intake: IV 100 / 100 Rocephin Inj 1,000 MG In NS Inj 100 / 100 100 ML @ 200 mls/hr IV.SIG Q24H GAIL Rx#:[id number] Oral 480 / 480 480 / 480 Other: # Voids 3 2 Date of Last Bowel Movement 10/01/18 <Sydnee Ramirez - 10/02/18 09:13> Narrative: GENERAL: Elderly appearing female, sitting upright, speaking in full sentences and answering questions of separately. Nasal cannula in place. SKIN: Warm and dry. HEAD: Normocephalic. EYES: No scleral icterus. No injection or drainage. NECK: Supple, trachea midline. No JVD or lymphadenopathy. CARDIOVASCULAR: Regular rate and rhythm without murmurs, gallops, or rubs. RESPIRATORY: Continues to have occasional crackles throughout all lung vásquez, no wheezes, same as exam yesterday with improved air movement. GASTROINTESTINAL: Abdomen soft, nondistended. No tenderness to palpation on today's exam MUSCULOSKELETAL: No cyanosis. Trace edema bilaterally. No calf tenderness on today's exam BACK: Nontender without obvious deformity. No CVA tenderness. <MayrajeannaEarl venegasa - 10/02/18 09:13> Assessment and Plan - Assessment (1) SIRS (systemic inflammatory response syndrome) Code(s): R65.10 - Systemic inflammatory response syndrome (SIRS) of non- infectious origin without acute organ dysfunction Status: Acute (2) Hypoxia Code(s): R09.02 - Hypoxemia Status: Acute (3) Eosinophilia Code(s): D72.1 - Eosinophilia Status: Acute (4) Wheezing Code(s): R06.2 - Wheezing Status: Acute (5) Productive cough Code(s): R05 - Cough Status: Acute (6) Diabetes Code(s): E11.9 - Type 2 diabetes mellitus without complications Status: Acute (7) Hypertension Code(s): I10 - Essential (primary) hypertension Status: Acute (8) Acute kidney injury Code(s): N17.9 - Acute kidney failure, unspecified Status: Acute (9) Abdominal pain Code(s): R10.9 - Unspecified abdominal pain Status: Acute (10) DVT (deep venous thrombosis) Code(s): I82.409 - Acute embolism and thrombosis of unspecified deep veins of unspecified lower extremity Status: Acute (11) Nutrition, metabolism, and development symptoms Code(s): R63.8 - Other symptoms and signs concerning food and fluid intake Status: Acute <Majo Banerjee R - 10/02/18 16:31> (1) SIRS (systemic inflammatory response syndrome) Code(s): R65.10 - Systemic inflammatory response syndrome (SIRS) of non- infectious origin without acute organ dysfunction Status: Acute Plan: Patient admitted with elevated white count at 20.1, respiratory rate: 30, pulse : 96, meets SIRS criteria. Unidentified source of infection: Blood cultures, gram/sputum stain with NGTD. Legionella Antigen, Influenza, Pneumococcal Antigen negative Recent sick contact. Afebrile. Crackles heard bilaterally on physical exam. Some perihilar opacities on CXRay but poor x-ray view. History concerning for pneumonia. Denies any urinary symptoms. Treating for pneumonia and COPD exacerbation. Day 5 of Azithromycin. Will DC Today Continue on 1g ceftriaxone. Day 5. Sputum Culture: Positive for mold. ID to follow. With eosinophilia, concerning for Fungal Etiology. Appreciate pulmonology recommendations on whether to switch /start antibiotic coverage. WBC count improved, no longer tachycardic. (2) Hypoxia Code(s): R09.02 - Hypoxemia Status: Acute Plan: 4 days of SOB with productive cough, no fevers, recent sick contact with bronchitis. Hypoxic: 77 L on admission. Wheezing on physical exam. DDX: COPD exacerbation versus pneumonia versus CHF exacerbation versus bronchitis. BNP 77. CHF unlikely. ABG: PH: 7.29 and PCO2 of 63. Bicarb: 30. Respiratory acidosis with metabolic compensation. Possibly due to COPD exacerbation. Elevated white count 20.1 with high eosinophils at 58.3. Concerning for infection. X-ray: Perihilar opacities appreciated. Oxygen saturations improved on oxygen. Titrate as tolerated. Keep O2 sats above 92%. 120 Solu-Medrol and 40 mg Lasix given in the emergency room Held Lasix today due to CECILE 12/2 40 mg prednisone switched to 40 IV solumedrol q12 per pulm recommendations. Symbicort added. BIPAP PRN. Albuterol and duo nebs alternating every 4. CTA was ordered after she was found to have an elevated D dimer CTA was negative for PE, did show extensive mediastinal adenopathy, sings of interstitial disease in the peribronchial regions as well as a 0.6cm focal density in the R midlung Heme Onc: lymphoproliferative disorder vs sarcoidosis. DELLA 2 kinase mutation, RAMIREZ, IgE and ALBERT pending. Rh Factor Negative. ESR: 58. CRP: 1.6. Continue to trend eosinophilia. Pulm: Plan for PFT and mediastinal biopsy via FNA on Tuesday with Dr. Tirado. Quantiferon Gamma for TB pending. ABG 09/30: PH: 7.5, CO2:40, HCO3: 31: Acidosis resolved. Minimally alkalotic. Not concerning at this time. (3) Eosinophilia Code(s): D72.1 - Eosinophilia Status: Acute Plan: CBC on admission with elevated eosinophils at 58.3. Peripheral smear showed mild normochromic, normocytic anemia, mild eosinophilia Initially downtrended to 9.5 on 09/29 but uptrended to 37.7 on 09/30 Yesterday downtrended to 25.3 Continue to monitor. Hematology following. (4) Wheezing Code(s): R06.2 - Wheezing Status: Acute Plan: See plan above. (5) Productive cough Code(s): R05 - Cough Status: Acute Plan: Mucinex added. (6) Diabetes Code(s): E11.9 - Type 2 diabetes mellitus without complications Status: Acute Plan: Hold metformin with concerns of lactic acidosis. will start on insulin low-dose sliding scale. (7) Hypertension Code(s): I10 - Essential (primary) hypertension Status: Acute Plan: Patient hypertensive on admission: 190/96, 156/82. Resuming Losartan on 09/30 - initially held for CECILE Continue home carvedilol and amlodipine. (8) Acute kidney injury Code(s): N17.9 - Acute kidney failure, unspecified Status: Acute Plan: Creatinine: 1.83 on admission. Baseline 0.6. Treating for pneumonia, COPD exacerbation will be careful with fluid overload. Will encourage PO intake today. Trend Cr in AM. Will consider starting on maintenance once lung sounds improve. (9) Abdominal pain Code(s): R10.9 - Unspecified abdominal pain Status: Acute Plan: Diffuse abdominal pain, good bowel movements, no hematochezia. Ct abdomen showed gallstones but was otherwise negative Improved on 09/30 after a BM (10) DVT (deep venous thrombosis) Code(s): I82.409 - Acute embolism and thrombosis of unspecified deep veins of unspecified lower extremity Status: Acute Plan: Patient complains of bilateral leg pain to palpation. Wells score: 3. Doppler of BLE ordered on 09/29 due to elevated D dimer was negative Heparin Q24 (11) Nutrition, metabolism, and development symptoms Code(s): R63.8 - Other symptoms and signs concerning food and fluid intake Status: Acute Plan: Fluids: No IVF at this time, patient had CECILE on admission but resolved with PO fluids Electrolytes: Monitor and replete as needed Diet: Diabetic diet GI prophylaxis: Protonix 40 mg. CODE STATUS: DNR/DNI. <Sydnee Ramirez - 10/02/18 10:04> - Assessment and Plan 73 yo F with PMH of HTN, DM presented with SOB, productive cough and diffuse abdominal pain. Met SIRS criteria on admission. CXR did not show PNA but history consistent with PNA - started on Azithro and rocephin on admission. CT abdomen was normal and patient's abd pain resolved after a BM. Her D dimer was elevated on admission so BLE dopplers were ordered as well as a CTA. All were negative for PE/DVT, but she was found to have mediastinal adenopathy and signs interstitial lung disease. She was also notably found to have eosinophilia on admission that initially downtrended but trended back up on 09/30. Hematology was consulted in light of her eosinophilia and mediastinal adenopathy on 09/30. Clinically improving on abx. <Sydnee Ramirez - 10/02/18 10:05> - Attending Attestation Patient seen and discussed with the resident team. Agree with documentation as described above. Patient is clinically improving. -- follow sputum culture -- no known source of mold? Maybe a contaminant -- workup per pulm and Heme/onc pending. <Majo Banerjee - 10/02/18 16:31>
[2018-10-02] MEDS: guaiFENesin 600 MG ER Tablet PO SCH ×2 (09:58→20:59)
[2018-10-02] MEDS: Senna/Docusate Sodium 8.6/50 MG Tablet PO SCH ×2 (09:58→20:59)
[2018-10-02] MEDS: amLODIPine 10 MG Tablet PO SCH (09:59)
[2018-10-02] MEDS: MethylPREDNISolone Sod Succinate Inj 40 MG/ML Vial IV.PUSH SCH ×2 (09:59→20:59)
[2018-10-02] MEDS: Insulin NovoLOG Aspart Correctional Sugar Inj SQ SCH ×4 (10:02→21:00)
[2018-10-02 11:57] LABS: Alanine Aminotransferase 53 U/L (10-53); Albumin 3.2 g/dL (3.4-5.0); Alkaline Phosphatase 174 U/L (45-117); Anion Gap 8 meq/L (5-15); Aspartate Aminotransferase 71 U/L (15-37); Blood Urea Nitrogen 21 mg/dL (7-18); Calcium 8.3 mg/dL (8.5-10.1); Carbon Dioxide 28.7 meq/L (21.0-32.0); Chloride 102 meq/L (98-107); Glomerular Filtration Rate 56 mL/min (>89); Glucose,Random 146 mg/dL (74-106); Potassium 4.8 meq/L (3.5-5.1); Sodium 139 meq/L (136-145); Total Protein 8.4 g/dL (6.4-8.2)
[2018-10-02 12:19] LABS: Baso # (Auto) 0.1 th/mm3 (0.0-0.2); Eos # (Auto) 1.3 th/mm3 (0.0-0.4); Eos % (Auto) 14.9 % (0.0-4.0); Hematocrit 33.9 % (35.0-46.0); Hemoglobin 11.2 gm/dL (11.6-15.3); Lymph # (Auto) 2.3 th/mm3 (1.0-4.8); Mean Corpuscular Hemoglobin 30.3 pg (27.0-34.0); Mean Platelet Volume 8.6 fL (7.0-11.0); Mono # (Auto) 0.7 th/mm3 (0.0-0.9); Mono % (Auto) 8.2 % (0.0-8.0); Neut # (Auto) 4.1 th/mm3 (1.8-7.7); Neut % (Auto) 48.9 % (16.0-70.0); Platelet Count 222 th/mm3 (150-450); Red Blood Count 3.69 mil/mm3 (4.00-5.30); Red Cell Distribution Width 14.7 % (11.6-17.2); White Blood Count 8.5 th/mm3 (4.0-11.0)
[2018-10-02 13:32] LABS: Anti-Nuclear Antibody Screen Pos (Neg)
--- NOTE | 2018-10-02 14:54 | P.PNONC ---
Subjective Interval history: Afebrile. Patient sitting at the bedside, talking to family member. She has no complaints at this time. She states she is feeling better. Objective Vital Signs/Intake & Output: Vital Signs 10/01/18 15:15 10/01/18 16:00 10/01/18 16:15 Temperature 98.2 F Pulse Rate 65 63 Respiratory Rate 18 14 Blood Pressure 144/72 H Pulse Oximetry 96 100 10/01/18 20:00 10/01/18 20:33 10/02/18 00:00 Temperature 97.8 F 97.4 F L Pulse Rate 75 84 51 L Respiratory Rate 18 12 18 Blood Pressure 161/84 H 153/69 H Pulse Oximetry 99 99 10/02/18 03:38 10/02/18 04:00 10/02/18 08:13 Temperature 97.8 F Pulse Rate 61 98 H 54 L Respiratory Rate 20 18 14 Blood Pressure 143/67 H Pulse Oximetry 100 93 L 10/02/18 12:00 Temperature Pulse Rate 61 Respiratory Rate 20 Blood Pressure Pulse Oximetry Intake & Output 10/01/18 10/02/18 10/02/18 18:59 06:59 18:59 Intake Total 480 / 480 580 / 580 Balance 480 / 480 580 / 580 Weight 100.8 kg Intake: IV 100 / 100 Rocephin Inj 1,000 MG In NS Inj 100 / 100 100 ML @ 200 mls/hr IV.SIG Q24H LEVI Rx#:[id number] Oral 480 / 480 480 / 480 Other: # Voids 3 2 Date of Last Bowel Movement 10/01/18 Result Diagrams: 10/02/18 12:05 10/02/18 11:07 Laboratory Results: Laboratory Results - last 24 hr 10/01/18 10/01/18 10/01/18 09:50 17:10 20:26 WBC RBC Hgb Hct MCV MCH MCHC RDW Plt Count MPV Neut % (Auto) Lymph % (Auto) Polk % (Auto) Eos % (Auto) Baso % (Auto) Neut # (Auto) Lymph # (Auto) Polk # (Auto) Eos # (Auto) Baso # (Auto) WBC Differential Differential Comment Sodium Potassium Chloride Carbon Dioxide Anion Gap BUN Creatinine Estimated GFR POC Glucose 161 H 198 H Random Glucose Calcium Total Bilirubin AST ALT Alkaline Phosphatase Total Protein Albumin ALBERT Screen Pos H 10/02/18 10/02/1818 09:11 11:07 12:05 WBC 8.5 RBC 3.69 L Hgb 11.2 L Hct 33.9 L MCV 92.0 MCH 30.3 MCHC 33.0 RDW 14.7 Plt Count 222 MPV 8.6 Neut % (Auto) 48.9 Lymph % (Auto) 27.0 Polk % (Auto) 8.2 H Eos % (Auto) 14.9 H Baso % (Auto) 1.0 Neut # (Auto) 4.1 Lymph # (Auto) 2.3 Polk # (Auto) 0.7 Eos # (Auto) 1.3 H Baso # (Auto) 0.1 WBC Differential . Differential Comment Auto diff final Sodium 139 Potassium 4.8 D Chloride 102 Carbon Dioxide 28.7 Anion Gap 8 BUN 21 H Creatinine 1.14 H Estimated GFR 56 L POC Glucose 110 Random Glucose 146 H Calcium 8.3 L Total Bilirubin 0.3 AST 71 H ALT 53 Alkaline Phosphatase 174 H Total Protein 8.4 H D Albumin 3.2 L ALBERT Screen 10/02/18 12:53 WBC RBC Hgb Hct MCV MCH MCHC RDW Plt Count MPV Neut % (Auto) Lymph % (Auto) Polk % (Auto) Eos % (Auto) Baso % (Auto) Neut # (Auto) Lymph # (Auto) Polk # (Auto) Eos # (Auto) Baso # (Auto) WBC Differential Differential Comment Sodium Potassium Chloride Carbon Dioxide Anion Gap BUN Creatinine Estimated GFR POC Glucose 160 H Random Glucose Calcium Total Bilirubin AST ALT Alkaline Phosphatase Total Protein Albumin ALBERT Screen Culture Results: Microbiology 09/28/18 20:30 Aerobic Blood Culture - Preliminary Blood - Peripheral No growth in 4 days Anaerobic Blood Culture - Preliminary No growth in 4 days 09/28/18 20:02 Aerobic Blood Culture - Preliminary Blood - Peripheral No growth in 4 days Anaerobic Blood Culture - Preliminary No growth in 4 days 09/28/18 23:30 Gram Stain - Final Sputum - Oral Tracheal Aspirate Sputum Culture - Preliminary Mold species-ID to follow 09/29/18 11:00 Gram Stain - Final Clean Catch Urine 09/29/18 11:00 Streptococcus pneumoniae Antigen (M - Final Urine - Clean Catch Urine Presumptive negative for streptococcus pneumoniae antigen, suggesting no current or recent infection. Infection due to Streptococcus pneumoniae cannot be ruled out since the antigen present in the sample may be below the detection limit of the test. 09/29/18 11:00 Legionella Antigen - Final Urine - Clean Catch Urine Presumptive negative for Legionella pneumophila serogroup 1 antigen in urine, suggesting no recent or recurrent infection. Infection due to Legionella cannot be ruled out since other serogroups and species may cause disease, antigen may not be present in urine in early infection, and the level of antigen present in the urine may be below the detection limit of the test. Medications: Active Medications Generic Name Dose Route Start Last Admin Trade Name Freq PRN Reason Stop Dose Admin Al Hydroxide/Mg Hydroxide 30 ml 09/28/18 18:30 09/28/18 23:28 Milk Of Magncayetano Liq PO 30 ml Q12H PRN Administration Mild Constipation Albuterol 1 ampul 09/28/18 20:00 10/02/18 11:58 Duoneb Neb (Levi) NEB 1 ampul Q4HR NEB LEVI Administration Albuterol 1 ampul 09/30/18 16:00 10/01/18 11:54 Duoneb Neb (Levi) NEB Not Given Q4HR NEB LEVI Amlodipine Besylate 10 mg 09/29/18 09:00 10/02/18 09:59 Norvasc PO 10 mg DAILY LEVI Administration Budesonide 0.5 mg 09/29/18 20:00 10/02/18 08:09 Pulmocort Respule Neb NEB 0.5 mg Q12HR NEB LEVI Administration Carvedilol 3.125 mg 09/28/18 21:00 10/02/18 09:59 Coreg PO 3.125 mg BID LEVI Administration Furosemide 40 mg 09/29/18 09:00 09/30/18 09:16 Lasix PO 40 mg DAILY LEVI Administration Guaifenesin 600 mg 09/28/18 21:00 10/02/18 09:58 Mucinex Er PO 600 mg BID LEVI Administration Heparin Sodium (Porcine) 5,000 units 09/28/18 22:00 10/02/18 06:39 Heparin Inj SQ 5,000 units Q8H LEVI Administration Ceftriaxone Sodium 1,000 mg/ 100 mls @ 200 mls/hr 09/28/18 20:00 10/01/18 21: 56 Sodium Chloride IV.SIG Infused Q24H LEVI Infusion Insulin Aspart 0 unit 09/28/18 21:00 10/02/18 13:13 Novolog Insulin Correctional Sugar Inj SQ 1 unit ACHS LEVI Administration Protocol Losartan Potassium 100 mg 09/30/18 13:15 10/02/18 09:59 Cozaar PO 100 mg DAILY LEVI Administration Methylprednisolone Sodium Succinate 40 mg 10/01/18 21:00 10/02/18 09:59 Solumedrol Inj IV.PUSH 40 mg Q12H LEVI Administration Pantoprazole Sodium 40 mg 09/29/18 09:00 12 09:59 Protonix PO 40 mg DAILY LEVI Administration Senna/Docusate Sodium 1 tab 09/28/18 21:00 10/02/18 09:58 Veronica-Colace PO 1 tab BID LEVI Administration Sodium Chloride 2 ml 09/28/18 21:00 10/02/18 10:00 Ns Flush IV.FLUSH 2 ml BID LEVI Administration Objective Remarks: GENERAL: Older female sitting up on side of bed, in no acute distress peer SKIN: Warm and dry. HEAD: Normocephalic. EYES: No scleral icterus. No injection or drainage. NECK: Supple, trachea midline. No JVD or lymphadenopathy. CARDIOVASCULAR: Regular rate and rhythm without murmurs. RESPIRATORY: Posterior breath sounds equal bilaterally, crackles to LLL. No accessory muscle use. GASTROINTESTINAL: Abdomen soft, non-tender, nondistended. EXTREMITIES: No cyanosis, or edema. MUSCULOSKELETAL: Adequate muscle tone. NEUROLOGICAL: No obvious focal deficit. Awake, alert, and oriented x3. Assessment/Plan - Plan 73-year-old female admitted to the hospital with complaints of cough and shortness of breath. She had imaging done that showed extensive mediastinal lymphadenopathy involving pretracheal, paratracheal, subcarinal AP window and bilateral hilar area. Interestingly she also had leukocytosis and eosinophilia on presentation. Differential diagnosis includes lymphoproliferative disorder or sarcoidosis vs viral pneumonia. The patient is feeling better after beginning antibiotics and steroids. The mediastinal adenopathy is not accessible for percutaneous biopsy and pulmonology has been consulted. 1. Foreign 2 pending. Eosinophilia continues to improve. 2. Review of records suggest patient will have a biopsy with pulmonology tomorrow. 3. Continue to monitor CBC. Supportive care. - Attending Statement The exam, history, and the medical decision-making described in the above note were completed with the assistance of the mid-level provider. I reviewed and agree with the findings presented. I attest that I had a [id number] encounter with the patient on the same day, and personally performed and documented my assessment and findings in the medical record.Pt is feeling better. Cough has improved and less productive. Await possible EBUS and biopsy of mediastinal LN. Eosinophillia improving. Continue supportive care and monitor CBC.
[2018-10-03] MEDS: Heparin - SQ 10,000 UNITS/ML Vial SQ SCH ×2 (05:38→16:31)
[2018-10-03] MEDS: Insulin NovoLOG Aspart Correctional Sugar Inj SQ SCH ×4 (08:51→20:31)
[2018-10-03] MEDS: guaiFENesin 600 MG ER Tablet PO SCH ×2 (09:50→20:27)
[2018-10-03] MEDS: Senna/Docusate Sodium 8.6/50 MG Tablet PO SCH ×2 (09:50→20:27)
[2018-10-03] MEDS: amLODIPine 10 MG Tablet PO SCH (09:51)
[2018-10-03] MEDS: MethylPREDNISolone Sod Succinate Inj 40 MG/ML Vial IV.PUSH SCH ×2 (09:51→20:27)
[2018-10-03 10:10] LABS: Baso # (Auto) 0.1 th/mm3 (0.0-0.2); Eos # (Auto) 0.5 th/mm3 (0.0-0.4); Eos % (Auto) 5.6 % (0.0-4.0); Hematocrit 32.7 % (35.0-46.0); Hemoglobin 10.9 gm/dL (11.6-15.3); Lymph # (Auto) 3.7 th/mm3 (1.0-4.8); Lymph % (Auto) 42.2 % (9.0-44.0); Mean Corpuscular HGB Conc 33.2 % (32.0-36.0); Mean Corpuscular Hemoglobin 30.6 pg (27.0-34.0); Mean Corpuscular Volume 92.4 fL (80.0-100.0); Mean Platelet Volume 9.4 fL (7.0-11.0); Mono # (Auto) 0.9 th/mm3 (0.0-0.9); Mono % (Auto) 10.4 % (0.0-8.0); Neut # (Auto) 3.6 th/mm3 (1.8-7.7); Neut % (Auto) 40.8 % (16.0-70.0); Platelet Count 162 th/mm3 (150-450); Red Blood Count 3.54 mil/mm3 (4.00-5.30); White Blood Count 8.8 th/mm3 (4.0-11.0)
[2018-10-03 10:40] LABS: Alanine Aminotransferase 100 U/L (10-53); Albumin 3.4 g/dL (3.4-5.0); Alkaline Phosphatase 181 U/L (45-117); Anion Gap 6 meq/L (5-15); Aspartate Aminotransferase 58 U/L (15-37); Blood Urea Nitrogen 25 mg/dL (7-18); Calcium 8.5 mg/dL (8.5-10.1); Carbon Dioxide 31.5 meq/L (21.0-32.0); Chloride 105 meq/L (98-107); Glomerular Filtration Rate 62 mL/min (>89); Glucose,Random 107 mg/dL (74-106); Potassium 3.9 meq/L (3.5-5.1); Sodium 142 meq/L (136-145); Total Protein 8.5 g/dL (6.4-8.2)
--- NOTE | 2018-10-03 11:36 | P.PNFP ---
Subjective Interval history: No acute events overnight. Patient was taken off oxygen and states she is tolerating that well. Her SOB continues to improve. She denies any CP, abdominal pain, abnormal bowel movements. She has no questions at this time. <OlivierOmari B - 10/03/18 15:50> Results - Labs Result diagrams: 10/04/18 06:00 10/04/18 06:00 <Majo Banerjee R - 10/04/18 08:46> Abnormal lab results 10/03/18 10/03/18 10/03/18 Range/Units 09:21 09:21 11:41 RBC 3.54 L (4.00-5.30) mil/mm3 Hgb 10.9 L (11.6-15.3) gm/dL Hct 32.7 L (35.0-46.0) % Coleman % (Auto) 10.4 H (0.0-8.0) % Eos % (Auto) 5.6 H (0.0-4.0) % Eos # (Auto) 0.5 H (0.0-0.4) th/mm3 BUN 25 H (7-18) mg/dL Creatinine 1.05 H (0.50-1.00) mg/dL Estimated GFR 62 L (>89) mL/min POC Glucose 194 H (68-110) mg/dl Random Glucose 107 H (74-106) mg/dL Calcium (8.5-10.1) mg/dL AST 58 H (15-37) U/L ALT 100 H (10-53) U/L Alkaline Phosphatase 181 H (45-117) U/L Total Protein 8.5 H (6.4-8.2) g/dL Albumin (3.4-5.0) g/dL 10/03/18 10/03/18 10/04/18 Range/Units 16:59 19:25 06:00 RBC 3.15 L (4.00-5.30) mil/mm3 Hgb 9.6 L (11.6-15.3) gm/dL Hct 28.7 L (35.0-46.0) % Coleman % (Auto) 8.5 H (0.0-8.0) % Eos % (Auto) (0.0-4.0) % Eos # (Auto) (0.0-0.4) th/mm3 BUN (7-18) mg/dL Creatinine (0.50-1.00) mg/dL Estimated GFR (>89) mL/min POC Glucose 210 H 171 H (68-110) mg/dl Random Glucose (74-106) mg/dL Calcium (8.5-10.1) mg/dL AST (15-37) U/L ALT (10-53) U/L Alkaline Phosphatase (45-117) U/L Total Protein (6.4-8.2) g/dL Albumin (3.4-5.0) g/dL 10/04/18 10/04/18 Range/Units 06:00 07:40 RBC (4.00-5.30) mil/mm3 Hgb (11.6-15.3) gm/dL Hct (35.0-46.0) % Coleman % (Auto) (0.0-8.0) % Eos % (Auto) (0.0-4.0) % Eos # (Auto) (0.0-0.4) th/mm3 BUN 23 H (7-18) mg/dL Creatinine 1.05 H (0.50-1.00) mg/dL Estimated GFR 62 L (>89) mL/min POC Glucose 135 H (68-110) mg/dl Random Glucose 157 H (74-106) mg/dL Calcium 8.2 L (8.5-10.1) mg/dL AST (15-37) U/L ALT 74 H (10-53) U/L Alkaline Phosphatase 144 H (45-117) U/L Total Protein (6.4-8.2) g/dL Albumin 2.7 L D (3.4-5.0) g/dL Short CBC 10/03/18 10/04/18 Range/Units 09:21 06:00 WBC 8.8 8.2 (4.0-11.0) th/mm3 Hgb 10.9 L 9.6 L (11.6-15.3) gm/dL Hct 32.7 L 28.7 L (35.0-46.0) % Plt Count 162 231 D (150-450) th/mm3 BMP 10/03/18 10/04/18 09:21 06:00 Sodium 142 140 Potassium 3.9 D 4.5 Chloride 105 107 Carbon Dioxide 31.5 28.4 BUN 25 H 23 H Creatinine 1.05 H 1.05 H Calcium 8.5 8.2 L Liver Function 10/03/18 10/04/18 Range/Units 09:21 06:00 Total Bilirubin 0.2 0.2 (0.2-1.0) mg/dL AST 58 H 34 (15-37) U/L ALT 100 H 74 H (10-53) U/L Alkaline Phosphatase 181 H 144 H (45-117) U/L Albumin 3.4 2.7 L D (3.4-5.0) g/dL <Majo Banerjee R - 10/04/18 08:46> Abnormal lab results 10/01/18 10/02/18 10/02/18 Range/Units 09:50 11:07 12:05 RBC 3.69 L (4.00-5.30) mil/mm3 Hgb 11.2 L (11.6-15.3) gm/dL Hct 33.9 L (35.0-46.0) % Coleman % (Auto) 8.2 H (0.0-8.0) % Eos % (Auto) 14.9 H (0.0-4.0) % Eos # (Auto) 1.3 H (0.0-0.4) th/mm3 BUN 21 H (7-18) mg/dL Creatinine 1.14 H (0.50-1.00) mg/dL Estimated GFR 56 L (>89) mL/min POC Glucose (68-110) mg/dl Random Glucose 146 H (74-106) mg/dL Calcium 8.3 L (8.5-10.1) mg/dL AST 71 H (15-37) U/L ALT (10-53) U/L Alkaline Phosphatase 174 H (45-117) U/L Total Protein 8.4 H D (6.4-8.2) g/dL Albumin 3.2 L (3.4-5.0) g/dL ALBERT Screen Pos H (Neg) 10/02/18 10/02/18 10/02/18 Range/Units 12:53 17:07 19:28 RBC (4.00-5.30) mil/mm3 Hgb (11.6-15.3) gm/dL Hct (35.0-46.0) % Coleman % (Auto) (0.0-8.0) % Eos % (Auto) (0.0-4.0) % Eos # (Auto) (0.0-0.4) th/mm3 BUN (7-18) mg/dL Creatinine (0.50-1.00) mg/dL Estimated GFR (>89) mL/min POC Glucose 160 H 246 H 236 H (68-110) mg/dl Random Glucose (74-106) mg/dL Calcium (8.5-10.1) mg/dL AST (15-37) U/L ALT (10-53) U/L Alkaline Phosphatase (45-117) U/L Total Protein (6.4-8.2) g/dL Albumin (3.4-5.0) g/dL ALBERT Screen (Neg) 10/03/18 10/03/18 10/03/18 Range/Units 07:37 09:21 09:21 RBC 3.54 L (4.00-5.30) mil/mm3 Hgb 10.9 L (11.6-15.3) gm/dL Hct 32.7 L (35.0-46.0) % Coleman % (Auto) 10.4 H (0.0-8.0) % Eos % (Auto) 5.6 H (0.0-4.0) % Eos # (Auto) 0.5 H (0.0-0.4) th/mm3 BUN 25 H (7-18) mg/dL Creatinine 1.05 H (0.50-1.00) mg/dL Estimated GFR 62 L (>89) mL/min POC Glucose 137 H (68-110) mg/dl Random Glucose 107 H (74-106) mg/dL Calcium (8.5-10.1) mg/dL AST 58 H (15-37) U/L ALT 100 H (10-53) U/L Alkaline Phosphatase 181 H (45-117) U/L Total Protein 8.5 H (6.4-8.2) g/dL Albumin (3.4-5.0) g/dL ALBERT Screen (Neg) Short CBC 10/02/18 10/03/18 Range/Units 12:05 09:21 WBC 8.5 8.8 (4.0-11.0) th/mm3 Hgb 11.2 L 10.9 L (11.6-15.3) gm/dL Hct 33.9 L 32.7 L (35.0-46.0) % Plt Count 222 162 (150-450) th/mm3 BMP 10/02/18 10/03/18 11:07 09:21 Sodium 139 142 Potassium 4.8 D 3.9 D Chloride 102 105 Carbon Dioxide 28.7 31.5 BUN 21 H 25 H Creatinine 1.14 H 1.05 H Calcium 8.3 L 8.5 Liver Function 10/02/18 10/03/18 Range/Units 11:07 09:21 Total Bilirubin 0.3 0.2 (0.2-1.0) mg/dL AST 71 H 58 H (15-37) U/L ALT 53 100 H (10-53) U/L Alkaline Phosphatase 174 H 181 H (45-117) U/L Albumin 3.2 L 3.4 (3.4-5.0) g/dL <Omari Olivier B - 10/03/18 11:36> Physical Exam Vital signs: Vital Signs 10/03/18 09:43 10/03/18 10:01 10/03/18 11:17 Temperature Pulse Rate 60 Respiratory Rate 18 Blood Pressure Pulse Oximetry 97 95 Pulse Oximetry [Exertion on Room Air] 92 L Pulse Oximetry [Resting on Room Air] 95 10/03/18 12:00 10/03/18 15:15 10/03/18 16:00 Temperature 97.8 F 98.7 F Pulse Rate 68 68 68 Respiratory Rate 16 16 16 Blood Pressure 172/75 H 132/78 Pulse Oximetry 99 99 100 Pulse Oximetry [Exertion on Room Air] Pulse Oximetry [Resting on Room Air] 10/03/18 19:17 10/03/18 20:00 10/04/18 00:00 Temperature 98.6 F 98.2 F Pulse Rate 72 81 57 L Respiratory Rate 18 18 16 Blood Pressure 159/78 H 153/71 H Pulse Oximetry 98 100 Pulse Oximetry [Exertion on Room Air] Pulse Oximetry [Resting on Room Air] 10/04/18 03:28 10/04/18 04:00 Temperature 98.6 F Pulse Rate 67 66 Respiratory Rate 22 16 Blood Pressure 142/84 H Pulse Oximetry 95 Pulse Oximetry [Exertion on Room Air] Pulse Oximetry [Resting on Room Air] Intake & Output 10/03/18 10/04/18 10/04/18 18:59 06:59 18:59 Intake Total 400 / 400 100 / 100 Balance 400 / 400 100 / 100 Weight 100.9 kg Intake: IV 100 / 100 Rocephin Inj 1,000 MG In NS Inj 100 / 100 100 ML @ 200 mls/hr IV.SIG Q24H [facility] Rx#:[id number] Oral 400 / 400 Other: # Voids 3 2 <Majo Banerjee R - 10/04/18 08:46> Vital Signs 10/02/18 12:00 10/02/18 16:00 10/02/18 17:10 Temperature 98.9 F 97.8 F Pulse Rate 66 67 65 Respiratory Rate 20 20 16 Blood Pressure 176/81 H 132/62 Pulse Oximetry 94 L 98 Pulse Oximetry [Exertion on Room Air] Pulse Oximetry [Resting on Room Air] 10/02/18 19:40 10/02/18 20:00 10/02/18 23:24 Temperature 98.3 F 97.8 F Pulse Rate 60 66 61 Respiratory Rate 18 17 19 Blood Pressure 158/98 H 149/72 H Pulse Oximetry 100 100 98 Pulse Oximetry [Exertion on Room Air] Pulse Oximetry [Resting on Room Air] 10/02/18 23:37 10/03/18 00:00 10/03/18 03:19 Temperature Pulse Rate 60 61 56 L Respiratory Rate 16 16 Blood Pressure Pulse Oximetry Pulse Oximetry [Exertion on Room Air] Pulse Oximetry [Resting on Room Air] 10/03/18 04:00 10/03/18 07:43 10/03/18 08:00 Temperature 99 F 98.1 F Pulse Rate 68 54 L 57 L Respiratory Rate 16 18 16 Blood Pressure 148/66 H 145/78 H Pulse Oximetry 94 L 100 100 Pulse Oximetry [Exertion on Room Air] Pulse Oximetry [Resting on Room Air] 10/03/18 09:43 10/03/18 10:01 10/03/18 11:17 Temperature Pulse Rate 60 Respiratory Rate 18 Blood Pressure Pulse Oximetry 97 95 Pulse Oximetry [Exertion on Room Air] 92 L Pulse Oximetry [Resting on Room Air] 95 Intake & Output 10/02/18 10/03/18 10/03/18 18:59 06:59 18:59 Intake Total 960 / 960 100 / 100 Balance 960 / 960 100 / 100 Weight 101.2 kg Intake: IV 100 / 100 Rocephin Inj 1,000 MG In NS Inj 100 / 100 100 ML @ 200 mls/hr IV.SIG Q24H [facility] Rx#:[id number] Oral 960 / 960 Other: # Voids 4 1 # Bowel Movements 0 <Omari Olivier - 10/03/18 11:36> Narrative: GENERAL: Elderly appearing female, sitting upright, speaking in full sentences and answering questions of separately. On room air. SKIN: Warm and dry. HEAD: Normocephalic. EYES: No scleral icterus. No injection or drainage. NECK: Supple, trachea midline. No JVD or lymphadenopathy. CARDIOVASCULAR: Regular rate and rhythm without murmurs, gallops, or rubs. RESPIRATORY: Continues to have occasional crackles throughout all lung vásquez, no wheezes, same as exam yesterday with improved air movement. GASTROINTESTINAL: Abdomen soft, nondistended. No tenderness to palpation on today's exam MUSCULOSKELETAL: No cyanosis. Trace edema bilaterally. No calf tenderness on today's exam BACK: Nontender without obvious deformity. No CVA tenderness. <Omari Olivier - 10/03/18 15:34> Assessment and Plan - Assessment (1) SIRS (systemic inflammatory response syndrome) Code(s): R65.10 - Systemic inflammatory response syndrome (SIRS) of non- infectious origin without acute organ dysfunction Status: Acute (2) Hypoxia Code(s): R09.02 - Hypoxemia Status: Acute (3) Eosinophilia Code(s): D72.1 - Eosinophilia Status: Acute (4) Wheezing Code(s): R06.2 - Wheezing Status: Acute (5) Productive cough Code(s): R05 - Cough Status: Acute (6) Diabetes Code(s): E11.9 - Type 2 diabetes mellitus without complications Status: Acute (7) Hypertension Code(s): I10 - Essential (primary) hypertension Status: Acute (8) Acute kidney injury Code(s): N17.9 - Acute kidney failure, unspecified Status: Acute (9) Abdominal pain Code(s): R10.9 - Unspecified abdominal pain Status: Acute (10) DVT (deep venous thrombosis) Code(s): I82.409 - Acute embolism and thrombosis of unspecified deep veins of unspecified lower extremity Status: Acute (11) Nutrition, metabolism, and development symptoms Code(s): R63.8 - Other symptoms and signs concerning food and fluid intake Status: Acute <Majo Banerjee - 10/04/18 08:46> (1) SIRS (systemic inflammatory response syndrome) Code(s): R65.10 - Systemic inflammatory response syndrome (SIRS) of non- infectious origin without acute organ dysfunction Status: Acute Plan: Patient admitted with elevated white count at 20.1, respiratory rate: 30, pulse : 96, meets SIRS criteria. Unidentified source of infection: Blood cultures, gram/sputum stain with NGTD. Legionella Antigen, Influenza, Pneumococcal Antigen negative Recent sick contact. Afebrile. Crackles heard bilaterally on physical exam. Some perihilar opacities on CXRay but poor x-ray view. History concerning for pneumonia. Denies any urinary symptoms. Treating for pneumonia and COPD exacerbation. Completed 5 days of azithromycin Continue on 1g ceftriaxone. Day 6. 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 (2) Hypoxia Code(s): R09.02 - Hypoxemia Status: Acute Plan: 4 days of SOB with productive cough, no fevers, recent sick contact with bronchitis. Hypoxic: 77 L on admission. Wheezing on physical exam. DDX: COPD exacerbation versus pneumonia versus CHF exacerbation versus bronchitis. BNP 77. CHF unlikely. ABG: PH: 7.29 and PCO2 of 63. Bicarb: 30. Respiratory acidosis with metabolic compensation. Possibly due to COPD exacerbation. Elevated white count 20.1 with high eosinophils at 58.3. Concerning for infection. X-ray: Perihilar opacities appreciated. Oxygen saturations improved on oxygen. Titrate as tolerated. Keep O2 sats above 92%. 120 Solu-Medrol and 40 mg Lasix given in the emergency room Held Lasix today due to CECILE 10/01 40 mg prednisone switched to 40 IV solumedrol q12 per pulm recommendations. Symbicort added. BIPAP PRN. Albuterol and duo nebs alternating every 4. CTA was ordered after she was found to have an elevated D dimer CTA was negative for PE, did show extensive mediastinal adenopathy, sings of interstitial disease in the peribronchial regions as well as a 0.6cm focal density in the R midlung Heme Onc: lymphoproliferative disorder vs sarcoidosis. DELLA 2 kinase mutation, RAMIREZ, IgE and ALBERT pending. Rh Factor Negative. ESR: 58. CRP: 1.6. Continue to trend eosinophilia. Pulm: Plan bronchoscopy with lavage, possible mediastinal biopsy on 10/[address] Tirado. Quantiferon Gamma for TB pending. (3) Eosinophilia Code(s): D72.1 - Eosinophilia Status: Acute Plan: CBC on admission with elevated eosinophils at 58.3. Peripheral smear showed mild normochromic, normocytic anemia, mild eosinophilia Currently downtrending Continue to monitor. Hematology following. (4) Wheezing Code(s): R06.2 - Wheezing Status: Acute Plan: See plan above. Currently on IV Solu-Medrol 40 mg daily (5) Productive cough Code(s): R05 - Cough Status: Acute Plan: Mucinex added. (6) Diabetes Code(s): E11.9 - Type 2 diabetes mellitus without complications Status: Acute Plan: Hold metformin with concerns of lactic acidosis. will start on insulin low-dose sliding scale. (7) Hypertension Code(s): I10 - Essential (primary) hypertension Status: Acute Plan: Patient hypertensive on admission Resuming Losartan on 09/30 - initially held for CECILE Continue home carvedilol and amlodipine. (8) Acute kidney injury Code(s): N17.9 - Acute kidney failure, unspecified Status: Acute Plan: Creatinine: 1.83 on admission. Baseline 0.6. Resolved (9) Abdominal pain Code(s): R10.9 - Unspecified abdominal pain Status: Acute Plan: Diffuse abdominal pain, good bowel movements, no hematochezia. Ct abdomen showed gallstones but was otherwise negative Resolved on 09/30 after a BM (10) DVT (deep venous thrombosis) Code(s): I82.409 - Acute embolism and thrombosis of unspecified deep veins of unspecified lower extremity Status: Acute Plan: Patient complains of bilateral leg pain to palpation. Wells score: 3. Doppler of BLE ordered on 09/29 due to elevated D dimer was negative Heparin Q24 (11) Nutrition, metabolism, and development symptoms Code(s): R63.8 - Other symptoms and signs concerning food and fluid intake Status: Acute Plan: Fluids: No IVF at this time, patient had CECILE on admission but resolved with PO fluids Electrolytes: Monitor and replete as needed Diet: Diabetic diet, n.p.o. at midnight GI prophylaxis: Protonix 40 mg. CODE STATUS: DNR/DNI. <Omari Olivier - 10/03/18 15:50> - Assessment and Plan 73 yo F with PMH of HTN, DM presented with SOB, productive cough and diffuse abdominal pain. Met SIRS criteria on admission. CXR did not show PNA but history consistent with PNA - started on Azithro and rocephin on admission. CT abdomen was normal and patient's abd pain resolved after a BM. Her D dimer was elevated on admission so BLE dopplers were ordered as well as a CTA. All were negative for PE/DVT, but she was found to have mediastinal adenopathy and signs interstitial lung disease. She was also notably found to have eosinophilia on admission that initially downtrended but trended back up on 09/30. Hematology was consulted in light of her eosinophilia and mediastinal adenopathy on 09/30. Clinically improving on abx. Sputum culture came back for Aspergillus Niger. Pulmonology planning for bronchoscopy with lavage and possible mediastinal biopsy on 10/04. <Omari Olivier - 10/03/18 15:50> - Attending Attestation Patient seen and discussed with the resident team --- agree with assessment and plan <Majo Banerjee - 10/04/18 08:46>
[2018-10-03] MEDS ORDERED: RESP: Lidocaine PF 4% 5 ML Neb NEB SCH (15:00)
[2018-10-03] MEDS ORDERED: RESP: Albuterol Concentrated 2.5 MG/0.5 ML Neb NEB SCH (15:00)
--- NOTE | 2018-10-03 15:12 | P.PNONC ---
Subjective Interval history: Patient is feeling better. Her cough has improved and it is less productive. She still has shortness of breath. She is waiting for possible bronchoscopy. She has no chest pain or palpitation. Objective Vital Signs/Intake & Output: Vital Signs 10/02/18 16:00 10/02/18 17:10 10/02/18 19:40 Temperature 97.8 F Pulse Rate 67 65 60 Respiratory Rate 20 16 18 Blood Pressure 132/62 Pulse Oximetry 98 100 Pulse Oximetry [Exertion on Room Air] Pulse Oximetry [Resting on Room Air] 10/02/18 20:00 10/02/18 23:24 10/02/18 23:37 Temperature 98.3 F 97.8 F Pulse Rate 66 61 60 Respiratory Rate 17 19 16 Blood Pressure 158/98 H 149/72 H Pulse Oximetry 100 98 Pulse Oximetry [Exertion on Room Air] Pulse Oximetry [Resting on Room Air] 10/03/18 00:00 18 03:19 10/03/18 04:00 Temperature 99 F Pulse Rate 61 56 L 68 Respiratory Rate 16 16 Blood Pressure 148/66 H Pulse Oximetry 94 L Pulse Oximetry [Exertion on Room Air] Pulse Oximetry [Resting on Room Air] 10/03/18 07:43 10/03/18 08:00 10/03/18 09:43 Temperature 98.1 F Pulse Rate 54 L 60 Respiratory Rate 18 16 Blood Pressure 145/78 H Pulse Oximetry 100 100 Pulse Oximetry [Exertion on Room Air] 92 L Pulse Oximetry [Resting on Room Air] 95 10/03/18 10:01 10/03/18 11:17 10/03/18 12:00 Temperature 97.8 F Pulse Rate 60 68 Respiratory Rate 18 16 Blood Pressure 172/75 H Pulse Oximetry 97 95 99 Pulse Oximetry [Exertion on Room Air] Pulse Oximetry [Resting on Room Air] Intake & Output 10/02/18 10/03/18 10/03/18 18:59 06:59 18:59 Intake Total 960 / 960 100 / 100 Balance 960 / 960 100 / 100 Weight 101.2 kg Intake: IV 100 / 100 Rocephin Inj 1,000 MG In NS Inj 100 / 100 100 ML @ 200 mls/hr IV.SIG Q24H [facility] Rx#:[id number] Oral 960 / 960 Other: # Voids 4 1 # Bowel Movements 0 Result Diagrams: 10/03/18 09:21 10/03/18 09:21 Laboratory Results: Laboratory Results - last 24 hr 10/02/18 10/02/18 10/03/18 17:07 19:28 07:37 WBC RBC Hgb Hct MCV MCH MCHC RDW Plt Count MPV Neut % (Auto) Lymph % (Auto) Antelope % (Auto) Eos % (Auto) Baso % (Auto) Neut # (Auto) Lymph # (Auto) Antelope # (Auto) Eos # (Auto) Baso # (Auto) WBC Differential Differential Comment Sodium Potassium Chloride Carbon Dioxide Anion Gap BUN Creatinine Estimated GFR POC Glucose 246 H 236 H 137 H Random Glucose Calcium Total Bilirubin AST ALT Alkaline Phosphatase Total Protein Albumin 10/03/18 10/03/18 10/03/18 09:21 09:21 11:41 WBC 8.8 RBC 3.54 L Hgb 10.9 L Hct 32.7 L MCV 92.4 MCH 30.6 MCHC 33.2 RDW 15.0 Plt Count 162 MPV 9.4 Neut % (Auto) 40.8 Lymph % (Auto) 42.2 Antelope % (Auto) 10.4 H Eos % (Auto) 5.6 H Baso % (Auto) 1.0 Neut # (Auto) 3.6 Lymph # (Auto) 3.7 Antelope # (Auto) 0.9 Eos # (Auto) 0.5 H Baso # (Auto) 0.1 WBC Differential . Differential Comment Auto diff final Sodium 142 Potassium 3.9 D Chloride 105 Carbon Dioxide 31.5 Anion Gap 6 BUN 25 H Creatinine 1.05 H Estimated GFR 62 L POC Glucose 194 H Random Glucose 107 H Calcium 8.5 Total Bilirubin 0.2 AST 58 H ALT 100 H Alkaline Phosphatase 181 H Total Protein 8.5 H Albumin 3.4 Culture Results: Microbiology 09/28/18 20:30 Aerobic Blood Culture - Final Blood - Peripheral No growth in 5 days Anaerobic Blood Culture - Final No growth in 5 days 09/28/18 20:02 Aerobic Blood Culture - Final Blood - Peripheral No growth in 5 days Anaerobic Blood Culture - Final No growth in 5 days 09/28/18 23:30 Gram Stain - Final Sputum - Oral Tracheal Aspirate Sputum Culture - Final Aspergillus niger 09/29/18 11:00 Gram Stain - Final Clean Catch Urine Medications: Active Medications Generic Name Dose Route Start Last Admin Trade Name Conrad PRN Reason Stop Dose Admin Al Hydroxide/Mg Hydroxide 30 ml 09/28/18 18:30 09/28/18 23:28 Milk Of Shar Liq PO 30 ml Q12H PRN Administration Mild Constipation Amlodipine Besylate 10 mg 09/29/18 09:00 10/03/18 09:51 Norvasc PO 10 mg DAILY [facility] Administration Budesonide 0.5 mg 09/29/18 20:00 10/03/18 07:43 Pulmocort Respule Neb NEB 0.5 mg Q12HR NEB [facility] Administration Carvedilol 3.125 mg 09/28/18 21:00 10/03/18 09:51 Coreg PO Not Given BID GAIL Furosemide 40 mg 09/29/18 09:00 09/30/18 09:16 Lasix PO 40 mg DAILY [facility] Administration Guaifenesin 600 mg 09/28/18 21:00 10/03/18 09:50 Mucinex Er PO 600 mg BID [facility] Administration Ceftriaxone Sodium 1,000 mg/ 100 mls @ 200 mls/hr 09/28/18 20:00 10/02/18 22: 09 Sodium Chloride IV.SIG Infused Q24H [facility] Infusion Insulin Aspart 0 unit 09/28/18 21:00 10/03/18 12:43 Novolog Insulin Correctional Sugar Inj SQ 1 unit ACHS [facility] Administration Protocol Losartan Potassium 100 mg 09/30/18 13:15 10/03/18 09:50 Cozaar PO 100 mg DAILY [facility] Administration Methylprednisolone Sodium Succinate 40 mg 10/01/18 21:00 10/03/18 09:51 Solumedrol Inj IV.PUSH 40 mg Q12H [facility] Administration Pantoprazole Sodium 40 mg 09/29/18 09:00 10/03/18 09:50 Protonix PO 40 mg DAILY [facility] Administration Senna/Docusate Sodium 1 tab 09/28/18 21:00 10/03/18 09:50 Veronica-Colace PO 1 tab BID [facility] Administration Sodium Chloride 2 ml 09/28/18 21:00 10/03/18 09:51 Ns Flush IV.FLUSH 2 ml BID [facility] Administration Objective Remarks: GENERAL: Well-nourished, well-developed patient. SKIN: Warm and dry. HEAD: Normocephalic. EYES: No scleral icterus. No injection or drainage. NECK: Supple, trachea midline. No JVD or lymphadenopathy. LYMPHATIC: No adenopathy. CARDIOVASCULAR: Regular rate and rhythm without murmurs. RESPIRATORY: Breath sounds equal bilaterally. No accessory muscle use. GASTROINTESTINAL: Abdomen soft, non-tender, nondistended. EXTREMITIES: No cyanosis, or edema. MUSCULOSKELETAL: Adequate muscle tone. NEUROLOGICAL: No obvious focal deficit. Awake, alert, and oriented x3. PSYCHIATRIC: Appropriate mood and affect; insight and judgment normal. Assessment/Plan - Plan 73-year-old female admitted to the hospital with complaints of cough and shortness of breath. She had imaging done that showed extensive mediastinal lymphadenopathy involving pretracheal, paratracheal, subcarinal AP window and bilateral hilar area. Interestingly she also had leukocytosis and eosinophilia on presentation. Differential diagnosis includes lymphoproliferative disorder or sarcoidosis vs viral pneumonia. The patient is feeling better after beginning antibiotics and steroids. The mediastinal adenopathy is not accessible for percutaneous biopsy and pulmonology has been consulted. 1. Foreign 2 pending. Eosinophilia continues to improve. Sputum culture grew mold which may be the source of eosinophilia. Eosinophil count has trended down to 0.5. 2. Patient is awaiting possible bronchoscopy/EBUS to biopsy the mediastinal lymph node. Differential diagnosis include sarcoidosis. RAMIREZ level is pending. 3. Continue to monitor CBC. Supportive care.
--- NOTE | 2018-10-03 15:25 | MB ---
cc: Mar Tirado MD DATE: 10/03/2018 HISTORY OF PRESENT ILLNESS: Ms. Miner is a 73-year-old black female who presented on 09/28/2018 with shortness of breath, probably acute exacerbation of COPD. She was treated appropriately with antibiotics, corticosteroids and initially Dr. RAYNE Cervantes saw her. She has improved dramatically with this treatment. She had never previously known she had COPD and she quit smoking 20 years ago. Her pulmonary function, though, is significantly reduced in the range of 50%. In addition, she had a CT scan, which reveals some peribronchial infiltrates along with significant mediastinal adenopathy. Sputum culture has grown Aspergillus niger. In light of this, I have reviewed with her today the importance of proceeding with a diagnostic bronchoscopy, both for bronchoalveolar lavage and ultrasound-guided biopsy of those lymph nodes to try to determine the precise etiology and to try to see whether or not this is all related to a fungal infection. She is clinically stable. O2 saturations are currently 95-98% on room air and vital signs are stable. I have reviewed the procedure with her in simple terms so that she understands what it involves. I have also discussed potential for complications including although not limited to anesthetic complications or respiratory insufficiency, bleeding and/or pneumothorax. Having reviewed this with her thoroughly, she is agreeable to proceed. Orders have been placed in the chart. Further diagnostic and/or therapeutic intervention will depend on the results of this study. Mar Tirado MD RSW/cooper , 02:57 PM , 03:03 PM
[2018-10-03] MEDS: Sodium Chloride 0.45 % Inj 1,000 ML IV.CONT SCH (16:30)
[2018-10-04] MEDS ORDERED: Chlorhexidine Gluconate 2% 1 Pack (2 Cloths) TOPICAL ONE (01:21)
[2018-10-04] MEDS ORDERED: Sodium Chlor 0.9% Inj 500 ML IV.SIG SCH (02:00)
[2018-10-04 06:31] LABS: Baso # (Auto) 0.1 th/mm3 (0.0-0.2); Baso % (Auto) 1.2 % (0.0-2.0); Eos # (Auto) 0.3 th/mm3 (0.0-0.4); Eos % (Auto) 3.2 % (0.0-4.0); Hematocrit 28.7 % (35.0-46.0); Hemoglobin 9.6 gm/dL (11.6-15.3); Lymph # (Auto) 3.3 th/mm3 (1.0-4.8); Lymph % (Auto) 39.8 % (9.0-44.0); Mean Corpuscular HGB Conc 33.4 % (32.0-36.0); Mean Corpuscular Hemoglobin 30.4 pg (27.0-34.0); Mean Corpuscular Volume 91.1 fL (80.0-100.0); Mean Platelet Volume 9.1 fL (7.0-11.0); Mono # (Auto) 0.7 th/mm3 (0.0-0.9); Mono % (Auto) 8.5 % (0.0-8.0); Neut # (Auto) 3.9 th/mm3 (1.8-7.7); Neut % (Auto) 47.3 % (16.0-70.0); Platelet Count 231 th/mm3 (150-450); Red Blood Count 3.15 mil/mm3 (4.00-5.30); White Blood Count 8.2 th/mm3 (4.0-11.0)
[2018-10-04 06:42] LABS: Alanine Aminotransferase 74 U/L (10-53); Albumin 2.7 g/dL (3.4-5.0); Alkaline Phosphatase 144 U/L (45-117); Anion Gap 5 meq/L (5-15); Aspartate Aminotransferase 34 U/L (15-37); Blood Urea Nitrogen 23 mg/dL (7-18); Calcium 8.2 mg/dL (8.5-10.1); Carbon Dioxide 28.4 meq/L (21.0-32.0); Chloride 107 meq/L (98-107); Glomerular Filtration Rate 62 mL/min (>89); Glucose,Random 157 mg/dL (74-106); Sodium 140 meq/L (136-145); Total Protein 6.8 g/dL (6.4-8.2)
[2018-10-04 06:43] LABS: Potassium 4.5 meq/L (3.5-5.1)
--- NOTE | 2018-10-04 08:19 | P.PNFP ---
Subjective Interval history: No acute events overnight. Patient expresses understanding of the procedure plan for today. She denies any chest pain or shortness of breath continues to improve on room air. She denies any abdominal pain or bloody bowel movements. Patient says she has no questions at this time. <OlivierOmari B - 10/04/18 16:29> Results - Labs Result diagrams: 10/04/18 06:00 10/04/18 06:00 <Majo Banerjee R - 10/04/18 16:51> Abnormal lab results 10/01/18 10/03/18 10/03/18 Range/Units 09:50 16:59 19:25 RBC (4.00-5.30) mil/mm3 Hgb (11.6-15.3) gm/dL Hct (35.0-46.0) % [place] % (Auto) (0.0-8.0) % BUN (7-18) mg/dL Creatinine (0.50-1.00) mg/dL Estimated GFR (>89) mL/min POC Glucose 210 H 171 H (68-110) mg/dl Random Glucose (74-106) mg/dL Calcium (8.5-10.1) mg/dL ALT (10-53) U/L Alkaline Phosphatase (45-117) U/L Albumin (3.4-5.0) g/dL ALBERT Titer 1:320 H (Neg) ALBERT Pattern Diffuse H (None) 10/04/18 10/04/18 10/04/18 Range/Units 06:00 06:00 07:40 RBC 3.15 L (4.00-5.30) mil/mm3 Hgb 9.6 L (11.6-15.3) gm/dL Hct 28.7 L (35.0-46.0) % [place] % (Auto) 8.5 H (0.0-8.0) % BUN 23 H (7-18) mg/dL Creatinine 1.05 H (0.50-1.00) mg/dL Estimated GFR 62 L (>89) mL/min POC Glucose 135 H (68-110) mg/dl Random Glucose 157 H (74-106) mg/dL Calcium 8.2 L (8.5-10.1) mg/dL ALT 74 H (10-53) U/L Alkaline Phosphatase 144 H (45-117) U/L Albumin 2.7 L D (3.4-5.0) g/dL ALBERT Titer (Neg) ALBERT Pattern (None) 10/04/18 Range/Units 13:52 RBC (4.00-5.30) mil/mm3 Hgb (11.6-15.3) gm/dL Hct (35.0-46.0) % [place] % (Auto) (0.0-8.0) % BUN (7-18) mg/dL Creatinine (0.50-1.00) mg/dL Estimated GFR (>89) mL/min POC Glucose 145 H (68-110) mg/dl Random Glucose (74-106) mg/dL Calcium (8.5-10.1) mg/dL ALT (10-53) U/L Alkaline Phosphatase (45-117) U/L Albumin (3.4-5.0) g/dL ALBERT Titer (Neg) ALBERT Pattern (None) Short CBC 10/04/18 Range/Units 06:00 WBC 8.2 (4.0-11.0) th/mm3 Hgb 9.6 L (11.6-15.3) gm/dL Hct 28.7 L (35.0-46.0) % Plt Count 231 D (150-450) th/mm3 BMP 10/04/18 06:00 Sodium 140 Potassium 4.5 Chloride 107 Carbon Dioxide 28.4 BUN 23 H Creatinine 1.05 H Calcium 8.2 L Liver Function 10/04/18 Range/Units 06:00 Total Bilirubin 0.2 (0.2-1.0) mg/dL AST 34 (15-37) U/L ALT 74 H (10-53) U/L Alkaline Phosphatase 144 H (45-117) U/L Albumin 2.7 L D (3.4-5.0) g/dL <Majo Banerjee - 10/04/18 16:51> Abnormal lab results 10/03/18 10/03/18 10/03/18 Range/Units 09:21 09:21 11:41 RBC 3.54 L (4.00-5.30) mil/mm3 Hgb 10.9 L (11.6-15.3) gm/dL Hct 32.7 L (35.0-46.0) % [place] % (Auto) 10.4 H (0.0-8.0) % Eos % (Auto) 5.6 H (0.0-4.0) % Eos # (Auto) 0.5 H (0.0-0.4) th/mm3 BUN 25 H (7-18) mg/dL Creatinine 1.05 H (0.50-1.00) mg/dL Estimated GFR 62 L (>89) mL/min POC Glucose 194 H (68-110) mg/dl Random Glucose 107 H (74-106) mg/dL Calcium (8.5-10.1) mg/dL AST 58 H (15-37) U/L ALT 100 H (10-53) U/L Alkaline Phosphatase 181 H (45-117) U/L Total Protein 8.5 H (6.4-8.2) g/dL Albumin (3.4-5.0) g/dL 10/03/18 10/03/18 10/04/18 Range/Units 16:59 19:25 06:00 RBC 3.15 L (4.00-5.30) mil/mm3 Hgb 9.6 L (11.6-15.3) gm/dL Hct 28.7 L (35.0-46.0) % [place] % (Auto) 8.5 H (0.0-8.0) % Eos % (Auto) (0.0-4.0) % Eos # (Auto) (0.0-0.4) th/mm3 BUN (7-18) mg/dL Creatinine (0.50-1.00) mg/dL Estimated GFR (>89) mL/min POC Glucose 210 H 171 H (68-110) mg/dl Random Glucose (74-106) mg/dL Calcium (8.5-10.1) mg/dL AST (15-37) U/L ALT (10-53) U/L Alkaline Phosphatase (45-117) U/L Total Protein (6.4-8.2) g/dL Albumin (3.4-5.0) g/dL 10/04/18 10/04/18 Range/Units 06:00 07:40 RBC (4.00-5.30) mil/mm3 Hgb (11.6-15.3) gm/dL Hct (35.0-46.0) % [place] % (Auto) (0.0-8.0) % Eos % (Auto) (0.0-4.0) % Eos # (Auto) (0.0-0.4) th/mm3 BUN 23 H (7-18) mg/dL Creatinine 1.05 H (0.50-1.00) mg/dL Estimated GFR 62 L (>89) mL/min POC Glucose 135 H (68-110) mg/dl Random Glucose 157 H (74-106) mg/dL Calcium 8.2 L (8.5-10.1) mg/dL AST (15-37) U/L ALT 74 H (10-53) U/L Alkaline Phosphatase 144 H (45-117) U/L Total Protein (6.4-8.2) g/dL Albumin 2.7 L D (3.4-5.0) g/dL Short CBC 10/03/18 10/04/18 Range/Units 09:21 06:00 WBC 8.8 8.2 (4.0-11.0) th/mm3 Hgb 10.9 L 9.6 L (11.6-15.3) gm/dL Hct 32.7 L 28.7 L (35.0-46.0) % Plt Count 162 231 D (150-450) th/mm3 BMP 10/03/18 10/04/18 09:21 06:00 Sodium 142 140 Potassium 3.9 D 4.5 Chloride 105 107 Carbon Dioxide 31.5 28.4 BUN 25 H 23 H Creatinine 1.05 H 1.05 H Calcium 8.5 8.2 L Liver Function 10/03/18 10/04/18 Range/Units 09:21 06:00 Total Bilirubin 0.2 0.2 (0.2-1.0) mg/dL AST 58 H 34 (15-37) U/L ALT 100 H 74 H (10-53) U/L Alkaline Phosphatase 181 H 144 H (45-117) U/L Albumin 3.4 2.7 L D (3.4-5.0) g/dL <Omari Olivier - 10/04/18 08:19> Physical Exam Vital signs: Vital Signs 10/03/18 19:17 10/03/18 20:00 12/05/18 00:00 Temperature 98.6 F 98.2 F Pulse Rate 72 81 57 L Respiratory Rate 18 18 16 Blood Pressure 159/78 H 153/71 H Pulse Oximetry 98 100 10/04/18 03:28 10/04/18 04:00 10/04/18 08:00 Temperature 98.6 F 98.3 F Pulse Rate 67 66 56 L Respiratory Rate 22 16 18 Blood Pressure 142/84 H 187/79 H Pulse Oximetry 95 96 10/04/18 10:02 10/04/18 12:00 10/04/18 12:54 Temperature 98.1 F Pulse Rate 52 L 53 L 83 Respiratory Rate 18 18 Blood Pressure 156/66 H Pulse Oximetry 97 95 10/04/18 13:15 10/04/18 13:30 10/04/18 13:45 Temperature Pulse Rate 68 68 69 Respiratory Rate 18 18 18 Blood Pressure 148/76 H 171/72 H 162/74 H Pulse Oximetry 10/04/18 14:05 10/04/18 15:34 10/04/18 15:35 Temperature 98.1 F Pulse Rate 67 67 Respiratory Rate 18 18 Blood Pressure 151/70 H Pulse Oximetry 97 Intake & Output 10/03/18 10/04/18 10/04/18 18:59 06:59 18:59 Intake Total 400 / 400 100 / 100 60 / 60 Balance 400 / 400 100 / 100 60 / 60 Weight 100.9 kg Intake: IV 100 / 100 60 / 60 1/2 Normal Saline Inj 1,000 ML 60 / 60 @ 30 mls/hr IV.CONT .Q24H [facility] Rx#:[id number] Rocephin Inj 1,000 MG In NS Inj 100 / 100 100 ML @ 200 mls/hr IV.SIG Q24H [facility] Rx#:[id number] Oral 400 / 400 Other: # Voids 3 2 Date of Last Bowel Movement 10/03/18 <Majo Banerjee - 10/04/18 16:51> Vital Signs 10/03/18 09:43 10/03/18 10:01 10/03/18 11:17 Temperature Pulse Rate 60 Respiratory Rate 18 Blood Pressure Pulse Oximetry 97 95 Pulse Oximetry [Exertion on Room Air] 92 L Pulse Oximetry [Resting on Room Air] 95 10/03/18 12:00 10/03/18 15:15 10/03/18 16:00 Temperature 97.8 F 98.7 F Pulse Rate 68 68 68 Respiratory Rate 16 16 16 Blood Pressure 172/75 H 132/78 Pulse Oximetry 99 99 100 Pulse Oximetry [Exertion on Room Air] Pulse Oximetry [Resting on Room Air] 10/03/18 19:17 10/03/18 20:00 10/04/18 00:00 Temperature 98.6 F 98.2 F Pulse Rate 72 81 57 L Respiratory Rate 18 18 16 Blood Pressure 159/78 H 153/71 H Pulse Oximetry 98 100 Pulse Oximetry [Exertion on Room Air] Pulse Oximetry [Resting on Room Air] 10/04/18 03:28 10/04/18 04:00 Temperature 98.6 F Pulse Rate 67 66 Respiratory Rate 22 16 Blood Pressure 142/84 H Pulse Oximetry 95 Pulse Oximetry [Exertion on Room Air] Pulse Oximetry [Resting on Room Air] Intake & Output 10/03/18 10/04/18 10/04/18 18:59 06:59 18:59 Intake Total 400 / 400 100 / 100 Balance 400 / 400 100 / 100 Weight 100.9 kg Intake: IV 100 / 100 Rocephin Inj 1,000 MG In NS Inj 100 / 100 100 ML @ 200 mls/hr IV.SIG Q24H [facility] Rx#:[id number] Oral 400 / 400 Other: # Voids 3 2 <Omari Olivier - 10/04/18 08:19> Narrative: GENERAL: Elderly appearing female, sitting upright, speaking in full sentences and answering questions of separately. On room air. SKIN: Warm and dry. HEAD: Normocephalic. EYES: No scleral icterus. No injection or drainage. NECK: Supple, trachea midline. No JVD or lymphadenopathy. CARDIOVASCULAR: Regular rate and rhythm without murmurs, gallops, or rubs. RESPIRATORY: Continues to have occasional crackles throughout all lung vásquez - improved from prior exam. no wheezes GASTROINTESTINAL: Abdomen soft, nondistended. No tenderness to palpation on today's exam MUSCULOSKELETAL: No cyanosis. Trace edema bilaterally. No calf tenderness on today's exam BACK: Nontender without obvious deformity. No CVA tenderness. <Omari Olivier - 10/04/18 16:29> Assessment and Plan - Assessment (1) SIRS (systemic inflammatory response syndrome) Code(s): R65.10 - Systemic inflammatory response syndrome (SIRS) of non- infectious origin without acute organ dysfunction Status: Acute (2) Hypoxia Code(s): R09.02 - Hypoxemia Status: Acute (3) Eosinophilia Code(s): D72.1 - Eosinophilia Status: Acute (4) Wheezing Code(s): R06.2 - Wheezing Status: Acute (5) Productive cough Code(s): R05 - Cough Status: Acute (6) Diabetes Code(s): E11.9 - Type 2 diabetes mellitus without complications Status: Acute (7) Hypertension Code(s): I10 - Essential (primary) hypertension Status: Acute (8) Acute kidney injury Code(s): N17.9 - Acute kidney failure, unspecified Status: Acute (9) Abdominal pain Code(s): R10.9 - Unspecified abdominal pain Status: Acute (10) DVT (deep venous thrombosis) Code(s): I82.409 - Acute embolism and thrombosis of unspecified deep veins of unspecified lower extremity Status: Acute (11) Nutrition, metabolism, and development symptoms Code(s): R63.8 - Other symptoms and signs concerning food and fluid intake Status: Acute <Majo Banerjee R - 10/04/18 16:51> (1) SIRS (systemic inflammatory response syndrome) Code(s): R65.10 - Systemic inflammatory response syndrome (SIRS) of non- infectious origin without acute organ dysfunction Status: Acute Plan: Patient admitted with elevated white count at 20.1, respiratory rate: 30, pulse : 96, meets SIRS criteria. Unidentified source of infection: Blood cultures, gram/sputum stain with NGTD. Legionella Antigen, Influenza, Pneumococcal Antigen negative Recent sick contact. Afebrile. Crackles heard bilaterally on physical exam. Some perihilar opacities on CXRay but poor x-ray view. History concerning for pneumonia. Denies any urinary symptoms. Treating for pneumonia and COPD exacerbation. Completed 5 days of azithromycin Continue on 1g ceftriaxone. Day 7. 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 (2) Hypoxia Code(s): R09.02 - Hypoxemia Status: Acute Plan: On admission: 4 days of SOB with productive cough, no fevers, recent sick contact with bronchitis. Hypoxic: 77 L on admission. Wheezing on physical exam. 40 mg prednisone switched to 40 IV solumedrol q12 per pulm recommendations. Symbicort added. BIPAP PRN. Albuterol and duo nebs alternating every 4. CTA was ordered after she was found to have an elevated D dimer CTA was negative for PE, did show extensive mediastinal adenopathy, sings of interstitial disease in the peribronchial regions as well as a 0.6cm focal density in the R midlung Heme Onc: lymphoproliferative disorder vs sarcoidosis. DELLA 2 kinase mutation, RAMIREZ, IgE and ALBERT pending. Rh Factor Negative. ESR: 58. CRP: 1.6. Continue to trend eosinophilia. Pulm: Plan bronchoscopy with lavage, possible mediastinal biopsy on 10/[address] Tirado. Quantiferon Gamma for TB pending. -Currently on room air (3) Eosinophilia Code(s): D72.1 - Eosinophilia Status: Acute Plan: CBC on admission with elevated eosinophils at 58.3. Peripheral smear showed mild normochromic, normocytic anemia, mild eosinophilia Currently downtrending/stable Continue to monitor. Hematology following. (4) Wheezing Code(s): R06.2 - Wheezing Status: Acute Plan: See plan above. Currently on IV Solu-Medrol 40 mg daily (5) Productive cough Code(s): R05 - Cough Status: Acute Plan: Mucinex added. (6) Diabetes Code(s): E11.9 - Type 2 diabetes mellitus without complications Status: Acute Plan: Hold metformin with concerns of lactic acidosis. will start on insulin low-dose sliding scale. (7) Hypertension Code(s): I10 - Essential (primary) hypertension Status: Acute Plan: Patient hypertensive on admission Resuming Losartan on 09/30 - initially held for CECILE Continue home carvedilol and amlodipine. Added Vasotec as needed (8) Acute kidney injury Code(s): N17.9 - Acute kidney failure, unspecified Status: Acute Plan: Creatinine: 1.83 on admission. Baseline 0.6. Resolved (9) Abdominal pain Code(s): R10.9 - Unspecified abdominal pain Status: Acute Plan: Diffuse abdominal pain, good bowel movements, no hematochezia. Ct abdomen showed gallstones but was otherwise negative Resolved on 09/30 after a BM (10) DVT (deep venous thrombosis) Code(s): I82.409 - Acute embolism and thrombosis of unspecified deep veins of unspecified lower extremity Status: Acute Plan: Patient complains of bilateral leg pain to palpation. Wells score: 3. Doppler of BLE ordered on 09/29 due to elevated D dimer was negative Heparin Q24 (11) Nutrition, metabolism, and development symptoms Code(s): R63.8 - Other symptoms and signs concerning food and fluid intake Status: Acute Plan: Fluids: No IVF at this time, patient had CECILE on admission but resolved with PO fluids Electrolytes: Monitor and replete as needed Diet: Currently n.p.o. for procedure GI prophylaxis: Protonix 40 mg. CODE STATUS: DNR/DNI. <Omari Olivier - 10/04/18 16:25> - Assessment and Plan 73 yo F with PMH of HTN, DM presented with SOB, productive cough and diffuse abdominal pain. Met SIRS criteria on admission. CXR did not show PNA but history consistent with PNA - started on Azithro and rocephin on admission. CT abdomen was normal and patient's abd pain resolved after a BM. Her D dimer was elevated on admission so BLE dopplers were ordered as well as a CTA. All were negative for PE/DVT, but she was found to have mediastinal adenopathy and signs interstitial lung disease. She was also notably found to have eosinophilia on admission that initially downtrended but trended back up on 09/30. Hematology was consulted in light of her eosinophilia and mediastinal adenopathy on 09/30. Clinically improving on abx. Sputum culture came back for Aspergillus Niger. Pulmonology planning for bronchoscopy with lavage and possible mediastinal biopsy on 10/04. <Omari Olivier - 10/04/18 16:29> - Attending Attestation Patient seen and discussed with resident -- agree with assessment and plan <Majo Banerjee - 10/04/18 16:51>
[2018-10-04] MEDS: Insulin NovoLOG Aspart Correctional Sugar Inj SQ SCH ×4 (08:26→21:47)
[2018-10-04] MEDS: Senna/Docusate Sodium 8.6/50 MG Tablet PO SCH ×2 (08:27→21:46)
[2018-10-04] MEDS: amLODIPine 10 MG Tablet PO SCH (08:27)
[2018-10-04] MEDS: guaiFENesin 600 MG ER Tablet PO SCH ×2 (08:27→21:46)
[2018-10-04] MEDS: MethylPREDNISolone Sod Succinate Inj 40 MG/ML Vial IV.PUSH SCH ×2 (08:28→21:45)
--- NOTE | 2018-10-04 10:17 | P.PNONC ---
Subjective Interval history: Patient is feeling better. Her shortness of breath has improved. Her cough also has improved. She is bringing up whitish sputum. She denies any chest pain or palpitation. She is waiting for EGBUS today. Objective Vital Signs/Intake & Output: Vital Signs 10/03/18 11:17 10/03/18 12:00 10/03/18 15:15 Temperature 97.8 F Pulse Rate 60 68 68 Respiratory Rate 18 16 16 Blood Pressure 172/75 H Pulse Oximetry 95 99 99 10/03/18 16:00 10/03/18 19:17 10/03/18 20:00 Temperature 98.7 F 98.6 F Pulse Rate 68 72 81 Respiratory Rate 16 18 18 Blood Pressure 132/78 159/78 H Pulse Oximetry 100 98 10/04/18 00:00 10/04/18 03:28 10/04/18 04:00 Temperature 98.2 F 98.6 F Pulse Rate 57 L 67 66 Respiratory Rate 16 22 16 Blood Pressure 153/71 H 142/84 H Pulse Oximetry 100 95 10/04/18 08:00 10/04/18 10:02 Temperature 98.3 F Pulse Rate 56 L 52 L Respiratory Rate 18 18 Blood Pressure 187/79 H Pulse Oximetry 96 97 Intake & Output 10/03/18 10/04/18 10/04/18 18:59 06:59 18:59 Intake Total 400 / 400 100 / 100 Balance 400 / 400 100 / 100 Weight 100.9 kg Intake: IV 100 / 100 Rocephin Inj 1,000 MG In NS Inj 100 / 100 100 ML @ 200 mls/hr IV.SIG Q24H [facility] Rx#:[id number] Oral 400 / 400 Other: # Voids 3 2 Date of Last Bowel Movement 10/03/18 Result Diagrams: 10/04/18 06:00 10/04/18 06:00 Laboratory Results: Laboratory Results - last 24 hr 10/03/18 10/03/18 10/03/18 09:21 11:41 16:59 WBC RBC Hgb Hct MCV MCH MCHC RDW Plt Count MPV Neut % (Auto) Lymph % (Auto) [place] % (Auto) Eos % (Auto) Baso % (Auto) Neut # (Auto) Lymph # (Auto) [place] # (Auto) Eos # (Auto) Baso # (Auto) WBC Differential Differential Comment Sodium 142 Potassium 3.9 D Chloride 105 Carbon Dioxide 31.5 Anion Gap 6 BUN 25 H Creatinine 1.05 H Estimated GFR 62 L POC Glucose 194 H 210 H Random Glucose 107 H Calcium 8.5 Total Bilirubin 0.2 AST 58 H ALT 100 H Alkaline Phosphatase 181 H Total Protein 8.5 H Albumin 3.4 10/03/18 10/04/18 10/04/18 19:25 06:00 06:00 WBC 8.2 RBC 3.15 L Hgb 9.6 L Hct 28.7 L MCV 91.1 MCH 30.4 MCHC 33.4 RDW 15.0 Plt Count 231 D MPV 9.1 Neut % (Auto) 47.3 Lymph % (Auto) 39.8 [place] % (Auto) 8.5 H Eos % (Auto) 3.2 Baso % (Auto) 1.2 Neut # (Auto) 3.9 Lymph # (Auto) 3.3 [place] # (Auto) 0.7 Eos # (Auto) 0.3 Baso # (Auto) 0.1 WBC Differential . Differential Comment Auto diff final Sodium 140 Potassium 4.5 Chloride 107 Carbon Dioxide 28.4 Anion Gap 5 BUN 23 H Creatinine 1.05 H Estimated GFR 62 L POC Glucose 171 H Random Glucose 157 H Calcium 8.2 L Total Bilirubin 0.2 AST 34 ALT 74 H Alkaline Phosphatase 144 H Total Protein 6.8 D Albumin 2.7 L D 10/04/18 07:40 WBC RBC Hgb Hct MCV MCH MCHC RDW Plt Count MPV Neut % (Auto) Lymph % (Auto) [place] % (Auto) Eos % (Auto) Baso % (Auto) Neut # (Auto) Lymph # (Auto) [place] # (Auto) Eos # (Auto) Baso # (Auto) WBC Differential Differential Comment Sodium Potassium Chloride Carbon Dioxide Anion Gap BUN Creatinine Estimated GFR POC Glucose 135 H Random Glucose Calcium Total Bilirubin AST ALT Alkaline Phosphatase Total Protein Albumin Culture Results: Microbiology 09/28/18 20:30 Aerobic Blood Culture - Final Blood - Peripheral No growth in 5 days Anaerobic Blood Culture - Final No growth in 5 days 09/28/18 20:02 Aerobic Blood Culture - Final Blood - Peripheral No growth in 5 days Anaerobic Blood Culture - Final No growth in 5 days 09/28/18 23:30 Gram Stain - Final Sputum - Oral Tracheal Aspirate Sputum Culture - Final Aspergillus niger Medications: Active Medications Generic Name Dose Route Start Last Admin Trade Name Freq PRN Reason Stop Dose Admin Al Hydroxide/Mg Hydroxide 30 ml 09/28/18 18:30 09/28/18 23:28 Milk Of Magncayetano Liq PO 30 ml Q12H PRN Administration Mild Constipation Albuterol 1 ampul 10/03/18 16:00 10/04/18 10:02 Duoneb Neb (Levi) NEB 1 ampul Q6HR NEB LEVI Administration Amlodipine Besylate 10 mg 09/29/18 09:00 10/04/18 08:27 Norvasc PO 10 mg DAILY LEVI Administration Budesonide 0.5 mg 09/29/18 20:00 10/04/18 10:02 Pulmocort Respule Neb NEB 0.5 mg Q12HR NEB LEVI Administration Carvedilol 3.125 mg 09/28/18 21:00 10/04/18 09:07 Coreg PO 3.125 mg BID LEVI Administration Furosemide 40 mg 09/29/18 09:00 09/30/18 09:16 Lasix PO 40 mg DAILY LEVI Administration Guaifenesin 600 mg 09/28/18 21:00 10/04/18 08:27 Mucinex Er PO 600 mg BID LEVI Administration Ceftriaxone Sodium 1,000 mg/ 100 mls @ 200 mls/hr 09/28/18 20:00 10/03/18 22: 16 Sodium Chloride IV.SIG Infused Q24H LEVI Infusion Sodium Chloride 1,000 mls @ 30 mls/hr 10/03/18 15:00 10/03/18 16:30 1/2 Normal Saline Inj IV.CONT Not Given .Q24H [facility] Lactated Ringer's 1,000 mls @ 30 mls/hr 10/04/18 01:30 10/04/18 01:43 Lr 1000 Ml Inj IV.SIG 10/05/18 01:29 Not Given .Q24H [facility]EVI Sodium Chloride 500 mls @ 30 mls/hr 10/04/18 02:00 10/04/18 01:43 Ns Inj IV.SIG Not Given .Q10H [facility] Insulin Aspart 0 unit 09/28/18 21:00 10/04/18 08:26 Novolog Insulin Correctional Sugar Inj SQ Not Given ACHS [facility] Protocol Losartan Potassium 100 mg 09/30/18 13:15 10/04/18 08:27 Cozaar PO 100 mg DAILY LEVI Administration Methylprednisolone Sodium Succinate 40 mg 10/01/18 21:00 10/04/18 08:28 Solumedrol Inj IV.PUSH 40 mg Q12H [facility] Administration Pantoprazole Sodium 40 mg 09/29/18 09:00 10/04/18 08:28 Protonix PO 40 mg DAILY LEVI Administration Senna/Docusate Sodium 1 tab 09/28/18 21:00 10/04/18 08:27 Veronica-Colace PO Not Given BID LEVI Sodium Chloride 2 ml 09/28/18 21:00 10/04/18 08:27 Ns Flush IV.FLUSH 2 ml BID LEVI Administration Objective Remarks: GENERAL: Well-nourished, well-developed patient. Obese. SKIN: Warm and dry. HEAD: Normocephalic. EYES: No scleral icterus. No injection or drainage. NECK: Supple, trachea midline. No JVD or lymphadenopathy. LYMPHATIC: No adenopathy. CARDIOVASCULAR: Regular rate and rhythm without murmurs. RESPIRATORY: Breath sounds equal anteriorly. No accessory muscle use. GASTROINTESTINAL: Abdomen soft, non-tender, nondistended. EXTREMITIES: No cyanosis, or edema. MUSCULOSKELETAL: Adequate muscle tone. NEUROLOGICAL: No obvious focal deficit. Awake, alert, and oriented x3. PSYCHIATRIC: Appropriate mood and affect; insight and judgment normal. Assessment/Plan - Plan 73-year-old female admitted to the hospital with complaints of cough and shortness of breath. She had imaging done that showed extensive mediastinal lymphadenopathy involving pretracheal, paratracheal, subcarinal AP window and bilateral hilar area. Interestingly she also had leukocytosis and eosinophilia on presentation. Differential diagnosis includes lymphoproliferative disorder or sarcoidosis vs viral pneumonia. The patient is feeling better after beginning antibiotics and steroids. The mediastinal adenopathy is not accessible for percutaneous biopsy and pulmonology has been consulted. 1. Foreign 2 pending. IgE pending. Eosinophilia continues to improve and is now normal. Sputum culture grew mold which may be the source of eosinophilia. 2. Patient is awaiting bronchoscopy/EBUS to biopsy the mediastinal lymph node today. Differential diagnosis include sarcoidosis. RAMIREZ level is pending. 3. Continue to monitor CBC. Supportive care.
[2018-10-04] MEDS: Sodium Chloride 0.45 % Inj 1,000 ML IV.CONT SCH (10:30)
[2018-10-04] MEDS ORDERED: RESP: Lidocaine PF 4% 5 ML Neb ONE (11:46)
[2018-10-04] MEDS ORDERED: RESP: Albuterol Concentrated 2.5 MG/0.5 ML Neb ONE (11:46)
[2018-10-04] MEDS ORDERED: fentaNYL Citrate Inj 100 MCG/2 ML Ampul ONE (12:58)
--- NOTE | 2018-10-04 13:07 | MP ---
cc: Mar Tirado MD DATE OF OPERATION: 10/04/2018 PROCEDURE PERFORMED: Bronchoscopy. After informed consent was obtained, the patient underwent diagnostic bronchoscopy. The original intention was to do bronchoalveolar lavage in light of the identification of Aspergillus in the sputum as well as ultrasound-guided biopsies of enlarged lymph nodes. Unfortunately, we had technical problems with the EBUS processor and were unable to proceed with ultrasound biopsies of the lymph nodes. I proceeded with examination of the trachea, main stem bronchi, right upper, lower, middle lobe orifices, as well as left upper and lower lobe orifices. There was what appeared to be inflammation of the entire tracheobronchial tree with widening of the brenda certainly at the mainstem and to some extent in the lower lobes, as well. I suspect this was an inflammatory change, although obviously I cannot rule out malignancy. Fairly copious secretions were noted and the right lower lobe was lavaged extensively and submitted for cytology and cultures including fungal cultures. Re-examination of the left again revealed fairly copious secretions. A lavage of the left lower lobe was undertaken and again fluid submitted for cytology and cultures including routine acid fast and fungal cultures. She tolerated the procedure well with no apparent complication. She will be transferred to the recovery room when stable. In summary, there were inflammatory changes in the tracheobronchial tree and widening of the mainstem brenda that was significant, consistent with underlying adenopathy noted on CT. Unfortunately, ultrasound-guided biopsies could not be obtained due to technical difficulties that arose but we were able to lavage both lower lobes and will submit that for the above-mentioned specimens. Mar Tirado MD RSShreya/ts , 12:48 PM , 12:54 PM
[2018-10-04 15:28] LABS: TB1 Ag minus Nil Result 0 IU/mL
[2018-10-05 07:35] LABS: Baso # (Auto) 0.1 th/mm3 (0.0-0.2); Baso % (Auto) 1.6 % (0.0-2.0); Eos # (Auto) 0.1 th/mm3 (0.0-0.4); Hematocrit 33.5 % (35.0-46.0); Hemoglobin 10.9 gm/dL (11.6-15.3); Lymph # (Auto) 3.2 th/mm3 (1.0-4.8); Lymph % (Auto) 34.8 % (9.0-44.0); Mean Corpuscular HGB Conc 32.5 % (32.0-36.0); Mean Corpuscular Hemoglobin 29.9 pg (27.0-34.0); Mean Corpuscular Volume 92.2 fL (80.0-100.0); Mean Platelet Volume 8.7 fL (7.0-11.0); Mono # (Auto) 0.7 th/mm3 (0.0-0.9); Neut # (Auto) 5.2 th/mm3 (1.8-7.7); Neut % (Auto) 55.6 % (16.0-70.0); Platelet Count 240 th/mm3 (150-450); Red Blood Count 3.63 mil/mm3 (4.00-5.30); White Blood Count 9.3 th/mm3 (4.0-11.0)
[2018-10-05 08:01] LABS: Calcium 9.2 mg/dL (8.5-10.1); Carbon Dioxide 29.6 meq/L (21.0-32.0); Potassium 4.5 meq/L (3.5-5.1)
[2018-10-05] MEDS: amLODIPine 10 MG Tablet PO SCH (08:32)
[2018-10-05] MEDS: guaiFENesin 600 MG ER Tablet PO SCH ×2 (08:32→21:20)
[2018-10-05] MEDS: MethylPREDNISolone Sod Succinate Inj 40 MG/ML Vial IV.PUSH SCH ×2 (08:32→21:20)
[2018-10-05] MEDS: Senna/Docusate Sodium 8.6/50 MG Tablet PO SCH ×2 (08:32→21:20)
[2018-10-05] MEDS: Insulin NovoLOG Aspart Correctional Sugar Inj SQ SCH ×4 (08:35→21:21)
--- NOTE | 2018-10-05 08:51 | P.PNFP ---
Subjective Interval history: Patient seen and examined at bedside this morning. She has no complaints overnight. She is off of oxygen. Still complains of a productive cough but states that her shortness of breath has improved. She tolerated her procedure well yesterday. All questions were answered at bedside appropriately. She denies any chest pain, abdominal pain, problems with urination or defecation. <Sydnee Ramirez - 10/05/18 10:11> Results - Labs Result diagrams: 10/05/18 07:13 10/05/18 07:13 <Majo Banerjee - 10/05/18 14:43> Abnormal lab results 10/01/18 10/04/18 10/04/18 Range/Units 12:20 17:55 20:01 RBC (4.00-5.30) mil/mm3 Hgb (11.6-15.3) gm/dL Hct (35.0-46.0) % BUN (7-18) mg/dL Creatinine (0.50-1.00) mg/dL Estimated GFR (>89) mL/min POC Glucose 229 H 154 H (68-110) mg/dl Random Glucose (74-106) mg/dL IgE 94928.0 H (<= 214) kU/L 10/05/18 10/05/18 10/05/18 Range/Units 07:13 07:13 07:52 RBC 3.63 L (4.00-5.30) mil/mm3 Hgb 10.9 L (11.6-15.3) gm/dL Hct 33.5 L (35.0-46.0) % BUN 23 H (7-18) mg/dL Creatinine 1.14 H (0.50-1.00) mg/dL Estimated GFR 56 L (>89) mL/min POC Glucose 144 H (68-110) mg/dl Random Glucose 145 H (74-106) mg/dL IgE (<= 214) kU/L 10/05/18 Range/Units 11:08 RBC (4.00-5.30) mil/mm3 Hgb (11.6-15.3) gm/dL Hct (35.0-46.0) % BUN (7-18) mg/dL Creatinine (0.50-1.00) mg/dL Estimated GFR (>89) mL/min POC Glucose 165 H (68-110) mg/dl Random Glucose (74-106) mg/dL IgE (<= 214) kU/L Short CBC 10/05/18 Range/Units 07:13 WBC 9.3 (4.0-11.0) th/mm3 Hgb 10.9 L (11.6-15.3) gm/dL Hct 33.5 L (35.0-46.0) % Plt Count 240 (150-450) th/mm3 BMP 10/05/18 07:13 Sodium 140 Potassium 4.5 Chloride 105 Carbon Dioxide 29.6 BUN 23 H Creatinine 1.14 H Calcium 9.2 D <Majo Banerjee Alejo - 10/05/18 14:43> Abnormal lab results 10/01/18 10/01/18 10/04/18 Range/Units 09:50 12:20 13:52 RBC (4.00-5.30) mil/mm3 Hgb (11.6-15.3) gm/dL Hct (35.0-46.0) % BUN (7-18) mg/dL Creatinine (0.50-1.00) mg/dL Estimated GFR (>89) mL/min POC Glucose 145 H (68-110) mg/dl Random Glucose (74-106) mg/dL IgE 22194.0 H (<= 214) kU/L ALBERT Titer 1:320 H (Neg) ALBERT Pattern Diffuse H (None) 10/04/18 10/04/18 10/05/18 Range/Units 17:55 20:01 07:13 RBC 3.63 L (4.00-5.30) mil/mm3 Hgb 10.9 L (11.6-15.3) gm/dL Hct 33.5 L (35.0-46.0) % BUN (7-18) mg/dL Creatinine (0.50-1.00) mg/dL Estimated GFR (>89) mL/min POC Glucose 229 H 154 H (68-110) mg/dl Random Glucose (74-106) mg/dL IgE (<= 214) kU/L ALBERT Titer (Neg) ALBERT Pattern (None) 10/05/18 10/05/18 Range/Units 07:13 07:52 RBC (4.00-5.30) mil/mm3 Hgb (11.6-15.3) gm/dL Hct (35.0-46.0) % BUN 23 H (7-18) mg/dL Creatinine 1.14 H (0.50-1.00) mg/dL Estimated GFR 56 L (>89) mL/min POC Glucose 144 H (68-110) mg/dl Random Glucose 145 H (74-106) mg/dL IgE (<= 214) kU/L ALBERT Titer (Neg) ALBERT Pattern (None) Short CBC 10/05/18 Range/Units 07:13 WBC 9.3 (4.0-11.0) th/mm3 Hgb 10.9 L (11.6-15.3) gm/dL Hct 33.5 L (35.0-46.0) % Plt Count 240 (150-450) th/mm3 BMP 10/05/18 07:13 Sodium 140 Potassium 4.5 Chloride 105 Carbon Dioxide 29.6 BUN 23 H Creatinine 1.14 H Calcium 9.2 D <Sydnee Ramirez - 10/05/18 08:51> Physical Exam Vital signs: Vital Signs 10/04/18 15:34 10/04/18 15:35 10/04/18 16:00 Temperature 97.6 F Pulse Rate 67 87 Respiratory Rate 18 18 Blood Pressure 178/77 H Pulse Oximetry 97 97 10/04/18 19:58 10/04/18 20:00 10/04/18 21:08 Temperature 98.3 F Pulse Rate 67 56 L 69 Respiratory Rate 16 16 Blood Pressure 142/68 H Pulse Oximetry 98 10/05/18 00:00 10/05/18 04:00 10/05/18 04:09 Temperature 98.1 F 98.1 F Pulse Rate 65 62 76 Respiratory Rate 17 16 19 Blood Pressure 154/70 H 149/65 H Pulse Oximetry 97 98 10/05/18 08:00 10/05/18 09:55 10/05/18 12:00 Temperature 97.9 F 97.9 F Pulse Rate 52 L 61 66 Respiratory Rate 18 18 18 Blood Pressure 136/71 165/71 H Pulse Oximetry 98 97 98 Intake & Output 10/04/18 10/05/18 10/05/18 18:59 06:59 18:59 Intake Total 540 / 540 340 / 340 Balance 540 / 540 340 / 340 Weight 107 kg Intake: IV 60 / 60 100 / 100 1/2 Normal Saline Inj 1,000 ML 60 / 60 @ 30 mls/hr IV.CONT .Q24H GAIL Rx#:[id number] Rocephin Inj 1,000 MG In NS Inj 100 / 100 100 ML @ 200 mls/hr IV.SIG Q24H GAIL Rx#:[id number] Oral 480 / 480 240 / 240 Other: # Voids 3 4 Date of Last Bowel Movement 10/03/18 10/04/18 10/03/18 <Majo Banerjee R - 10/05/18 14:43> Vital Signs 10/04/18 10:02 10/04/18 12:00 10/04/18 12:54 Temperature 98.1 F Pulse Rate 52 L 53 L 83 Respiratory Rate 18 18 Blood Pressure 156/66 H Pulse Oximetry 97 95 10/04/18 13:15 10/04/18 13:30 10/04/18 13:45 Temperature Pulse Rate 68 68 69 Respiratory Rate 18 18 18 Blood Pressure 148/76 H 171/72 H 162/74 H Pulse Oximetry 10/04/18 14:05 10/04/18 15:34 10/04/18 15:35 Temperature 98.1 F Pulse Rate 67 67 Respiratory Rate 18 18 Blood Pressure 151/70 H Pulse Oximetry 97 10/04/18 16:00 10/04/18 19:58 10/04/18 20:00 Temperature 97.6 F 98.3 F Pulse Rate 87 67 56 L Respiratory Rate 18 16 Blood Pressure 178/77 H 142/68 H Pulse Oximetry 97 98 10/04/18 21:08 10/05/18 00:00 10/05/18 04:00 Temperature 98.1 F 98.1 F Pulse Rate 69 65 62 Respiratory Rate 16 17 16 Blood Pressure 154/70 H 149/65 H Pulse Oximetry 97 98 10/05/18 04:09 10/05/18 08:00 Temperature 97.9 F Pulse Rate 76 53 L Respiratory Rate 19 18 Blood Pressure 136/71 Pulse Oximetry 98 Intake & Output 10/04/18 10/05/18 10/05/18 18:59 06:59 18:59 Intake Total 540 / 540 340 / 340 Balance 540 / 540 340 / 340 Weight 107 kg Intake: IV 60 / 60 100 / 100 1/2 Normal Saline Inj 1,000 ML 60 / 60 @ 30 mls/hr IV.CONT .Q24H GAIL Rx#:[id number] Rocephin Inj 1,000 MG In NS Inj 100 / 100 100 ML @ 200 mls/hr IV.SIG Q24H GAIL Rx#:[id number] Oral 480 / 480 240 / 240 Other: # Voids 3 4 Date of Last Bowel Movement 10/03/18 10/04/18 <Sydnee Ramirez - 10/05/18 08:51> Narrative: GENERAL: Elderly appearing female, sitting upright, speaking in full sentences and answering questions of separately. On room air. SKIN: Warm and dry. HEAD: Normocephalic. EYES: No scleral icterus. No injection or drainage. NECK: Supple, trachea midline. No JVD or lymphadenopathy. CARDIOVASCULAR: Regular rate and rhythm without murmurs, gallops, or rubs. RESPIRATORY: Clear to auscultation b/l. No wheezes or crackles b/l. GASTROINTESTINAL: Abdomen soft, nondistended. No tenderness to palpation on today's exam MUSCULOSKELETAL: No cyanosis. Trace edema bilaterally. No calf tenderness on today's exam BACK: Nontender without obvious deformity. No CVA tenderness. <Sydnee Ramirez - 10/05/18 10:11> Assessment and Plan - Assessment (1) SIRS (systemic inflammatory response syndrome) Code(s): R65.10 - Systemic inflammatory response syndrome (SIRS) of non- infectious origin without acute organ dysfunction Status: Acute (2) Hypoxia Code(s): R09.02 - Hypoxemia Status: Acute (3) Eosinophilia Code(s): D72.1 - Eosinophilia Status: Acute (4) Wheezing Code(s): R06.2 - Wheezing Status: Acute (5) Productive cough Code(s): R05 - Cough Status: Acute (6) Diabetes Code(s): E11.9 - Type 2 diabetes mellitus without complications Status: Acute (7) Hypertension Code(s): I10 - Essential (primary) hypertension Status: Acute (8) Acute kidney injury Code(s): N17.9 - Acute kidney failure, unspecified Status: Acute (9) Abdominal pain Code(s): R10.9 - Unspecified abdominal pain Status: Acute (10) DVT (deep venous thrombosis) Code(s): I82.409 - Acute embolism and thrombosis of unspecified deep veins of unspecified lower extremity Status: Acute (11) Nutrition, metabolism, and development symptoms Code(s): R63.8 - Other symptoms and signs concerning food and fluid intake Status: Acute <Majo Banerjee R - 10/05/18 14:43> (1) SIRS (systemic inflammatory response syndrome) Code(s): R65.10 - Systemic inflammatory response syndrome (SIRS) of non- infectious origin without acute organ dysfunction Status: Acute Plan: Patient admitted with elevated white count at 20.1, respiratory rate: 30, pulse : 96, meets SIRS criteria. Unidentified source of infection: Blood cultures, gram/sputum stain with NGTD. Legionella Antigen, Influenza, Pneumococcal Antigen negative Recent sick contact. Afebrile. Crackles heard bilaterally on physical exam. Some perihilar opacities on CXRay but poor x-ray view. History concerning for pneumonia. Denies any urinary symptoms. Treating for pneumonia and COPD exacerbation. Completed 5 days of azithromycin Completed 7 days of ceftriaxone. Stopped on 10/05. Sputum Culture: Positive for Aspergillus Niger. With eosinophilia s/p lavage on 10/04 day 1. Appreciate ID and Pulmonology recommendations of treatment. IgE High at 73,240. TB assays negative RAMIREZ pending Eosinophilia trending downwards 1.0 today from 3.2 WC increased from 9.3 from 8.2 yesterday. Continue to monitor. (2) Hypoxia Code(s): R09.02 - Hypoxemia Status: Acute Plan: On admission: 4 days of SOB with productive cough, no fevers, recent sick contact with bronchitis. Hypoxic: 77 L on admission. Wheezing on physical exam. 40 mg prednisone switched to 40 IV solumedrol q12 per pulm recommendations. Day 5 of solumedrol q12. Appreciate recommendations on whether to DC steroids. Symbicort added. BIPAP PRN. Albuterol and duo nebs alternating every 4. CTA was ordered after she was found to have an elevated D dimer CTA was negative for PE, did show extensive mediastinal adenopathy, sings of interstitial disease in the peribronchial regions as well as a 0.6cm focal density in the R midlung Heme Onc: lymphoproliferative disorder vs sarcoidosis. DELLA 2 kinase mutation, RAMIREZ Pending. Rh Factor Negative. ALBERT positive. IgE: 73,240. ESR: 58. CRP: 1.6. Continue to trend eosinophilia. (3) Eosinophilia Code(s): D72.1 - Eosinophilia Status: Acute Plan: CBC on admission with elevated eosinophils at 58.3. Peripheral smear showed mild normochromic, normocytic anemia, mild eosinophilia Currently downtrending/stable Continue to monitor. Hematology following. (4) Wheezing Code(s): R06.2 - Wheezing Status: Acute Plan: See plan above. Currently on IV Solu-Medrol 40 mg daily Resolved. (5) Productive cough Code(s): R05 - Cough Status: Acute Plan: Mucinex added. (6) Diabetes Code(s): E11.9 - Type 2 diabetes mellitus without complications Status: Acute Plan: Hold metformin with concerns of lactic acidosis. will start on insulin low-dose sliding scale. (7) Hypertension Code(s): I10 - Essential (primary) hypertension Status: Acute Plan: Patient hypertensive on admission Resuming Losartan on 09/30 - initially held for CECILE Continue home carvedilol and amlodipine. Added Vasotec as needed (8) Acute kidney injury Code(s): N17.9 - Acute kidney failure, unspecified Status: Acute Plan: Creatinine: 1.83 on admission. Baseline 0.6. Resolved (9) Abdominal pain Code(s): R10.9 - Unspecified abdominal pain Status: Acute Plan: Diffuse abdominal pain, good bowel movements, no hematochezia. Ct abdomen showed gallstones but was otherwise negative Resolved on 09/30 after a BM (10) DVT (deep venous thrombosis) Code(s): I82.409 - Acute embolism and thrombosis of unspecified deep veins of unspecified lower extremity Status: Acute Plan: Patient complains of bilateral leg pain to palpation. Wells score: 3. Doppler of BLE ordered on 09/29 due to elevated D dimer was negative Heparin Q24 (11) Nutrition, metabolism, and development symptoms Code(s): R63.8 - Other symptoms and signs concerning food and fluid intake Status: Acute Plan: Fluids: No IVF at this time, patient had CECILE on admission but resolved with PO fluids Electrolytes: Monitor and replete as needed Diet: Currently Diabetic Diet GI prophylaxis: Protonix 40 mg. CODE STATUS: DNR/DNI. <Sydnee Ramirez - 10/05/18 13:42> - Assessment and Plan 73 yo F with PMH of HTN, DM presented with SOB, productive cough and diffuse abdominal pain. Met SIRS criteria on admission. CXR did not show PNA but history consistent with PNA - started on Azithro and rocephin on admission. CT abdomen was normal and patient's abd pain resolved after a BM. Her D dimer was elevated on admission so BLE dopplers were ordered as well as a CTA. All were negative for PE/DVT, but she was found to have mediastinal adenopathy and signs interstitial lung disease. She was also notably found to have eosinophilia on admission that initially downtrended but trended back up on 09/30. Hematology was consulted in light of her eosinophilia and mediastinal adenopathy on 09/30. Clinically improving on abx. Sputum culture came back for Aspergillus Niger. Pulmonology planning for bronchoscopy with lavage and possible mediastinal biopsy on 10/04. ID consulted for sputum culture for Aspergillus and elevated IgE. <Sydnee Ramirez - 10/05/18 13:44> - Attending Attestation Patient seen and examined. Agree with assessment and plan as documented. ID consulted to assist with determination of the need to treat the fungal component seen on sputum culture -- might not be relevant as the bronchial washing was negative for fungal elements but the IgE on this patient is also very high. Would appreciate the opinion of ID regarding this as well. <Majo Banerjee - 10/05/18 14:43>
--- NOTE | 2018-10-05 14:27 | P.PNONC ---
Subjective Interval history: Patient sitting in chair, eating lunch. She has no complaints at this time. She denies any shortness of breath. She does have a cough. Objective Vital Signs/Intake & Output: Vital Signs 10/04/18 15:34 10/04/18 15:35 10/04/18 16:00 Temperature 97.6 F Pulse Rate 67 87 Respiratory Rate 18 18 Blood Pressure 178/77 H Pulse Oximetry 97 97 10/04/18 19:58 10/04/18 20:00 10/04/18 21:08 Temperature 98.3 F Pulse Rate 67 56 L 69 Respiratory Rate 16 16 Blood Pressure 142/68 H Pulse Oximetry 98 10/05/18 00:00 10/05/18 04:00 10/05/18 04:09 Temperature 98.1 F 98.1 F Pulse Rate 65 62 76 Respiratory Rate 17 16 19 Blood Pressure 154/70 H 149/65 H Pulse Oximetry 97 98 10/05/18 08:00 10/05/18 09:55 10/05/18 12:00 Temperature 97.9 F 97.9 F Pulse Rate 52 L 61 66 Respiratory Rate 18 18 18 Blood Pressure 136/71 165/71 H Pulse Oximetry 98 97 98 Intake & Output 10/04/18 10/05/18 10/05/18 18:59 06:59 18:59 Intake Total 540 / 540 340 / 340 Balance 540 / 540 340 / 340 Weight 107 kg Intake: IV 60 / 60 100 / 100 1/2 Normal Saline Inj 1,000 ML 60 / 60 @ 30 mls/hr IV.CONT .Q24H LEVI Rx#:[id number] Rocephin Inj 1,000 MG In NS Inj 100 / 100 100 ML @ 200 mls/hr IV.SIG Q24H LEVI Rx#:[id number] Oral 480 / 480 240 / 240 Other: # Voids 3 4 Date of Last Bowel Movement 10/03/18 10/04/18 10/03/18 Result Diagrams: 10/05/18 07:13 10/05/18 07:13 Laboratory Results: Laboratory Results - last 24 hr 09/30/18 10/01/18 10/02/18 13:16 12:20 12:05 WBC RBC Hgb Hct MCV MCH MCHC RDW Plt Count MPV Neut % (Auto) Lymph % (Auto) Humphreys % (Auto) Eos % (Auto) Baso % (Auto) Neut # (Auto) Lymph # (Auto) Humphreys # (Auto) Eos # (Auto) Baso # (Auto) WBC Differential Differential Comment Sodium Potassium Chloride Carbon Dioxide Anion Gap BUN Creatinine Estimated GFR POC Glucose Random Glucose Calcium IgE 83417.0 H TB (QFT) Gold In Tube Negative TB Test (QFT) Nil 0.02 TB Test Mitogen - Nil 6.75 TB Test Antigen - Nil 0 JAK2 Mutation (PCR) 10/04/18 10/04/18 10/05/18 17:55 20:01 07:13 WBC 9.3 RBC 3.63 L Hgb 10.9 L Hct 33.5 L MCV 92.2 MCH 29.9 MCHC 32.5 RDW 15.0 Plt Count 240 MPV 8.7 Neut % (Auto) 55.6 Lymph % (Auto) 34.8 Humphreys % (Auto) 7.0 Eos % (Auto) 1.0 Baso % (Auto) 1.6 Neut # (Auto) 5.2 Lymph # (Auto) 3.2 Humphreys # (Auto) 0.7 Eos # (Auto) 0.1 Baso # (Auto) 0.1 WBC Differential . Differential Comment Auto diff final Sodium Potassium Chloride Carbon Dioxide Anion Gap BUN Creatinine Estimated GFR POC Glucose 229 H 154 H Random Glucose Calcium IgE TB (QFT) Gold In Tube TB Test (QFT) Nil TB Test Mitogen - Nil TB Test Antigen - Nil JAK2 Mutation (PCR) 10/05/18 10/05/18 10/05/18 07:13 07:52 11:08 WBC RBC Hgb Hct MCV MCH MCHC RDW Plt Count MPV Neut % (Auto) Lymph % (Auto) Humphreys % (Auto) Eos % (Auto) Baso % (Auto) Neut # (Auto) Lymph # (Auto) Humphreys # (Auto) Eos # (Auto) Baso # (Auto) WBC Differential Differential Comment Sodium 140 Potassium 4.5 Chloride 105 Carbon Dioxide 29.6 Anion Gap 5 BUN 23 H Creatinine 1.14 H Estimated GFR 56 L POC Glucose 144 H 165 H Random Glucose 145 H Calcium 9.2 D IgE TB (QFT) Gold In Tube TB Test (QFT) Nil TB Test Mitogen - Nil TB Test Antigen - Nil JAK2 Mutation (PCR) Culture Results: Microbiology 10/04/18 12:25 Gram Stain - Final Bronchial - Left Lower Lobe Bronchial Culture - Preliminary Heavy growth normal respiratory jennifer at 24 hours 10/04/18 12:25 Gram Stain - Final Bronchial - Right Lower Lobe Bronchial Culture - Preliminary Heavy growth normal respiratory jennifer at 24 hours 10/04/18 12:25 Acid Fast Bacilli Smear - Final Bronchial Washings - Left Lower Lobe No acid fast bacilli seen 10/04/18 12:25 Acid Fast Bacilli Smear - Final Bronchial Washings - Right Lower Lobe No acid fast bacilli seen 10/04/18 12:25 Fungal Smear - Final Bronchial Washings - Left Lower Lobe No fungal elements seen 10/04/18 12:25 Fungal Smear - Final Bronchial Washings - Right Lower Lobe No fungal elements seen 09/28/18 20:30 Aerobic Blood Culture - Final Blood - Peripheral No growth in 5 days Anaerobic Blood Culture - Final No growth in 5 days 09/28/18 20:02 Aerobic Blood Culture - Final Blood - Peripheral No growth in 5 days Anaerobic Blood Culture - Final No growth in 5 days 09/28/18 23:30 Gram Stain - Final Sputum - Oral Tracheal Aspirate Sputum Culture - Final Aspergillus niger Medications: Active Medications Generic Name Dose Route Start Last Admin Trade Name Freq PRN Reason Stop Dose Admin Al Hydroxide/Mg Hydroxide 30 ml 09/28/18 18:30 09/28/18 23:28 Milk Of Magnesia Liq PO 30 ml Q12H PRN Administration Mild Constipation Albuterol 2.5 mg 10/03/18 15:00 10/04/18 11:49 Albuterol Concentrated Neb NEB 10/07/18 14:59 2.5 mg G[employer] LO[employer] DISPATCHER LEVI Administration Albuterol 1 ampul 10/03/18 16:00 10/05/18 09:54 Duoneb Neb (Levi) NEB 1 ampul Q6HR NEB LEVI Administration Amlodipine Besylate 10 mg 09/29/18 09:00 10/05/18 08:32 Norvasc PO 10 mg DAILY LEVI Administration Budesonide 0.5 mg 09/29/18 20:00 10/05/18 09:54 Pulmocort Respule Neb NEB 0.5 mg Q12HR NEB LEVI Administration Carvedilol 3.125 mg 09/28/18 21:00 10/05/18 08:32 Coreg PO 3.125 mg BID LEVI Administration Furosemide 40 mg 09/29/18 09:00 09/30/18 09:16 Lasix PO 40 mg DAILY LEVI Administration Guaifenesin 600 mg 09/28/18 21:00 10/05/18 08:32 Mucinex Er PO 600 mg BID LEVI Administration Sodium Chloride 1,000 mls @ 30 mls/hr 10/03/18 15:00 10/04/18 12:00 1/2 Normal Saline Inj IV.CONT 0 mls/hr .Q24H LEVI Infusion Sodium Chloride 500 mls @ 30 mls/hr 10/04/18 02:00 10/04/18 01:43 Ns Inj IV.SIG Not Given .Q10H LEVI Insulin Aspart 0 unit 09/28/18 21:00 10/05/18 13:22 Novolog Insulin Correctional Sugar Inj SQ 1 unit ACHS LEVI Administration Protocol Lidocaine HCl 3 ml 10/03/18 15:00 10/04/18 11:55 Lidocaine Pf 4% Neb NEB 10/07/18 14:59 3 ml GAS LOAD DISPATCHER LEVI Administration Losartan Potassium 100 mg 09/30/18 13:15 10/05/18 08:31 Cozaar PO 100 mg DAILY LEVI Administration Methylprednisolone Sodium Succinate 40 mg 10/01/18 21:00 10/05/18 08:32 Solumedrol Inj IV.PUSH 40 mg Q12H LEVI Administration Pantoprazole Sodium 40 mg 09/29/18 09:00 10/05/18 08:32 Protonix PO 40 mg DAILY LEVI Administration Senna/Docusate Sodium 1 tab 09/28/18 21:00 10/05/18 08:32 Veronica-Colace PO 1 tab BID LEVI Administration Sodium Chloride 2 ml 09/28/18 21:00 10/05/18 08:33 Ns Flush IV.FLUSH 2 ml BID LEVI Administration Objective Remarks: GENERAL: Older female sitting sitting in chair, eating lunch, in nad. SKIN: Warm and dry. HEAD: Normocephalic. EYES: No scleral icterus. No injection or drainage. NECK: Supple, trachea midline. CARDIOVASCULAR: Regular rate and rhythm without murmurs. RESPIRATORY: Posterior breath sounds equal bilaterally. Nonlabored at rest. GASTROINTESTINAL: Abdomen soft, non-tender, nondistended. EXTREMITIES: No cyanosis, or edema. MUSCULOSKELETAL: Adequate muscle tone. NEUROLOGICAL: No obvious focal deficit. Awake, alert, and oriented x3. Assessment/Plan - Plan 73-year-old female admitted to the hospital with complaints of cough and shortness of breath. She had imaging done that showed extensive mediastinal lymphadenopathy involving pretracheal, paratracheal, subcarinal AP window and bilateral hilar area. Interestingly she also had leukocytosis and eosinophilia on presentation. Differential diagnosis includes lymphoproliferative disorder or sarcoidosis vs viral pneumonia. The patient is feeling better after beginning antibiotics and steroids. The mediastinal adenopathy is not accessible for percutaneous biopsy and pulmonology has been consulted. 1. Eosinophilia has improved to a normal range. Sputum culture grew mold which may be the source of eosinophilia. Status post bronchoscopy with brushing , cytology pending. Foreign 2 mutation not detected, IgE 73,240. ALBERT screen positive, titer 1:320. 2. Await cytology from bronch. 3. Supportive care. - Attending Statement The exam, history, and the medical decision-making described in the above note were completed with the assistance of the mid-level provider. I reviewed and agree with the findings presented. I attest that I had a [id number] encounter with the patient on the same day, and personally performed and documented my assessment and findings in the medical record.Patient is feeling better. She still has cough. She had bronchoscopy yesterday and cultures are pending. Biopsy was not done due to technical difficulty.Her eosinophilia has resolved. RAMIREZ level is still pending. IgE very elevated. The eosinophilia likely due to underlying fungal infection. Continue supportive care.
[2018-10-05] MEDS: Sodium Chloride 0.45 % Inj 1,000 ML IV.CONT SCH (14:54)
--- NOTE | 2018-10-05 19:21 | P.CONID ---
History of Present Illness Service: ID Consult date: 10/05/18 Requesting Physician: Omari Olivier Reason for Consult: aspergilla in sputum Primary Care Provider: Danial Bhardwaj DO History of Present Illness: 73 yo female with h/o COPD, DM and mult med probelems presented with SOB , fever, productive cough about 10 days ago Startee on CAP treatment and clinically imprtoved She is currently afebrile and her breathing anf coughing inproved significantly She completed azithromycin, CFTX yday She grew asperillus non fumigatus ( A. niger) in sputum CT was markedly abnormal and showed Extensive mediastinal adenopathy ( inflammatory or neoplastic ), interstitial disease in the peribronchial regions at the lower lungs and in the anterior left upper lobe. and 0.6 cm focal density in the right midlung which could be followed with a noncontrast CT examination 6 months. Markedly abnormal IgEs (73 K) and ALBERT 1:320 titer Transient eosinophilia (1180 on admission - resolved by today) Review of Systems All other systems reviewed negative except as stated in [facility] - History History Provided By: Patient - Medical History Medical History: Medical History (Last Reviewed 10/05/18 @ 19:17 by Kaley Chow MD) Diabetes HBP (high blood pressure) - Surgical History Surgical History: Surgical History (Last Reviewed 10/05/18 @ 19:17 by Kaley Chow MD) Hx of knee surgery - Family History Family History: Family History (Last Updated 10/05/18 @ 19:17 by Kaley Chow MD) Other Family history non-contributory - Social History I have reviewed the patient's Social History: Yes - Tobacco History Second Hand Smoke Exposure: No Tobacco Use In Past 30 Days: No Smoking Status: Former smoker Tobacco Type: Cigarettes - Alcohol History How Often Do You Have a Drink Containing Alcohol: Never - Substance Use History Substance History: No History of Abuse - Travel History Recent Travel in the [place] Within the Last 8 Weeks: No Recent Travel Out of the Country Within the Last 8 Weeks: No - Immunization History Tetanus Immunization: >5 Years Hx Influenza Vaccine This Season: No Medications and Allergies Active Medications: Active Medications Acetaminophen (Tylenol) 650 mg PO Q4H PRN PRN Reason: Temp > 100.4 Al Hydroxide/Mg Hydroxide (Milk Of Magnesia Liq) 30 ml PO Q12H PRN PRN Reason: Mild Constipation Last Admin: 09/28/18 23:28 Dose: 30 ml Albuterol (Albuterol Concentrated Neb) 2.5 mg NEB [employer] CELL[employer] [facility] Stop: 10/07/18 14:59 Last Admin: 10/04/18 11:49 Dose: 2.5 mg Albuterol (Duoneb Neb (Levi)) 1 ampul NEB Q6HR NEB [facility] Last Admin: 10/05/18 15:51 Dose: 1 ampul Amlodipine Besylate (Norvasc) 10 mg PO DAILY [facility] Last Admin: 10/05/18 08:32 Dose: 10 mg Bisacodyl (Dulcolax Supp) 10 mg RECTAL DAILY PRN PRN Reason: SEVERE CONSITIPATION Budesonide (Pulmocort Respule Neb) 0.5 mg NEB Q12HR [facility] Last Admin: 10/05/18 09:54 Dose: 0.5 mg Carvedilol (Coreg) 3.125 mg PO BID [facility] Last Admin: 10/05/18 08:32 Dose: 3.125 mg Dextrose (D50w Vial) 50 ml IV.PUSH UNSCH PRN PRN Reason: PER HYPOGLYCEMIA PROTOCOL Enalaprilat (Vasotec Inj) 1.25 mg IV.PUSH Q6H PRN PRN Reason: SEE LABEL COMMENTS Furosemide (Lasix) 40 mg PO DAILY [facility] Last Admin: 09/30/18 09:16 Dose: 40 mg Glucagon (Glucagon Inj) 1 mg OTHER PRN PRN PRN Reason: for Hypoglycemia Protocol Guaifenesin (Mucinex Er) 600 mg PO BID [facility] Last Admin: 10/05/18 08:32 Dose: 600 mg Sodium Chloride (1/2 Normal Saline Inj) 1,000 mls @ 30 mls/hr IV.CONT .Q24H [facility] Last Admin: 10/05/18 14:54 Dose: Not Given Sodium Chloride (Ns Inj) 500 mls @ 30 mls/hr IV.SIG .Q10H [facility] Last Admin: 10/04/18 01:43 Dose: Not Given Insulin Aspart (Novolog Insulin Correctional Sugar Inj) 0 unit SQ ACHS [facility]; Protocol Last Admin: 10/05/18 18:12 Dose: 5 unit Lactulose (Lactulose Liq) 30 ml PO DAILY PRN PRN Reason: SEVERE CONSITIPATION Lidocaine HCl (Lidocaine Pf 4% Neb) 3 ml NEB [employer] [facility] Stop: 10/07/18 14:59 Last Admin: 10/04/18 11:55 Dose: 3 ml Losartan Potassium (Cozaar) 100 mg PO DAILY [facility] Last Admin: 10/05/18 08:31 Dose: 100 mg Metformin [facility] ([facility] Methylprednisolone Sodium Succinate (Solumedrol Inj) 40 mg IV.PUSH Q12H [facility] Last Admin: 10/05/18 08:32 Dose: 40 mg Ondansetron HCl (Zofran Inj) 4 mg IV.PUSH Q6H PRN PRN Reason: NAUSEA OR VOMITING Pantoprazole Sodium (Protonix) 40 mg PO DAILY [facility] Last Admin: 10/05/18 08:32 Dose: 40 mg Senna/Docusate Sodium (Veronica-Colace) 1 tab PO BID [facility] Last Admin: 10/05/18 08:32 Dose: 1 tab Sennosides (Senokot) 17.2 mg PO Q12H PRN PRN Reason: Moderate Constipation Sodium Chloride (Ns Flush) 2 ml IV.FLUSH BID [facility] Last Admin: 10/05/18 08:33 Dose: 2 ml Sodium Chloride (Ns Flush) 2 ml IV.FLUSH PRN PRN PRN Reason: FLUSH AFTER USING IV ACCESS Allergies Allergy/AdvReac Type Severity Reaction Status Date / Time No Known Allergies Allergy Verified 09/28/18 17:24 Home Medications Medication Instructions Recorded Confirmed Type amlodipine 10 mg PO DAILY 09/28/18 09/28/18 History carvedilol [Coreg] 3.125 mg PO BID 09/28/18 09/28/18 History ergocalciferol (vitamin D2) 50,000 unit PO QWEEK 09/28/18 09/28/18 History [Vitamin D2] furosemide [Lasix] 40 mg PO DAILY 09/28/18 09/28/18 History losartan 100 mg PO DAILY 09/28/18 09/28/18 History meloxicam [Mobic] 15 mg PO DAILY 09/28/18 09/28/18 History metformin 1,000 mg PO BID 09/28/18 09/28/18 History Exam Vital signs: Vital Signs 10/04/18 19:58 10/04/18 20:00 10/04/18 21:08 Temperature 98.3 F Pulse Rate 67 56 L 69 Respiratory Rate 16 16 Blood Pressure 142/68 H Pulse Oximetry 98 10/05/18 00:00 10/05/18 04:00 10/05/18 04:09 Temperature 98.1 F 98.1 F Pulse Rate 65 62 76 Respiratory Rate 17 16 19 Blood Pressure 154/70 H 149/65 H Pulse Oximetry 97 98 10/05/18 08:00 10/05/18 09:55 10/05/18 12:00 Temperature 97.9 F 97.9 F Pulse Rate 52 L 61 66 Respiratory Rate 18 18 18 Blood Pressure 136/71 165/71 H Pulse Oximetry 98 97 98 10/05/18 15:53 10/05/18 15:54 10/05/18 16:00 Temperature 98.1 F Pulse Rate 68 69 Respiratory Rate 16 18 Blood Pressure 173/72 H Pulse Oximetry 98 98 Intake & Output 10/05/18 10/05/18 10/06/18 06:59 18:59 06:59 Intake Total 340 / 340 Balance 340 / 340 Weight 107 kg Intake: IV 100 / 100 Rocephin Inj 1,000 MG In NS Inj 100 / 100 100 ML @ 200 mls/hr IV.SIG Q24H [facility] Rx#:[id number] Oral 240 / 240 Other: # Voids 4 6 Date of Last Bowel Movement 10/04/18 10/03/18 # Bowel Movements 1 - Constitutional no acute distress, obese - Routine HEENT Exam Head: Present: normocephalic, atraumatic Eye: Present: EOMI ENT: Present: mucous membranes moist, oropharynx clear. Absent: dentition normal (edentulous) - Routine Neck Exam Present: supple, full ROM. Absent: lymphadenopathy - Routine Chest/Breast/Axilla Exam Axillae: Absent: lymphadenopathy - Routine Respiratory Exam Present: CTA bilaterally. Absent: decreased breath sounds, respiratory distress , rhonchi, wheezes - Routine Cardiovascular Exam Present: RRR, S1, S2. Absent: murmur, gallop, rubs - Routine Abdominal Exam Present: soft, normoactive bowel sounds. Absent: tenderness, distended, organomegaly, mass - Routine Extremities Exam Present: edema (trace), full ROM. Absent: cyanosis, clubbing - Routine Skin Exam Absent: cyanosis, urticaria, rash - Routine Neurological Exam Present: alert, oriented X3, CN II-XII intact. Absent: sensory deficit, motor deficit - Routine Psychiatric Exam Present: normal affect, cooperative Results - Labs CBC & Chem 7: 10/05/18 07:13 10/05/18 07:13 Labs: Laboratory Results - last 24 hr 09/30/18 10/01/18 10/04/18 13:16 12:20 20:01 WBC RBC Hgb Hct MCV MCH MCHC RDW Plt Count MPV Neut % (Auto) Lymph % (Auto) [place] % (Auto) Eos % (Auto) Baso % (Auto) Neut # (Auto) Lymph # (Auto) [place] # (Auto) Eos # (Auto) Baso # (Auto) WBC Differential Differential Comment Sodium Potassium Chloride Carbon Dioxide Anion Gap BUN Creatinine Estimated GFR POC Glucose 154 H Random Glucose Calcium IgE 38311.0 H JAK2 Mutation (PCR) 10/05/18 10/05/18 10/05/18 07:13 07:13 07:52 WBC 9.3 RBC 3.63 L Hgb 10.9 L Hct 33.5 L MCV 92.2 MCH 29.9 MCHC 32.5 RDW 15.0 Plt Count 240 MPV 8.7 Neut % (Auto) 55.6 Lymph % (Auto) 34.8 [place] % (Auto) 7.0 Eos % (Auto) 1.0 Baso % (Auto) 1.6 Neut # (Auto) 5.2 Lymph # (Auto) 3.2 [place]bour # (Auto) 0.7 Eos # (Auto) 0.1 Baso # (Auto) 0.1 WBC Differential . Differential Comment Auto diff final Sodium 140 Potassium 4.5 Chloride 105 Carbon Dioxide 29.6 Anion Gap 5 BUN 23 H Creatinine 1.14 H Estimated GFR 56 L POC Glucose 144 H Random Glucose 145 H Calcium 9.2 D IgE JAK2 Mutation (PCR) 10/05/18 10/05/18 11:08 16:18 WBC RBC Hgb Hct MCV MCH MCHC RDW Plt Count MPV Neut % (Auto) Lymph % (Auto) [place] % (Auto) Eos % (Auto) Baso % (Auto) Neut # (Auto) Lymph # (Auto) [place] # (Auto) Eos # (Auto) Baso # (Auto) WBC Differential Differential Comment Sodium Potassium Chloride Carbon Dioxide Anion Gap BUN Creatinine Estimated GFR POC Glucose 165 H 279 H Random Glucose Calcium IgE JAK2 Mutation (PCR) - Imaging Chest X-Ray 09/28/18 16:43 CONCLUSION: Interstitial changes primarily central and similar to prior. Abdomen/Pelvis CT 09/29/18 00:00 CONCLUSION: 1. Gallstones 2. Degenerative postoperative change in the lumbar spine. 3. Peribronchial areas of consolidation the lower lobes bilaterally. Chest CTA 09/29/18 00:00 CONCLUSION: 1. No pulmonary was. 2. Extensive mediastinal adenopathy. The cause of this adenopathy is not known. Inflammatory or neoplastic adenopathy could have this appearance. 3. Interstitial disease in the peribronchial regions at the lower lungs and in the anterior left upper lobe. This could be related to chronic interstitial disease or a more acute interstitial consolidation. This can be followed. 4. 0.6 cm focal density in the right midlung which could be followed with a noncontrast CT examination 6 months. Venous Doppler Study 09/29/18 00:00 CONCLUSION: The study is negative for bilateral lower extremity deep venous thrombosis. Chest X-Ray 09/29/18 06:00 CONCLUSION: Improved aeration Assessment and Plan - Plan COPD RESOLVED PNA, sp successful treatment with CAP RX COlonosed with Aspiregillus, non fumigatus - suspect ABPA will dw pulmonary will review CT with radiologist rhoda primary team
[2018-10-05 19:53] LABS: Angiotensin Converting Enzyme 13 U/L (9-67)
--- NOTE | 2018-10-06 07:36 | P.PNONC ---
Subjective Interval history: Patient is feeling better. Her cough has improved. She still coughed up phlegm but it is now white in color. Shortness of breath has improved. She denies any chest pain or palpitation. Objective Vital Signs/Intake & Output: Vital Signs 10/05/18 08:00 10/05/18 09:55 10/05/18 12:00 Temperature 97.9 F 97.9 F Pulse Rate 52 L 61 68 Respiratory Rate 18 18 18 Blood Pressure 136/71 165/71 H Pulse Oximetry 98 97 98 10/05/18 15:53 10/05/18 15:54 10/05/18 16:00 Temperature 98.1 F Pulse Rate 68 70 Respiratory Rate 16 18 Blood Pressure 173/72 H Pulse Oximetry 98 98 10/05/18 20:00 10/05/18 20:41 10/06/18 00:00 Temperature 97.3 F L 97.8 F Pulse Rate 63 60 51 L Respiratory Rate 20 18 17 Blood Pressure 159/72 H 155/76 H Pulse Oximetry 98 96 10/06/18 04:00 10/06/18 04:10 Temperature 97 F L Pulse Rate 59 L 62 Respiratory Rate 17 18 Blood Pressure 166/78 H Pulse Oximetry 96 Intake & Output 10/05/18 10/06/18 10/06/18 18:59 06:59 18:59 Intake Total 120 / 120 Output Total 600 / 600 Balance -480 / -480 Weight 106.6 kg Intake: Oral 120 / 120 Output: Urine 600 / 600 Other: # Voids 6 5 Date of Last Bowel Movement 10/03/18 10/04/18 # Bowel Movements 1 0 Result Diagrams: 10/05/18 07:13 10/05/18 07:13 Laboratory Results: Laboratory Results - last 24 hr 09/30/18 10/05/18 10/05/18 13:16 07:13 07:13 WBC 9.3 RBC 3.63 L Hgb 10.9 L Hct 33.5 L MCV 92.2 MCH 29.9 MCHC 32.5 RDW 15.0 Plt Count 240 MPV 8.7 Neut % (Auto) 55.6 Lymph % (Auto) 34.8 [place] % (Auto) 7.0 Eos % (Auto) 1.0 Baso % (Auto) 1.6 Neut # (Auto) 5.2 Lymph # (Auto) 3.2 [place] # (Auto) 0.7 Eos # (Auto) 0.1 Baso # (Auto) 0.1 WBC Differential . Differential Comment Auto diff final Sodium 140 Potassium 4.5 Chloride 105 Carbon Dioxide 29.6 Anion Gap 5 BUN 23 H Creatinine 1.14 H Estimated GFR 56 L POC Glucose Random Glucose 145 H Calcium 9.2 D Angiotensin Convert Enz 13 JAK2 Mutation (PCR) 10/05/18 10/05/18 10/05/18 07:52 11:08 16:18 WBC RBC Hgb Hct MCV MCH MCHC RDW Plt Count MPV Neut % (Auto) Lymph % (Auto) [place] % (Auto) Eos % (Auto) Baso % (Auto) Neut # (Auto) Lymph # (Auto) [place] # (Auto) Eos # (Auto) Baso # (Auto) WBC Differential Differential Comment Sodium Potassium Chloride Carbon Dioxide Anion Gap BUN Creatinine Estimated GFR POC Glucose 144 H 165 H 279 H Random Glucose Calcium Angiotensin Convert Enz JAK2 Mutation (PCR) 10/05/18 20:07 WBC RBC Hgb Hct MCV MCH MCHC RDW Plt Count MPV Neut % (Auto) Lymph % (Auto) [place] % (Auto) Eos % (Auto) Baso % (Auto) Neut # (Auto) Lymph # (Auto) [place] # (Auto) Eos # (Auto) Baso # (Auto) WBC Differential Differential Comment Sodium Potassium Chloride Carbon Dioxide Anion Gap BUN Creatinine Estimated GFR POC Glucose 151 H Random Glucose Calcium Angiotensin Convert Enz JAK2 Mutation (PCR) Culture Results: Microbiology 10/04/18 12:25 Gram Stain - Final Bronchial - Left Lower Lobe Bronchial Culture - Preliminary Heavy growth normal respiratory jennifer at 24 hours 10/04/18 12:25 Gram Stain - Final Bronchial - Right Lower Lobe Bronchial Culture - Preliminary Heavy growth normal respiratory jennifer at 24 hours 10/04/18 12:25 Acid Fast Bacilli Smear - Final Bronchial Washings - Left Lower Lobe No acid fast bacilli seen 10/04/18 12:25 Acid Fast Bacilli Smear - Final Bronchial Washings - Right Lower Lobe No acid fast bacilli seen 10/04/18 12:25 Fungal Smear - Final Bronchial Washings - Left Lower Lobe No fungal elements seen 10/04/18 12:25 Fungal Smear - Final Bronchial Washings - Right Lower Lobe No fungal elements seen 09/28/18 20:30 Aerobic Blood Culture - Final Blood - Peripheral No growth in 5 days Anaerobic Blood Culture - Final No growth in 5 days 09/28/18 20:02 Aerobic Blood Culture - Final Blood - Peripheral No growth in 5 days Anaerobic Blood Culture - Final No growth in 5 days 09/28/18 23:30 Gram Stain - Final Sputum - Oral Tracheal Aspirate Sputum Culture - Final Aspergillus niger Medications: Active Medications Generic Name Dose Route Start Last Admin Trade Name Freq PRN Reason Stop Dose Admin Al Hydroxide/Mg Hydroxide 30 ml 09/28/18 18:30 09/28/18 23:28 Milk Of Magnesia Liq PO 30 ml Q12H PRN Administration Mild Constipation Albuterol 2.5 mg 10/03/18 15:00 10/04/18 11:49 Albuterol Concentrated Neb NEB 10/07/18 14:59 2.5 mg [employer] GAIL Administration Albuterol 1 ampul 10/03/18 16:00 10/06/18 04:09 Duoneb Neb ([facility]) NEB 1 ampul Q6HR NEB GAIL Administration Amlodipine Besylate 10 mg 09/29/18 09:00 10/05/18 08:32 Norvasc PO 10 mg DAILY [facility] Administration Budesonide 0.5 mg 09/29/18 20:00 10/05/18 20:38 Pulmocort Respule Neb NEB 0.5 mg Q12HR NEB GAIL Administration Carvedilol 3.125 mg 09/28/18 21:00 10/05/18 21:20 Coreg PO 3.125 mg BID [facility] Administration Furosemide 40 mg 09/29/18 09:00 09/30/18 09:16 Lasix PO 40 mg DAILY [facility] Administration Guaifenesin 600 mg 09/28/18 21:00 10/05/18 21:20 Mucinex Er PO 600 mg BID [facility] Administration Sodium Chloride 1,000 mls @ 30 mls/hr 10/03/18 15:00 10/05/18 14:54 1/2 Normal Saline Inj IV.CONT Not Given .Q24H [facility] Sodium Chloride 500 mls @ 30 mls/hr 10/04/18 02:00 10/04/18 01:43 Ns Inj IV.SIG Not Given .Q10H [facility] Insulin Aspart 0 unit 09/28/18 21:00 10/05/18 21:21 Novolog Insulin Correctional Sugar Inj SQ Not Given ACHS [facility] Protocol Lidocaine HCl 3 ml 10/03/18 15:00 10/04/18 11:55 Lidocaine Pf 4% Neb NEB 10/07/18 14:59 3 ml [facility] [employer] GAIL Administration Losartan Potassium 100 mg 09/30/18 13:15 10/05/18 08:31 Cozaar PO 100 mg DAILY [facility] Administration Methylprednisolone Sodium Succinate 40 mg 10/01/18 21:00 10/05/18 21:20 Solumedrol Inj IV.PUSH 40 mg Q12H [facility] Administration Pantoprazole Sodium 40 mg 09/29/18 09:00 10/05/18 08:32 Protonix PO 40 mg DAILY [facility] Administration Senna/Docusate Sodium 1 tab 09/28/18 21:00 10/05/18 21:20 Veronica-Colace PO 1 tab BID [facility] Administration Sodium Chloride 2 ml 09/28/18 21:00 10/05/18 21:20 Ns Flush IV.FLUSH 2 ml BID [facility] Administration Objective Remarks: GENERAL: Well-nourished, well-developed patient. Obese. SKIN: Warm and dry. HEAD: Normocephalic. EYES: No scleral icterus. No injection or drainage. NECK: Supple, trachea midline. No JVD or lymphadenopathy. LYMPHATIC: No adenopathy. CARDIOVASCULAR: Regular rate and rhythm without murmurs. RESPIRATORY: Breath sounds basilar crackles. No accessory muscle use. GASTROINTESTINAL: Abdomen soft, non-tender, nondistended. EXTREMITIES: No cyanosis, or edema. MUSCULOSKELETAL: Adequate muscle tone. NEUROLOGICAL: No obvious focal deficit. Awake, alert, and oriented x3. PSYCHIATRIC: Appropriate mood and affect; insight and judgment normal. Assessment/Plan - Plan 73-year-old female admitted to the hospital with complaints of cough and shortness of breath. She had imaging done that showed extensive mediastinal lymphadenopathy involving pretracheal, paratracheal, subcarinal AP window and bilateral hilar area. Interestingly she also had leukocytosis and eosinophilia on presentation. Differential diagnosis includes lymphoproliferative disorder or sarcoidosis vs viral pneumonia. The patient is feeling better after beginning antibiotics and steroids. The mediastinal adenopathy is not accessible for percutaneous biopsy and pulmonology has been consulted. Patient underwent bronchoscopy but EBUS could not be done. 1. Eosinophilia has improved to a normal range and remained stable. Sputum culture grew Aspergillus which is likely the cause of eosinophilia. JK2 mutation negative. ALBERT positive. TB test negative. IgE significantly elevated. Status post bronchoscopy with brushing, cytology pending. Continue to monitor. 2. Mediastinal adenopathy. EBUS could not be done due to technical difficulty. This could be reactive but cannot rule out neoplastic process. RAMIREZ level low normal. Sarcoidosis is in the differential. This will need to be monitored with repeat scan in a few weeks if biopsy cannot be done. 3. Await cytology from bronch. 4. Supportive care.
[2018-10-06] MEDS: Senna/Docusate Sodium 8.6/50 MG Tablet PO SCH ×2 (08:03→21:56)
[2018-10-06] MEDS: amLODIPine 10 MG Tablet PO SCH (08:04)
[2018-10-06] MEDS: MethylPREDNISolone Sod Succinate Inj 40 MG/ML Vial IV.PUSH SCH (08:04)
[2018-10-06] MEDS: guaiFENesin 600 MG ER Tablet PO SCH ×2 (08:04→21:56)
[2018-10-06] MEDS: Insulin NovoLOG Aspart Correctional Sugar Inj SQ SCH ×4 (08:05→21:57)
[2018-10-06 08:37] LABS: Baso % (Auto) 0.3 % (0.0-2.0); Eos # (Auto) 0.1 th/mm3 (0.0-0.4); Eos % (Auto) 1.5 % (0.0-4.0); Hematocrit 30.6 % (35.0-46.0); Hemoglobin 9.9 gm/dL (11.6-15.3); Lymph % (Auto) 37.6 % (9.0-44.0); Mean Corpuscular HGB Conc 32.5 % (32.0-36.0); Mean Corpuscular Hemoglobin 29.5 pg (27.0-34.0); Mean Corpuscular Volume 90.9 fL (80.0-100.0); Mean Platelet Volume 8.6 fL (7.0-11.0); Mono # (Auto) 0.6 th/mm3 (0.0-0.9); Mono % (Auto) 7.2 % (0.0-8.0); Neut # (Auto) 4.3 th/mm3 (1.8-7.7); Neut % (Auto) 53.4 % (16.0-70.0); Platelet Count 252 th/mm3 (150-450); Red Blood Count 3.37 mil/mm3 (4.00-5.30); Red Cell Distribution Width 15.2 % (11.6-17.2); White Blood Count 8.1 th/mm3 (4.0-11.0)
[2018-10-06 09:02] LABS: Calcium 8.6 mg/dL (8.5-10.1); Potassium 3.9 meq/L (3.5-5.1)
--- NOTE | 2018-10-06 09:26 | P.PNFP ---
Subjective Interval history: Patient seen and examined at bedside this morning. She is resting comfortably, with no complaints overnight. Per daughter, she is back to her baseline. She denies any chest pain, shortness of breath, abdominal pain , problems with urination or defecation. She does not have a nebulizer at home and would like one to be discharged with. All questions were answered at bedside. <AshleySydnee - 10/06/18 09:26> Results - Labs Result diagrams: 10/06/18 07:12 10/06/18 07:12 <Majo Banerjee - 10/06/18 14:58> Abnormal lab results 10/05/18 10/05/18 10/06/18 Range/Units 16:18 20:07 07:12 RBC 3.37 L (4.00-5.30) mil/mm3 Hgb 9.9 L (11.6-15.3) gm/dL Hct 30.6 L (35.0-46.0) % BUN (7-18) mg/dL Creatinine (0.50-1.00) mg/dL Estimated GFR (>89) mL/min POC Glucose 279 H 151 H (68-110) mg/dl Random Glucose (74-106) mg/dL 10/06/18 10/06/18 10/06/18 Range/Units 07:12 08:02 11:26 RBC (4.00-5.30) mil/mm3 Hgb (11.6-15.3) gm/dL Hct (35.0-46.0) % BUN 23 H (7-18) mg/dL Creatinine 1.07 H (0.50-1.00) mg/dL Estimated GFR 60 L (>89) mL/min POC Glucose 127 H 140 H (68-110) mg/dl Random Glucose 141 H (74-106) mg/dL Short CBC 10/06/18 Range/Units 07:12 WBC 8.1 (4.0-11.0) th/mm3 Hgb 9.9 L (11.6-15.3) gm/dL Hct 30.6 L (35.0-46.0) % Plt Count 252 (150-450) th/mm3 BMP 10/06/18 07:12 Sodium 140 Potassium 3.9 Chloride 106 Carbon Dioxide 29.0 BUN 23 H Creatinine 1.07 H Calcium 8.6 <Majo Banerjee Alejo - 10/06/18 14:58> Abnormal lab results 10/05/18 10/05/18 10/05/18 Range/Units 11:08 16:18 20:07 RBC (4.00-5.30) mil/mm3 Hgb (11.6-15.3) gm/dL Hct (35.0-46.0) % BUN (7-18) mg/dL Creatinine (0.50-1.00) mg/dL Estimated GFR (>89) mL/min POC Glucose 165 H 279 H 151 H (68-110) mg/dl Random Glucose (74-106) mg/dL 10/06/18 10/06/18 10/06/18 Range/Units 07:12 07:12 08:02 RBC 3.37 L (4.00-5.30) mil/mm3 Hgb 9.9 L (11.6-15.3) gm/dL Hct 30.6 L (35.0-46.0) % BUN 23 H (7-18) mg/dL Creatinine 1.07 H (0.50-1.00) mg/dL Estimated GFR 60 L (>89) mL/min POC Glucose 127 H (68-110) mg/dl Random Glucose 141 H (74-106) mg/dL Short CBC 10/06/18 Range/Units 07:12 WBC 8.1 (4.0-11.0) th/mm3 Hgb 9.9 L (11.6-15.3) gm/dL Hct 30.6 L (35.0-46.0) % Plt Count 252 (150-450) th/mm3 [facility] 10/06/18 07:12 Sodium 140 Potassium 3.9 Chloride 106 Carbon Dioxide 29.0 BUN 23 H Creatinine 1.07 H Calcium 8.6 <Sydnee Ramirez - 10/06/18 09:26> Physical Exam Vital signs: Vital Signs 10/05/18 15:53 10/05/18 15:54 10/05/18 16:00 Temperature 98.1 F Pulse Rate 68 70 Respiratory Rate 16 18 Blood Pressure 173/72 H Pulse Oximetry 98 98 10/05/18 20:00 10/05/18 20:41 10/06/18 00:00 Temperature 97.3 F L 97.8 F Pulse Rate 63 60 51 L Respiratory Rate 20 18 17 Blood Pressure 159/72 H 155/76 H Pulse Oximetry 98 96 10/06/18 04:00 10/06/18 04:10 10/06/18 08:00 Temperature 97 F L 98.4 F Pulse Rate 59 L 62 58 L Respiratory Rate 17 18 18 Blood Pressure 166/78 H 179/80 H Pulse Oximetry 96 96 10/06/18 08:28 10/06/18 12:00 Temperature 97.7 F Pulse Rate 82 65 Respiratory Rate 18 18 Blood Pressure 142/65 H Pulse Oximetry 96 97 Intake & Output 10/05/18 10/06/18 10/06/18 18:59 06:59 18:59 Intake Total 120 / 120 Output Total 600 / 600 Balance -480 / -480 Weight 106.6 kg Intake: Oral 120 / 120 Output: Urine 600 / 600 Other: # Voids 6 5 Date of Last Bowel Movement 10/03/18 10/04/18 10/03/18 # Bowel Movements 1 0 <Majo Banerjee - 10/06/18 14:58> Vital Signs 10/05/18 09:55 10/05/18 12:00 10/05/18 15:53 Temperature 97.9 F Pulse Rate 61 68 68 Respiratory Rate 18 18 16 Blood Pressure 165/71 H Pulse Oximetry 97 98 10/05/18 15:54 10/05/18 16:00 10/05/18 20:00 Temperature 98.1 F 97.3 F L Pulse Rate 70 63 Respiratory Rate 18 20 Blood Pressure 173/72 H 159/72 H Pulse Oximetry 98 98 98 10/05/18 20:41 10/06/18 00:00 10/06/18 04:00 Temperature 97.8 F 97 F L Pulse Rate 60 51 L 59 L Respiratory Rate 18 17 17 Blood Pressure 155/76 H 166/78 H Pulse Oximetry 96 96 10/06/18 04:10 10/06/18 08:00 10/06/18 08:28 Temperature 98.4 F Pulse Rate 62 77 82 Respiratory Rate 18 18 18 Blood Pressure 179/80 H Pulse Oximetry 96 96 Intake & Output 10/05/18 10/06/18 10/06/18 18:59 06:59 18:59 Intake Total 120 / 120 Output Total 600 / 600 Balance -480 / -480 Weight 106.6 kg Intake: Oral 120 / 120 Output: Urine 600 / 600 Other: # Voids 6 5 Date of Last Bowel Movement 10/03/18 10/04/18 10/03/18 # Bowel Movements 1 0 <Sydnee Ramirez - 10/06/18 09:26> Narrative: GENERAL: Elderly appearing female, sitting upright, speaking in full sentences and answering questions of separately. On room air. SKIN: Warm and dry. HEAD: Normocephalic. EYES: No scleral icterus. No injection or drainage. NECK: Supple, trachea midline. No JVD or lymphadenopathy. CARDIOVASCULAR: Regular rate and rhythm without murmurs, gallops, or rubs. RESPIRATORY: Minimal expiratory wheezes auscultated throughout all lung bases. GASTROINTESTINAL: Abdomen soft, nondistended. No tenderness to palpation on today's exam MUSCULOSKELETAL: No cyanosis. Trace edema bilaterally. No calf tenderness on today's exam BACK: Nontender without obvious deformity. No CVA tenderness. <Sydnee Ramirez - 10/06/18 09:37> Assessment and Plan - Assessment (1) SIRS (systemic inflammatory response syndrome) Code(s): R65.10 - Systemic inflammatory response syndrome (SIRS) of non- infectious origin without acute organ dysfunction Status: Acute (2) Hypoxia Code(s): R09.02 - Hypoxemia Status: Acute (3) Eosinophilia Code(s): D72.1 - Eosinophilia Status: Acute (4) Wheezing Code(s): R06.2 - Wheezing Status: Acute (5) Productive cough Code(s): R05 - Cough Status: Acute (6) Diabetes Code(s): E11.9 - Type 2 diabetes mellitus without complications Status: Acute (7) Hypertension Code(s): I10 - Essential (primary) hypertension Status: Acute (8) Acute kidney injury Code(s): N17.9 - Acute kidney failure, unspecified Status: Acute (9) Abdominal pain Code(s): R10.9 - Unspecified abdominal pain Status: Acute (10) DVT (deep venous thrombosis) Code(s): I82.409 - Acute embolism and thrombosis of unspecified deep veins of unspecified lower extremity Status: Acute (11) Nutrition, metabolism, and development symptoms Code(s): R63.8 - Other symptoms and signs concerning food and fluid intake Status: Acute <Majo Banerjee R - 10/06/18 14:58> (1) SIRS (systemic inflammatory response syndrome) Code(s): R65.10 - Systemic inflammatory response syndrome (SIRS) of non- infectious origin without acute organ dysfunction Status: Acute Plan: Patient admitted with elevated white count at 20.1, respiratory rate: 30, pulse : 96, meets SIRS criteria. Unidentified source of infection: Blood cultures, gram/sputum stain with NGTD. Legionella Antigen, Influenza, Pneumococcal Antigen negative Recent sick contact. Afebrile. Crackles heard bilaterally on physical exam. Some perihilar opacities on CXRay but poor x-ray view. History concerning for pneumonia. Denies any urinary symptoms. Treating for pneumonia and COPD exacerbation. Completed 5 days of azithromycin Completed 7 days of ceftriaxone. Stopped on 10/05. Sputum Culture: Positive for Aspergillus Niger. With eosinophilia s/p lavage on 10/04 day 2. Appreciate ID and Pulmonology recommendations of treatment. IgE High at 73,240. TB assays negative RAMIREZ 13. WNL. Eosinophilia: 1.5 today. WC decreased from 9.3 to 8.1 today. Awaiting fungal cultures and fungal smear results from bronchoscopy. (2) Hypoxia Code(s): R09.02 - Hypoxemia Status: Acute Plan: On admission: 4 days of SOB with productive cough, no fevers, recent sick contact with bronchitis. Hypoxic: 77 L on admission. Wheezing on physical exam. 40 mg prednisone switched to 40 IV solumedrol q12 per pulm recommendations. Day 6 of solumedrol q12. Appreciate recommendations on whether to DC steroids. Symbicort added. BIPAP PRN. Albuterol and duo nebs alternating every 4. CTA was ordered after she was found to have an elevated D dimer CTA was negative for PE, did show extensive mediastinal adenopathy, sings of interstitial disease in the peribronchial regions as well as a 0.6cm focal density in the R midlung Heme Onc: lymphoproliferative disorder vs sarcoidosis. Foreign 2 kinase negative. RAMIREZ within normal limits. Rh Factor Negative. ALBERT positive. IgE: 73,240. ESR: 58. CRP: 1.6. Continue to trend eosinophilia. (3) Eosinophilia Code(s): D72.1 - Eosinophilia Status: Acute Plan: CBC on admission with elevated eosinophils at 58.3. Peripheral smear showed mild normochromic, normocytic anemia, mild eosinophilia Currently downtrending/stable Continue to monitor. Hematology following. (4) Wheezing Code(s): R06.2 - Wheezing Status: Acute Plan: See plan above. Currently on IV Solu-Medrol 40 mg daily Appreciate pulmonology's recommendations on when to stop IV steroids due to possible interaction with fungal infection. (5) Productive cough Code(s): R05 - Cough Status: Acute Plan: Mucinex added. (6) Diabetes Code(s): E11.9 - Type 2 diabetes mellitus without complications Status: Acute Plan: Hold metformin with concerns of lactic acidosis. will start on insulin low-dose sliding scale. (7) Hypertension Code(s): I10 - Essential (primary) hypertension Status: Acute Plan: Patient hypertensive on admission Resuming Losartan on 09/30 - initially held for CECILE Continue home carvedilol and amlodipine. Added Vasotec as needed (8) Acute kidney injury Code(s): N17.9 - Acute kidney failure, unspecified Status: Acute Plan: Creatinine: 1.83 on admission. Baseline 0.6. Resolved (9) Abdominal pain Code(s): R10.9 - Unspecified abdominal pain Status: Acute Plan: Diffuse abdominal pain, good bowel movements, no hematochezia. Ct abdomen showed gallstones but was otherwise negative Resolved on 09/30 after a BM (10) DVT (deep venous thrombosis) Code(s): I82.409 - Acute embolism and thrombosis of unspecified deep veins of unspecified lower extremity Status: Acute Plan: Patient complains of bilateral leg pain to palpation. Wells score: 3. Doppler of BLE ordered on 09/29 due to elevated D dimer was negative Heparin Q24 (11) Nutrition, metabolism, and development symptoms Code(s): R63.8 - Other symptoms and signs concerning food and fluid intake Status: Acute Plan: Fluids: No IVF at this time, patient had CECILE on admission but resolved with PO fluids Electrolytes: Monitor and replete as needed Diet: Currently Diabetic Diet GI prophylaxis: Protonix 40 mg. CODE STATUS: DNR/DNI. <Sydnee Ramirez - 10/06/18 09:39> - Assessment and Plan 73 yo F with PMH of HTN, DM presented with SOB, productive cough and diffuse abdominal pain. Met SIRS criteria on admission. CXR did not show PNA but history consistent with PNA - started on Azithro and rocephin on admission. CT abdomen was normal and patient's abd pain resolved after a BM. Her D dimer was elevated on admission so BLE dopplers were ordered as well as a CTA. All were negative for PE/DVT, but she was found to have mediastinal adenopathy and signs interstitial lung disease. She was also notably found to have eosinophilia on admission that initially downtrended but trended back up on 09/30. Hematology was consulted in light of her eosinophilia and mediastinal adenopathy on 09/30. Clinically improving on abx. Sputum culture came back for Aspergillus Niger. Pulmonology did bronchoscopy with lavage and mediastinal biopsy on 10/04. ID consulted for sputum culture for Aspergillus and elevated IgE. <Sydnee Ramirez - 10/06/18 09:26> - Attending Attestation Patient seen and dw the resident team. Agree with assessment and plan <Majo Banerjee - 10/06/18 14:58>
[2018-10-06] MEDS: Budesonide-Formoterol 160/4.5 MCG 6 GM Inhaler INH SCH (21:56)
[2018-10-07] MEDS: amLODIPine 10 MG Tablet PO SCH (09:49)
[2018-10-07] MEDS: guaiFENesin 600 MG ER Tablet PO SCH ×2 (09:49→20:51)
[2018-10-07] MEDS: predniSONE 20 MG Tablet PO SCH (09:49)
[2018-10-07] MEDS: Senna/Docusate Sodium 8.6/50 MG Tablet PO SCH ×2 (09:49→20:51)
[2018-10-07] MEDS: Insulin NovoLOG Aspart Correctional Sugar Inj SQ SCH ×4 (09:51→20:52)
[2018-10-07] MEDS: Budesonide-Formoterol 160/4.5 MCG 6 GM Inhaler INH SCH ×2 (09:51→20:53)
--- NOTE | 2018-10-07 12:18 | P.PNFP ---
Subjective Interval history: Patient seen and examined at bedside. She is sitting up in bed, off of oxygen. Shortness of breath has improved. Educated on the importance of waiting for the bronchial cultures to result. Patient voiced understanding. She denies any chest pain, shortness of breath, abdominal pain, problems urination or defecation. All questions were answered at bedside. <AshleySydnee - 10/07/18 12:18> Results - Labs Result diagrams: 10/08/18 08:12 10/08/18 08:12 <Majo Banerjee - 10/08/18 10:15> Abnormal lab results 10/07/18 10/07/18 10/07/18 Range/Units 12:22 12:55 15:00 RBC 3.83 L (4.00-5.30) mil/mm3 Hgb 11.5 L (11.6-15.3) gm/dL Hct (35.0-46.0) % MCHC 31.8 L (32.0-36.0) % Neut % (Auto) 72.3 H (16.0-70.0) % Lymph % (Auto) (9.0-44.0) % Eos % (Auto) (0.0-4.0) % Lymph # (Auto) (1.0-4.8) th/mm3 Eos # (Auto) (0.0-0.4) th/mm3 Chloride 110 H (98-107) meq/L Anion Gap 4 L (5-15) meq/L BUN 23 H (7-18) mg/dL Creatinine 1.12 H (0.50-1.00) mg/dL Estimated GFR 57 L (>89) mL/min POC Glucose 124 H (68-110) mg/dl Random Glucose 128 H (74-106) mg/dL 10/07/18 10/07/18 10/08/18 Range/Units 17:23 19:30 08:12 RBC 3.59 L (4.00-5.30) mil/mm3 Hgb 10.7 L (11.6-15.3) gm/dL Hct 33.1 L (35.0-46.0) % MCHC (32.0-36.0) % Neut % (Auto) (16.0-70.0) % Lymph % (Auto) 53.5 H (9.0-44.0) % Eos % (Auto) 7.1 H (0.0-4.0) % Lymph # (Auto) 5.9 H (1.0-4.8) th/mm3 Eos # (Auto) 0.8 H (0.0-0.4) th/mm3 Chloride (98-107) meq/L Anion Gap (5-15) meq/L BUN (7-18) mg/dL Creatinine (0.50-1.00) mg/dL Estimated GFR (>89) mL/min POC Glucose 160 H 183 H (68-110) mg/dl Random Glucose (74-106) mg/dL 10/08/18 Range/Units 08:12 RBC (4.00-5.30) mil/mm3 Hgb (11.6-15.3) gm/dL Hct (35.0-46.0) % MCHC (32.0-36.0) % Neut % (Auto) (16.0-70.0) % Lymph % (Auto) (9.0-44.0) % Eos % (Auto) (0.0-4.0) % Lymph # (Auto) (1.0-4.8) th/mm3 Eos # (Auto) (0.0-0.4) th/mm3 Chloride 109 H (98-107) meq/L Anion Gap (5-15) meq/L BUN 21 H (7-18) mg/dL Creatinine 1.08 H (0.50-1.00) mg/dL Estimated GFR 60 L (>89) mL/min POC Glucose (68-110) mg/dl Random Glucose (74-106) mg/dL Short CBC 10/07/18 10/08/18 Range/Units 15:00 08:12 WBC 9.4 11.0 (4.0-11.0) th/mm3 Hgb 11.5 L 10.7 L (11.6-15.3) gm/dL Hct 36.0 33.1 L (35.0-46.0) % Plt Count 274 253 (150-450) th/mm3 BMP 10/07/18 10/08/18 12:55 08:12 Sodium 137 144 Potassium 4.2 3.9 Chloride 110 H 109 H Carbon Dioxide 22.7 29.2 BUN 23 H 21 H Creatinine 1.12 H 1.08 H Calcium 8.6 8.5 <Majo Banerjee R - 10/08/18 10:15> Abnormal lab results 10/06/18 10/06/18 Range/Units 17:09 21:20 POC Glucose 214 H 119 H (68-110) mg/dl <Sydnee Ramirez - 10/07/18 12:18> Physical Exam Vital signs: Vital Signs 10/07/18 12:00 10/07/18 16:00 10/07/18 20:00 Temperature 98.1 F 98.4 F 97.9 F Pulse Rate 64 64 66 Respiratory Rate 18 18 18 Blood Pressure 173/75 H 142/81 H 158/64 H Pulse Oximetry 98 98 97 10/08/18 00:00 10/08/18 04:00 10/08/18 08:00 Temperature 98.8 F 97.5 F L 98.1 F Pulse Rate 53 L 53 L 61 Respiratory Rate 18 18 18 Blood Pressure 140/70 155/79 H 161/72 H Pulse Oximetry 98 98 97 Intake & Output 10/07/18 10/08/18 10/08/18 18:59 06:59 18:59 Intake Total 210 / 210 Balance 210 / 210 Weight 106.5 kg Intake: Oral 210 / 210 Other: # Voids 3 2 <Majo Banerjee R - 10/08/18 10:15> Vital Signs 10/06/18 16:00 10/06/18 20:00 10/07/18 00:00 Temperature 98.6 F 98 F Pulse Rate 68 65 54 L Respiratory Rate 18 18 Blood Pressure 149/65 H 135/84 Pulse Oximetry 96 100 10/07/18 04:00 10/07/18 08:00 10/07/18 12:00 Temperature 98.1 F 98.4 F 98.1 F Pulse Rate 54 L 60 67 Respiratory Rate 18 18 18 Blood Pressure 131/76 147/70 H 173/75 H Pulse Oximetry 97 97 98 Intake & Output 10/06/18 10/07/18 10/07/18 18:59 06:59 18:59 Intake Total 480 / 480 0 / 0 Balance 480 / 480 0 / 0 Weight 106.5 kg Intake: Oral 480 / 480 0 / 0 Other: # Voids 3 4 Date of Last Bowel Movement 10/03/18 10/04/18 # Bowel Movements 0 <Sydnee Ramirez - 10/07/18 12:18> Narrative: GENERAL: Elderly appearing female, sitting upright, speaking in full sentences and answering questions of separately. On room air. SKIN: Warm and dry. HEAD: Normocephalic. EYES: No scleral icterus. No injection or drainage. NECK: Supple, trachea midline. No JVD or lymphadenopathy. CARDIOVASCULAR: Regular rate and rhythm without murmurs, gallops, or rubs. RESPIRATORY: Clear to auscultation bilaterally. GASTROINTESTINAL: Abdomen soft, nondistended. No tenderness to palpation on today's exam MUSCULOSKELETAL: No cyanosis. Trace edema bilaterally. BACK: Nontender without obvious deformity. <Sydnee Ramirez - 10/07/18 12:18> Assessment and Plan - Assessment (1) Mediastinal adenopathy Code(s): R59.0 - Localized enlarged lymph nodes Status: Acute (2) Eosinophilia Code(s): D72.1 - Eosinophilia Status: Acute (3) SIRS (systemic inflammatory response syndrome) Code(s): R65.10 - Systemic inflammatory response syndrome (SIRS) of non- infectious origin without acute organ dysfunction Status: Resolved (4) Hypoxia Code(s): R09.02 - Hypoxemia Status: Acute (5) Wheezing Code(s): R06.2 - Wheezing Status: Acute (6) Productive cough Code(s): R05 - Cough Status: Acute (7) Diabetes Code(s): E11.9 - Type 2 diabetes mellitus without complications Status: Acute (8) Hypertension Code(s): I10 - Essential (primary) hypertension Status: Acute (9) Acute kidney injury Code(s): N17.9 - Acute kidney failure, unspecified Status: Acute (10) Abdominal pain Code(s): R10.9 - Unspecified abdominal pain Status: Acute (11) DVT (deep venous thrombosis) Code(s): I82.409 - Acute embolism and thrombosis of unspecified deep veins of unspecified lower extremity Status: Acute (12) Nutrition, metabolism, and development symptoms Code(s): R63.8 - Other symptoms and signs concerning food and fluid intake Status: Acute <Majo Banerjee - 10/08/18 10:15> (1) Mediastinal adenopathy Code(s): R59.0 - Localized enlarged lymph nodes Status: Acute Plan: On admission: 4 days of SOB with productive cough, no fevers, recent sick contact with bronchitis. Hypoxic: 77 L on admission. Wheezing on physical exam. 40 mg prednisone switched to 40 IV solumedrol q12 per pulm recommendations. Day 7 of solumedrol q12. Appreciate recommendations on whether to DC steroids. Symbicort added. BIPAP PRN. Albuterol and duo nebs alternating every 4. CTA was ordered after she was found to have an elevated D dimer CTA was negative for PE, did show extensive mediastinal adenopathy, sings of interstitial disease in the peribronchial regions as well as a 0.6cm focal density in the R midlung Sputum Culture: Positive for Aspergillus Niger. With eosinophilia s/p lavage on 10/04 day 3. Appreciate ID and Pulmonology recommendations of treatment. Considering consulting thoracic surgery for mediastinal biopsy. DDX: Churg-Arleth disease, lymphoma, carcinoma, sarcoidosis. Pulmonology to order additional tests such as p-ANCA. IgE High at 73,240. TB assays negative RAMIREZ 13. WNL. Eosinophilia: 1.5 yesterday WC decreased from 9.3 to 8.1 yesterday Awaiting fungal cultures and fungal smear results from bronchoscopy. (2) Eosinophilia Code(s): D72.1 - Eosinophilia Status: Acute Plan: CBC on admission with elevated eosinophils at 58.3. Peripheral smear showed mild normochromic, normocytic anemia, mild eosinophilia Currently downtrending/stable Continue to monitor. Hematology following. (3) SIRS (systemic inflammatory response syndrome) Code(s): R65.10 - Systemic inflammatory response syndrome (SIRS) of non- infectious origin without acute organ dysfunction Status: Resolved Plan: Patient admitted with elevated white count at 20.1, respiratory rate: 30, pulse : 96, meets SIRS criteria. Unidentified source of infection: Blood cultures, gram/sputum stain with NGTD. Legionella Antigen, Influenza, Pneumococcal Antigen negative Recent sick contact. Afebrile. Crackles heard bilaterally on physical exam. Some perihilar opacities on CXRay but poor x-ray view. History concerning for pneumonia. Denies any urinary symptoms. Treating for pneumonia and COPD exacerbation. Completed 5 days of azithromycin Completed 7 days of ceftriaxone. Stopped on 10/05. (4) Hypoxia Code(s): R09.02 - Hypoxemia Status: Acute Plan: Resolved (5) Wheezing Code(s): R06.2 - Wheezing Status: Acute Plan: DuoNebs Pulmicort Currently on IV Solu-Medrol 40 mg daily Appreciate pulmonology's recommendations on when to stop IV steroids (6) Productive cough Code(s): R05 - Cough Status: Acute Plan: Mucinex added. (7) Diabetes Code(s): E11.9 - Type 2 diabetes mellitus without complications Status: Acute Plan: Hold metformin with concerns of lactic acidosis. will start on insulin low-dose sliding scale. (8) Hypertension Code(s): I10 - Essential (primary) hypertension Status: Acute Plan: Patient hypertensive on admission Resuming Losartan on 09/30 - initially held for CECILE Continue home carvedilol and amlodipine. Added Vasotec as needed (9) Acute kidney injury Code(s): N17.9 - Acute kidney failure, unspecified Status: Acute Plan: Creatinine: 1.83 on admission. Baseline 0.6. Resolved (10) Abdominal pain Code(s): R10.9 - Unspecified abdominal pain Status: Acute Plan: Diffuse abdominal pain, good bowel movements, no hematochezia. Ct abdomen showed gallstones but was otherwise negative Resolved on 09/30 after a BM (11) DVT (deep venous thrombosis) Code(s): I82.409 - Acute embolism and thrombosis of unspecified deep veins of unspecified lower extremity Status: Acute Plan: Patient complains of bilateral leg pain to palpation. Wells score: 3. Doppler of BLE ordered on 09/29 due to elevated D dimer was negative Heparin Q24 (12) Nutrition, metabolism, and development symptoms Code(s): R63.8 - Other symptoms and signs concerning food and fluid intake Status: Acute Plan: Fluids: No IVF at this time, patient had CECILE on admission but resolved with PO fluids Electrolytes: Monitor and replete as needed Diet: Currently Diabetic Diet GI prophylaxis: Protonix 40 mg. CODE STATUS: DNR/DNI. <Sydnee Ramirez - 10/07/18 12:22> - Assessment and Plan 73 yo F with PMH of HTN, DM presented with SOB, productive cough and diffuse abdominal pain. Met SIRS criteria on admission. CXR did not show PNA but history consistent with PNA - started on Azithro and rocephin on admission. CT abdomen was normal and patient's abd pain resolved after a BM. Her D dimer was elevated on admission so BLE dopplers were ordered as well as a CTA. All were negative for PE/DVT, but she was found to have mediastinal adenopathy and signs interstitial lung disease. She was also notably found to have eosinophilia on admission that initially downtrended but trended back up on 09/30. Hematology was consulted in light of her eosinophilia and mediastinal adenopathy on 09/30. Clinically improving on abx. Sputum culture came back for Aspergillus Niger. Pulmonology did bronchoscopy with lavage and mediastinal biopsy on 10/04. ID consulted for sputum culture for Aspergillus and elevated IgE. <Sydnee Ramirez - 10/07/18 12:18> - Attending Attestation Pt seen and dw the resident team and agree with assessment and plan <Majo Banerjee - 10/08/18 10:15>
[2018-10-07 13:39] LABS: Calcium 8.6 mg/dL (8.5-10.1); Carbon Dioxide 22.7 meq/L (21.0-32.0); Potassium 4.2 meq/L (3.5-5.1)
[2018-10-07 15:56] LABS: Baso # (Auto) 0.1 th/mm3 (0.0-0.2); Baso % (Auto) 1.3 % (0.0-2.0); Eos # (Auto) 0.2 th/mm3 (0.0-0.4); Eos % (Auto) 1.7 % (0.0-4.0); Hemoglobin 11.5 gm/dL (11.6-15.3); Lymph # (Auto) 2.1 th/mm3 (1.0-4.8); Lymph % (Auto) 22.3 % (9.0-44.0); Mean Corpuscular HGB Conc 31.8 % (32.0-36.0); Mean Corpuscular Hemoglobin 29.9 pg (27.0-34.0); Mean Corpuscular Volume 94.2 fL (80.0-100.0); Mean Platelet Volume 9.1 fL (7.0-11.0); Mono # (Auto) 0.2 th/mm3 (0.0-0.9); Mono % (Auto) 2.4 % (0.0-8.0); Neut # (Auto) 6.8 th/mm3 (1.8-7.7); Neut % (Auto) 72.3 % (16.0-70.0); Platelet Count 274 th/mm3 (150-450); Red Blood Count 3.83 mil/mm3 (4.00-5.30); Red Cell Distribution Width 15.5 % (11.6-17.2); White Blood Count 9.4 th/mm3 (4.0-11.0)
[2018-10-08 08:40] LABS: Baso # (Auto) 0.1 th/mm3 (0.0-0.2); Baso % (Auto) 1.2 % (0.0-2.0); Eos # (Auto) 0.8 th/mm3 (0.0-0.4); Eos % (Auto) 7.1 % (0.0-4.0); Hematocrit 33.1 % (35.0-46.0); Hemoglobin 10.7 gm/dL (11.6-15.3); Lymph # (Auto) 5.9 th/mm3 (1.0-4.8); Lymph % (Auto) 53.5 % (9.0-44.0); Mean Corpuscular HGB Conc 32.3 % (32.0-36.0); Mean Corpuscular Hemoglobin 29.8 pg (27.0-34.0); Mean Corpuscular Volume 92.2 fL (80.0-100.0); Mean Platelet Volume 8.1 fL (7.0-11.0); Mono # (Auto) 0.7 th/mm3 (0.0-0.9); Mono % (Auto) 6.7 % (0.0-8.0); Neut # (Auto) 3.5 th/mm3 (1.8-7.7); Neut % (Auto) 31.5 % (16.0-70.0); Platelet Count 253 th/mm3 (150-450); Red Blood Count 3.59 mil/mm3 (4.00-5.30); Red Cell Distribution Width 15.3 % (11.6-17.2)
[2018-10-08] MEDS: predniSONE 20 MG Tablet PO SCH (08:55)
[2018-10-08] MEDS: Budesonide-Formoterol 160/4.5 MCG 6 GM Inhaler INH SCH ×2 (08:56→20:11)
[2018-10-08] MEDS: guaiFENesin 600 MG ER Tablet PO SCH ×2 (08:56→20:10)
[2018-10-08] MEDS: Senna/Docusate Sodium 8.6/50 MG Tablet PO SCH ×2 (08:56→20:10)
[2018-10-08] MEDS: amLODIPine 10 MG Tablet PO SCH (08:56)
[2018-10-08 09:02] LABS: Calcium 8.5 mg/dL (8.5-10.1); Carbon Dioxide 29.2 meq/L (21.0-32.0); Potassium 3.9 meq/L (3.5-5.1)
[2018-10-08] MEDS: Insulin NovoLOG Aspart Correctional Sugar Inj SQ SCH ×4 (09:02→20:09)
--- NOTE | 2018-10-08 10:21 | P.PNFP ---
Subjective Interval history: No acute events overnight. Patient denies any shortness of breath and is having no difficulties on room air. She is aware that they are planning for a another lymph node biopsy and she has no questions at this time. Denies any chest pain, abdominal pain, diarrhea. <OlivierOmari B - 10/08/18 11:32> Results - Labs Result diagrams: 10/09/18 07:01 10/09/18 07:01 <Majo Banerjee R - 10/09/18 10:16> Abnormal lab results 10/08/18 10/08/18 10/08/18 Range/Units 08:12 12:26 17:09 RBC (4.00-5.30) mil/mm3 Hgb (11.6-15.3) gm/dL Hct (35.0-46.0) % Lymph % (Auto) (9.0-44.0) % Eos % (Auto) (0.0-4.0) % Lymph # (Auto) (1.0-4.8) th/mm3 Eos # (Auto) (0.0-0.4) th/mm3 Lymphocytes % (Manual) 55 H (9-44) % Eosinophils % (Manual) 8 H (0-4) % Acanthocytes (Spur) (None) Chloride (98-107) meq/L BUN (7-18) mg/dL Creatinine (0.50-1.00) mg/dL Estimated GFR (>89) mL/min POC Glucose 145 H 135 H (68-110) mg/dl Calcium (8.5-10.1) mg/dL 10/08/18 10/09/18 10/09/18 Range/Units 20:08 07:01 07:01 RBC 3.25 L (4.00-5.30) mil/mm3 Hgb 9.8 L (11.6-15.3) gm/dL Hct 29.8 L (35.0-46.0) % Lymph % (Auto) 55.3 H (9.0-44.0) % Eos % (Auto) 6.0 H (0.0-4.0) % Lymph # (Auto) 5.6 H (1.0-4.8) th/mm3 Eos # (Auto) 0.6 H (0.0-0.4) th/mm3 Lymphocytes % (Manual) 56 H (9-44) % Eosinophils % (Manual) 11 H (0-4) % Acanthocytes (Spur) Occ H (None) Chloride 108 H (98-107) meq/L BUN 20 H (7-18) mg/dL Creatinine 1.12 H (0.50-1.00) mg/dL Estimated GFR 57 L (>89) mL/min POC Glucose 188 H (68-110) mg/dl Calcium 8.2 L (8.5-10.1) mg/dL Short CBC 10/09/18 Range/Units 07:01 WBC 10.1 (4.0-11.0) th/mm3 Hgb 9.8 L (11.6-15.3) gm/dL Hct 29.8 L (35.0-46.0) % Plt Count 256 (150-450) th/mm3 BMP 10/09/18 07:01 Sodium 143 Potassium 3.6 Chloride 108 H Carbon Dioxide 28.7 BUN 20 H Creatinine 1.12 H Calcium 8.2 L <Majo Banerjee - 10/09/18 10:16> Abnormal lab results 10/07/18 10/07/18 10/07/18 Range/Units 12:22 12:55 15:00 RBC 3.83 L (4.00-5.30) mil/mm3 Hgb 11.5 L (11.6-15.3) gm/dL Hct (35.0-46.0) % MCHC 31.8 L (32.0-36.0) % Neut % (Auto) 72.3 H (16.0-70.0) % Lymph % (Auto) (9.0-44.0) % Eos % (Auto) (0.0-4.0) % Lymph # (Auto) (1.0-4.8) th/mm3 Eos # (Auto) (0.0-0.4) th/mm3 Chloride 110 H (98-107) meq/L Anion Gap 4 L (5-15) meq/L BUN 23 H (7-18) mg/dL Creatinine 1.12 H (0.50-1.00) mg/dL Estimated GFR 57 L (>89) mL/min POC Glucose 124 H (68-110) mg/dl Random Glucose 128 H (74-106) mg/dL 12/08/18 12/08/18 12/09/18 Range/Units 17:23 19:30 08:12 RBC 3.59 L (4.00-5.30) mil/mm3 Hgb 10.7 L (11.6-15.3) gm/dL Hct 33.1 L (35.0-46.0) % MCHC (32.0-36.0) % Neut % (Auto) (16.0-70.0) % Lymph % (Auto) 53.5 H (9.0-44.0) % Eos % (Auto) 7.1 H (0.0-4.0) % Lymph # (Auto) 5.9 H (1.0-4.8) th/mm3 Eos # (Auto) 0.8 H (0.0-0.4) th/mm3 Chloride (98-107) meq/L Anion Gap (5-15) meq/L BUN (7-18) mg/dL Creatinine (0.50-1.00) mg/dL Estimated GFR (>89) mL/min POC Glucose 160 H 183 H (68-110) mg/dl Random Glucose (74-106) mg/dL 10/08/18 Range/Units 08:12 RBC (4.00-5.30) mil/mm3 Hgb (11.6-15.3) gm/dL Hct (35.0-46.0) % MCHC (32.0-36.0) % Neut % (Auto) (16.0-70.0) % Lymph % (Auto) (9.0-44.0) % Eos % (Auto) (0.0-4.0) % Lymph # (Auto) (1.0-4.8) th/mm3 Eos # (Auto) (0.0-0.4) th/mm3 Chloride 109 H (98-107) meq/L Anion Gap (5-15) meq/L BUN 21 H (7-18) mg/dL Creatinine 1.08 H (0.50-1.00) mg/dL Estimated GFR 60 L (>89) mL/min POC Glucose (68-110) mg/dl Random Glucose (74-106) mg/dL Short CBC 10/07/18 10/08/18 Range/Units 15:00 08:12 WBC 9.4 11.0 (4.0-11.0) th/mm3 Hgb 11.5 L 10.7 L (11.6-15.3) gm/dL Hct 36.0 33.1 L (35.0-46.0) % Plt Count 274 253 (150-450) th/mm3 BMP 10/07/18 10/08/18 12:55 08:12 Sodium 137 144 Potassium 4.2 3.9 Chloride 110 H 109 H Carbon Dioxide 22.7 29.2 BUN 23 H 21 H Creatinine 1.12 H 1.08 H Calcium 8.6 8.5 <Omari Olivier B - 10/08/18 10:21> Physical Exam Vital signs: Vital Signs 10/08/18 12:00 10/08/18 16:00 10/08/18 20:00 Temperature 98 F 98.2 F 98.5 F Pulse Rate 56 L 64 62 Respiratory Rate 18 18 19 Blood Pressure 178/73 H 160/77 H 134/57 L Pulse Oximetry 98 97 98 10/09/18 00:00 10/09/18 04:00 10/09/18 08:00 Temperature 98.5 F 98.0 F 97.9 F Pulse Rate 62 55 L 60 Respiratory Rate 18 18 16 Blood Pressure 171/73 H 148/65 H 157/64 H Pulse Oximetry 98 97 100 Intake & Output 10/08/18 10/09/18 10/09/18 18:59 06:59 18:59 Intake Total 240 / 240 Balance 240 / 240 Weight 107 kg Intake: Oral 240 / 240 Other: # Voids 3 1 <Majo Banerjee R - 10/09/18 10:16> Vital Signs 10/07/18 12:00 10/07/18 16:00 10/07/18 20:00 Temperature 98.1 F 98.4 F 97.9 F Pulse Rate 64 64 66 Respiratory Rate 18 18 18 Blood Pressure 173/75 H 142/81 H 158/64 H Pulse Oximetry 98 98 97 10/08/18 00:00 10/08/18 04:00 10/08/18 08:00 Temperature 98.8 F 97.5 F L 98.1 F Pulse Rate 53 L 53 L 61 Respiratory Rate 18 18 18 Blood Pressure 140/70 155/79 H 161/72 H Pulse Oximetry 98 98 97 Intake & Output 10/07/18 10/08/18 10/08/18 18:59 06:59 18:59 Intake Total 210 / 210 Balance 210 / 210 Weight 106.5 kg Intake: Oral 210 / 210 Other: # Voids 3 2 <Omari Olivier B - 10/08/18 10:21> Narrative: GENERAL: Elderly appearing female, sitting upright, speaking in full sentences and answering questions appropriately. On room air. SKIN: Warm and dry. HEAD: Normocephalic. EYES: No scleral icterus. No injection or drainage. NECK: Supple, trachea midline. No JVD or lymphadenopathy. CARDIOVASCULAR: Regular rate and rhythm without murmurs, gallops, or rubs. RESPIRATORY: Clear to auscultation bilaterally. No wheezes appreciated GASTROINTESTINAL: Abdomen soft, nondistended. No tenderness to palpation on today's exam MUSCULOSKELETAL: No cyanosis. Trace edema bilaterally. BACK: Nontender without obvious deformity. <Omari Olivier Kailee - 10/08/18 11:32> Assessment and Plan - Assessment (1) Mediastinal adenopathy Code(s): R59.0 - Localized enlarged lymph nodes Status: Acute (2) Eosinophilia Code(s): D72.1 - Eosinophilia Status: Acute (3) SIRS (systemic inflammatory response syndrome) Code(s): R65.10 - Systemic inflammatory response syndrome (SIRS) of non- infectious origin without acute organ dysfunction Status: Resolved (4) Hypoxia Code(s): R09.02 - Hypoxemia Status: Acute (5) Wheezing Code(s): R06.2 - Wheezing Status: Acute (6) Productive cough Code(s): R05 - Cough Status: Acute (7) Diabetes Code(s): E11.9 - Type 2 diabetes mellitus without complications Status: Acute (8) Hypertension Code(s): I10 - Essential (primary) hypertension Status: Acute (9) Acute kidney injury Code(s): N17.9 - Acute kidney failure, unspecified Status: Resolved (10) Abdominal pain Code(s): R10.9 - Unspecified abdominal pain Status: Resolved (11) DVT (deep venous thrombosis) Code(s): I82.409 - Acute embolism and thrombosis of unspecified deep veins of unspecified lower extremity Status: Acute (12) Nutrition, metabolism, and development symptoms Code(s): R63.8 - Other symptoms and signs concerning food and fluid intake Status: Acute <Majo Banerjee R - 10/09/18 10:16> (1) Mediastinal adenopathy Code(s): R59.0 - Localized enlarged lymph nodes Status: Acute Plan: CTA showed extensive mediastinal adenopathy, sings of interstitial disease in the peribronchial regions as well as a 0.6cm focal density in the R midlung Sputum Culture: Positive for Aspergillus Niger. With eosinophilia s/p lavage on 10/04 performed by pulmonology Pulmonology plans to involve cardiothoracic surgery for biopsy, hematology on board as well DDX: Churg-Arleth disease, lymphoma, carcinoma, sarcoidosis. IgE High at 73,240. TB assays negative Awaiting fungal cultures and fungal smear results from bronchoscopy. (2) Eosinophilia Code(s): D72.1 - Eosinophilia Status: Acute Plan: CBC on admission with elevated eosinophils at 58.3. Peripheral smear showed mild normochromic, normocytic anemia, mild eosinophilia Currently downtrending/stable Continue to monitor. Hematology following. (3) SIRS (systemic inflammatory response syndrome) Code(s): R65.10 - Systemic inflammatory response syndrome (SIRS) of non- infectious origin without acute organ dysfunction Status: Resolved Plan: MedSurg criteria on admission, was treated for community acquired pneumonia Completed 5 days of azithromycin Completed 7 days of ceftriaxone. Stopped on 10/05. -Resolved (4) Hypoxia Code(s): R09.02 - Hypoxemia Status: Acute Plan: Resolved (5) Wheezing Code(s): R06.2 - Wheezing Status: Acute Plan: DuoNebs Pulmicort Switch from IV Solu-Medrol to p.o. steroids on 10/08 Protonix (6) Productive cough Code(s): R05 - Cough Status: Acute Plan: Mucinex added. (7) Diabetes Code(s): E11.9 - Type 2 diabetes mellitus without complications Status: Acute Plan: Held home metoprolol On low-dose sliding scale, controlled (8) Hypertension Code(s): I10 - Essential (primary) hypertension Status: Acute Plan: History of hypertension Losartan, carvedilol, amlodipine Vasotec as needed (9) Acute kidney injury Code(s): N17.9 - Acute kidney failure, unspecified Status: Resolved Plan: Resolved, monitoring daily (10) Abdominal pain Code(s): R10.9 - Unspecified abdominal pain Status: Resolved Plan: Ct abdomen on admission showed gallstones but was otherwise negative Resolved on 09/30 after a BM (11) DVT (deep venous thrombosis) Code(s): I82.409 - Acute embolism and thrombosis of unspecified deep veins of unspecified lower extremity Status: Acute Plan: Doppler of BLE ordered on 09/29 due to elevated D dimer was negative Heparin Q24 (12) Nutrition, metabolism, and development symptoms Code(s): R63.8 - Other symptoms and signs concerning food and fluid intake Status: Acute Plan: Fluids: No IVF at this time Electrolytes: Monitor and replete as needed Diet: Currently Diabetic Diet GI prophylaxis: Protonix 40 mg. CODE STATUS: DNR/DNI. <Omari Olivier - 10/08/18 11:22> - Assessment and Plan 73 yo F with PMH of HTN, DM presented with SOB, productive cough and diffuse abdominal pain. Met SIRS criteria on admission. CXR did not show PNA but history consistent with PNA - started on Azithro and rocephin on admission. CT abdomen was normal and patient's abd pain resolved after a BM. Her D dimer was elevated on admission so BLE dopplers were ordered as well as a CTA. All were negative for PE/DVT, but she was found to have mediastinal adenopathy and signs interstitial lung disease. She was also notably found to have eosinophilia on admission that initially downtrended but trended back up on 09/30. Hematology was consulted in light of her eosinophilia and mediastinal adenopathy on 09/30. Clinically improving on abx. Sputum culture came back for Aspergillus Niger. Pulmonology did bronchoscopy with lavage and mediastinal biopsy on 10/04. ID consulted for sputum culture for Aspergillus and elevated IgE. Pulmonology plans to involve cardiothoracic surgery to perform a lymph node biopsy <Omari Olivier - 10/08/18 11:32> - Attending Attestation Patient dw the resident team. Agree with assessment and plan <Majo Banerjee - 10/09/18 10:16>
[2018-10-08 11:45] LABS: Eosinophils 8 % (0-4); Lymphocytes 55 % (9-44); Monocytes 6 % (0-8); RBC Morphology Normal (Normal)
[2018-10-08 11:46] LABS: Platelet Estimate Normal (Normal); Platelet Morphology Normal (Normal)
--- NOTE | 2018-10-09 07:19 | P.PNONC ---
Subjective Interval history: Patient is feeling better. Her cough has improved. She will coughed up whitish sputum occasionally. Denies significant shortness of breath. She remains afebrile. Objective Vital Signs/Intake & Output: Vital Signs 10/08/18 08:00 10/08/18 12:00 10/08/18 16:00 Temperature 98.1 F 98 F 98.2 F Pulse Rate 58 L 56 L 64 Respiratory Rate 18 18 18 Blood Pressure 161/72 H 178/73 H 160/77 H Pulse Oximetry 97 98 97 10/08/18 20:00 10/09/18 00:00 10/09/18 04:00 Temperature 98.5 F 98.5 F 98.0 F Pulse Rate 62 62 55 L Respiratory Rate 19 18 18 Blood Pressure 134/57 L 171/73 H 148/65 H Pulse Oximetry 98 98 97 Intake & Output 10/08/18 10/09/18 10/09/18 18:59 06:59 18:59 Intake Total 240 / 240 Balance 240 / 240 Weight 107 kg Intake: Oral 240 / 240 Other: # Voids 3 1 Result Diagrams: 10/08/18 08:12 10/08/18 08:12 Laboratory Results: Laboratory Results - last 24 hr 10/08/18 10/08/18 10/08/18 08:12 08:12 12:26 WBC 11.0 RBC 3.59 L Hgb 10.7 L Hct 33.1 L MCV 92.2 MCH 29.8 MCHC 32.3 RDW 15.3 Plt Count 253 MPV 8.1 Prelim Diff (Auto) Slide review pending Neut % (Auto) 31.5 Lymph % (Auto) 53.5 H [place] % (Auto) 6.7 Eos % (Auto) 7.1 H Baso % (Auto) 1.2 Neut # (Auto) 3.5 Lymph # (Auto) 5.9 H [place] # (Auto) 0.7 Eos # (Auto) 0.8 H Baso # (Auto) 0.1 WBC Differential Manual diff final Seg Neuts % (Manual) 29 Band Neuts % (Manual) 1 Lymphocytes % (Manual) 55 H Monocytes % (Manual) 6 Eosinophils % (Manual) 8 H Basophils % (Manual) 1 Abs Neuts (Manual) 3.3 Differential Comment . Platelet Estimate Normal Platelet Morphology Normal RBC Morphology Normal Sodium 144 Potassium 3.9 Chloride 109 H Carbon Dioxide 29.2 Anion Gap 6 BUN 21 H Creatinine 1.08 H Estimated GFR 60 L POC Glucose 145 H Random Glucose 88 Calcium 8.5 10/08/18 10/08/18 17:09 20:08 WBC RBC Hgb Hct MCV MCH MCHC RDW Plt Count MPV Prelim Diff (Auto) Neut % (Auto) Lymph % (Auto) [place] % (Auto) Eos % (Auto) Baso % (Auto) Neut # (Auto) Lymph # (Auto) [place] # (Auto) Eos # (Auto) Baso # (Auto) WBC Differential Seg Neuts % (Manual) Band Neuts % (Manual) Lymphocytes % (Manual) Monocytes % (Manual) Eosinophils % (Manual) Basophils % (Manual) Abs Neuts (Manual) Differential Comment Platelet Estimate Platelet Morphology RBC Morphology Sodium Potassium Chloride Carbon Dioxide Anion Gap BUN Creatinine Estimated GFR POC Glucose 135 H 188 H Random Glucose Calcium Culture Results: Microbiology 10/04/18 12:25 Gram Stain - Final Bronchial - Left Lower Lobe Bronchial Culture - Final Heavy growth normal respiratory jennifer 10/04/18 12:25 Gram Stain - Final Bronchial - Right Lower Lobe Bronchial Culture - Final Heavy growth normal respiratory jennifer Medications: Active Medications Generic Name Dose Route Start Last Admin Trade Name Freq PRN Reason Stop Dose Admin Al Hydroxide/Mg Hydroxide 30 ml 09/28/18 18:30 09/28/18 23:28 Milk Of Magncayetano Liq PO 30 ml Q12H PRN Administration Mild Constipation Amlodipine Besylate 10 mg 09/29/18 09:00 10/08/18 08:56 Norvasc PO 10 mg DAILY GAIL Administration Budesonide/Formoterol Fumarate 2 puff 10/06/18 21:00 10/08/18 20:11 Symbicort 160/4.5 Mcg Inh INH 2 puff BID GAIL Administration Carvedilol 3.125 mg 09/28/18 21:00 10/08/18 20:10 Coreg PO 3.125 mg BID GAIL Administration Furosemide 40 mg 09/29/18 09:00 09/30/18 09:16 Lasix PO 40 mg DAILY GAIL Administration Guaifenesin 600 mg 09/28/18 21:00 10/08/18 20:10 Mucinex Er PO 600 mg BID GAIL Administration Sodium Chloride 500 mls @ 30 mls/hr 10/04/18 02:00 10/04/18 01:43 Ns Inj IV.SIG Not Given .Q10H GAIL Insulin Aspart 0 unit 09/28/18 21:00 10/08/18 20:09 Novolog Insulin Correctional Sugar Inj SQ 1 unit ACHS GAIL Administration Protocol Losartan Potassium 100 mg 09/30/18 13:15 10/08/18 08:56 Cozaar PO 100 mg DAILY GAIL Administration Pantoprazole Sodium 40 mg 09/29/18 09:00 10/08/18 08:56 Protonix PO 40 mg DAILY GAIL Administration Prednisone 20 mg 10/07/18 09:00 10/08/18 08:55 Deltasone PO 10/12/18 06:00 20 mg DAILY GAIL Administration Senna/Docusate Sodium 1 tab 09/28/18 21:00 10/08/18 20:10 Veronica-Colace PO 1 tab BID GAIL Administration Sodium Chloride 2 ml 09/28/18 21:00 10/08/18 20:11 Ns Flush IV.FLUSH 2 ml BID GAIL Administration Objective Remarks: GENERAL: Well-nourished, well-developed patient. Obese. SKIN: Warm and dry. HEAD: Normocephalic. EYES: No scleral icterus. No injection or drainage. NECK: Supple, trachea midline. No JVD or lymphadenopathy. LYMPHATIC: No adenopathy. CARDIOVASCULAR: Regular rate and rhythm without murmurs. RESPIRATORY: Breath sounds equal anteriorly with basilar crackles. No accessory muscle use. GASTROINTESTINAL: Abdomen soft, non-tender, nondistended. EXTREMITIES: No cyanosis, or edema. MUSCULOSKELETAL: Adequate muscle tone. NEUROLOGICAL: No obvious focal deficit. Awake, alert, and oriented x3. PSYCHIATRIC: Appropriate mood and affect; insight and judgment normal. Assessment/Plan - Plan 73-year-old female admitted to the hospital with complaints of cough and shortness of breath. She had imaging done that showed extensive mediastinal lymphadenopathy involving pretracheal, paratracheal, subcarinal AP window and bilateral hilar area. Interestingly she also had leukocytosis and eosinophilia on presentation. Differential diagnosis includes lymphoproliferative disorder or sarcoidosis vs viral pneumonia. The patient is feeling better after beginning antibiotics and steroids. The mediastinal adenopathy is not accessible for percutaneous biopsy and pulmonology has been consulted. Patient underwent bronchoscopy but EBUS could not be done. 1. Eosinophilia has improved to a normal range but trended up slightly yesterday. Sputum culture grew Aspergillus which is likely the cause of eosinophilia. JK2 mutation negative. ALBERT positive. TB test negative. IgE significantly elevated. Status post bronchoscopy with brushing, cultures are negative to date. Continue to monitor CBC. 2. Mediastinal adenopathy. EBUS could not be done due to technical difficulty. Bronchial washing cytology were negative. This could be reactive but cannot rule out neoplastic process. RAMIREZ level low normal. Sarcoidosis is in the differential. Awaiting possible mediastinoscopy per pulmonology. This will need to be monitored with repeat scan in a few weeks if biopsy cannot be done. 3. Supportive care.
[2018-10-09] MEDS: Insulin NovoLOG Aspart Correctional Sugar Inj SQ SCH ×4 (07:42→21:53)
[2018-10-09 08:47] LABS: Baso # (Auto) 0.1 th/mm3 (0.0-0.2); Baso % (Auto) 0.9 % (0.0-2.0); Eos # (Auto) 0.6 th/mm3 (0.0-0.4); Hematocrit 29.8 % (35.0-46.0); Hemoglobin 9.8 gm/dL (11.6-15.3); Lymph # (Auto) 5.6 th/mm3 (1.0-4.8); Lymph % (Auto) 55.3 % (9.0-44.0); Mean Corpuscular HGB Conc 32.8 % (32.0-36.0); Mean Corpuscular Hemoglobin 30.1 pg (27.0-34.0); Mean Corpuscular Volume 91.7 fL (80.0-100.0); Mean Platelet Volume 8.4 fL (7.0-11.0); Mono # (Auto) 0.7 th/mm3 (0.0-0.9); Mono % (Auto) 6.5 % (0.0-8.0); Neut # (Auto) 3.2 th/mm3 (1.8-7.7); Neut % (Auto) 31.3 % (16.0-70.0); Platelet Count 256 th/mm3 (150-450); Red Blood Count 3.25 mil/mm3 (4.00-5.30); Red Cell Distribution Width 15.7 % (11.6-17.2); White Blood Count 10.1 th/mm3 (4.0-11.0)
[2018-10-09] MEDS: predniSONE 20 MG Tablet PO SCH (09:04)
[2018-10-09] MEDS: Senna/Docusate Sodium 8.6/50 MG Tablet PO SCH ×2 (09:04→21:53)
[2018-10-09] MEDS: guaiFENesin 600 MG ER Tablet PO SCH ×2 (09:04→21:53)
[2018-10-09] MEDS: amLODIPine 10 MG Tablet PO SCH (09:04)
[2018-10-09 09:05] LABS: Calcium 8.2 mg/dL (8.5-10.1); Carbon Dioxide 28.7 meq/L (21.0-32.0); Potassium 3.6 meq/L (3.5-5.1)
[2018-10-09] MEDS: Budesonide-Formoterol 160/4.5 MCG 6 GM Inhaler INH SCH ×2 (09:06→21:53)
[2018-10-09 09:34] LABS: Acanthocytes Occ; Eosinophils 11 % (0-4); Lymphocytes 56 % (9-44); Platelet Estimate Normal (Normal)
[2018-10-09 09:35] LABS: Platelet Morphology Normal (Normal)
--- NOTE | 2018-10-09 09:49 | P.PNFP ---
Subjective Interval history: Patient seen and examined at bedside this morning. She is sitting up today, on room air. She denies any chest pain, shortness of breath, abdominal pain problems with urination or defecation. She understands the plan moving forward and is awaiting on surgery for a date. All questions were answered at bedside. <Sydnee Ramirez - 10/09/18 09:49> Results - Labs Result diagrams: 10/09/18 07:01 10/09/18 07:01 <Majo Banerjee - 10/09/18 17:19> Abnormal lab results 10/08/18 10/09/18 10/09/18 Range/Units 20:08 07:01 07:01 RBC 3.25 L (4.00-5.30) mil/mm3 Hgb 9.8 L (11.6-15.3) gm/dL Hct 29.8 L (35.0-46.0) % Lymph % (Auto) 55.3 H (9.0-44.0) % Eos % (Auto) 6.0 H (0.0-4.0) % Lymph # (Auto) 5.6 H (1.0-4.8) th/mm3 Eos # (Auto) 0.6 H (0.0-0.4) th/mm3 Lymphocytes % (Manual) 56 H (9-44) % Eosinophils % (Manual) 11 H (0-4) % Acanthocytes (Spur) Occ H (None) Chloride 108 H (98-107) meq/L BUN 20 H (7-18) mg/dL Creatinine 1.12 H (0.50-1.00) mg/dL Estimated GFR 57 L (>89) mL/min POC Glucose 188 H (68-110) mg/dl Calcium 8.2 L (8.5-10.1) mg/dL 10/09/18 Range/Units 12:31 RBC (4.00-5.30) mil/mm3 Hgb (11.6-15.3) gm/dL Hct (35.0-46.0) % Lymph % (Auto) (9.0-44.0) % Eos % (Auto) (0.0-4.0) % Lymph # (Auto) (1.0-4.8) th/mm3 Eos # (Auto) (0.0-0.4) th/mm3 Lymphocytes % (Manual) (9-44) % Eosinophils % (Manual) (0-4) % Acanthocytes (Spur) (None) Chloride (98-107) meq/L BUN (7-18) mg/dL Creatinine (0.50-1.00) mg/dL Estimated GFR (>89) mL/min POC Glucose 131 H (68-110) mg/dl Calcium (8.5-10.1) mg/dL Short CBC 10/09/18 Range/Units 07:01 WBC 10.1 (4.0-11.0) th/mm3 Hgb 9.8 L (11.6-15.3) gm/dL Hct 29.8 L (35.0-46.0) % Plt Count 256 (150-450) th/mm3 BMP 10/09/18 07:01 Sodium 143 Potassium 3.6 Chloride 108 H Carbon Dioxide 28.7 BUN 20 H Creatinine 1.12 H Calcium 8.2 L <Majo Banerjee - 10/09/18 17:19> Abnormal lab results 10/08/18 10/08/18 10/08/18 Range/Units 08:12 12:26 17:09 RBC (4.00-5.30) mil/mm3 Hgb (11.6-15.3) gm/dL Hct (35.0-46.0) % Lymph % (Auto) (9.0-44.0) % Eos % (Auto) (0.0-4.0) % Lymph # (Auto) (1.0-4.8) th/mm3 Eos # (Auto) (0.0-0.4) th/mm3 Lymphocytes % (Manual) 55 H (9-44) % Eosinophils % (Manual) 8 H (0-4) % Acanthocytes (Spur) (None) Chloride (98-107) meq/L BUN (7-18) mg/dL Creatinine (0.50-1.00) mg/dL Estimated GFR (>89) mL/min POC Glucose 145 H 135 H (68-110) mg/dl Calcium (8.5-10.1) mg/dL 10/08/18 10/09/18 10/09/18 Range/Units 20:08 07:01 07:01 RBC 3.25 L (4.00-5.30) mil/mm3 Hgb 9.8 L (11.6-15.3) gm/dL Hct 29.8 L (35.0-46.0) % Lymph % (Auto) 55.3 H (9.0-44.0) % Eos % (Auto) 6.0 H (0.0-4.0) % Lymph # (Auto) 5.6 H (1.0-4.8) th/mm3 Eos # (Auto) 0.6 H (0.0-0.4) th/mm3 Lymphocytes % (Manual) 56 H (9-44) % Eosinophils % (Manual) 11 H (0-4) % Acanthocytes (Spur) Occ H (None) Chloride 108 H (98-107) meq/L BUN 20 H (7-18) mg/dL Creatinine 1.12 H (0.50-1.00) mg/dL Estimated GFR 57 L (>89) mL/min POC Glucose 188 H (68-110) mg/dl Calcium 8.2 L (8.5-10.1) mg/dL Short CBC 10/09/18 Range/Units 07:01 WBC 10.1 (4.0-11.0) th/mm3 Hgb 9.8 L (11.6-15.3) gm/dL Hct 29.8 L (35.0-46.0) % Plt Count 256 (150-450) th/mm3 [facility] 10/09/18 07:01 Sodium 143 Potassium 3.6 Chloride 108 H Carbon Dioxide 28.7 BUN 20 H Creatinine 1.12 H Calcium 8.2 L <Sydnee Ramirez - 10/09/18 09:49> Physical Exam Vital signs: Vital Signs 10/08/18 20:00 10/09/18 00:00 10/09/18 04:00 Temperature 98.5 F 98.5 F 98.0 F Pulse Rate 62 62 55 L Respiratory Rate 19 18 18 Blood Pressure 134/57 L 171/73 H 148/65 H Pulse Oximetry 98 98 97 10/09/18 08:00 10/09/18 11:41 10/09/18 12:00 Temperature 97.9 F Pulse Rate 60 65 Respiratory Rate 16 Blood Pressure 157/64 H Pulse Oximetry 100 100 10/09/18 16:00 Temperature Pulse Rate 70 Respiratory Rate Blood Pressure Pulse Oximetry Intake & Output 10/08/18 10/09/18 10/09/18 18:59 06:59 18:59 Intake Total 240 / 240 Balance 240 / 240 Weight 107 kg Intake: Oral 240 / 240 Other: # Voids 3 1 Date of Last Bowel Movement 10/04/18 <Majo Banerjee Alejo - 10/09/18 17:19> Vital Signs 10/08/18 12:00 10/08/18 16:00 10/08/18 20:00 Temperature 98 F 98.2 F 98.5 F Pulse Rate 56 L 64 62 Respiratory Rate 18 18 19 Blood Pressure 178/73 H 160/77 H 134/57 L Pulse Oximetry 98 97 98 10/09/18 00:00 10/09/18 04:00 10/09/18 08:00 Temperature 98.5 F 98.0 F 97.9 F Pulse Rate 62 55 L 60 Respiratory Rate 18 18 16 Blood Pressure 171/73 H 148/65 H 157/64 H Pulse Oximetry 98 97 100 Intake & Output 10/08/18 10/09/18 10/09/18 18:59 06:59 18:59 Intake Total 240 / 240 Balance 240 / 240 Weight 107 kg Intake: Oral 240 / 240 Other: # Voids 3 1 <Sydnee Ramirez - 10/09/18 09:49> Narrative: GENERAL: Elderly appearing female, sitting upright, speaking in full sentences and answering questions appropriately. On room air. SKIN: Warm and dry. HEAD: Normocephalic. EYES: No scleral icterus. No injection or drainage. NECK: Supple, trachea midline. No JVD or lymphadenopathy. CARDIOVASCULAR: Regular rate and rhythm without murmurs, gallops, or rubs. RESPIRATORY: Clear to auscultation bilaterally. No wheezes appreciated GASTROINTESTINAL: Abdomen soft, nondistended. No tenderness to palpation on today's exam MUSCULOSKELETAL: No cyanosis. Trace edema bilaterally. BACK: Nontender without obvious deformity. <Sydnee Ramirez - 10/09/18 09:49> Assessment and Plan - Assessment (1) Mediastinal adenopathy Code(s): R59.0 - Localized enlarged lymph nodes Status: Acute (2) Eosinophilia Code(s): D72.1 - Eosinophilia Status: Acute (3) SIRS (systemic inflammatory response syndrome) Code(s): R65.10 - Systemic inflammatory response syndrome (SIRS) of non- infectious origin without acute organ dysfunction Status: Resolved (4) Hypoxia Code(s): R09.02 - Hypoxemia Status: Acute (5) Wheezing Code(s): R06.2 - Wheezing Status: Acute (6) Productive cough Code(s): R05 - Cough Status: Acute (7) Diabetes Code(s): E11.9 - Type 2 diabetes mellitus without complications Status: Acute (8) Hypertension Code(s): I10 - Essential (primary) hypertension Status: Acute (9) Acute kidney injury Code(s): N17.9 - Acute kidney failure, unspecified Status: Resolved (10) Abdominal pain Code(s): R10.9 - Unspecified abdominal pain Status: Resolved (11) DVT (deep venous thrombosis) Code(s): I82.409 - Acute embolism and thrombosis of unspecified deep veins of unspecified lower extremity Status: Acute (12) Nutrition, metabolism, and development symptoms Code(s): R63.8 - Other symptoms and signs concerning food and fluid intake Status: Acute <LavonneMajo R - 10/09/18 17:19> (1) Mediastinal adenopathy Code(s): R59.0 - Localized enlarged lymph nodes Status: Acute Plan: CTA showed extensive mediastinal adenopathy, sings of interstitial disease in the peribronchial regions as well as a 0.6cm focal density in the R midlung Sputum Culture: Positive for Aspergillus Niger. With eosinophilia s/p lavage on 10/04 performed by pulmonology Pulmonology plans to involve cardiothoracic surgery for biopsy, hematology on board as well Continue prednisone 20 mg daily. DDX: Churg-Arleth disease, lymphoma, carcinoma, sarcoidosis. IgE High at 73,240. TB assays negative Awaiting fungal cultures and fungal smear results from bronchoscopy. (2) Eosinophilia Code(s): D72.1 - Eosinophilia Status: Acute Plan: CBC on admission with elevated eosinophils at 58.3. Peripheral smear showed mild normochromic, normocytic anemia, mild eosinophilia Currently downtrending/stable Continue to monitor. Hematology following. (3) SIRS (systemic inflammatory response syndrome) Code(s): R65.10 - Systemic inflammatory response syndrome (SIRS) of non- infectious origin without acute organ dysfunction Status: Resolved Plan: MedSurg criteria on admission, was treated for community acquired pneumonia Completed 5 days of azithromycin Completed 7 days of ceftriaxone. Stopped on 10/05. -Resolved (4) Hypoxia Code(s): R09.02 - Hypoxemia Status: Acute Plan: Resolved (5) Wheezing Code(s): R06.2 - Wheezing Status: Acute Plan: DuoNebs Pulmicort Protonix (6) Productive cough Code(s): R05 - Cough Status: Acute Plan: Mucinex added. (7) Diabetes Code(s): E11.9 - Type 2 diabetes mellitus without complications Status: Acute Plan: Held home metoprolol On low-dose sliding scale, controlled (8) Hypertension Code(s): I10 - Essential (primary) hypertension Status: Acute Plan: History of hypertension Losartan, carvedilol, amlodipine Vasotec as needed (9) Acute kidney injury Code(s): N17.9 - Acute kidney failure, unspecified Status: Resolved Plan: Resolved, monitoring daily (10) Abdominal pain Code(s): R10.9 - Unspecified abdominal pain Status: Resolved Plan: Ct abdomen on admission showed gallstones but was otherwise negative Resolved on 09/30 after a BM (11) DVT (deep venous thrombosis) Code(s): I82.409 - Acute embolism and thrombosis of unspecified deep veins of unspecified lower extremity Status: Acute Plan: Doppler of BLE ordered on 09/29 due to elevated D dimer was negative Heparin Q24 (12) Nutrition, metabolism, and development symptoms Code(s): R63.8 - Other symptoms and signs concerning food and fluid intake Status: Acute Plan: Fluids: No IVF at this time Electrolytes: Monitor and replete as needed Diet: Currently Diabetic Diet GI prophylaxis: Protonix 40 mg. CODE STATUS: DNR/DNI. <Sydnee Ramirez - 10/09/18 12:08> - Assessment and Plan 73 yo F with PMH of HTN, DM presented with SOB, productive cough and diffuse abdominal pain. Met SIRS criteria on admission. CXR did not show PNA but history consistent with PNA - started on Azithro and rocephin on admission. CT abdomen was normal and patient's abd pain resolved after a BM. Her D dimer was elevated on admission so BLE dopplers were ordered as well as a CTA. All were negative for PE/DVT, but she was found to have mediastinal adenopathy and signs interstitial lung disease. She was also notably found to have eosinophilia on admission that initially downtrended but trended back up on 09/30. Hematology was consulted in light of her eosinophilia and mediastinal adenopathy on 09/30. Clinically improving on abx. Sputum culture came back for Aspergillus Niger. Pulmonology did bronchoscopy with lavage and mediastinal biopsy on 10/04. ID consulted for sputum culture for Aspergillus and elevated IgE. Pulmonology plans to involve cardiothoracic surgery to perform a lymph node biopsy <Sydnee Ramirez - 10/09/18 09:49> - Attending Attestation Patient seen and examined and dw the resident team. Agree with the assessment and plan <Majo Banerjee - 10/09/18 17:19>
[2018-10-09] MEDS ORDERED: Chlorhexidine 4% Topical 120 APPLIC/120 ML Bottle TOPICAL SCH (14:45)
[2018-10-09] MEDS ORDERED: ceFAZolin Inj 2,000 MG in Sodium Chlor 0.9% Inj 80 ML IV.SIG SCH (15:00)
[2018-10-09] MEDS ORDERED: ceFAZolin 2 GM Premix Inj 2 GM/50 ML PIGGYBACK IV.SIG SCH (15:00)
--- NOTE | 2018-10-09 15:40 | MB ---
cc: Nia Wilson APRN DATE: 10/09/2018 HISTORY OF PRESENT ILLNESS: A 73-year-old female who presented on 09/28/2018 with acute exacerbation of COPD; was just treated with antibiotics and corticosteroids; known COPD history with significant reduction in her function by 50%. A CT scan revealed some peribronchial infiltrates along with some significant mediastinal adenopathy. Her sputum also grew Aspergillus niger. She underwent bronchoscopy by Dr. Danial Tirado, which showed inflammatory changes of the tracheobronchial tree with widening of the mainstem. The brenda was consistent with underlying adenopathy. We were consulted to evaluate for potential mediastinoscopy. PAST MEDICAL HISTORY: Includes diabetes, hypertension. PAST SURGICAL HISTORY: Left knee surgery, bronchoscopy. ALLERGIES: PATIENT HAS NO KNOWN ALLERGIES. HOME MEDICATIONS: Include: 1. Mobic. 2. Vitamin D2. 3. Amlodipine. 4. Coreg. 5. Lasix. 6. Losartan. 7. Metformin. FAMILY HISTORY: Daughter and sister have high blood pressure and diabetes. SOCIAL HISTORY: She lives alone. She smoked 1 pack for 30 years; she quit 20 years ago. No alcohol. No illicit drugs. REVIEW OF SYSTEMS: GENERAL: No night sweats, fever, heat and cold intolerance. SKIN: No psoriasis, itching or hives. HEENT: No blurred vision, hearing loss. RESPIRATORY: Positive for cough. No current shortness of breath. She had some productive whitish sputum. No chest pain. No paroxysmal nocturnal dyspnea. No orthopnea. GASTROINTESTINAL: No diarrhea or vomiting. GENITOURINARY: No burning, frequency, urgency. CENTRAL NERVOUS SYSTEM: No history of TIA, CVA or seizure disorder. ENDOCRINOLOGY: Positive for diabetes. PHYSICAL EXAMINATION: GENERAL: Well-developed female. VITAL SIGNS: Blood pressure 150/60, heart rate of 58, afebrile, room air saturation 100%. GENERAL: The patient is awake, alert, in no acute distress. HEENT: Head is normocephalic, atraumatic. Pupils are equal and reactive. Oral mucosa pink, moist. NECK: Supple. No JVD. No adenopathy. HEART: Heart sounds S1, S2. Regular rate and rhythm. LUNGS: Clear to auscultation. No wheezes, rales or rhonchi. ABDOMEN: Soft, nontender. No masses or organomegaly. EXTREMITIES: No cyanosis, clubbing, or edema. LABORATORY DATA: The patient's IgG is 73,000. Positive ALBERT. TB quantitative is negative. She has got no growth in her cultures, other than the Aspergillus niger on 09/28/2018. RADIOLOGICAL REPORTS: 1. CT chest shows extensive mediastinal adenopathy, some interstitial disease in the lower lungs and anterior left upper lobe. There is also a 6 cm focal density in the right mid lung, which needs followup in 6 months. 2. She also had a venous Doppler study, which showed no evidence of lower extremity DVT. ASSESSMENT AND PLAN: This is a very pleasant 73-year-old female with significant mediastinal adenopathy. At this time, we will schedule her for a mediastinotomy and send pathology, on 10/11/2018. Patient is agreeable to proceed. We will place her on the schedule as per the discretion of Dr. Deisi Hoyt. CARMEN Mccord MD JRT/jennifer , 02:56 PM , 03:04 PM
[2018-10-09 18:01] LABS: Bacteria,Urine Occasional /hpf; Bilirubin,Urine Negative (Negative); Clarity,Urine Clear (Clear); Color,Urine Straw (Yellw/Straw); Glucose,Urine (UA) 50 mg/dL (Negative); Leukocyte Esterase,Urine Trace (Negative); Mucus,Urine Few /lpf (Occasional); Nitrite,Urine Negative (Negative); Squamous Epithelial Cell,Urine <1 /hpf (0-5)
--- NOTE | 2018-10-10 07:44 | P.PNONC ---
Subjective Interval history: Patient is feeling stronger. She remains afebrile. She denies any significant shortness of breath. Her cough has continued to improve. She is bringing up whitish sputum occasionally. Objective Vital Signs/Intake & Output: Vital Signs 10/09/18 08:00 10/09/18 11:41 10/09/18 12:00 Temperature 97.9 F Pulse Rate 60 65 Respiratory Rate 16 Blood Pressure 157/64 H Pulse Oximetry 100 100 10/09/18 16:00 10/09/18 20:00 10/10/18 00:00 Temperature 97.5 F L 98.1 F Pulse Rate 70 61 55 L Respiratory Rate 18 20 Blood Pressure 190/76 H 161/64 H Pulse Oximetry 98 100 10/10/18 04:00 10/10/18 04:56 Temperature 98.2 F Pulse Rate 85 61 Respiratory Rate 20 Blood Pressure 148/61 H Pulse Oximetry 99 Intake & Output 10/09/18 10/10/18 10/10/18 18:59 06:59 18:59 Intake Total 960 / 960 Balance 960 / 960 Weight 107 kg Intake: Oral 960 / 960 Other: # Voids 6 2 Date of Last Bowel Movement 10/04/18 Result Diagrams: 10/09/18 07:01 10/09/18 07:01 Laboratory Results: Laboratory Results - last 24 hr 10/09/18 10/09/18 10/09/18 07:01 07:01 12:31 WBC 10.1 RBC 3.25 L Hgb 9.8 L Hct 29.8 L MCV 91.7 MCH 30.1 MCHC 32.8 RDW 15.7 Plt Count 256 MPV 8.4 Prelim Diff (Auto) Slide review pending Neut % (Auto) 31.3 Lymph % (Auto) 55.3 H [place] % (Auto) 6.5 Eos % (Auto) 6.0 H Baso % (Auto) 0.9 Neut # (Auto) 3.2 Lymph # (Auto) 5.6 H [place] # (Auto) 0.7 Eos # (Auto) 0.6 H Baso # (Auto) 0.1 WBC Differential Manual diff final Seg Neuts % (Manual) 33 Lymphocytes % (Manual) 56 H Eosinophils % (Manual) 11 H Abs Neuts (Manual) 3.3 Differential Comment . Platelet Estimate Normal Platelet Morphology Normal Acanthocytes (Spur) Occ H Sodium 143 Potassium 3.6 Chloride 108 H Carbon Dioxide 28.7 Anion Gap 6 BUN 20 H Creatinine 1.12 H Estimated GFR 57 L POC Glucose 131 H Random Glucose 89 Calcium 8.2 L Urine Color Urine Clarity Urine pH Ur Specific [place] Urine Protein Urine Glucose (UA) Urine Ketones Urine Occult Blood Urine Nitrate Urine Bilirubin Urine Urobilinogen Ur Leukocyte Esterase Urine RBC Urine WBC Ur Squamous Epith Cells Urine Bacteria Urine Mucus Micro UA Comment Ur Microscopic Review Urine Culture Comments Nasal Screen MRSA (PCR) 10/09/18 10/09/18 10/09/18 17:18 17:20 17:38 WBC RBC Hgb Hct MCV MCH MCHC RDW Plt Count MPV Prelim Diff (Auto) Neut % (Auto) Lymph % (Auto) [place] % (Auto) Eos % (Auto) Baso % (Auto) Neut # (Auto) Lymph # (Auto) [place] # (Auto) Eos # (Auto) Baso # (Auto) WBC Differential Seg Neuts % (Manual) Lymphocytes % (Manual) Eosinophils % (Manual) Abs Neuts (Manual) Differential Comment Platelet Estimate Platelet Morphology Acanthocytes (Spur) Sodium Potassium Chloride Carbon Dioxide Anion Gap BUN Creatinine Estimated GFR POC Glucose 140 H Random Glucose Calcium Urine Color Straw Urine Clarity Clear Urine pH 6.0 Ur Specific [place] 1.010 Urine Protein Negative Urine Glucose (UA) 50 Urine Ketones Negative Urine Occult Blood Negative Urine Nitrate Negative Urine Bilirubin Negative Urine Urobilinogen Less than 2 Ur Leukocyte Esterase Trace H Urine RBC Less than 1 Urine WBC 4 Ur Squamous Epith Cells <1 Urine Bacteria Occasional H Urine Mucus Few H Micro UA Comment Culture not ind Ur Microscopic Review Not Reportable Urine Culture Comments Culture not ind Nasal Screen MRSA (PCR) Not detected 10/09/18 10/10/18 21:52 07:19 WBC RBC Hgb Hct MCV MCH MCHC RDW Plt Count MPV Prelim Diff (Auto) Neut % (Auto) Lymph % (Auto) [place] % (Auto) Eos % (Auto) Baso % (Auto) Neut # (Auto) Lymph # (Auto) [place] # (Auto) Eos # (Auto) Baso # (Auto) WBC Differential Seg Neuts % (Manual) Lymphocytes % (Manual) Eosinophils % (Manual) Abs Neuts (Manual) Differential Comment Platelet Estimate Platelet Morphology Acanthocytes (Spur) Sodium Potassium Chloride Carbon Dioxide Anion Gap BUN Creatinine Estimated GFR POC Glucose 147 H 95 Random Glucose Calcium Urine Color Urine Clarity Urine pH Ur Specific [place] Urine Protein Urine Glucose (UA) Urine Ketones Urine Occult Blood Urine Nitrate Urine Bilirubin Urine Urobilinogen Ur Leukocyte Esterase Urine RBC Urine WBC Ur Squamous Epith Cells Urine Bacteria Urine Mucus Micro UA Comment Ur Microscopic Review Urine Culture Comments Nasal Screen MRSA (PCR) Medications: Active Medications Generic Name Dose Route Start Last Admin Trade Name Freq PRN Reason Stop Dose Admin Al Hydroxide/Mg Hydroxide 30 ml 09/28/18 18:30 09/28/18 23:28 Milk Of Magnesia Liq PO 30 ml Q12H PRN Administration Mild Constipation Amlodipine Besylate 10 mg 09/29/18 09:00 10/09/18 09:04 Norvasc PO 10 mg DAILY GAIL Administration Budesonide/Formoterol Fumarate 2 puff 10/06/18 21:00 10/09/18 21:53 Symbicort 160/4.5 Mcg Inh INH 2 puff BID GAIL Administration Carvedilol 3.125 mg 09/28/18 21:00 10/09/18 21:53 Coreg PO 3.125 mg BID GAIL Administration Furosemide 40 mg 09/29/18 09:00 09/30/18 09:16 Lasix PO 40 mg DAILY GAIL Administration Guaifenesin 600 mg 09/28/18 21:00 10/09/18 21:53 Mucinex Er PO 600 mg BID GAIL Administration Sodium Chloride 500 mls @ 30 mls/hr 10/04/18 02:00 10/04/18 01:43 Ns Inj IV.SIG Not Given .Q10H [facility] Insulin Aspart 0 unit 09/28/18 21:00 10/09/18 21:53 Novolog Insulin Correctional Sugar Inj SQ Not Given ACHS [facility] Protocol Losartan Potassium 100 mg 09/30/18 13:15 10/09/18 09:04 Cozaar PO 100 mg DAILY GAIL Administration Pantoprazole Sodium 40 mg 09/29/18 09:00 10/09/18 09:04 Protonix PO 40 mg DAILY GAIL Administration Prednisone 20 mg 10/07/18 09:00 10/09/18 09:04 Deltasone PO 10/12/18 06:00 20 mg DAILY GAIL Administration Senna/Docusate Sodium 1 tab 09/28/18 21:00 10/09/18 21:53 Veronica-Colace PO 1 tab BID GAIL Administration Sodium Chloride 2 ml 09/28/18 21:00 10/09/18 21:53 Ns Flush IV.FLUSH 2 ml BID GAIL Administration Sodium Chloride 2 ml 10/09/18 21:00 10/09/18 21:53 Ns Flush IV.FLUSH Not Given BID GAIL Objective Remarks: GENERAL: Well-nourished, well-developed patient. Obese. SKIN: Warm and dry. HEAD: Normocephalic. EYES: No scleral icterus. No injection or drainage. NECK: Supple, trachea midline. No JVD or lymphadenopathy. LYMPHATIC: No adenopathy. CARDIOVASCULAR: Regular rate and rhythm without murmurs. RESPIRATORY: Breath sounds equal bilaterally. No accessory muscle use. GASTROINTESTINAL: Abdomen soft, non-tender, nondistended. EXTREMITIES: No cyanosis, or edema. MUSCULOSKELETAL: Adequate muscle tone. NEUROLOGICAL: No obvious focal deficit. Awake, alert, and oriented x3. PSYCHIATRIC: Appropriate mood and affect; insight and judgment normal. Assessment/Plan - Plan 73-year-old female admitted to the hospital with complaints of cough and shortness of breath. She had imaging done that showed extensive mediastinal lymphadenopathy involving pretracheal, paratracheal, subcarinal AP window and bilateral hilar area. Interestingly she also had leukocytosis and eosinophilia on presentation. Differential diagnosis includes lymphoproliferative disorder or sarcoidosis vs viral pneumonia. The patient is feeling better after beginning antibiotics and steroids. The mediastinal adenopathy is not accessible for percutaneous biopsy and pulmonology has been consulted. Patient underwent bronchoscopy but EBUS and biopsy could not be done. 1. Eosinophilia has improved to a normal range but trended up slightly. Sputum culture grew Aspergillus which is likely the cause of eosinophilia. JK 2 mutation negative. ALBERT positive. TB test negative. IgE significantly elevated. Status post bronchoscopy with brushing, cultures are negative to date. Continue to monitor CBC. 2. Mediastinal adenopathy. EBUS could not be done due to technical difficulty. Bronchial washing cytology were negative. This could be reactive but cannot rule out neoplastic process. RAMIREZ level low normal. Sarcoidosis is in the differential. Patient was evaluated by cardiothoracic surgery and scheduled for mediastinoscopy and biopsy tomorrow. 3. Continue supportive care.
[2018-10-10] MEDS: Insulin NovoLOG Aspart Correctional Sugar Inj SQ SCH ×4 (08:14→20:32)
[2018-10-10 08:41] LABS: Baso # (Auto) 0.2 th/mm3 (0.0-0.2); Baso % (Auto) 2.3 % (0.0-2.0); Eos # (Auto) 0.4 th/mm3 (0.0-0.4); Eos % (Auto) 4.5 % (0.0-4.0); Hematocrit 31.8 % (35.0-46.0); Hemoglobin 10.4 gm/dL (11.6-15.3); Lymph # (Auto) 5.8 th/mm3 (1.0-4.8); Lymph % (Auto) 59.3 % (9.0-44.0); Mean Corpuscular HGB Conc 32.7 % (32.0-36.0); Mean Corpuscular Hemoglobin 30.1 pg (27.0-34.0); Mean Corpuscular Volume 92.1 fL (80.0-100.0); Mean Platelet Volume 8.2 fL (7.0-11.0); Mono # (Auto) 0.6 th/mm3 (0.0-0.9); Neut # (Auto) 2.7 th/mm3 (1.8-7.7); Neut % (Auto) 27.9 % (16.0-70.0); Platelet Count 256 th/mm3 (150-450); Red Blood Count 3.45 mil/mm3 (4.00-5.30); Red Cell Distribution Width 15.4 % (11.6-17.2); White Blood Count 9.8 th/mm3 (4.0-11.0)
--- NOTE | 2018-10-10 08:42 | P.PNFP ---
Subjective Interval history: No acute events overnight. Patient continues to deny any SOB, CP. She continues to have a cough productive of thick, white sputum. She has no questions regarding her biopsy scheduled for tomorrow. <Omari Olivier B - 10/10/18 09:14> Results - Labs Result diagrams: 10/10/18 08:01 10/10/18 08:01 <Bernadette Banerjeeie R - 10/10/18 14:36> Abnormal lab results 10/09/18 10/09/18 10/09/18 Range/Units 17:18 17:38 21:52 RBC (4.00-5.30) mil/mm3 Hgb (11.6-15.3) gm/dL Hct (35.0-46.0) % Lymph % (Auto) (9.0-44.0) % Eos % (Auto) (0.0-4.0) % Baso % (Auto) (0.0-2.0) % Lymph # (Auto) (1.0-4.8) th/mm3 Lymphocytes % (Manual) (9-44) % Eosinophils % (Manual) (0-4) % Ovalocytes (None) Acanthocytes (Spur) (None) Keratocytes (None) Chloride (98-107) meq/L Creatinine (0.50-1.00) mg/dL Estimated GFR (>89) mL/min POC Glucose 140 H 147 H (68-110) mg/dl Ur Leukocyte Esterase Trace H (Negative) Urine Bacteria Occasional H (None) /hpf Urine Mucus Few H (Occasional) /lpf 10/10/18 10/10/18 10/10/18 Range/Units 08:01 08:01 11:23 RBC 3.45 L (4.00-5.30) mil/mm3 Hgb 10.4 L (11.6-15.3) gm/dL Hct 31.8 L (35.0-46.0) % Lymph % (Auto) 59.3 H (9.0-44.0) % Eos % (Auto) 4.5 H (0.0-4.0) % Baso % (Auto) 2.3 H (0.0-2.0) % Lymph # (Auto) 5.8 H (1.0-4.8) th/mm3 Lymphocytes % (Manual) 53 H (9-44) % Eosinophils % (Manual) 9 H (0-4) % Ovalocytes 1+ H (None) Acanthocytes (Spur) Occ H (None) Keratocytes Occ H (None) Chloride 108 H (98-107) meq/L Creatinine 1.11 H (0.50-1.00) mg/dL Estimated GFR 58 L (>89) mL/min POC Glucose 132 H (68-110) mg/dl Ur Leukocyte Esterase (Negative) Urine Bacteria (None) /hpf Urine Mucus (Occasional) /lpf Short CBC 10/10/18 Range/Units 08:01 WBC 9.8 (4.0-11.0) th/mm3 Hgb 10.4 L (11.6-15.3) gm/dL Hct 31.8 L (35.0-46.0) % Plt Count 256 (150-450) th/mm3 BMP 10/10/18 08:01 Sodium 142 Potassium 4.2 Chloride 108 H Carbon Dioxide 28.0 BUN 17 Creatinine 1.11 H Calcium 8.6 Urine 10/09/18 Range/Units 17:18 Urine Color Straw (Yellw/Straw) Urine Clarity Clear (Clear) Urine pH 6.0 (5.0-8.5) Ur Specific [place] 1.010 (1.002-1.035) Urine Protein Negative (Neg-Trace) mg/dL Urine Glucose (UA) 50 (Negative) mg/dL <Majo Banerjee R - 10/10/18 14:36> Abnormal lab results 10/09/18 10/09/18 10/09/18 Range/Units 07:01 07:01 12:31 RBC 3.25 L (4.00-5.30) mil/mm3 Hgb 9.8 L (11.6-15.3) gm/dL Hct 29.8 L (35.0-46.0) % Lymph % (Auto) 55.3 H (9.0-44.0) % Eos % (Auto) 6.0 H (0.0-4.0) % Lymph # (Auto) 5.6 H (1.0-4.8) th/mm3 Eos # (Auto) 0.6 H (0.0-0.4) th/mm3 Lymphocytes % (Manual) 56 H (9-44) % Eosinophils % (Manual) 11 H (0-4) % Acanthocytes (Spur) Occ H (None) Chloride 108 H (98-107) meq/L BUN 20 H (7-18) mg/dL Creatinine 1.12 H (0.50-1.00) mg/dL Estimated GFR 57 L (>89) mL/min POC Glucose 131 H (68-110) mg/dl Calcium 8.2 L (8.5-10.1) mg/dL Ur Leukocyte Esterase (Negative) Urine Bacteria (None) /hpf Urine Mucus (Occasional) /lpf 10/09/18 10/09/18 10/09/18 Range/Units 17:18 17:38 21:52 RBC (4.00-5.30) mil/mm3 Hgb (11.6-15.3) gm/dL Hct (35.0-46.0) % Lymph % (Auto) (9.0-44.0) % Eos % (Auto) (0.0-4.0) % Lymph # (Auto) (1.0-4.8) th/mm3 Eos # (Auto) (0.0-0.4) th/mm3 Lymphocytes % (Manual) (9-44) % Eosinophils % (Manual) (0-4) % Acanthocytes (Spur) (None) Chloride (98-107) meq/L BUN (7-18) mg/dL Creatinine (0.50-1.00) mg/dL Estimated GFR (>89) mL/min POC Glucose 140 H 147 H (68-110) mg/dl Calcium (8.5-10.1) mg/dL Ur Leukocyte Esterase Trace H (Negative) Urine Bacteria Occasional H (None) /hpf Urine Mucus Few H (Occasional) /lpf Short CBC 10/09/18 Range/Units 07:01 WBC 10.1 (4.0-11.0) th/mm3 Hgb 9.8 L (11.6-15.3) gm/dL Hct 29.8 L (35.0-46.0) % Plt Count 256 (150-450) th/mm3 BMP 10/09/18 07:01 Sodium 143 Potassium 3.6 Chloride 108 H Carbon Dioxide 28.7 BUN 20 H Creatinine 1.12 H Calcium 8.2 L Urine 10/09/18 Range/Units 17:18 Urine Color Straw (Yellw/Straw) Urine Clarity Clear (Clear) Urine pH 6.0 (5.0-8.5) Ur Specific [place] 1.010 (1.002-1.035) Urine Protein Negative (Neg-Trace) mg/dL Urine Glucose (UA) 50 (Negative) mg/dL <Omari Olivier B - 10/10/18 08:42> Physical Exam Vital signs: Vital Signs 10/09/18 16:00 10/09/18 20:00 10/10/18 00:00 Temperature 97.5 F L 98.1 F Pulse Rate 70 61 55 L Respiratory Rate 18 20 Blood Pressure 190/76 H 161/64 H Pulse Oximetry 98 100 10/10/18 04:00 10/10/18 04:56 10/10/18 08:00 Temperature 98.2 F 98.2 F Pulse Rate 85 61 59 L Respiratory Rate 20 16 Blood Pressure 148/61 H 150/75 H Pulse Oximetry 99 99 10/10/18 08:55 10/10/18 09:20 Temperature Pulse Rate 68 Respiratory Rate Blood Pressure Pulse Oximetry 99 Intake & Output 10/09/18 10/10/18 10/10/18 18:59 06:59 18:59 Intake Total 960 / 960 Balance 960 / 960 Weight 107 kg Intake: Oral 960 / 960 Other: # Voids 6 2 Date of Last Bowel Movement 10/04/18 <Majo Banerjee - 10/10/18 14:36> Vital Signs 10/09/18 11:41 10/09/18 12:00 10/09/18 16:00 Temperature Pulse Rate 65 70 Respiratory Rate Blood Pressure Pulse Oximetry 100 10/09/18 20:00 10/10/18 00:00 10/10/18 04:00 Temperature 97.5 F L 98.1 F Pulse Rate 61 55 L 85 Respiratory Rate 18 20 Blood Pressure 190/76 H 161/64 H Pulse Oximetry 98 100 10/10/18 04:56 Temperature 98.2 F Pulse Rate 61 Respiratory Rate 20 Blood Pressure 148/61 H Pulse Oximetry 99 Intake & Output 10/09/18 10/10/18 10/10/18 18:59 06:59 18:59 Intake Total 960 / 960 Balance 960 / 960 Weight 107 kg Intake: Oral 960 / 960 Other: # Voids 6 2 Date of Last Bowel Movement 10/04/18 <Omari Olivier B - 10/10/18 08:42> Narrative: GENERAL: Elderly appearing female, sitting upright, speaking in full sentences and answering questions appropriately. On room air. SKIN: Warm and dry. HEAD: Normocephalic. EYES: No scleral icterus. No injection or drainage. NECK: Supple, trachea midline. No JVD or lymphadenopathy. CARDIOVASCULAR: Regular rate and rhythm without murmurs, gallops, or rubs. RESPIRATORY: Clear to auscultation bilaterally. No wheezes appreciated GASTROINTESTINAL: Abdomen soft, nondistended. No tenderness to palpation on today's exam MUSCULOSKELETAL: No cyanosis. Trace edema bilaterally. BACK: Nontender without obvious deformity. <Omari Olivier B - 10/10/18 09:14> Assessment and Plan - Assessment (1) Mediastinal adenopathy Code(s): R59.0 - Localized enlarged lymph nodes Status: Acute (2) Eosinophilia Code(s): D72.1 - Eosinophilia Status: Acute (3) SIRS (systemic inflammatory response syndrome) Code(s): R65.10 - Systemic inflammatory response syndrome (SIRS) of non- infectious origin without acute organ dysfunction Status: Resolved (4) Wheezing Code(s): R06.2 - Wheezing Status: Acute (5) Productive cough Code(s): R05 - Cough Status: Acute (6) Diabetes Code(s): E11.9 - Type 2 diabetes mellitus without complications Status: Acute (7) Hypertension Code(s): I10 - Essential (primary) hypertension Status: Acute (8) Acute kidney injury Code(s): N17.9 - Acute kidney failure, unspecified Status: Resolved (9) Abdominal pain Code(s): R10.9 - Unspecified abdominal pain Status: Resolved (10) DVT (deep venous thrombosis) Code(s): I82.409 - Acute embolism and thrombosis of unspecified deep veins of unspecified lower extremity Status: Acute (11) Nutrition, metabolism, and development symptoms Code(s): R63.8 - Other symptoms and signs concerning food and fluid intake Status: Acute <Majo Banerjee R - 10/10/18 14:36> (1) Mediastinal adenopathy Code(s): R59.0 - Localized enlarged lymph nodes Status: Acute Plan: CTA showed extensive mediastinal adenopathy, sings of interstitial disease in the peribronchial regions as well as a 0.6cm focal density in the R midlung Sputum Culture: Positive for Aspergillus [place]. With eosinophilia s/p lavage on 10/04 performed by pulmonology Pulmonology plans to involve cardiothoracic surgery for biopsy, hematology on board as well Continue prednisone 20 mg daily. DDX: Churg-Arleth disease, lymphoma, carcinoma, sarcoidosis. IgE High at 73,240. TB assays negative Awaiting fungal cultures and fungal smear results from bronchoscopy Thoracic surgery planning for biopsy on 10/11 (2) Eosinophilia Code(s): D72.1 - Eosinophilia Status: Acute Plan: CBC on admission with elevated eosinophils at 58.3. Peripheral smear showed mild normochromic, normocytic anemia, mild eosinophilia Stable Continue to monitor. Hematology following. (3) SIRS (systemic inflammatory response syndrome) Code(s): R65.10 - Systemic inflammatory response syndrome (SIRS) of non- infectious origin without acute organ dysfunction Status: Resolved Plan: MedSurg criteria on admission, was treated for community acquired pneumonia Completed 5 days of azithromycin Completed 7 days of ceftriaxone. Stopped on 10/05. -Resolved (4) Wheezing Code(s): R06.2 - Wheezing Status: Acute Plan: DuoNebs Pulmicort Protonix (5) Productive cough Code(s): R05 - Cough Status: Acute Plan: Mucinex added. (6) Diabetes Code(s): E11.9 - Type 2 diabetes mellitus without complications Status: Acute Plan: Held home metoprolol On low-dose sliding scale, controlled (7) Hypertension Code(s): I10 - Essential (primary) hypertension Status: Acute Plan: History of hypertension Losartan, carvedilol, amlodipine Vasotec as needed (8) Acute kidney injury Code(s): N17.9 - Acute kidney failure, unspecified Status: Resolved Plan: Resolved, monitoring daily (9) Abdominal pain Code(s): R10.9 - Unspecified abdominal pain Status: Resolved Plan: Ct abdomen on admission showed gallstones but was otherwise negative Resolved on 09/30 after a BM (10) DVT (deep venous thrombosis) Code(s): I82.409 - Acute embolism and thrombosis of unspecified deep veins of unspecified lower extremity Status: Acute Plan: Doppler of BLE ordered on 11/30 due to elevated D dimer was negative Heparin Q24 (11) Nutrition, metabolism, and development symptoms Code(s): R63.8 - Other symptoms and signs concerning food and fluid intake Status: Acute Plan: Fluids: No IVF at this time Electrolytes: Monitor and replete as needed Diet: Currently Diabetic Diet GI prophylaxis: Protonix 40 mg. CODE STATUS: DNR/DNI. <Omari Olivier - 10/10/18 09:07> - Assessment and Plan 73 yo F with PMH of HTN, DM presented with SOB, productive cough and diffuse abdominal pain. Met SIRS criteria on admission. CXR did not show PNA but history consistent with PNA - started on Azithro and rocephin on admission. CT abdomen was normal and patient's abd pain resolved after a BM. Her D dimer was elevated on admission so BLE dopplers were ordered as well as a CTA. All were negative for PE/DVT, but she was found to have mediastinal adenopathy and signs interstitial lung disease. She was also notably found to have eosinophilia on admission that initially downtrended but trended back up on 09/30. Hematology was consulted in light of her eosinophilia and mediastinal adenopathy on 09/30. Clinically improving on abx. Sputum culture came back for Aspergillus [place]. Pulmonology did bronchoscopy with lavage and mediastinal biopsy on 10/04. ID consulted for sputum culture for Aspergillus and elevated IgE. Thoracic surgery planning for node biopsy on 10/11 <Omari Olivier B - 10/10/18 09:14> - Attending Attestation Patient seen and examined. Agree with the resident assessment and plan <Majo Banerjee - 10/10/18 14:36>
[2018-10-10 08:47] LABS: Prothrombin Time 10.5 sec (9.8-11.6)
[2018-10-10 09:08] LABS: Calcium 8.6 mg/dL (8.5-10.1); Potassium 4.2 meq/L (3.5-5.1)
[2018-10-10 09:16] LABS: Acanthocytes Occ; Eosinophils 9 % (0-4); Lymphocytes 53 % (9-44); Monocytes 2 % (0-8); Ovalocytes 1+; Platelet Estimate Normal (Normal); Platelet Morphology Normal (Normal)
[2018-10-10] MEDS: amLODIPine 10 MG Tablet PO SCH (09:22)
[2018-10-10] MEDS: guaiFENesin 600 MG ER Tablet PO SCH ×2 (09:22→20:31)
[2018-10-10] MEDS: predniSONE 20 MG Tablet PO SCH (09:22)
[2018-10-10] MEDS: Budesonide-Formoterol 160/4.5 MCG 6 GM Inhaler INH SCH ×2 (09:23→20:32)
[2018-10-10] MEDS: Senna/Docusate Sodium 8.6/50 MG Tablet PO SCH ×2 (09:27→20:31)
--- NOTE | 2018-10-11 07:50 | P.PNONC ---
Subjective Interval history: Patient denies any chest pain. She denies any shortness of breath. Her cough has improved. She is anxious about the procedure this afternoon. She remains afebrile. Objective Vital Signs/Intake & Output: Vital Signs 10/10/18 08:00 10/10/18 08:55 10/10/18 09:20 Temperature 98.2 F Pulse Rate 59 L 68 Respiratory Rate 16 Blood Pressure 150/75 H Pulse Oximetry 99 99 10/10/18 12:00 10/10/18 16:00 10/10/18 17:15 Temperature Pulse Rate 63 68 Respiratory Rate Blood Pressure Pulse Oximetry 99 10/10/18 20:00 10/10/18 23:55 10/11/18 04:00 Temperature 97.7 F Pulse Rate 57 L 51 L 55 L Respiratory Rate 18 Blood Pressure 165/98 H Pulse Oximetry 98 Intake & Output 10/10/18 10/11/18 10/11/18 18:59 06:59 18:59 Intake Total 680 / 680 Balance 680 / 680 Weight 105.5 kg Intake: Oral 680 / 680 Other: # Voids 5 3 Date of Last Bowel Movement 10/10/18 10/10/18 # Bowel Movements 1 Result Diagrams: 10/10/18 08:01 10/10/18 08:01 Laboratory Results: Laboratory Results - last 24 hr 10/10/18 10/10/18 10/10/18 07:59 08:00 08:01 WBC 9.8 RBC 3.45 L Hgb 10.4 L Hct 31.8 L MCV 92.1 MCH 30.1 MCHC 32.7 RDW 15.4 Plt Count 256 MPV 8.2 Prelim Diff (Auto) Slide review pending Neut % (Auto) 27.9 Lymph % (Auto) 59.3 H [place] % (Auto) 6.0 Eos % (Auto) 4.5 H Baso % (Auto) 2.3 H Neut # (Auto) 2.7 Lymph # (Auto) 5.8 H [place] # (Auto) 0.6 Eos # (Auto) 0.4 Baso # (Auto) 0.2 WBC Differential Manual diff final Seg Neuts % (Manual) 33 Band Neuts % (Manual) 1 Lymphocytes % (Manual) 53 H Monocytes % (Manual) 2 Eosinophils % (Manual) 9 H Basophils % (Manual) 2 Abs Neuts (Manual) 3.3 Differential Comment . Platelet Estimate Normal Platelet Morphology Normal Ovalocytes 1+ H Acanthocytes (Spur) Occ H Keratocytes Occ H PT 10.5 INR 1.0 Sodium Potassium Chloride Carbon Dioxide Anion Gap BUN Creatinine Estimated GFR POC Glucose Random Glucose Calcium Blood Type O Positive Antibody Screen Negative 10/10/18 10/10/18 10/10/18 08:01 11:23 17:39 WBC RBC Hgb Hct MCV MCH MCHC RDW Plt Count MPV Prelim Diff (Auto) Neut % (Auto) Lymph % (Auto) [place] % (Auto) Eos % (Auto) Baso % (Auto) Neut # (Auto) Lymph # (Auto) [place] # (Auto) Eos # (Auto) Baso # (Auto) WBC Differential Seg Neuts % (Manual) Band Neuts % (Manual) Lymphocytes % (Manual) Monocytes % (Manual) Eosinophils % (Manual) Basophils % (Manual) Abs Neuts (Manual) Differential Comment Platelet Estimate Platelet Morphology Ovalocytes Acanthocytes (Spur) Keratocytes PT INR Sodium 142 Potassium 4.2 Chloride 108 H Carbon Dioxide 28.0 Anion Gap 6 BUN 17 Creatinine 1.11 H Estimated GFR 58 L POC Glucose 132 H 148 H Random Glucose 87 Calcium 8.6 Blood Type Antibody Screen 10/10/18 19:36 WBC RBC Hgb Hct MCV MCH MCHC RDW Plt Count MPV Prelim Diff (Auto) Neut % (Auto) Lymph % (Auto) [place] % (Auto) Eos % (Auto) Baso % (Auto) Neut # (Auto) Lymph # (Auto) [place] # (Auto) Eos # (Auto) Baso # (Auto) WBC Differential Seg Neuts % (Manual) Band Neuts % (Manual) Lymphocytes % (Manual) Monocytes % (Manual) Eosinophils % (Manual) Basophils % (Manual) Abs Neuts (Manual) Differential Comment Platelet Estimate Platelet Morphology Ovalocytes Acanthocytes (Spur) Keratocytes PT INR Sodium Potassium Chloride Carbon Dioxide Anion Gap BUN Creatinine Estimated GFR POC Glucose 177 H Random Glucose Calcium Blood Type Antibody Screen Medications: Active Medications Generic Name Dose Route Start Last Admin Trade Name Freq PRN Reason Stop Dose Admin Al Hydroxide/Mg Hydroxide 30 ml 09/28/18 18:30 09/28/18 23:28 Milk Of Magnc[place]etano Liq PO 30 ml Q12H PRN Administration Mild Constipation Amlodipine Besylate 10 mg 09/29/18 09:00 10/10/18 09:22 Norvasc PO 10 mg DAILY GAIL Administration Budesonide/Formoterol Fumarate 2 puff 10/06/18 21:00 10/10/18 20:32 Symbicort 160/4.5 Mcg Inh INH 2 puff BID GAIL Administration Carvedilol 3.125 mg 09/28/18 21:00 10/10/18 20:31 Coreg PO 3.125 mg BID GAIL Administration Furosemide 40 mg 09/29/18 09:00 09/30/18 09:16 Lasix PO 40 mg DAILY GAIL Administration Guaifenesin 600 mg 09/28/18 21:00 10/10/18 20:31 Mucinex Er PO 600 mg BID GAIL Administration Sodium Chloride 500 mls @ 30 mls/hr 10/04/18 02:00 10/04/18 01:43 Ns Inj IV.SIG Not Given .Q10H GAIL Insulin Aspart 0 unit 09/28/18 21:00 10/10/18 20:32 Novolog Insulin Correctional Sugar Inj SQ 1 unit ACHS GAIL Administration Protocol Losartan Potassium 100 mg 09/30/18 13:15 10/10/18 09:22 Cozaar PO 100 mg DAILY GAIL Administration Pantoprazole Sodium 40 mg 09/29/18 09:00 10/10/18 09:22 Protonix PO 40 mg DAILY GAIL Administration Prednisone 20 mg 10/07/18 09:00 10/10/18 09:22 Deltasone PO 10/12/18 06:00 20 mg DAILY GAIL Administration Senna/Docusate Sodium 1 tab 09/28/18 21:00 10/10/18 20:31 Veronica-Colace PO 1 tab BID GAIL Administration Sodium Chloride 2 ml 09/28/18 21:00 10/10/18 20:32 Ns Flush IV.FLUSH 2 ml BID GAIL Administration Sodium Chloride 2 ml 10/09/18 21:00 10/10/18 20:32 Ns Flush IV.FLUSH Not Given BID [facility] Objective Remarks: GENERAL: Well-nourished, well-developed patient. Obese. SKIN: Warm and dry. HEAD: Normocephalic. EYES: No scleral icterus. No injection or drainage. NECK: Supple, trachea midline. No JVD or lymphadenopathy. LYMPHATIC: No adenopathy. CARDIOVASCULAR: Regular rate and rhythm without murmurs. RESPIRATORY: Breath sounds equal anteriorly. No accessory muscle use. GASTROINTESTINAL: Abdomen soft, non-tender, nondistended. EXTREMITIES: No cyanosis, or edema. MUSCULOSKELETAL: Adequate muscle tone. NEUROLOGICAL: No obvious focal deficit. Awake, alert, and oriented x3. PSYCHIATRIC: Appropriate mood and affect; insight and judgment normal. Assessment/Plan - Plan 73-year-old female admitted to the hospital with complaints of cough and shortness of breath. She had imaging done that showed extensive mediastinal lymphadenopathy involving pretracheal, paratracheal, subcarinal AP window and bilateral hilar area. Interestingly she also had leukocytosis and eosinophilia on presentation. Differential diagnosis includes lymphoproliferative disorder or sarcoidosis vs viral pneumonia. The patient is feeling better after beginning antibiotics and steroids. The mediastinal adenopathy is not accessible for percutaneous biopsy and pulmonology has been consulted. Patient underwent bronchoscopy but EBUS and biopsy could not be done. 1. Eosinophilia has improved to a normal range but trended up slightly. Sputum culture grew Aspergillus which is likely the cause of eosinophilia. DELLA 2 mutation negative. ALBERT positive. TB test negative. IgE significantly elevated. Status post bronchoscopy with brushing, cultures are negative to date. Continue to monitor CBC. 2. Mediastinal adenopathy. EBUS could not be done due to technical difficulty. Bronchial washing cytology were negative. This could be reactive but cannot rule out neoplastic process. RAMIREZ level low normal. Sarcoidosis is in the differential. Patient was evaluated by cardiothoracic surgery and scheduled for mediastinoscopy and biopsy at noon. 3. Continue supportive care.
[2018-10-11] MEDS: guaiFENesin 600 MG ER Tablet PO SCH ×2 (10:02→21:29)
[2018-10-11] MEDS: Senna/Docusate Sodium 8.6/50 MG Tablet PO SCH ×2 (10:02→21:29)
[2018-10-11] MEDS: amLODIPine 10 MG Tablet PO SCH (10:02)
[2018-10-11] MEDS: Insulin NovoLOG Aspart Correctional Sugar Inj SQ SCH ×4 (10:02→21:31)
[2018-10-11] MEDS: predniSONE 20 MG Tablet PO SCH (10:02)
[2018-10-11] MEDS: Budesonide-Formoterol 160/4.5 MCG 6 GM Inhaler INH SCH ×2 (10:05→21:30)
[2018-10-11] MEDS ORDERED: Bupivacaine PF 0.5% Inj 10 ML Vial ONE (12:38)
--- NOTE | 2018-10-11 13:33 | P.PNFP ---
Subjective Interval history: Patient was seen sitting up by the side of her bed this morning. She states that she is doing okay. She denies chest pain or shortness of breath, fever chills, nausea or vomiting. She still has a mildly productive cough. She is scheduled to have biopsy at 12 noon today. <ElzbietaStarla U - 10/11/18 14:17> Results - Labs Result diagrams: 10/12/18 05:46 10/12/18 05:46 <Majo Banerjee R - 10/12/18 09:32> Abnormal lab results 10/07/18 10/11/18 10/11/18 Range/Units 15:00 11:36 14:54 RBC (4.00-5.30) mil/mm3 Hgb (11.6-15.3) gm/dL Hct (35.0-46.0) % Lymph % (Auto) (9.0-44.0) % Creatinine (0.50-1.00) mg/dL Estimated GFR (>89) mL/min POC Glucose 114 H 188 H (68-110) mg/dl Calcium (8.5-10.1) mg/dL Actin IgG Antibody 44 H AI 10/11/18 10/11/18 10/12/18 Range/Units 17:10 20:06 05:46 RBC 3.31 L (4.00-5.30) mil/mm3 Hgb 10.1 L (11.6-15.3) gm/dL Hct 30.3 L (35.0-46.0) % Lymph % (Auto) 45.4 H (9.0-44.0) % Creatinine (0.50-1.00) mg/dL Estimated GFR (>89) mL/min POC Glucose 186 H 187 H (68-110) mg/dl Calcium (8.5-10.1) mg/dL Actin IgG Antibody AI 10/12/18 Range/Units 05:46 RBC (4.00-5.30) mil/mm3 Hgb (11.6-15.3) gm/dL Hct (35.0-46.0) % Lymph % (Auto) (9.0-44.0) % Creatinine 1.18 H (0.50-1.00) mg/dL Estimated GFR 54 L (>89) mL/min POC Glucose (68-110) mg/dl Calcium 8.3 L (8.5-10.1) mg/dL Actin IgG Antibody AI Short CBC 10/12/18 Range/Units 05:46 WBC 10.4 (4.0-11.0) th/mm3 Hgb 10.1 L (11.6-15.3) gm/dL Hct 30.3 L (35.0-46.0) % Plt Count 258 (150-450) th/mm3 [facility] 10/12/18 05:46 Sodium 140 Potassium 4.7 Chloride 107 Carbon Dioxide 28.0 BUN 18 Creatinine 1.18 H Calcium 8.3 L <Majo Banerjee - 10/12/18 09:32> Abnormal lab results 10/10/18 10/10/18 10/11/18 Range/Units 17:39 19:36 11:36 POC Glucose 148 H 177 H 114 H (68-110) mg/dl <Starla Ruff U - 10/11/18 13:33> - Imaging Impressions Chest X-Ray 10/11/18 14:36 CONCLUSION: Mild compensated cardiomegaly. Minimal bilateral bibasilar parental changes worse in the left Chest X-Ray 10/12/18 14:36 CONCLUSION: No significant interval change with mild patchy atelectasis seen at the left lung base. No evidence of pleural effusion or pneumothorax. <Majo Banerjee - 10/12/18 09:32> Physical Exam Vital signs: Vital Signs 10/11/18 12:00 10/11/18 14:45 10/11/18 15:00 Temperature 97.3 F L Pulse Rate 56 L 68 62 Respiratory Rate 14 14 Blood Pressure 126/59 L 146/65 H Pulse Oximetry 100 96 10/11/18 15:15 10/11/18 15:30 10/11/18 15:45 Temperature Pulse Rate 59 L 55 L 58 L Respiratory Rate 14 13 16 Blood Pressure 147/67 H 150/64 H 145/69 H Pulse Oximetry 99 97 99 10/11/18 16:00 10/11/18 17:39 10/11/18 18:13 Temperature 97.5 F L 97.2 F L 97.6 F Pulse Rate 68 63 68 Respiratory Rate 20 20 18 Blood Pressure 148/71 H 146/73 H 158/80 H Pulse Oximetry 98 100 99 12/12/18 20:00 10/11/18 20:09 10/11/18 23:45 Temperature 97.3 F L Pulse Rate 67 55 L 55 L Respiratory Rate 16 Blood Pressure 162/74 H Pulse Oximetry 97 10/12/18 00:00 10/12/18 03:51 10/12/18 04:00 Temperature 97.9 F 97.5 F L Pulse Rate 57 L 67 65 Respiratory Rate 18 20 Blood Pressure 136/71 125/56 L Pulse Oximetry 98 96 10/12/18 08:00 Temperature 97.9 F Pulse Rate 54 L Respiratory Rate 15 Blood Pressure 136/64 Pulse Oximetry 100 Intake & Output 10/11/18 10/12/18 10/12/18 18:59 06:59 18:59 Intake Total 935 / 935 640 / 640 Output Total Balance 925 / 925 640 / 640 Weight 105 kg Intake: IV 50 / 50 100 / 100 Ancef 1 GM Premix Inj 1 gm In 100 / 100 50 ml @ 100 mls/hr IV.SIG Q8H GAIL Rx#:[id number] Ancef 2 GM Premix Inj 2 gm In 50 / 50 50 ml @ 100 mls/hr IV.SIG STERILIZATION SPECIALIST GAIL Rx#:[id number] Oral 485 / 485 540 / 540 Anesthesia Amount 400 / 400 Output: Urine 0 / 0 Estimated Blood Loss Other: # Voids 3 3 Date of Last Bowel Movement 10/10/18 # Bowel Movements 0 <Majo Banerjee R - 10/12/18 09:32> Vital Signs 10/10/18 16:00 10/10/18 17:15 10/10/18 20:00 Temperature 97.7 F Pulse Rate 68 57 L Respiratory Rate 18 Blood Pressure 165/98 H Pulse Oximetry 99 98 10/10/18 23:55 10/11/18 04:00 10/11/18 08:00 Temperature 97.9 F Pulse Rate 51 L 55 L 62 Respiratory Rate 18 Blood Pressure 150/68 H Pulse Oximetry 98 Intake & Output 10/10/18 10/11/18 10/11/18 18:59 06:59 18:59 Intake Total 680 / 680 Balance 680 / 680 Weight 105.5 kg Intake: Oral 680 / 680 Other: # Voids 5 3 Date of Last Bowel Movement 1210/10/18 10/10/18 # Bowel Movements 1 <Starla Ruff U - 10/11/18 13:33> Narrative: GENERAL: Elderly appearing female, sitting upright, very pleasant, daughter at bedside, On room air. SKIN: Warm and dry. HEAD: Normocephalic. EYES: No scleral icterus. No injection or drainage. NECK: Supple, trachea midline. No JVD or lymphadenopathy. CARDIOVASCULAR: Regular rate and rhythm without murmurs, gallops, or rubs. RESPIRATORY: Clear to auscultation bilaterally. No wheezes appreciated GASTROINTESTINAL: Abdomen soft, nondistended. NTTP MUSCULOSKELETAL: No cyanosis. Trace edema bilaterally. BACK: Nontender without obvious deformity. PYSCH: Speaking in full sentences and answering questions appropriately. <Starla Ruff U - 10/11/18 14:05> Assessment and Plan - Assessment (1) Mediastinal adenopathy Code(s): R59.0 - Localized enlarged lymph nodes Status: Acute (2) Eosinophilia Code(s): D72.1 - Eosinophilia Status: Acute (3) Wheezing Code(s): R06.2 - Wheezing Status: Acute (4) Productive cough Code(s): R05 - Cough Status: Acute (5) Diabetes Code(s): E11.9 - Type 2 diabetes mellitus without complications Status: Acute (6) Hypertension Code(s): I10 - Essential (primary) hypertension Status: Acute (7) DVT (deep venous thrombosis) Code(s): I82.409 - Acute embolism and thrombosis of unspecified deep veins of unspecified lower extremity Status: Acute (8) Nutrition, metabolism, and development symptoms Code(s): R63.8 - Other symptoms and signs concerning food and fluid intake Status: Acute <Majo Banerjee R - 10/12/18 09:32> (1) Mediastinal adenopathy Code(s): R59.0 - Localized enlarged lymph nodes Status: Acute Plan: CTA showed extensive mediastinal adenopathy, signs of interstitial disease in the peribronchial regions as well as a 0.6cm focal density in the R midlung Sputum Culture: Positive for Aspergillus Niger. With eosinophilia s/p lavage on 10/04 performed by pulmonology which was negative. DDX: Churg-Arleth disease, lymphoma, carcinoma, sarcoidosis. Hematology on board -Plan for mediastinotomy today 10/11/[address] surgery -Continue prednisone 20 mg daily. (2) Eosinophilia Code(s): D72.1 - Eosinophilia Status: Acute Plan: CBC on admission with elevated eosinophils at 58.3. Peripheral smear showed mild normochromic, normocytic anemia, mild eosinophilia Stable Continue to monitor. Hematology following. (3) Wheezing Code(s): R06.2 - Wheezing Status: Acute Plan: DuoNebs Pulmicort Protonix (4) Productive cough Code(s): R05 - Cough Status: Acute Plan: Continue Mucinex as needed (5) Diabetes Code(s): E11.9 - Type 2 diabetes mellitus without complications Status: Acute Plan: Held home metoprolol On low-dose sliding scale Well-controlled -only required 1 unit of NovoLog in the last 24 hours (6) Hypertension Code(s): I10 - Essential (primary) hypertension Status: Acute Plan: History of hypertension Losartan, carvedilol, amlodipine Vasotec as needed (7) DVT (deep venous thrombosis) Code(s): I82.409 - Acute embolism and thrombosis of unspecified deep veins of unspecified lower extremity Status: Acute Plan: Continue heparin 5000 units q. every 8 hours 24 hours after procedure Bilateral SCDs (8) Nutrition, metabolism, and development symptoms Code(s): R63.8 - Other symptoms and signs concerning food and fluid intake Status: Acute Plan: Fluids: N.p.o. except meds due to upcoming procedure Electrolytes: Monitor and replete as needed Diet: Diabetic diet when allowed to eat GI prophylaxis: Protonix 40 mg p.o. daily CODE STATUS: DNR/DNI <Starla Ruff U - 10/11/18 14:20> - Assessment and Plan 73 yo F with PMH of HTN, DM presented with SOB, productive cough and diffuse abdominal pain. Met SIRS criteria on admission. CXR did not show PNA but history consistent with PNA - started on Azithro and rocephin on admission. CT abdomen was normal and patient's abd pain resolved after a BM. Her D dimer was elevated on admission so BLE dopplers were ordered as well as a CTA. All were negative for PE/DVT, but she was found to have mediastinal adenopathy and signs interstitial lung disease. She was also notably found to have eosinophilia on admission that initially downtrended but trended back up on 09/30. Hematology was consulted in light of her eosinophilia and mediastinal adenopathy on 09/30. Clinically improving on abx. Sputum culture came back for Aspergillus Niger. Pulmonology did bronchoscopy with lavage and mediastinal biopsy on 10/04 which was negative. ID consulted for sputum culture for Aspergillus and elevated IgE. Thoracic surgery planning for node biopsy on 10/11. <Starla Ruff U - 10/11/18 14:20> Discussed Condition With: Seen and examined with Dr. Banerjee-attending, Dr. Olivier-PGY 2. <Starla Ruff U - 10/11/18 14:20> Discharge Planning: Discharge pending mediastinal biopsy. She is much clinically improved and could possibly be discharged the following day. We will await discharge recommendations from CT surgery and [facility]. <Starla Ruff U - 10/11/18 14:20> - Attending Attestation Patient seen and dw resident team. Agree with assessment and plan <Majo Banerjee R - 10/12/18 09:32>
[2018-10-11] MEDS ORDERED: Post-op Orders (for Pharmacy) OTHER STA (14:36)
--- NOTE | 2018-10-11 14:42 | P.OP ---
- Preoperative Diagnosis (1) Mediastinal adenopathy - Postoperative Diagnosis (1) Mediastinal adenopathy Date of procedure: 10/11/18 Procedure: Diagnostic mediastinoscopy Anesthesia: SUJATA Surgeon: Deisi Hoyt MD Instrumentation Designer: Jamshid Humphrey Estimated blood loss (mL): 10 Pathology: other (Level 4R lymph node fragments for pathology and cultures) Operation and Findings: The risks, benefits, complications, treatment options, and expected outcomes were discussed with the patient. The possibilities of reaction to medication, pulmonary aspiration, perforation of organs, bleeding, recurrent infection, the need for additional procedures, failure to diagnose a condition, and creating a complication requiring transfusion or operation were discussed with the patient. The patient concurred with the proposed plan, giving informed consent. The site of surgery properly noted/marked. The patient was taken to Operating Room, identified as Porsha Miner and the procedure verified as Mediastinoscopy. A Time Out was held and the above information confirmed. Standard monitoring lines were placed. General anesthesia was induced. The patient was prepped and draped and a short transverse incision was performed in the suprasternal notch and dissection was carried in the midline down to the pretracheal fascia and then in the plane into the mediastinum. A level 4R lymph node was encountered consistent with imaging studies. This was biopsied in several fragments and submitted to pathology and microbiology. Hemostasis was satisfactory. The scope was withdrawn and the incision was closed with 3-0 Vicryl in the platysma and running subcuticular Monocryl. Sterile dressings were placed. At the end of the operation, all sponge, instruments, and needle counts were correct.
[2018-10-11] MEDS ORDERED: fentaNYL Citrate Inj 100 MCG/2 ML Ampul ONE (14:53)
--- NOTE | 2018-10-11 15:41 | XR ---
EXAM DATE: 10/11/2018 3:34 PM EST AGE/SEX: 73 years / Female INDICATIONS: Status post thoracotomy. CLINICAL DATA: This is the patient's initial encounter. Patient reports that signs and symptoms have been present for 1 day and indicates a pain score of 0/10. MEDICAL/SURGICAL HISTORY: . Diabetes mellitus type II. Hypertension. None. COMPARISON: [facility] [place] 2[place] PA&LAT, 09/29/2018. . FINDINGS: The heart is enlarged. Minimal bibasilar parenchymal changes noted worse in the left. There is no pne umothorax. There is no pleural effusion. CONCLUSION: Mild compensated cardiomegaly. Minimal bilateral bibasilar parental changes worse in the left Electronically signed by: Danial Eaton MD 10/11/2018 3:39 PM EST
[2018-10-11] MEDS: ceFAZolin 1 GM Premix Inj 1 GM/50 ML PIGGYBACK IV.SIG SCH (21:28)
[2018-10-12] MEDS: ceFAZolin 1 GM Premix Inj 1 GM/50 ML PIGGYBACK IV.SIG SCH ×2 (05:02→13:11)
[2018-10-12 06:37] LABS: Baso # (Auto) 0.1 th/mm3 (0.0-0.2); Baso % (Auto) 1.2 % (0.0-2.0); Eos # (Auto) 0.3 th/mm3 (0.0-0.4); Hematocrit 30.3 % (35.0-46.0); Hemoglobin 10.1 gm/dL (11.6-15.3); Lymph # (Auto) 4.7 th/mm3 (1.0-4.8); Lymph % (Auto) 45.4 % (9.0-44.0); Mean Corpuscular HGB Conc 33.5 % (32.0-36.0); Mean Corpuscular Hemoglobin 30.6 pg (27.0-34.0); Mean Corpuscular Volume 91.4 fL (80.0-100.0); Mean Platelet Volume 8.3 fL (7.0-11.0); Mono # (Auto) 0.7 th/mm3 (0.0-0.9); Mono % (Auto) 6.3 % (0.0-8.0); Neut # (Auto) 4.6 th/mm3 (1.8-7.7); Neut % (Auto) 44.1 % (16.0-70.0); Platelet Count 258 th/mm3 (150-450); Red Blood Count 3.31 mil/mm3 (4.00-5.30); Red Cell Distribution Width 15.5 % (11.6-17.2); White Blood Count 10.4 th/mm3 (4.0-11.0)
--- NOTE | 2018-10-12 07:01 | XR ---
EXAM DATE: 10/12/2018 6:58 AM EST AGE/SEX: 73 years / Female INDICATIONS: Short of breath, evaluate pleural effusion CLINICAL DATA: This is the patient's initial encounter. Patient reports that signs and symptoms have been present for 3 weeks and indicates a pain score of 0/10. MEDICAL/SURGICAL HISTORY: Chronic obstructive pulmonary disease. Non-responsive. COMPARISON: [facility] – [place], CHEST 1V SINGLE AP, 10/11/2018. . FINDINGS: Single AP view of the chest. Mild patchy atelectasis at the left lung base. Cardiomediasti nal silhouette within normal limits. No evidence of pleural effusion or pneumothorax. CONCLUSION: No significant interval change with mild patchy atelectasis seen at the left lung base. N o evidence of pleural effusion or pneumothorax. Electronically signed by: Syed Gonzalez MD 10/12/2018 7:00 AM EST
[2018-10-12 07:20] LABS: Calcium 8.3 mg/dL (8.5-10.1)
[2018-10-12 07:23] LABS: Potassium 4.7 meq/L (3.5-5.1)
--- NOTE | 2018-10-12 07:24 | P.PNONC ---
Subjective Interval history: Patient had mediastinoscopy and biopsy yesterday. She is a little sore surgical site. She denies any significant shortness of breath. Her cough has improved. She has no chest pressure. Objective Vital Signs/Intake & Output: Vital Signs 10/11/18 08:00 10/11/18 12:00 10/11/18 14:45 Temperature 97.9 F 97.3 F L Pulse Rate 56 L 56 L 68 Respiratory Rate 18 14 Blood Pressure 150/68 H 126/59 L Pulse Oximetry 98 100 10/11/18 15:00 10/11/18 15:15 10/11/18 15:30 Temperature Pulse Rate 62 59 L 55 L Respiratory Rate 14 14 13 Blood Pressure 146/65 H 147/67 H 150/64 H Pulse Oximetry 96 99 97 10/11/18 15:45 10/11/18 16:00 10/11/18 17:39 Temperature 97.5 F L 97.2 F L Pulse Rate 58 L 68 63 Respiratory Rate 16 20 20 Blood Pressure 145/69 H 148/71 H 146/73 H Pulse Oximetry 99 98 100 10/11/18 18:13 10/11/18 20:00 10/11/18 20:09 Temperature 97.6 F 97.3 F L Pulse Rate 68 67 55 L Respiratory Rate 18 16 Blood Pressure 158/80 H 162/74 H Pulse Oximetry 99 97 10/11/18 23:45 10/12/18 00:00 10/12/18 03:51 Temperature 97.9 F Pulse Rate 55 L 57 L 67 Respiratory Rate 18 Blood Pressure 136/71 Pulse Oximetry 98 10/12/18 04:00 Temperature 97.5 F L Pulse Rate 65 Respiratory Rate 20 Blood Pressure 125/56 L Pulse Oximetry 96 Intake & Output 10/11/18 10/12/18 10/12/18 18:59 06:59 18:59 Intake Total 935 / 935 640 / 640 Output Total 10 Balance 925 / 925 640 / 640 Weight 105 kg Intake: IV 50 / 50 100 / 100 Ancef 1 GM Premix Inj 1 gm In 100 / 100 50 ml @ 100 mls/hr IV.SIG Q8H GAIL Rx#:[id number] Ancef 2 GM Premix Inj 2 gm In 50 / 50 50 ml @ 100 mls/hr IV.SIG DOG TRACK KENNEL MANAGER GAIL Rx#:[id number] Oral 485 / 485 540 / 540 Anesthesia Amount 400 / 400 Output: Urine 0 / 0 Estimated Blood Loss Other: # Voids 3 3 Date of Last Bowel Movement 10/10/18 # Bowel Movements 0 Result Diagrams: 10/12/18 05:46 10/10/18 08:01 Laboratory Results: Laboratory Results - last 24 hr 10/07/18 10/11/18 10/11/18 15:00 08:05 08:08 WBC RBC Hgb Hct MCV MCH MCHC RDW Plt Count MPV Neut % (Auto) Lymph % (Auto) Elbert % (Auto) Eos % (Auto) Baso % (Auto) Neut # (Auto) Lymph # (Auto) Elbert # (Auto) Eos # (Auto) Baso # (Auto) WBC Differential Differential Comment POC Glucose 68 80 Rheumatoid Factor Less than 14 Anti-Proteinase 3 Less than 1.0 Anti-Myeloperoxidase Less than 1.0 Actin IgG Antibody 44 H Complement C3 138 Complement C4 30 10/11/18 10/11/18 10/11/18 11:36 14:54 17:10 WBC RBC Hgb Hct MCV MCH MCHC RDW Plt Count MPV Neut % (Auto) Lymph % (Auto) Elbert % (Auto) Eos % (Auto) Baso % (Auto) Neut # (Auto) Lymph # (Auto) Elbert # (Auto) Eos # (Auto) Baso # (Auto) WBC Differential Differential Comment POC Glucose 114 H 188 H 186 H Rheumatoid Factor Anti-Proteinase 3 Anti-Myeloperoxidase Actin IgG Antibody Complement C3 Complement C4 10/11/18 10/12/18 20:06 05:46 WBC 10.4 RBC 3.31 L Hgb 10.1 L Hct 30.3 L MCV 91.4 MCH 30.6 MCHC 33.5 RDW 15.5 Plt Count 258 MPV 8.3 Neut % (Auto) 44.1 Lymph % (Auto) 45.4 H Elbert % (Auto) 6.3 Eos % (Auto) 3.0 Baso % (Auto) 1.2 Neut # (Auto) 4.6 Lymph # (Auto) 4.7 Elbert # (Auto) 0.7 Eos # (Auto) 0.3 Baso # (Auto) 0.1 WBC Differential . Differential Comment Auto diff final POC Glucose 187 H Rheumatoid Factor Anti-Proteinase 3 Anti-Myeloperoxidase Actin IgG Antibody Complement C3 Complement C4 Culture Results: Microbiology 10/04/18 12:25 Fungal Smear - Final Bronchial Washings - Left Lower Lobe No fungal elements seen Fungal Culture - Preliminary No growth in 1 week 10/04/18 12:25 Acid Fast Bacilli Smear - Final Bronchial Washings - Left Lower Lobe No acid fast bacilli seen Mycobacterial Culture - Preliminary No growth in 1 week 10/04/18 12:25 Fungal Smear - Final Bronchial Washings - Right Lower Lobe No fungal elements seen Fungal Culture - Preliminary No growth in 1 week 10/04/18 12:25 Acid Fast Bacilli Smear - Final Bronchial Washings - Right Lower Lobe No acid fast bacilli seen Mycobacterial Culture - Preliminary No growth in 1 week Imaging Studies: Impressions Chest X-Ray 10/11/18 14:36 CONCLUSION: Mild compensated cardiomegaly. Minimal bilateral bibasilar parental changes worse in the left Chest X-Ray 10/12/18 14:36 CONCLUSION: No significant interval change with mild patchy atelectasis seen at the left lung base. No evidence of pleural effusion or pneumothorax. Medications: Active Medications Generic Name Dose Route Start Last Admin Trade Name Freq PRN Reason Stop Dose Admin Al Hydroxide/Mg Hydroxide 30 ml 09/28/18 18:30 09/28/18 23:28 Milk Of Magnesia Liq PO 30 ml Q12H PRN Administration Mild Constipation Amlodipine Besylate 10 mg 09/29/18 09:00 10/11/18 10:02 Norvasc PO 10 mg DAILY GAIL Administration Budesonide/Formoterol Fumarate 2 puff 10/06/18 21:00 10/11/18 21:30 Symbicort 160/4.5 Mcg Inh INH 2 puff BID GAIL Administration Carvedilol 3.125 mg 09/28/18 21:00 10/11/18 21:29 Coreg PO 3.125 mg BID GAIL Administration Furosemide 40 mg 09/29/18 09:00 09/30/18 09:16 Lasix PO 40 mg DAILY GAIL Administration Guaifenesin 600 mg 09/28/18 21:00 10/11/18 21:29 Mucinex Er PO 600 mg BID GAIL Administration Sodium Chloride 500 mls @ 30 mls/hr 10/04/18 02:00 10/04/18 01:43 Ns Inj IV.SIG Not Given .Q10H GAIL Cefazolin Sodium/Dextrose 1 gm in 50 mls @ 100 mls/hr 10/11/18 21:00 05:32 Ancef 1 Gm Premix Inj IV.SIG 10/12/18 13:29 Infused Q8H GAIL Infusion Insulin Aspart 0 unit 09/28/18 21:00 10/11/18 21:31 Novolog Insulin Correctional Sugar Inj SQ 1 unit ACHS GAIL Administration Protocol Losartan Potassium 100 mg 09/30/18 13:15 10/11/18 10:01 Cozaar PO 100 mg DAILY GAIL Administration Pantoprazole Sodium 40 mg 09/29/18 09:00 10/11/18 10:02 Protonix PO 40 mg DAILY GAIL Administration Senna/Docusate Sodium 1 tab 09/28/18 21:00 10/11/18 21:29 Veronica-Colace PO 1 tab BID GAIL Administration Sodium Chloride 2 ml 10/11/18 21:00 10/11/18 21:29 Ns Flush IV.FLUSH 2 ml BID GAIL Administration Objective Remarks: GENERAL: Well-nourished, well-developed patient. Obese. SKIN: Warm and dry. HEAD: Normocephalic. EYES: No scleral icterus. No injection or drainage. NECK: Supple, trachea midline. No JVD or lymphadenopathy. LYMPHATIC: No adenopathy. CARDIOVASCULAR: Regular rate and rhythm without murmurs. Surgical site superior sternum has no obvious bleeding noted. RESPIRATORY: Breath sounds equal bilaterally. No accessory muscle use. GASTROINTESTINAL: Abdomen soft, non-tender, nondistended. EXTREMITIES: No cyanosis, or edema. MUSCULOSKELETAL: Adequate muscle tone. NEUROLOGICAL: No obvious focal deficit. Awake, alert, and oriented x3. PSYCHIATRIC: Appropriate mood and affect; insight and judgment normal. Assessment/Plan - Plan 73-year-old female admitted to the hospital with complaints of cough and shortness of breath. She had imaging done that showed extensive mediastinal lymphadenopathy involving pretracheal, paratracheal, subcarinal AP window and bilateral hilar area. Interestingly she also had leukocytosis and eosinophilia on presentation. Differential diagnosis includes lymphoproliferative disorder or sarcoidosis vs viral pneumonia. The patient is feeling better after beginning antibiotics and steroids. The mediastinal adenopathy is not accessible for percutaneous biopsy and pulmonology has been consulted. Patient underwent bronchoscopy but EBUS and biopsy could not be done. 1. Eosinophilia has improved to a normal range again. Sputum culture grew Aspergillus which is likely the cause of eosinophilia. JAK2 mutation negative. ALBERT positive. TB test negative. IgE significantly elevated. Status post bronchoscopy with brushing, cultures are negative to date. Continue to monitor CBC. 2. Mediastinal adenopathy. EBUS could not be done due to technical difficulty. Bronchial washing cytology were negative. She had mediastinoscopy with biopsy yesterday. Tissue was sent for pathology and microbiology. Results are pending. This could be reactive but cannot rule out neoplastic process. RAMIREZ level low normal. Sarcoidosis is in the differential. 3. Continue supportive care.
[2018-10-12 08:38] VITALS: TEMP 97.9; O2SAT 100
[2018-10-12] MEDS: Senna/Docusate Sodium 8.6/50 MG Tablet PO SCH (09:53)
[2018-10-12] MEDS: amLODIPine 10 MG Tablet PO SCH (09:53)
[2018-10-12] MEDS: Insulin NovoLOG Aspart Correctional Sugar Inj SQ SCH ×2 (09:53→13:12)
[2018-10-12] MEDS: guaiFENesin 600 MG ER Tablet PO SCH (09:53)
[2018-10-12] MEDS: Budesonide-Formoterol 160/4.5 MCG 6 GM Inhaler INH SCH (09:54)
--- NOTE | 2018-10-12 10:33 | P.PNFP ---
Subjective Interval history: In bed eating breakfast comfortably. Tolerated her procedure well. No complaints except for pain around her neck incision. She denies any chest pain, shortness of breath, abdominal pain, problems with urination or defecation. <MayrajeannaEarl venegasa - 10/12/18 14:27> Results - Labs Result diagrams: 10/12/18 05:46 10/12/18 05:46 <Bernadette Banerjeeie Alejo - 10/12/18 16:12> Abnormal lab results 10/07/18 10/11/18 10/11/18 Range/Units 15:00 17:10 20:06 RBC (4.00-5.30) mil/mm3 Hgb (11.6-15.3) gm/dL Hct (35.0-46.0) % Lymph % (Auto) (9.0-44.0) % Creatinine (0.50-1.00) mg/dL Estimated GFR (>89) mL/min POC Glucose 186 H 187 H (68-110) mg/dl Calcium (8.5-10.1) mg/dL Actin IgG Antibody 44 H AI 10/12/18 10/12/18 10/12/18 Range/Units 05:46 05:46 11:34 RBC 3.31 L (4.00-5.30) mil/mm3 Hgb 10.1 L (11.6-15.3) gm/dL Hct 30.3 L (35.0-46.0) % Lymph % (Auto) 45.4 H (9.0-44.0) % Creatinine 1.18 H (0.50-1.00) mg/dL Estimated GFR 54 L (>89) mL/min POC Glucose 226 H (68-110) mg/dl Calcium 8.3 L (8.5-10.1) mg/dL Actin IgG Antibody AI Short CBC 10/12/18 Range/Units 05:46 WBC 10.4 (4.0-11.0) th/mm3 Hgb 10.1 L (11.6-15.3) gm/dL Hct 30.3 L (35.0-46.0) % Plt Count 258 (150-450) th/mm3 [facility] 10/12/18 05:46 Sodium 140 Potassium 4.7 Chloride 107 Carbon Dioxide 28.0 BUN 18 Creatinine 1.18 H Calcium 8.3 L <Majo Banerjee R - 10/12/18 16:12> Abnormal lab results 10/07/18 10/11/18 10/11/18 Range/Units 15:00 11:36 14:54 RBC (4.00-5.30) mil/mm3 Hgb (11.6-15.3) gm/dL Hct (35.0-46.0) % Lymph % (Auto) (9.0-44.0) % Creatinine (0.50-1.00) mg/dL Estimated GFR (>89) mL/min POC Glucose 114 H 188 H (68-110) mg/dl Calcium (8.5-10.1) mg/dL Actin IgG Antibody 44 H AI 10/11/18 10/11/18 10/12/18 Range/Units 17:10 20:06 05:46 RBC 3.31 L (4.00-5.30) mil/mm3 Hgb 10.1 L (11.6-15.3) gm/dL Hct 30.3 L (35.0-46.0) % Lymph % (Auto) 45.4 H (9.0-44.0) % Creatinine (0.50-1.00) mg/dL Estimated GFR (>89) mL/min POC Glucose 186 H 187 H (68-110) mg/dl Calcium (8.5-10.1) mg/dL Actin IgG Antibody AI 10/12/18 Range/Units 05:46 RBC (4.00-5.30) mil/mm3 Hgb (11.6-15.3) gm/dL Hct (35.0-46.0) % Lymph % (Auto) (9.0-44.0) % Creatinine 1.18 H (0.50-1.00) mg/dL Estimated GFR 54 L (>89) mL/min POC Glucose (68-110) mg/dl Calcium 8.3 L (8.5-10.1) mg/dL Actin IgG Antibody Short CBC 10/12/18 Range/Units 05:46 WBC 10.4 (4.0-11.0) th/mm3 Hgb 10.1 L (11.6-15.3) gm/dL Hct 30.3 L (35.0-46.0) % Plt Count 258 (150-450) th/mm3 [facility] 10/12/18 05:46 Sodium 140 Potassium 4.7 Chloride 107 Carbon Dioxide 28.0 BUN 18 Creatinine 1.18 H Calcium 8.3 L <MayraamanSydnee - 10/12/18 10:33> - Imaging Impressions Chest X-Ray 10/12/18 14:36 CONCLUSION: No significant interval change with mild patchy atelectasis seen at the left lung base. No evidence of pleural effusion or pneumothorax. <Majo Banerjee - 10/12/18 16:12> Impressions Chest X-Ray 10/11/18 14:36 CONCLUSION: Mild compensated cardiomegaly. Minimal bilateral bibasilar parental changes worse in the left Chest X-Ray 10/12/18 14:36 CONCLUSION: No significant interval change with mild patchy atelectasis seen at the left lung base. No evidence of pleural effusion or pneumothorax. <AshleySydnee - 10/12/18 10:33> Physical Exam Vital signs: Vital Signs 10/11/18 17:39 10/11/18 18:13 10/11/18 20:00 Temperature 97.2 F L 97.6 F 97.3 F L Pulse Rate 63 68 67 Respiratory Rate 20 18 16 Blood Pressure 146/73 H 158/80 H 162/74 H Pulse Oximetry 100 99 97 10/11/18 20:09 10/11/18 23:45 10/12/18 00:00 Temperature 97.9 F Pulse Rate 55 L 55 L 57 L Respiratory Rate 18 Blood Pressure 136/71 Pulse Oximetry 98 10/12/18 03:51 10/12/18 04:00 10/12/18 08:00 Temperature 97.5 F L 97.9 F Pulse Rate 67 65 59 L Respiratory Rate 20 15 Blood Pressure 125/56 L 136/64 Pulse Oximetry 96 100 10/12/18 12:00 Temperature 97.9 F Pulse Rate 69 Respiratory Rate 14 Blood Pressure 136/65 Pulse Oximetry 100 Intake & Output 10/11/18 10/12/18 10/12/18 18:59 06:59 18:59 Intake Total 935 / 935 640 / 640 50 / 50 Output Total 10 / 10 Balance 925 / 925 640 / 640 50 / 50 Weight 105 kg Intake: IV 50 / 50 100 / 100 50 / 50 Ancef 1 GM Premix Inj 1 gm In 100 / 100 50 / 50 50 ml @ 100 mls/hr IV.SIG Q8H GAIL Rx#:[id number] Ancef 2 GM Premix Inj 2 gm In 50 / 50 50 ml @ 100 mls/hr IV.SIG PERMANENT WAVER [facility] Rx#:[id number] Oral 485 / 485 540 / 540 Anesthesia Amount 400 / 400 Output: Urine 0 / 0 Estimated Blood Loss Other: # Voids 3 3 Date of Last Bowel Movement 10/10/18 10/11/18 # Bowel Movements 0 <Majo Banerjee R - 10/12/18 16:12> Vital Signs 10/11/18 12:00 10/11/18 14:45 10/11/18 15:00 Temperature 97.3 F L Pulse Rate 56 L 68 62 Respiratory Rate 14 14 Blood Pressure 126/59 L 146/65 H Pulse Oximetry 100 96 10/11/18 15:15 10/11/18 15:30 10/11/18 15:45 Temperature Pulse Rate 59 L 55 L 58 L Respiratory Rate 14 13 16 Blood Pressure 147/67 H 150/64 H 145/69 H Pulse Oximetry 99 97 99 10/11/18 16:00 10/11/18 17:39 10/11/18 18:13 Temperature 97.5 F L 97.2 F L 97.6 F Pulse Rate 68 63 68 Respiratory Rate 20 20 18 Blood Pressure 148/71 H 146/73 H 158/80 H Pulse Oximetry 98 100 99 10/11/18 20:00 10/11/18 20:09 10/11/18 23:45 Temperature 97.3 F L Pulse Rate 67 55 L 55 L Respiratory Rate 16 Blood Pressure 162/74 H Pulse Oximetry 97 10/12/18 00:00 10/12/18 03:51 10/12/18 04:00 Temperature 97.9 F 97.5 F L Pulse Rate 57 L 67 65 Respiratory Rate 18 20 Blood Pressure 136/71 125/56 L Pulse Oximetry 98 96 10/12/18 08:00 Temperature 97.9 F Pulse Rate 54 L Respiratory Rate 15 Blood Pressure 136/64 Pulse Oximetry 100 Intake & Output 10/11/18 10/12/18 10/12/18 18:59 06:59 18:59 Intake Total 935 / 935 640 / 640 Output Total 10 10 Balance 925 / 925 640 / 640 Weight 105 kg Intake: IV 50 / 50 100 / 100 Ancef 1 GM Premix Inj 1 gm In 100 / 100 50 ml @ 100 mls/hr IV.SIG Q8H GAIL Rx#:[id number] Ancef 2 GM Premix Inj 2 gm In 50 / 50 50 ml @ 100 mls/hr IV.SIG PERMANENT WAVER GAIL Rx#:[id number] Oral 485 / 485 540 / 540 Anesthesia Amount 400 / 400 Output: Urine 0 / 0 Estimated Blood Loss Other: # Voids 3 3 Date of Last Bowel Movement 10/10/18 # Bowel Movements 0 <Sydnee Ramirez - 10/12/18 10:33> Narrative: GENERAL: Elderly appearing female, sitting upright, very pleasant, On room air. SKIN: Warm and dry. HEAD: Normocephalic. EYES: No scleral icterus. No injection or drainage. NECK: Supple, trachea midline. Midline lower tracheal incision present covered with a bandage. No drainage noted. no JVD or lymphadenopathy. CARDIOVASCULAR: Regular rate and rhythm without murmurs, gallops, or rubs. RESPIRATORY: Clear to auscultation bilaterally. No wheezes appreciated GASTROINTESTINAL: Abdomen soft, nondistended. NTTP MUSCULOSKELETAL: No cyanosis. Trace edema bilaterally. BACK: Nontender without obvious deformity. PYSCH: Speaking in full sentences and answering questions appropriately. <Sydnee Ramirez - 10/12/18 10:35> Assessment and Plan - Assessment (1) Mediastinal adenopathy Code(s): R59.0 - Localized enlarged lymph nodes Status: Acute (2) Eosinophilia Code(s): D72.1 - Eosinophilia Status: Acute (3) Wheezing Code(s): R06.2 - Wheezing Status: Acute (4) Productive cough Code(s): R05 - Cough Status: Acute (5) Diabetes Code(s): E11.9 - Type 2 diabetes mellitus without complications Status: Acute (6) Hypertension Code(s): I10 - Essential (primary) hypertension Status: Acute (7) DVT (deep venous thrombosis) Code(s): I82.409 - Acute embolism and thrombosis of unspecified deep veins of unspecified lower extremity Status: Acute (8) Nutrition, metabolism, and development symptoms Code(s): R63.8 - Other symptoms and signs concerning food and fluid intake Status: Acute <Majo Banerjee R - 10/12/18 16:12> (1) Mediastinal adenopathy Code(s): R59.0 - Localized enlarged lymph nodes Status: Acute Plan: CTA showed extensive mediastinal adenopathy, signs of interstitial disease in the peribronchial regions as well as a 0.6cm focal density in the R midlung Sputum Culture: Positive for Aspergillus Niger. With eosinophilia s/p lavage on 10/04 performed by pulmonology which was negative. DDX: Churg-Arleth disease, lymphoma, carcinoma, sarcoidosis. Hematology on board -Postop day 1 from mediastinotomy. Procedure well-tolerated. Pulmonology: Okay to DC home. Follow-up with pulmonology or Heme/Onc in 1 week to discuss biopsy results. DC to home on Symbicort and Mucinex (2) Eosinophilia Code(s): D72.1 - Eosinophilia Status: Acute Plan: CBC on admission with elevated eosinophils at 58.3. Peripheral smear showed mild normochromic, normocytic anemia, mild eosinophilia Stable Follow-up with Dr. Galeana as outpatient. (3) Wheezing Code(s): R06.2 - Wheezing Status: Acute Plan: DuoNebs Pulmicort Protonix (4) Productive cough Code(s): R05 - Cough Status: Acute Plan: DC to home on Mucinex. (5) Diabetes Code(s): E11.9 - Type 2 diabetes mellitus without complications Status: Acute Plan: DC to home on metformin. (6) Hypertension Code(s): I10 - Essential (primary) hypertension Status: Acute Plan: History of hypertension Losartan, carvedilol, amlodipine (7) DVT (deep venous thrombosis) Code(s): I82.409 - Acute embolism and thrombosis of unspecified deep veins of unspecified lower extremity Status: Acute Plan: Continue heparin 5000 units q. every 8 hours 24 hours after procedure Bilateral SCDs (8) Nutrition, metabolism, and development symptoms Code(s): R63.8 - Other symptoms and signs concerning food and fluid intake Status: Acute Plan: Fluids: Encourage p.o. intake Electrolytes: Monitor and replete as needed Diet: Diabetic diet CODE STATUS: DNR/DNI <Sydnee Ramirez - 10/12/18 14:32> - Assessment and Plan 73 yo F with PMH of HTN, DM presented with SOB, productive cough and diffuse abdominal pain. Met SIRS criteria on admission. CXR did not show PNA but history consistent with PNA - started on Azithro and rocephin on admission. CT abdomen was normal and patient's abd pain resolved after a BM. Her D dimer was elevated on admission so BLE dopplers were ordered as well as a CTA. All were negative for PE/DVT, but she was found to have mediastinal adenopathy and signs interstitial lung disease. She was also notably found to have eosinophilia on admission that initially downtrended but trended back up on 09/30. Hematology was consulted in light of her eosinophilia and mediastinal adenopathy on 09/30. Clinically improving on abx. Sputum culture came back for Aspergillus Niger. Pulmonology did bronchoscopy with lavage and mediastinal biopsy on 10/04 which was negative. ID consulted for sputum culture for Aspergillus and elevated IgE. Postop day 1 from mediastinoscopy with biopsy on 10/11.. Patient to be DC 'd to home on Symbicort and Mucinex. Advised to follow-up with pulmonology and Heme/Onc to discuss to see biopsy results. <Sydnee Ramirez - 10/12/18 14:12> - Attending Attestation Patient seen and dw the resident team. Agree with the assessment and plan <Majo Banerjee - 10/12/18 16:12>
[2018-10-12 12:57] VITALS: BP 136/65; RESP 14
--- NOTE | 2018-10-12 13:02 | MD ---
cc: Mar Tirado MD DATE OF DISCHARGE: HOSPITAL COURSE: The patient is a 73-year-old black female who presented on 09/28/2018 with shortness of breath. She had had a former smoking history and was initially treated for what was felt to be an exacerbation of COPD. However, a CT scan revealed some basilar changes consistent with mild bronchiectasis and she also had significant mediastinal adenopathy. The patient did well with therapy initially, was quite dyspneic and arterial blood gases on 3 liters nasal cannula on 09/28/2018 revealed respiratory acidosis with a pCO2 of 63, a pH 7.29 and a pO2 of 95. On 1 liter on 09/30/2018, her pH was normal, pCO2 was down to 40 and pO2 was 229. In light of the significant mediastinal adenopathy a number of studies were done that were abnormal. Nasal MRSA screen was negative. White count was rather dramatic in that she had almost 60% eosinophils originally. That eventually declined substantially almost back to normal but, of course, she had been treated with steroids for the COPD. She also had a positive ALBERT at 1:320 and a number of studies were still pending to further evaluate that positive ALBERT. Complement levels were normal. She also had a dramatic elevation in her IgE level at 73,000 with a normal rheumatoid factor. TBQFT were negative. She was bronchoscoped and no fungal elements or acid fast bacilli were noted. Cultures on those are still pending and routine culture revealed normal jennifer. An ANCA is also pending. Hematology saw her and could not identify any specific blood disorder or obvious malignancy, although lymphoma is a consideration in light of the adenopathy. She also had an RAMIREZ level, which was normal. She also had one sputum culture, which revealed Aspergillus Niger, although again, at this point, fungal cultures have been negative on the bronchoscopy specimen. Yesterday, she underwent a mediastinoscopy. Mediastinal lymph nodes have been submitted for pathology and culture. Initial review with the pathologist suggest that these are benign lymph nodes, although multiple studies are pending including a flow cytometry. I saw the patient today, she is awake, alert. She has been very stable. She has been on room air with O2 saturations of 98%. She is afebrile. Her vital signs are stable and lungs are clear. As soon as she is cleared by thoracic surgery, she could be discharged home. I will see her back in the office after the first of the year. I did explain to her that I would be away until then, so that if she had recurrent problems with her breathing, she should come back to the hospital. A number of studies are still pending. Differential diagnosis at this point includes lymphoma, chronic inflammatory condition such as sarcoid vasculitis in light of the positive ALBERT and less likely some type of fungal infection. Further diagnostic and/or therapeutic intervention will depend on the results of all of these studies and reevaluation upon return as an outpatient. R. MD SANDRO Martinez/hector , 12:34 PM , 12:43 PM
--- NOTE | 2018-10-12 13:17 | P.PNCV ---
- Note CVT: Post Op Day #: 1 Subjective/Hospital Course: doing well s/p mediastinoscopy Objective: Vital Signs - 24 hr 10/11/18 14:45 10/11/18 15:00 10/11/18 15:15 Temperature 97.3 F L Pulse Rate 68 62 59 L Respiratory Rate 14 14 14 Blood Pressure 126/59 L 146/65 H 147/67 H Pulse Oximetry 100 96 99 10/11/18 15:30 10/11/18 15:45 10/11/18 16:00 Temperature 97.5 F L Pulse Rate 55 L 58 L 68 Respiratory Rate 13 16 20 Blood Pressure 150/64 H 145/69 H 148/71 H Pulse Oximetry 97 99 98 10/11/18 17:39 10/11/18 18:13 10/11/18 20:00 Temperature 97.2 F L 97.6 F 97.3 F L Pulse Rate 63 68 67 Respiratory Rate 20 18 16 Blood Pressure 146/73 H 158/80 H 162/74 H Pulse Oximetry 100 99 97 10/11/18 20:09 10/11/18 23:45 10/12/18 00:00 Temperature 97.9 F Pulse Rate 55 L 55 L 57 L Respiratory Rate 18 Blood Pressure 136/71 Pulse Oximetry 98 10/12/18 03:51 10/12/18 04:00 10/12/18 08:00 Temperature 97.5 F L 97.9 F Pulse Rate 67 65 59 L Respiratory Rate 20 15 Blood Pressure 125/56 L 136/64 Pulse Oximetry 96 100 10/12/18 12:00 Temperature 97.9 F Pulse Rate 70 Respiratory Rate 14 Blood Pressure 136/65 Pulse Oximetry 100 Labs: Laboratory Results - last 12 hr 10/07/18 10/12/18 10/12/18 15:00 05:46 05:46 WBC 10.4 RBC 3.31 L Hgb 10.1 L Hct 30.3 L MCV 91.4 MCH 30.6 MCHC 33.5 RDW 15.5 Plt Count 258 MPV 8.3 Neut % (Auto) 44.1 Lymph % (Auto) 45.4 H [place] % (Auto) 6.3 Eos % (Auto) 3.0 Baso % (Auto) 1.2 Neut # (Auto) 4.6 Lymph # (Auto) 4.7 [place] # (Auto) 0.7 Eos # (Auto) 0.3 Baso # (Auto) 0.1 WBC Differential . Differential Comment Auto diff final Sodium 140 Potassium 4.7 Chloride 107 Carbon Dioxide 28.0 Anion Gap 5 BUN 18 Creatinine 1.18 H Estimated GFR 54 L POC Glucose Random Glucose 98 Calcium 8.3 L Anti-Mitochondrial Titr ND Anti-Mitochondrial Ab Negative Actin IgG Antibody 44 H 10/12/18 10/12/18 08:35 11:34 WBC RBC Hgb Hct MCV MCH MCHC RDW Plt Count MPV Neut % (Auto) Lymph % (Auto) [place] % (Auto) Eos % (Auto) Baso % (Auto) Neut # (Auto) Lymph # (Auto) [place] # (Auto) Eos # (Auto) Baso # (Auto) WBC Differential Differential Comment Sodium Potassium Chloride Carbon Dioxide Anion Gap BUN Creatinine Estimated GFR POC Glucose 79 226 H Random Glucose Calcium Anti-Mitochondrial Titr Anti-Mitochondrial Ab Actin IgG Antibody Result Diagrams: 10/12/18 05:46 10/12/18 05:46 Imaging: Abdomen/Pelvis CT 09/29/18 00:00 CONCLUSION: 1. Gallstones 2. Degenerative postoperative change in the lumbar spine. 3. Peribronchial areas of consolidation the lower lobes bilaterally. Chest CTA 09/29/18 00:00 CONCLUSION: 1. No pulmonary was. 2. Extensive mediastinal adenopathy. The cause of this adenopathy is not known. Inflammatory or neoplastic adenopathy could have this appearance. 3. Interstitial disease in the peribronchial regions at the lower lungs and in the anterior left upper lobe. This could be related to chronic interstitial disease or a more acute interstitial consolidation. This can be followed. 4. 0.6 cm focal density in the right midlung which could be followed with a noncontrast CT examination 6 months. Venous Doppler Study 09/29/18 00:00 CONCLUSION: The study is negative for bilateral lower extremity deep venous thrombosis. Chest X-Ray 10/12/18 14:36 CONCLUSION: No significant interval change with mild patchy atelectasis seen at the left lung base. No evidence of pleural effusion or pneumothorax. Cardiovascular: RRR Pulmonary: CTA Incision: dry and intact Doing well s/p mediastinoscopy. Studies pending. OK to DC from my standpoint
--- NOTE | 2018-10-12 15:08 | P.DS ---
Date of admission: 09/28/18 18:48 Primary care physician: Danial Bhardwaj DO Brief History from admission: 73 year old female presents with SOB, and productive cough (white mucous/ no blood) that started on Tuesday. It got progressively worse and she started wheezing on Tuesday until today when she felt fatigued, lightheaded and had diffuse stomach pain. She did not take any medication for her shortness of breath. She is unable to completely state her full HPI due to mouth breathing during the interview. She was brought to the emergency room for further evaluation. Today, she denies any fevers, chest pain. No burning with urination. Last BM yesterday. Normal Bowel movements. No blood in the stools. Taking medication daily except for her amlodipine which she ran out of a couple days ago. PMH: HBP, Diabetes PSH: Knee Surgery, Appendectomy. Allergies: None Meds: Meloxicam, amlodipine, Coreg, furosemide, losartan, metformin. Social Hx: Lives alone. Used to smoke 1 ppd for around 30 years ( stopped 20 years ago). Does not drink any alcohol. No street drugs. No recent travel. Did not get flu shot. Daughter had bronchitis last week and was treated with antibiotics. Fam HX: Daughter and Sister both have HTN and DM2. Stomach and breast cancer in Aunt ( fathers side). ROS: Denies any headaches, cp, leg pain. Denies any recent weight loss, chills , fever, night sweats. No change in appetite. Complains of a sore throat when she coughs and diffuse abdominal pain. DNR/DNI DS: Diagnosis - Discharge Diagnosis (1) Mediastinal adenopathy Status: Acute (2) Eosinophilia Status: Acute (3) Wheezing Status: Acute (4) Productive cough Status: Acute (5) Diabetes Status: Acute (6) Hypertension Status: Acute (7) DVT (deep venous thrombosis) Status: Acute (8) Nutrition, metabolism, and development symptoms Status: Acute DS: Medications - Discharge Medications Prescriptions: budesonide-formoterol [Symbicort] 2 puff INH BID #1 inhaler guaifenesin [Mucinex] 600 mg PO BID 3 Days #60 tab DS: Summary Hospital Course: 73 yo F with PMH of HTN, DM presented with SOB, productive cough and diffuse abdominal pain. Met SIRS criteria on admission. CXR did not show PNA but history consistent with PNA - started on Azithro and rocephin on admission. CT abdomen was normal and patient's abd pain resolved after a BM. Her D dimer was elevated on admission so BLE dopplers were ordered as well as a CTA. All were negative for PE/DVT, but she was found to have mediastinal adenopathy and signs for interstitial lung disease. She was also notably found to have eosinophilia on admission that initially downtrended but trended back up on 09/30. Hematology was consulted in light of her eosinophilia and mediastinal adenopathy on 09/30. Clinically improving on abx. Sputum culture came back for Aspergillus [place]. Pulmonology did bronchoscopy with lavage and mediastinal biopsy on 10/04 which was negative. ID consulted for sputum culture for Aspergillus and elevated IgE. Patient then had a mediastinoscopy with biopsy on 10/11. Patient was DC'd to home on Symbicort and Mucinex. Advised to follow-up with pulmonology and Heme/Onc to discuss to see biopsy results. - Time Spent with Patient Total time spent providing and/or coordinating discharge services: Less than 30 minutes Exam Vital signs: Vital Signs 10/11/18 15:15 10/11/18 15:30 10/11/18 15:45 Temperature Pulse Rate 59 L 55 L 58 L Respiratory Rate 14 13 16 Blood Pressure 147/67 H 150/64 H 145/69 H Pulse Oximetry 99 97 99 10/11/18 16:00 10/11/18 17:39 10/11/18 18:13 Temperature 97.5 F L 97.2 F L 97.6 F Pulse Rate 68 63 68 Respiratory Rate 20 20 18 Blood Pressure 148/71 H 146/73 H 158/80 H Pulse Oximetry 98 100 99 10/11/18 20:00 10/11/18 20:09 10/11/18 23:45 Temperature 97.3 F L Pulse Rate 67 55 L 55 L Respiratory Rate 16 Blood Pressure 162/74 H Pulse Oximetry 97 10/12/18 00:00 10/12/18 03:51 10/12/18 04:00 Temperature 97.9 F 97.5 F L Pulse Rate 57 L 67 65 Respiratory Rate 18 20 Blood Pressure 136/71 125/56 L Pulse Oximetry 98 96 10/12/18 08:00 10/12/18 12:00 Temperature 97.9 F 97.9 F Pulse Rate 59 L 70 Respiratory Rate 15 14 Blood Pressure 136/64 136/65 Pulse Oximetry 100 100 Intake & Output 10/11/18 10/12/18 10/12/18 18:59 06:59 18:59 Intake Total 935 / 935 640 / 640 50 / 50 Output Total Balance 925 / 925 640 / 640 50 / 50 Weight 105 kg Intake: IV 50 / 50 100 / 100 50 / 50 Ancef 1 GM Premix Inj 1 gm In 100 / 100 50 / 50 50 ml @ 100 mls/hr IV.SIG Q8H GAIL Rx#:[id number] Ancef 2 GM Premix Inj 2 gm In 50 / 50 50 ml @ 100 mls/hr IV.SIG COMPUTER AIDED DRAFTER GAIL Rx#:[id number] Oral 485 / 485 540 / 540 Anesthesia Amount 400 / 400 Output: Urine 0 / 0 Estimated Blood Loss Other: # Voids 3 3 Date of Last Bowel Movement 10/10/18 10/11/18 # Bowel Movements 0 Narrative: GENERAL: Elderly appearing female, sitting upright, very pleasant, On room air. SKIN: Warm and dry. HEAD: Normocephalic. EYES: No scleral icterus. No injection or drainage. NECK: Supple, trachea midline. Midline lower tracheal incision present covered with a bandage. No drainage noted. no JVD or lymphadenopathy. CARDIOVASCULAR: Regular rate and rhythm without murmurs, gallops, or rubs. RESPIRATORY: Clear to auscultation bilaterally. No wheezes appreciated GASTROINTESTINAL: Abdomen soft, nondistended. NTTP MUSCULOSKELETAL: No cyanosis. Trace edema bilaterally. BACK: Nontender without obvious deformity. PYSCH: Speaking in full sentences and answering questions appropriately. Results Procedures completed during hospitalization: Pulmonology did bronchoscopy with lavage and mediastinal biopsy on 10/04. Mediastinoscopy with biopsy on 10/11 Pending studies at discharge: Pending at discharge 10/11/18 14:44 Surgical [PTH] Routine Labs on day of discharge: Labs from last 24 hours 10/12/18 10/12/18 10/12/18 11:34 08:35 05:46 WBC RBC Hgb Hct MCV MCH MCHC RDW Plt Count MPV Neut % (Auto) Lymph % (Auto) [place] % (Auto) Eos % (Auto) Baso % (Auto) Neut # (Auto) Lymph # (Auto) [place] # (Auto) Eos # (Auto) Baso # (Auto) WBC Differential Differential Comment Sodium 140 Potassium 4.7 Chloride 107 Carbon Dioxide 28.0 Anion Gap 5 BUN 18 Creatinine 1.18 H Estimated GFR 54 L POC Glucose 226 H 79 Random Glucose 98 Calcium 8.3 L Anti-Proteinase 3 Anti-Myeloperoxidase Anti-Mitochondrial Titr Anti-Mitochondrial Ab Actin IgG Antibody Misc Test Result 10/12/18 10/11/18 10/11/18 05:46 20:06 17:10 WBC 10.4 RBC 3.31 L Hgb 10.1 L Hct 30.3 L MCV 91.4 MCH 30.6 MCHC 33.5 RDW 15.5 Plt Count 258 MPV 8.3 Neut % (Auto) 44.1 Lymph % (Auto) 45.4 H [place] % (Auto) 6.3 Eos % (Auto) 3.0 Baso % (Auto) 1.2 Neut # (Auto) 4.6 Lymph # (Auto) 4.7 [place] # (Auto) 0.7 Eos # (Auto) 0.3 Baso # (Auto) 0.1 WBC Differential . Differential Comment Auto diff final Sodium Potassium Chloride Carbon Dioxide Anion Gap BUN Creatinine Estimated GFR POC Glucose 187 H 186 H Random Glucose Calcium Anti-Proteinase 3 Anti-Myeloperoxidase Anti-Mitochondrial Titr Anti-Mitochondrial Ab Actin IgG Antibody Misc Test Result 10/11/18 10/07/18 14:44 15:00 WBC RBC Hgb Hct MCV MCH MCHC RDW Plt Count MPV Neut % (Auto) Lymph % (Auto) [place] % (Auto) Eos % (Auto) Baso % (Auto) Neut # (Auto) Lymph # (Auto) [place] # (Auto) Eos # (Auto) Baso # (Auto) WBC Differential Differential Comment Sodium Potassium Chloride Carbon Dioxide Anion Gap BUN Creatinine Estimated GFR POC Glucose Random Glucose Calcium Anti-Proteinase 3 Less than 1.0 Anti-Myeloperoxidase Less than 1.0 Anti-Mitochondrial Titr ND Anti-Mitochondrial Ab Negative Actin IgG Antibody 44 H Misc Test Result Pending Preliminary micro results at discharge 10/11/18 14:09 Wound Culture - Preliminary Tissue - Other No growth in 24 hours 10/04/18 12:25 Fungal Culture - Preliminary Bronchial Washings - Left Lower Lobe No growth in 1 week 10/04/18 12:25 Mycobacterial Culture - Preliminary Bronchial Washings - Left Lower Lobe No growth in 1 week 10/04/18 12:25 Fungal Culture - Preliminary Bronchial Washings - Right Lower Lobe No growth in 1 week 10/04/18 12:25 Mycobacterial Culture - Preliminary Bronchial Washings - Right Lower Lobe No growth in 1 week - Impressions ITS Impressions Abdomen/Pelvis CT 09/29/18 00:00 CONCLUSION: 1. Gallstones 2. Degenerative postoperative change in the lumbar spine. 3. Peribronchial areas of consolidation the lower lobes bilaterally. Chest CTA 09/29/18 00:00 CONCLUSION: 1. No pulmonary was. 2. Extensive mediastinal adenopathy. The cause of this adenopathy is not known. Inflammatory or neoplastic adenopathy could have this appearance. 3. Interstitial disease in the peribronchial regions at the lower lungs and in the anterior left upper lobe. This could be related to chronic interstitial disease or a more acute interstitial consolidation. This can be followed. 4. 0.6 cm focal density in the right midlung which could be followed with a noncontrast CT examination 6 months. Venous Doppler Study 09/29/18 00:00 CONCLUSION: The study is negative for bilateral lower extremity deep venous thrombosis. Chest X-Ray 10/12/18 14:36 CONCLUSION: No significant interval change with mild patchy atelectasis seen at the left lung base. No evidence of pleural effusion or pneumothorax. Discharge Plan - Discharge Disposition Patient Disposition: 01 Discharge Home - Discharge Condition Condition: Stable - Discharge Order Discharge Orders: Discharge Order (Routine); Ordered 10/12/18 Ordered By: Sydnee Ramirez ED Use Only Admit Order (Routine); Ordered 09/28/18 Ordered By: Blanca Bacon - Physicians Team Primary Care Provider: Danial Bhardwaj Attending Provider: Majo Banerjee Other Providers: Rick Galeana MD ; Jose Cervantes MD ; Kaley Chow MD ; Deisi Hoyt MD
[2018-10-12 15:57] VITALS: PULSE 69
[2018-10-13 09:35] LABS: DS DNA Ab (Crithidia) 2
== END 2018-10-12 15:26 | disposition home or self-care (01) ==
LOC: NEPC 16:11 → NEDA 18:48 → N04 21:17 → NEDA 21:23
PROVIDERS: ADMIT Family Medicine; ATTEND Family Medicine